=== PATIENT | male | born 1940 | race Caucasian/White ===

== ENCOUNTER → 2018-01-17 08:54 | Outpatient (CLI) | payer MEDICARE, SELFPAY | PROVIDERS: PCP Internal Medicine; Visit Provider Internal Medicine | DX: L89.143 Pressure ulcer of left lower back, stage 3 (principal); E66.01 Morbid (severe) obesity due to excess calories; E11.65 Type 2 diabetes mellitus with hyperglycemia; Z99.3 Dependence on wheelchair | CPT/HCPCS: 99213 ==

== ENCOUNTER → 2018-01-25 08:45 | Outpatient (CLI) | payer MEDICARE, SELFPAY | PROVIDERS: PCP Internal Medicine; Visit Provider Internal Medicine | DX: L89.323 Pressure ulcer of left buttock, stage 3 (principal); E66.01 Morbid (severe) obesity due to excess calories; Z99.3 Dependence on wheelchair; E11.628 Type 2 diabetes mellitus with other skin complications | CPT/HCPCS: 99212 ==

== ENCOUNTER → 2018-01-28 08:18 | Outpatient (REF) | payer MEDICARE, SELFPAY ==
[2018-01-28 08:57] LABS: INR 2.5 (0.9-1.3); Prothrombin Time 27.1 SECONDS (10.1-12.7)
== END ==
LOC: LAB 08:18
PROVIDERS: PCP Internal Medicine; Visit Provider Internal Medicine
DX: Z92.29 Personal history of other drug therapy (principal)
CPT/HCPCS: 36415; 85610

== ENCOUNTER → 2018-01-31 08:30 | Outpatient (CLI) | payer MEDICARE, SELFPAY | PROVIDERS: PCP Internal Medicine; Visit Provider Internal Medicine | DX: L89.313 Pressure ulcer of right buttock, stage 3 (principal); L89.323 Pressure ulcer of left buttock, stage 3; E66.01 Morbid (severe) obesity due to excess calories; Z99.3 Dependence on wheelchair; E11.628 Type 2 diabetes mellitus with other skin complications | CPT/HCPCS: 99213 ==

== ENCOUNTER → 2018-02-07 13:07 | Outpatient (CLI) | payer MEDICARE, SELFPAY ==
--- NOTE | 2018-02-07 | OV.WND_ITS ---
Progress Note Details Patient Name: Yrn Roberts Patient Number: [id number] PatientPatientDate: 02/07/2018 Clinician: Ele Frazier Clinician Cosigner: Olimpia Mckeon Physician / Etcher Hand: mIer Ramos SUBJECTIVE Chief Complaint This information was obtained from the patient Pressure ulcers on buttocks. No fever or chills, did see cartiologist last week. Allergies Dilaudid (Severity: Severe, Reaction: swelling of tongue) HPI This information was obtained from the patient The following HPI elements were documented for the patient's wound: Location: buttocks Quality: wound Severity: moderate Duration: constant Timin months 02/07/18. Seen by Dr. Ramos. The patient and staff report recurrence of bleeding associated with the chronic right gluteal pressure ulcer over the past week and the patient states he's spending extended periods of time in his wheelchair in stead of in bed as recommended. He's wheelchair bound and is morbidly obese which limits his abilit offload adequately. He's also on warfarin and notes his INR was around 2.5 two weeks ago and his diabetes has be poorly controlled with blood sugars frequently over 300 in clinic. 01/31/18. Seen by Dr. Ramos. The nurse reports recurrence of the right gluteal pressure ulcer and the left gluteal pr ulcer persists. She also states there's very little barrier cream over the buttocks which has been useful in managin these very refractory ulcer to help reduce shear noting the patient's essentially wheelchair dependent and morbidl obese. He also has diabetes which has been historically poorly controlled over the past few months with blood sug regularly over 300 although its 160 today. 01/25/18. Seen by Dr. Ramos. The patient does not report significant bleeding associated with chronic left gluteal pressure ulcer since his last visit. He has a right gluteal ulcer as well which has reportedly been covered with gauz secured with tape. 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 01/17/18. Seen by Dr. Ramos. The patient does not report significant bleeding associated with chronic left gluteal pressure ulcer since his last visit as was reported at his last visit. His blood sugars are again over 300 today and h response is simply that 'they're always elevated'. He resides in assisted living due to being wheelchair bound and h morbid obesity complicates the refractory pressure ulcer considerably. 01/10/18. Seen by Dr. Ramos. The patient does not report significant bleeding associated with chronic left gluteal pressure ulcer since his last visit as was reported at his last visit. 01/03/18. Seen by Dr. Ramos. The staff report recurrence of bleeding associated with the chronic left gluteal pressu ulcer upon removal of his dressing while at his [facility]. 12/27/2017. Seen by Dr. Ramos. The staff report recurrence of significant bleeding associated with the chronic le gluteal pressure ulcer upon removal of his dressing in clinic today. Of note, patient has morbid obesity and is wheelchair bound and is also on warfarin which has complicated this ulcer considerably. 12/20/17. see addendum to progress note of this date. 12/13/[address] Ramos. The patient does not report significant bleeding associated with chronic left gluteal pressure ulcer since his last visit as was reported at his last visit. His blood sugars is again near 300 today and has chronically elevated for the past few months. He's also morbidly obese and wheelchair dependent which makes eff offloading very difficulty. 12/06/17. Seen by Dr. Ramos. The patient presents today for review of the chronic left gluteal pressure ulcer howev the staff stated there is significant bleeding upon removal of the dressing. The patient is morbidly obese and wheelchair-bound and is also on warfarin with an INR of 2.0 about 1 week ago. He reports some pain at the site a has had issues he feels with shearing of the ulcer area when moving from his wheelchair. 11/26/17. Seen by Dr. Ramos. The patient does not report bleeding associated with chronic left gluteal pressure ul since his last visit however he does report some significant pruritus in the periulcer area. He states this has cause to scratch the area which in turn leads to bleeding. Of note he is wheelchair- bound and morbidly obese which significant complicates his wound healing. 11/19/17. Seen by Dr. Ramos. The patient does not report pain or significant drainage associated with a chronic le gluteal pressure ulcers since his last visit. He also doesn't report recurrence of heavy bleeding as had occurred previously. His condition is complicated by morbid obesity and is essentially wheelchair bound and finds it very dif to offload as recommended. Also, his blood sugar is 290 today in the clinic and his A1c is 10.7 up from 8.2 in Octo last year. 11/12/17. Seen by Dr. Ramos. The patient returns to clinic reporting persistent bleeding from a recurrence of a left gluteal pressure ulcer that was recently healed. He was seen in the ER last week for this problem and his INR was He states the bleeding continues and his dressings are being changed daily. Of note, he's morbidly obese and wheelchair dependent and on warfarin due to a history of PE's. 09/17/17. Seen by Dr. Ramos. The patient does not report increased pain nor drainage associated with chronic glut pressure ulcer since his last visit. 09/10/17. Seen by Dr. Ramos. The patient does not report increased pain nor drainage associated with chronic glut pressure ulcer since his last visit. 09/02/17. Seen by Dr. Ramos. The patient does not report increased pain nor drainage associated with chronic glute pressure ulcer since his last visit. He now has an offloading pressure relief mattress and has slept on it for one nig 08/24/17. Seen by Dr. Ramos. The patient does not report increased pain nor drainage associated with chronic gl pressure ulcer since his last visit. He states he's been offloading by lying in bed over the past 3-4 days however h been on his back majority of time. 08/16/17. Seen by Dr. Ramos. The patient returns to our clinic after being seen in 2012 for chronic gluteal pressu ulcers. He is paraplegic and wheelchair bound and states that the ulcers have been an ongoing problem for years. uses a pressure relief cushion in his wheelchair but does spend a significant period of time and it throughout the d He states the ulcers are somewhat painful but does not report significant drainage or fevers. Also, the patient has diabetes and his blood sugar is 290 today. Patient is unable to reposition himself in bed and chair so a great deal of pressure in on his buttocks. About three months ago the buttocks got worse. Patient states that pain gets up to a 8-10 when repositioning. THe wound ble Went to see PCP and was referred to clinic. 12/30/12 apply ointment to buttocks and no problems. Patient sta that he is not in as much discomfort 01/20/13 States had been doing better until seeral days ago. Now has sever stage 2 areas of breakdown on inner buttocks bilaterally. Sleeps in reclincer, states has gel cushion and that he o loads but these do look like pressure areas. 01/30 Patient states the wounds are not getting any better. change dressings and says the dressings pull off more skin when she removes them. 02/13/13 Patient doesn't think the lidocaine cream helps much. They ran out and went to get a refill and were told couldn't refill until tomorrow. Patient would like a higher strength numbing cream.02/23/13 Patient states that wou improving. Continues to apply ointment about three times a day. 03/09/13 Pt states he had a CAT scan because he thinks he has a kidney stone. PT has seen Dr. Espinal. 03/30/13 Patient was admitted into the hospital for kidney stones on 03/23-03/25. Meds were all continued as normal patient was discharged. He is complaining of dizziness that just started today. Buttocks wound seems to be deteriorating. Bright red and sheered looking. 04/11/13 wound on buttocks seems to be deteriorating. Very painful for patient. States his PCP referred him to a horse trekking guide. He thinks maybe his skin problem on his arms might be the same as the problem on his buttocks. 07/10/13 Pt still c/o wound on buttocks but states decreased pain and that he has been seeing dermatology for ca states duoderm has been helpful. Past Medical History This information was obtained from the patient Patient has a medical history of: Type 2 Diabetes Mellitus Sleep Apnea Hypertension Atrial fibrillation (Has a pacemaker that was placed 15 months ago) Arthritis Spinal Stenosis, lumbar region Obesity Complaints and Symptoms This information was obtained from the patient Patient complains of: General Notes: I have reviewed and concur with the Review of Systems and Past Family Social History documents completed by the clinician, I have reviewed and concur with the Wound Assessment document completed by the clinician Cardiovascular (Central/Peripheral): Edema, Lower extremity (leg) swelling Genitourinary (): Urinary Incontinence Hematologic/Lymphatic: Bleeding Tendency Integumentary (Hair/Skin/Nails): Open Sore Musculoskeletal: Deformities (kyphosis), Assistive Devices, Backache, Muscle Weakness Prior Wound History: Drainage, Erythema, Pain Patient denies complaints or symptoms related to: Cardiovascular (Central): Chest Pain, Irregular heart beat Constitutional Symptoms (General Health): Chills, Fever Ear/Nose/Mouth/Throat: Hearing Loss / Aid Eyes: Partial/Complete Blindness Gastrointestinal (GI): Nausea / Vomiting, Stomach/abdominal pain Hematologic/Lymphatic: Bleeding / Clotting Disorders Neurological: Loss of Protective Sensation, Tremors Psychiatric: Claustrophobia, Memory Loss Respiratory: Oxygen Use, Shortness of Breath OBJECTIVE Constitutional BP elevated; Afebrile; Alert and in no distress. Frail appearing. Height/Length : 71 in (180.34 cm), Weight: 264.3 l (120.14 kgs), BMI: 36.9, Temperature: 98.7 ?F (37.06 ?C), Pulse: 62 bpm, Respiratory Rate: 18 breaths/min, Blo Pressure: 140/78 mmHg, Capillary Blood Glucose: 300 mg/dl, Pulse Oximetry: 94 %. Vital Signs Notes: Glucose per patient Respiratory: No respiratory distress. Even respirations and without use of accessory muscles.. Gastrointestinal (GI): Obese. Nondistended.. Integumentary (Hair, Skin) Mild periwound erythema without warmth; bleeding noted on the dressings. Refer to appropriate clinician wound documentation for this visit; right gluteal ulcer extend to subcut with base covered with pink granulation; no signs infection. Wound #6 Right Buttock is a chronic Stage 3 Pressure Injury Pressure Ulcer and has received a status of Not Heal Subsequent wound encounter measurements are 0.5cm length x 0.4cm width x 0.1cm depth, with an area of 0.2 s and a volume of 0.02 cubic cm. No tunneling has been noted. No sinus tract has been noted. No undermining has noted. There is a scant amount of sanguineous drainage noted which has no odor. The patient reports a wound pa level 3/10. The wound margin is irregular. Wound bed has Yes epithelialization, No eschar, No slough, Yes bright r firm granulation. The periwound skin texture is normal. The periwound skin moisture is normal. The periwound skin color is normal. temperature of the periwound skin is WNL. Periwound skin does not exhibit signs or symptoms of infection. Local P is N/A. General Notes: Scattered open areas across buttocks. Neurological: Cranial nerves grossly intact with symmetric function normal by informal observation.. ASSESSMENT Active Problems ICD-10 (Encounter Diagnosis) L89.43 - Pressure ulcer of contiguous site of back, buttock and hip, stage 3 (Encounter Diagnosis) E66.01 - Morbid (severe) obesity due to excess calories (Encounter Diagnosis) Z99.3 - Dependence on wheelchair (Encounter Diagnosis) E11.628 - Type 2 diabetes mellitus with other skin complications PLAN Wound Orders: Wound #6 Right Buttock Anesthetic Topical Xylocaine to wound bed. Cleanser Cleanse Wound: - Normal Saline. May Shower. - Please avoid getting tap water in wound Topical Treatments Barrier ointment to protect surround skin. - Barrier cream, Zinc. Butt Paste used in clinic. Please use generous am with every brief change Additional Orders: Off-Loading Wheelchair Cushion. Seat lifts or shift position in chair every 15 minutes. Turn every 2 hours. Avoid position directing pressure to Wound site. Limit side lying to 30 degree tilt. Limit HOB elevation to 30 degrees in bed. Follow-Up Appointments Return Appointment: - - In one week. Other information: If you develop fever, chills, increased pain, drainage, redness or swelling please call our office. after hours, respond to the ER. Should you experience any significant changes in your wound(s) or have any quest regarding your home care instructions please contact the wound center @ . If after hours, contact y primary care physician or go to the hospital emergency room. Scribing Attestation I attest, as the nurse, that I scribed these orders for the physician. General Notes: Please have patient spend more time in bed with every two hour turns. I've reviewed the clinician's documentation and agree with the evaluation and plan as written. Also, I've reinforced need for the patient to spend less time in his wheelchair and considerably more lying on his side in bed over the n week to better facilitate offloading of these very refractory pressure ulcers. Electronic Signature(s) Signed By: Date: Imer Ramos MD 02/08/2018 10:10:58 Imer Ramos MD 02/08/2018 10:10:58 Entered By: Imer Ramos on 02/07/2018 13:31:15
== END ==
PROVIDERS: PCP Internal Medicine; Visit Provider Internal Medicine
DX: L89.43 Pressure ulcer of contiguous site of back, buttock and hip, stage 3 (principal); E66.01 Morbid (severe) obesity due to excess calories; E11.628 Type 2 diabetes mellitus with other skin complications; Z99.3 Dependence on wheelchair
CPT/HCPCS: 99213

== ENCOUNTER → 2018-02-14 13:15 | Outpatient (CLI) | payer MEDICARE, SELFPAY ==
--- NOTE | 2018-02-14 | OV.WND_ITS ---
Progress Note Details Patient Name: Yrn Roberts Patient Number: [id number] PatientPatientDate: 02/14/2018 Clinician: Ele Frazier Physician / Medical Sales Consultant: Imer Ramos SUBJECTIVE Chief Complaint This information was obtained from the patient Pressure ulcers on buttocks. Allergies Dilaudid (Severity: Severe, Reaction: swelling of tongue) HPI This information was obtained from the patient The following HPI elements were documented for the patient's wound: Location: buttocks Quality: wound Severity: moderate Duration: constant Timin months 02/14/18. Seen by Dr. Ramos. The patient does not report significant bleeding associated with chronic left and right gluteal pressure ulcers since his last visit however there appears to be a new satellite ulcer over the right buttock. admits it's difficulty to adequately offload due to being wheelchair bound and with limited assistance at his care fa He's also morbidly obese and quite weak in general which complicates the ulcers considerably. 02/07/18. Seen by Dr. Rmaos. The patient and staff report recurrence of bleeding associated with the chronic right gluteal pressure ulcer over the past week and the patient states he's spending extended periods of time in his wheelchair in stead of in bed as recommended. He's wheelchair bound and is morbidly obese which limits his abilit offload adequately. He's also on warfarin and notes his INR was around 2.5 two weeks ago and his diabetes has be poorly controlled with blood sugars frequently over 300 in clinic. 01/31/18. Seen by Dr. Ramos. The nurse reports recurrence of the right gluteal pressure ulcer and the left gluteal pr ulcer persists. She also states there's very little barrier cream over the buttocks which has been useful in managin these very refractory ulcer to help reduce shear noting the patient's essentially wheelchair dependent and morbidl obese. He also has diabetes which has been historically poorly controlled over the past few months with blood sug regularly over 300 although its 160 today. 01/25/18. Seen by Dr. Ramos. The patient does not report significant bleeding associated with chronic left gluteal pressure ulcer since his last visit. He has a right gluteal ulcer as well which has reportedly been covered with gauz secured with tape. 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 01/17/18. Seen by Dr. Ramos. The patient does not report significant bleeding associated with chronic left gluteal pressure ulcer since his last visit as was reported at his last visit. His blood sugars are again over 300 today and h response is simply that 'they're always elevated'. He resides in assisted living due to being wheelchair bound and h morbid obesity complicates the refractory pressure ulcer considerably. 01/10/18. Seen by Dr. Ramos. The patient does not report significant bleeding associated with chronic left gluteal pressure ulcer since his last visit as was reported at his last visit. 01/03/18. Seen by Dr. Ramos. The staff report recurrence of bleeding associated with the chronic left gluteal pressu ulcer upon removal of his dressing while at his [facility]. 12/27/2017. Seen by Dr. Ramos. The staff report recurrence of significant bleeding associated with the chronic le gluteal pressure ulcer upon removal of his dressing in clinic today. Of note, patient has morbid obesity and is wheelchair bound and is also on warfarin which has complicated this ulcer considerably. 12/20/17. see addendum to progress note of this date. 12/13/[address] Ramos. The patient does not report significant bleeding associated with chronic left gluteal pressure ulcer since his last visit as was reported at his last visit. His blood sugars is again near 300 today and has chronically elevated for the past few months. He's also morbidly obese and wheelchair dependent which makes eff offloading very difficulty. 12/06/17. Seen by Dr. Ramos. The patient presents today for review of the chronic left gluteal pressure ulcer howev the staff stated there is significant bleeding upon removal of the dressing. The patient is morbidly obese and wheelchair-bound and is also on warfarin with an INR of 2.0 about 1 week ago. He reports some pain at the site a has had issues he feels with shearing of the ulcer area when moving from his wheelchair. 11/26/17. Seen by Dr. Ramos. The patient does not report bleeding associated with chronic left gluteal pressure ul since his last visit however he does report some significant pruritus in the periulcer area. He states this has cause to scratch the area which in turn leads to bleeding. Of note he is wheelchair- bound and morbidly obese which significant complicates his wound healing. 11/19/17. Seen by Dr. Ramos. The patient does not report pain or significant drainage associated with a chronic le gluteal pressure ulcers since his last visit. He also doesn't report recurrence of heavy bleeding as had occurred previously. His condition is complicated by morbid obesity and is essentially wheelchair bound and finds it very dif to offload as recommended. Also, his blood sugar is 290 today in the clinic and his A1c is 10.7 up from 8.2 in last year. 11/12/17. Seen by Dr. Ramos. The patient returns to clinic reporting persistent bleeding from a recurrence of a left gluteal pressure ulcer that was recently healed. He was seen in the ER last week for this problem and his INR was He states the bleeding continues and his dressings are being changed daily. Of note, he's morbidly obese and wheelchair dependent and on warfarin due to a history of PE's. 09/17/17. Seen by Dr. Ramos. The patient does not report increased pain nor drainage associated with chronic glut pressure ulcer since his last visit. 09/10/17. Seen by Dr. Ramos. The patient does not report increased pain nor drainage associated with chronic glut pressure ulcer since his last visit. 09/02/17. Seen by Dr. Ramos. The patient does not report increased pain nor drainage associated with chronic glute pressure ulcer since his last visit. He now has an offloading pressure relief mattress and has slept on it for one nig 08/24/17. Seen by Dr. Ramos. The patient does not report increased pain nor drainage associated with chronic gl pressure ulcer since his last visit. He states he's been offloading by lying in bed over the past 3-4 days however h been on his back majority of time. 08/16/17. Seen by Dr. Ramos. The patient returns to our clinic after being seen in 2012 for chronic gluteal pressu ulcers. He is paraplegic and wheelchair bound and states that the ulcers have been an ongoing problem for years. uses a pressure relief cushion in his wheelchair but does spend a significant period of time and it throughout the d He states the ulcers are somewhat painful but does not report significant drainage or fevers. Also, the patient has diabetes and his blood sugar is 290 today. Patient is unable to reposition himself in bed and chair so a great deal of pressure in on his buttocks. About three months ago the buttocks got worse. Patient states that pain gets up to a 8-10 when repositioning. THe wound ble Went to see PCP and was referred to clinic. 12/30/12 apply ointment to buttocks and no problems. Patient sta that he is not in as much discomfort 01/20/13 States had been doing better until seeral days ago. Now has sever stage 2 areas of breakdown on inner buttocks bilaterally. Sleeps in reclincer, states has gel cushion and that he o loads but these do look like pressure areas. 01/30 Patient states the wounds are not getting any better. change dressings and says the dressings pull off more skin when she removes them. 02/13/13 Patient doesn't think the lidocaine cream helps much. They ran out and went to get a refill and were told couldn't refill until tomorrow. Patient would like a higher strength numbing cream.02/23/13 Patient states that wou improving. Continues to apply ointment about three times a day. 03/09/13 Pt states he had a CAT scan because he thinks he has a kidney stone. PT has seen Dr. Espinal. 03/30/13 Patient was admitted into the hospital for kidney stones on 03/23-03/25. Meds were all continued as normal patient was discharged. He is complaining of dizziness that just started today. Buttocks wound seems to be deteriorating. Bright red and sheered looking. 04/11/13 wound on buttocks seems to be deteriorating. Very painful for patient. States his PCP referred him to a terrazzo helper. He thinks maybe his skin problem on his arms might be the same as the problem on his buttocks. 07/10/13 Pt still c/o wound on buttocks but states decreased pain and that he has been seeing dermatology for ca states duoderm has been helpful. Past Medical History This information was obtained from the patient Patient has a medical history of: Type 2 Diabetes Mellitus Sleep Apnea Hypertension Atrial fibrillation (Has a pacemaker that was placed 15 months ago) Arthritis Spinal Stenosis, lumbar region Obesity Complaints and Symptoms This information was obtained from the patient Patient complains of: General Notes: I have reviewed and concur with the Review of Systems and Past Family Social History documents completed by the clinician, I have reviewed and concur with the Wound Assessment document completed by the clinician Cardiovascular (Central/Peripheral): Edema, Lower extremity (leg) swelling Genitourinary (): Urinary Incontinence Hematologic/Lymphatic: Bleeding Tendency Integumentary (Hair/Skin/Nails): Open Sore Musculoskeletal: Deformities (kyphosis), Assistive Devices, Backache, Muscle Weakness Prior Wound History: Drainage, Erythema, Pain Patient denies complaints or symptoms related to: Cardiovascular (Central): Chest Pain, Irregular heart beat Constitutional Symptoms (General Health): Chills, Fever Ear/Nose/Mouth/Throat: Hearing Loss / Aid Eyes: Partial/Complete Blindness Gastrointestinal (GI): Nausea / Vomiting, Stomach/abdominal pain Hematologic/Lymphatic: Bleeding / Clotting Disorders Neurological: Loss of Protective Sensation, Tremors Psychiatric: Claustrophobia, Memory Loss Respiratory: Oxygen Use, Shortness of Breath OBJECTIVE Constitutional BP normal; Low grade fever; Alert and in no distress. Frail appearing. Height/ Length: 71 in (180.34 cm), Weight: lbs (120.14 kgs), BMI: 36.9, Temperature: 99.2 ?F (37.33 ?C), Pulse: 78 bpm, Respiratory Rate: 18 breaths/min, Pressure: 112/71 mmHg, Pulse Oximetry: 92 %. Vital Signs Notes: Patient reports CBG under 150 this am. Ears, Nose, Mouth, and Throat: Mild hearing deficit. Respiratory: No respiratory distress. Even respirations and without use of accessory muscles.. Gastrointestinal (GI): Obese. Nondistended.. Integumentary (Hair, Skin) No periwound erythema, warmth, or significant drainage. No periwound rashes appreciated or noted otherwise.. R appropriate clinician wound documentation for this visit; bilateral gluteal ulcers extend to subcut with bases covere with red friable granulation. Wound #6 Right Buttock is a chronic Stage 3 Pressure Injury Pressure Ulcer and has received a status of Not Heal Subsequent wound encounter measurements are 4cm length x 3cm width x 0.2cm depth , with an area of 12 sq cm a volume of 2.4 cubic cm. No tunneling has been noted. No sinus tract has been noted. No undermining has been There is a scant amount of sanguineous drainage noted which has no odor. The patient reports a wound pain of le 3/10. The wound margin is irregular. Wound bed has Yes epithelialization, No eschar, No slough, Yes bright red, fir granulation. The periwound skin texture is normal. The periwound skin moisture is normal. The periwound skin color is normal. temperature of the periwound skin is WNL. Periwound skin does not exhibit signs or symptoms of infection. Local P is N/A. Wound #7 Left Buttock is a chronic Stage 2 Pressure Injury Pressure Ulcer and has received a status of Not Healed Initial wound encounter measurements are 1.5cm length x 0.3cm width x 0.2cm depth, with an area of 0.45 sq cm a volume of 0.09 cubic cm. No tunneling has been noted. No sinus tract has been noted. No undermining has been noted. There is a moderate amount of sanguineous drainage noted which has no odor. The patient reports a woun of level 3/10. The wound margin is attached. Wound bed has No epithelialization , No eschar, No slough, Yes bright firm granulation. The periwound skin texture is normal. The periwound skin moisture is normal. The periwound skin color is normal. temperature of the periwound skin is WNL. Periwound skin does not exhibit signs or symptoms of infection. Local P is N/A. Neurological: Cranial nerves grossly intact with symmetric function normal by informal observation.. ASSESSMENT Active Problems ICD-10 (Encounter Diagnosis) L89.43 - Pressure ulcer of contiguous site of back, buttock and hip, stage 3 (Encounter Diagnosis) E66.01 - Morbid (severe) obesity due to excess calories (Encounter Diagnosis) Z99.3 - Dependence on wheelchair PLAN Wound Orders: Wound #6 Right Buttock Anesthetic Topical Xylocaine to wound bed. Cleanser Cleanse Wound: - Normal Saline. May Shower. - Please avoid getting tap water in wound Topical Treatments Barrier ointment to protect surround skin. - Barrier cream, Zinc. Butt Paste used in clinic. Please use generous am with every brief change Wound #7 Left Buttock Anesthetic Topical Xylocaine to wound bed. Cleanser Cleanse Wound: - Normal Saline. May Shower. - Please avoid getting tap water in wound Topical Treatments Barrier ointment to protect surround skin. - Barrier cream, Zinc. Butt Paste used in clinic. Please use generous am with every brief change Additional Orders: Off-Loading Wheelchair Cushion. Seat lifts or shift position in chair every 15 minutes. Turn every 2 hours. Avoid position directing pressure to Wound site. Limit side lying to 30 degree tilt. Limit HOB elevation to 30 degrees in bed. Follow-Up Appointments Return Appointment: - - In one week. Other information: If you develop fever, chills, increased pain, drainage, redness or swelling please call our office. after hours, respond to the ER. Should you experience any significant changes in your wound(s) or have any quest regarding your home care instructions please contact the wound center @ . If after hours, contact y primary care physician or go to the hospital emergency room. Scribing Attestation I attest, as the nurse, that I scribed these orders for the physician. General Notes: Please have patient spend more time in bed with every two hour turns No adhesive dressings to buttocks. I've reviewed the clinician's documentation and agree with the evaluation and plan as written. Also, I've advised th patient to use a rolled towel or head pillow under the hips, rotating every hour while in his wheelchair, to help faci optimal offloading of the gluteal pressure ulcers. Electronic Signature(s) Signed By: Date: Imer Ramos MD 02/14/2018 14:41:04 Entered By: Imer Ramos on 02/14/2018 12:01:47
== END ==
PROVIDERS: PCP Internal Medicine; Visit Provider Internal Medicine
DX: E66.01 Morbid (severe) obesity due to excess calories (principal); Z99.3 Dependence on wheelchair; L89.322 Pressure ulcer of left buttock, stage 2; L89.313 Pressure ulcer of right buttock, stage 3
CPT/HCPCS: 99213

== ENCOUNTER → 2018-02-21 09:38 | Outpatient (CLI) | payer MEDICARE, SELFPAY ==
[2018-02-21 15:48] LABS: Prealbumin 15.9 mg/dL (17.6-36.0)
[2018-02-23 12:56] LABS: BUN Creatinine Ratio 18.9 (6-22); Blood Urea Nitrogen 17 mg/dL (9-20); Calcium 9.3 mg/dL (8.4-10.2); Carbon Dioxide 26 mmol/L (22-32); Chloride 101 mmol/L (98-107); Estimated Glomerular Filt Rate > 60.0 mL/min (>60); Glucose 194 mg/dL (80-110); HEMOLYSIS < 15 (0-50); Potassium 4.6 mmol/L (3.4-5.1); Sodium 138 mmol/L (137-145)
== END ==
PROVIDERS: Student in an Organized Health Care Education/Training Program; PCP Internal Medicine; Visit Provider Physician Assistant
DX: R19.7 Diarrhea, unspecified (principal); E63.9 Nutritional deficiency, unspecified
CPT/HCPCS: 36415; 80048; 84134

== ENCOUNTER → 2018-02-21 09:58 | Outpatient (CLI) | payer MEDICARE, SELFPAY ==
--- NOTE | 2018-02-21 | OV.WND_ITS ---
Progress Note Details Patient Name: Yrn Roberts Patient Number: [id number] PatientPatientDate: 02/21/2018 Clinician: Ele Frazier Clinician Cosigner: Giselle Chavez Physician / Belt Loop Maker: Alexander Michel SUBJECTIVE Chief Complaint This information was obtained from the patient Pressure ulcers on buttocks. Allergies Dilaudid (Severity: Severe, Reaction: swelling of tongue) HPI This information was obtained from the patient The following HPI elements were documented for the patient's wound: Location: buttocks Quality: wound Severity: moderate Duration: constant Timin months 02/21/18. Seen by Ruben Michel PA-C. The patient reports that he feels his pressure ulcers are not improving, and he it is largely due to his assisted living facility not complying with our orders. 02/14/18. Seen by Dr. Ramos. The patient does not report significant bleeding associated with chronic left and right gluteal pressure ulcers since his last visit however there appears to be a new satellite ulcer over the right buttock. admits it's difficulty to adequately offload due to being wheelchair bound and with limited assistance at his care fa He's also morbidly obese and quite weak in general which complicates the ulcers considerably. 02/07/18. Seen by Dr. Ramos. The patient and staff report recurrence of bleeding associated with the chronic right gluteal pressure ulcer over the past week and the patient states he's spending extended periods of time in his wheelchair in stead of in bed as recommended. He's wheelchair bound and is morbidly obese which limits his abilit offload adequately. He's also on warfarin and notes his INR was around 2.5 two weeks ago and his diabetes has be poorly controlled with blood sugars frequently over 300 in clinic. 01/31/18. Seen by Dr. Ramos. The nurse reports recurrence of the right gluteal pressure ulcer and the left gluteal pr ulcer persists. She also states there's very little barrier cream over the buttocks which has been useful in managin these very refractory ulcer to help reduce shear noting the patient's essentially wheelchair dependent and morbidl obese. He also has diabetes which has been historically poorly controlled over the past few months with blood sug regularly over 300 although its 160 today. 01/25/18. Seen by Dr. Ramos. The patient does not report significant bleeding associated with chronic left gluteal pressure ulcer since his last visit. He has a right gluteal ulcer as well which has reportedly been covered with gauz secured with tape. 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 01/17/18. Seen by Dr. Raoms. The patient does not report significant bleeding associated with chronic left gluteal pressure ulcer since his last visit as was reported at his last visit. His blood sugars are again over 300 today and h response is simply that 'they're always elevated'. He resides in assisted living due to being wheelchair bound and h morbid obesity complicates the refractory pressure ulcer considerably. 01/10/18. Seen by Dr. Ramos. The patient does not report significant bleeding associated with chronic left gluteal pressure ulcer since his last visit as was reported at his last visit. 01/03/18. Seen by Dr. Ramos. The staff report recurrence of bleeding associated with the chronic left gluteal pressu ulcer upon removal of his dressing while at his [facility]. 12/27/2017. Seen by Dr. Ramos. The staff report recurrence of significant bleeding associated with the chronic le gluteal pressure ulcer upon removal of his dressing in clinic today. Of note, patient has morbid obesity and is wheelchair bound and is also on warfarin which has complicated this ulcer considerably. 12/20/17. see addendum to progress note of this date. 12/13/[address] Ramos. The patient does not report significant bleeding associated with chronic left gluteal pressure ulcer since his last visit as was reported at his last visit. His blood sugars is again near 300 today and has chronically elevated for the past few months. He's also morbidly obese and wheelchair dependent which makes eff offloading very difficulty. 12/06/17. Seen by Dr. Ramos. The patient presents today for review of the chronic left gluteal pressure ulcer howev the staff stated there is significant bleeding upon removal of the dressing. The patient is morbidly obese and wheelchair-bound and is also on warfarin with an INR of 2.0 about 1 week ago. He reports some pain at the site a has had issues he feels with shearing of the ulcer area when moving from his wheelchair. 11/26/17. Seen by Dr. Ramos. The patient does not report bleeding associated with chronic left gluteal pressure ul since his last visit however he does report some significant pruritus in the periulcer area. He states this has cause to scratch the area which in turn leads to bleeding. Of note he is wheelchair- bound and morbidly obese which significant complicates his wound healing. 11/19/17. Seen by Dr. Ramos. The patient does not report pain or significant drainage associated with a chronic le gluteal pressure ulcers since his last visit. He also doesn't report recurrence of heavy bleeding as had occurred previously. His condition is complicated by morbid obesity and is essentially wheelchair bound and finds it very dif to offload as recommended. Also, his blood sugar is 290 today in the clinic and his A1c is 10.7 up from 8.2 in [facility] last year. 11/12/17. Seen by Dr. Ramos. The patient returns to clinic reporting persistent bleeding from a recurrence of a left gluteal pressure ulcer that was recently healed. He was seen in the ER last week for this problem and his INR was He states the bleeding continues and his dressings are being changed daily. Of note, he's morbidly obese and wheelchair dependent and on warfarin due to a history of PE's. 09/17/17. Seen by Dr. Ramos. The patient does not report increased pain nor drainage associated with chronic glut pressure ulcer since his last visit. 09/10/17. Seen by Dr. Ramos. The patient does not report increased pain nor drainage associated with chronic glut pressure ulcer since his last visit. 09/02/17. Seen by Dr. Ramos. The patient does not report increased pain nor drainage associated with chronic glute pressure ulcer since his last visit. He now has an offloading pressure relief mattress and has slept on it for one nig 08/24/17. Seen by Dr. Ramos. The patient does not report increased pain nor drainage associated with chronic gl pressure ulcer since his last visit. He states he's been offloading by lying in bed over the past 3-4 days however h been on his back majority of time. 08/16/17. Seen by Dr. Ramos. The patient returns to our clinic after being seen in 2012 for chronic gluteal pressu ulcers. He is paraplegic and wheelchair bound and states that the ulcers have been an ongoing problem for years. uses a pressure relief cushion in his wheelchair but does spend a significant period of time and it throughout the d He states the ulcers are somewhat painful but does not report significant drainage or fevers. Also, the patient has diabetes and his blood sugar is 290 today. Patient is unable to reposition himself in bed and chair so a great deal of pressure in on his buttocks. About three months ago the buttocks got worse. Patient states that pain gets up to a 8-10 when repositioning. THe wound ble Went to see PCP and was referred to clinic. 12/30/12 apply ointment to buttocks and no problems. Patient sta that he is not in as much discomfort 01/20/13 States had been doing better until seeral days ago. Now has sever stage 2 areas of breakdown on inner buttocks bilaterally. Sleeps in reclincer, states has gel cushion and that he o loads but these do look like pressure areas. 01/30 Patient states the wounds are not getting any better. change dressings and says the dressings pull off more skin when she removes them. 02/13/13 Patient doesn't think the lidocaine cream helps much. They ran out and went to get a refill and were told couldn't refill until tomorrow. Patient would like a higher strength numbing cream.02/23/13 Patient states that wou improving. Continues to apply ointment about three times a day. 03/09/13 Pt states he had a CAT scan because he thinks he has a kidney stone. PT has seen Dr. Espinal. 03/30/13 Patient was admitted into the hospital for kidney stones on 03/23-03/25. Meds were all continued as normal patient was discharged. He is complaining of dizziness that just started today. Buttocks wound seems to be deteriorating. Bright red and sheered looking. 04/11/13 wound on buttocks seems to be deteriorating. Very painful for patient. States his PCP referred him to a optical laboratory manager. He thinks maybe his skin problem on his arms might be the same as the problem on his buttocks. 07/10/13 Pt still c/o wound on buttocks but states decreased pain and that he has been seeing dermatology for ca states duoderm has been helpful. 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 Past Medical History This information was obtained from the patient Patient has a medical history of: Type 2 Diabetes Mellitus Sleep Apnea Hypertension Atrial fibrillation (Has a pacemaker that was placed 15 months ago) Arthritis Spinal Stenosis, lumbar region Obesity Complaints and Symptoms This information was obtained from the patient Patient complains of: General Notes: I have reviewed and concur with the Review of Systems and Past Family Social History documents completed by the clinician, I have reviewed and concur with the Wound Assessment document completed by the clinician Cardiovascular (Central/Peripheral): Edema, Lower extremity (leg) swelling Genitourinary (): Urinary Incontinence Hematologic/Lymphatic: Bleeding Tendency Integumentary (Hair/Skin/Nails): Open Sore Musculoskeletal: Deformities (kyphosis), Assistive Devices, Backache, Muscle Weakness Prior Wound History: Drainage, Erythema, Pain Patient denies complaints or symptoms related to: Cardiovascular (Central): Chest Pain, Irregular heart beat Constitutional Symptoms (General Health): Chills, Fever Ear/Nose/Mouth/Throat: Hearing Loss / Aid Eyes: Partial/Complete Blindness Gastrointestinal (GI): Nausea / Vomiting, Stomach/abdominal pain Hematologic/Lymphatic: Bleeding / Clotting Disorders Neurological: Loss of Protective Sensation, Tremors Psychiatric: Claustrophobia, Memory Loss Respiratory: Oxygen Use, Shortness of Breath OBJECTIVE Constitutional Vital signs reviewed and noted. Well developed, lucid, and in no acute distress. . Height/Length: 71 in (180.34 cm Weight: 264.3 lbs (120.14 kgs), BMI: 36.9, Temperature: 98.9 ?F (37.17 ?C), Pulse: 64 bpm, Respiratory Rate: 1 breaths/min, Blood Pressure: 120/69 mmHg, Pulse Oximetry: 94 %. Ears, Nose, Mouth, and Throat: Grossly intact. Respiratory: No respiratory distress. Even respirations and without use of accessory muscles.. Gastrointestinal (GI): Obese. Nondistended.. Musculoskeletal: Uses wheelchair . Integumentary (Hair, Skin) Refer to appropriate clinician wound documentation for this visit; ulcer extends to subcutaneous fat layer. . Wound #6 Right Buttock is a chronic Stage 3 Pressure Injury Pressure Ulcer and has received a status of Not Heal Subsequent wound encounter measurements are 1cm length x 1.8cm width x 0.2cm depth, with an area of 1.8 sq and a volume of 0.36 cubic cm. No tunneling has been noted. No sinus tract has been noted. No undermining has noted. There is a moderate amount of sanguineous drainage noted which has no odor. The patient reports a woun of level 3/10. The wound margin is irregular. Wound bed has Yes epithelialization, No eschar, No slough, Yes brigh firm granulation. The periwound skin texture is normal. The periwound skin moisture is normal. The periwound skin color is normal. temperature of the periwound skin is WNL. Periwound skin does not exhibit signs or symptoms of infection. Local P is N/A. Wound #7 Left Buttock is a chronic Stage 2 Pressure Injury Pressure Ulcer and has received a status of Not Healed Subsequent wound encounter measurements are 2.5cm length x 1.3cm width x 0.2cm depth, with an area of 3.25 cm and a volume of 0.65 cubic cm. No tunneling has been noted. No sinus tract has been noted. No undermining h been noted. There is a large amount of sanguineous drainage noted which has no odor. The patient reports a woun pain of level 3/10. The wound margin is attached. Wound bed has No epithelialization, No eschar, No slough, Yes b red, firm granulation. The periwound skin texture is normal. The periwound skin moisture is normal. The periwound skin color is normal. temperature of the periwound skin is WNL. Periwound skin does not exhibit signs or symptoms of infection. Local P is N/A. Psychiatric: Judgement and insight: Normal affect with normal thought pattern. Alert and oriented 3/3. Memory grossly intact. Normal affect. Mood appropriate.. ASSESSMENT Active Problems ICD-10 (Encounter Diagnosis) L89.43 - Pressure ulcer of contiguous site of back, buttock and hip, stage 3 (Encounter Diagnosis) E66.01 - Morbid (severe) obesity due to excess calories (Encounter Diagnosis) Z99.3 - Dependence on wheelchair PLAN Wound Orders: Wound #6 Right Buttock Anesthetic Topical Xylocaine to wound bed. Cleanser Cleanse Wound: - Normal Saline. May Shower. - Please avoid getting tap water in wound Topical Treatments Barrier ointment to protect surround skin. - Barrier cream, Zinc. Butt Paste used in clinic. Please use generous am with every brief change Wound #7 Left Buttock Anesthetic Topical Xylocaine to wound bed. Cleanser Cleanse Wound: - Normal Saline. May Shower. - Please avoid getting tap water in wound Topical Treatments Barrier ointment to protect surround skin. - Barrier cream, Zinc. Butt Paste used in clinic. Please use generous am with every brief change Additional Orders: Off-Loading Wheelchair Cushion. Seat lifts or shift position in chair every 15 minutes. Turn every 2 hours. Avoid position directing pressure to Wound site. Limit side lying to 30 degree tilt. Limit HOB elevation to 30 degrees in bed. Follow-Up Appointments Return Appointment: - - In one week. Other information: If you develop fever, chills, increased pain, drainage, redness or swelling please call our office. after hours, respond to the ER. Should you experience any significant changes in your wound(s) or have any quest regarding your home care instructions please contact the wound center @ . If after hours, contact y primary care physician or go to the hospital emergency room. Scribing Attestation I attest, as the nurse, that I scribed these orders for the physician. Laboratory: Prealbumin [Mass/volume] in Serum or Plasma General Notes: Please have pre-albumin drawn I've reviewed the clinician's documentation and agree with the evaluation and plan as written. Greater than 25 minutes were spent [id number] with the patient during this encounter and over 50% of that time spent on education, counseling and coordination of care. We discussed offloading strategies, which he feels will no implemented by his assisted facility. I have ordered a prealbumin level as this may be a correctable deficit that could be contributing to his non-healing status. Electronic Signature(s) Signed By: Date: Ruben Michel 02/21/2018 22:45:03 Entered By: Ruben Michel on 02/21/2018 22:17:22
== END ==
PROVIDERS: PCP Internal Medicine; Visit Provider Physician Assistant
DX: L89.313 Pressure ulcer of right buttock, stage 3 (principal); L89.322 Pressure ulcer of left buttock, stage 2; E66.01 Morbid (severe) obesity due to excess calories; Z99.3 Dependence on wheelchair
CPT/HCPCS: 99213

== ENCOUNTER → 2018-02-25 11:48 | Outpatient (REF) | payer MEDICARE, SELFPAY ==
[2018-02-25 14:18] LABS: Adenovirus F 40/41 Not Detected (Not Detect); Astrovirus Not Detected (Not Detect); Campylobacter Not Detected (Not Detect); Clostridium difficile toxin AB Not Detected (Not Detect); Cryptosporidium Not Detected (Not Detect); Cyclospora cayetanensis Not Detected (Not Detect); Entamoeba histolytica Not Detected (Not Detect); Enteroaggregative E.coli Not Detected (Not Detect); Enteropathogenic E.coli Not Detected (Not Detect); Enterotoxigenic E.coli It/st Not Detected (Not Detect); Giardia lamblia Not Detected (Not Detect); Norovirus GI/GII Not Detected (Not Detect); Plesiomonsa shigelloides Not Detected (Not Detect); Rotavirus A Not Detected (Not Detect); Salmonella Not Detected (Not Detect); Shiga-like toxin-prod E.coli Not Detected (Not Detect); Shigella/Enteroinvasive E.coli Not Detected (Not Detect); Vibrio Not Detected (Not Detect); Vibrio cholerae Not Detected (Not Detect); Yersinia enterocolitica Not Detected (Not Detect)
[2018-02-27 12:30] LABS: Sapovirus Not Detected
== END ==
LOC: LAB 11:48
PROVIDERS: PCP Internal Medicine; Visit Provider Student in an Organized Health Care Education/Training Program
DX: R19.7 Diarrhea, unspecified (principal)
CPT/HCPCS: 87507

== ENCOUNTER 2018-02-26 17:20 | Inpatient (IN) | payer MEDICARE, SELFPAY ==
[2018-02-26] VITALS (28 sets, daily range): BP systolic 90–220; BP diastolic 52–193; PULSE 106–164; RESP 22–32; TEMP 37.7–38.8; O2SAT 89–98; BMI 38.0
--- NOTE | 2018-02-26 17:21 | DI.CT.S_ITS ---
PROCEDURE: CT HEAD/BRAIN WO CON INDICATIONS: DECREASED LOC TECHNIQUE: Noncontrast 4.5 mm thick angled axial sections acquired from the foramen magnum to the vertex, with coronal and sagittal reformats. For radiation dose reduction, the following was used: automated exposure control, adjustment of mA and/or kV according to patient size. COMPARISON: [facility], CT, HEAD WITHOUT CONTRAST, 09/14/2016, 13:50. FINDINGS: Image quality: Excellent. CSF spaces: Basal cisterns are patent. No extra-axial fluid collections. The ventricles are symmetric in size and shape. Brain: No intracranial bleeds or masses. There is moderate cerebral volume loss for age, with resultant ventricular and sulcal prominence. There are moderate periventricular and deep white matter chronic small vessel ischemic changes. There is intracranial internal carotid artery atherosclerosis. Skull and face: Calvarium and visualized facial bones appear intact, without suspicious lesions. Sinuses: Visualized sinuses and mastoids are clear. IMPRESSION: 1. No acute intracranial abnormalities. 2. Cerebral volume loss and chronic microvascular ischemic changes. Dictated by: Yany Juarez M.D. on 02/26/2018 at 18:32 Approved by: Yany Juarez M.D. on 02/26/2018 at 18:34
--- NOTE | 2018-02-26 17:22 | DI.RAD.S_ITS ---
PROCEDURE: XR CHEST 1V INDICATIONS: FEVER CHANGE IN LOC TECHNIQUE: One view of the chest was acquired. COMPARISON: [facility], , ABDOMEN 2 VIEW, 08/13/2017, 12:11. [facility], , CHEST 1 VIEW, 02/19/2017, 19:12. FINDINGS: Surgical changes and devices: None. Lungs and pleura: Lung volumes are small consistent with poor inspiration. There is retrocardiac opacity suspicious for pneumonia. No large pleural effusions or pneumothorax. Mediastinum: Mediastinal contours appear normal. Heart size is normal. Bones and chest wall: No suspicious bony lesions. Overlying soft tissues appear unremarkable. Possible free air under the right hemidiaphragm. IMPRESSION: 1. Suspect retrocardiac pneumonia. 2. ? Free peritoneal air under the right hemidiaphragm. Dictated by: Yany Juarez M.D. on 02/26/2018 at 18:30 Approved by: Yany Juarez M.D. on 02/26/2018 at 18:32
[2018-02-26] MEDS: SODIUM CHLORIDE 0.9% 500 ML 1000 ML IV ×2 (17:38→18:50)
[2018-02-26] MEDS: ACETAMINOPHEN 650 MG SUPP PR (17:38)
--- NOTE | 2018-02-26 17:45 | ED.FEVER ---
HPI - Fever <ALY Tyson - Last Filed: 02/26/18 22:02> General Chief Complaint: Fever Stated Complaint: Fever,Change in loc Time Seen by Provider: 02/26/18 17:30 Source: EMS and old records reviewed Mode of arrival: EMS History of Present Illness HPI Narrative: 77 YEAR old male with history of type 1 diabetes and atrial fibrillation brought in by EMS due to decreased level of consciousness over the past few hours. Patient has also had a fever and has had complaint of not feeling well over the past day or 2. Blood sugar was at 224 EN route by EMS. IV was obtained. Patient is responding to pain not to verbal stimuli. No known falls. No known trauma. Positive p.o. intake as of earlier today. MD complaint: fever Related Data Home Medications Medication Instructions Recorded Confirmed dofetilide [Tikosyn] 0.5 mg PO BID #0 06/17/11 02/26/18 lisinopril [Zestril] 20 mg PO Q DAY #0 06/17/11 02/26/18 polyethylene glycol 3350 [Miralax] 17 gm PO QDAYP PRN #0 09/14/16 02/26/18 acetaminophen 650 mg PO Q6HP PRN #0 02/19/17 02/26/18 warfarin [Coumadin] 1 mg PO SEE INSTRUCTIONS #0 02/19/17 02/26/18 cyclobenzaprine 10 mg PO BIDP PRN #0 11/05/17 02/26/18 insulin lispro [Humalog KwikPen 12 unit SQ AC #0 11/05/17 02/26/18 Insulin] insulin lispro [Humalog KwikPen See Label Instructions .ROUTE 11/05/17 02/26/18 Insulin] .COMPLEX #0 lidocaine-prilocaine 1 tello TOPICAL PRN PRN #0 11/05/17 02/26/18 morphine 15 - 30 mg PO Q6HP PRN #0 11/05/17 02/26/18 morphine 30 mg PO BID #0 11/05/17 02/26/18 sodium phosphates [Fleet Enema] 1 ea MI DAILY PRN #0 11/05/17 02/26/18 clotrimazole-betamethasone 1 applic TOPICAL BID 02/26/18 02/26/18 docusate sodium 250 mg PO DAILY PRN 02/26/18 02/26/18 insulin detemir U-100 [Levemir 45 unit SUB-Q BID 02/26/18 02/26/18 FlexTouch U-100 Insuln] lidocaine HCl 1 applic TOPICAL QD-BID PRN 02/26/18 02/26/18 Allergies Allergy/AdvReac Type Severity Reaction Status Date / Time hydromorphone [HYDROMORPHONE] Allergy Severe TOUNGE Verified 02/26/18 18:24 SWELLING cefotetan [CEFOTETAN] Allergy Unknown Verified 02/26/18 18:24 Review of Systems <ALY Tyson - Last Filed: 02/26/18 22:02> Constitutional Denies fatigue and Reports fever(s) Eyes Denies change in vision, Denies eye discharge and Denies irritation ENT Ears, Nose, Mouth, and Throat: Denies change in voice, Denies neck pain and Denies sore throat Cardiovascular Denies dyspnea and Denies dyspnea on exertion Respiratory Denies cough, Denies dyspnea, Denies dyspnea on exertion and Denies wheezing Gastrointestinal Gastrointestinal: Denies abdominal pain, Denies change in bowel habits, Denies diarrhea, Denies nausea and Denies vomiting Musculoskeletal Denies neck pain Neurologic Reports as per HPI and Denies confusion Comments: change in loc Psychiatric Denies anxiety, Denies confusion, Denies depression, Denies homicidal ideation and Denies suicidal ideation Endocrine Denies fatigue and Denies flushing Allergic/Immunologic Denies wheezing Exam <ALY Tyson - Last Filed: 02/26/18 22:02> Initial Vital Signs Initial Vital Signs: Vital Signs Temperature 101.9 F H 02/26/18 17:30 Pulse Rate 114 H 02/26/18 17:30 Respiratory Rate 29 H 02/26/18 17:30 Blood Pressure 139/82 H 02/26/18 17:30 Pulse Oximetry 89 L 02/26/18 17:30 Const General: frail appearing and ill appearing Nutritional Appearance: obese Orientation: not alert, not awake, not oriented x3 and other (Responds to painful stimulation) Limitations: altered mental status [facility] [place] Head: normal to inspection, normocephalic and atraumatic Nose: external nose normal Mouth: oral mucosae normal and moist mucous membranes Eyes Conjunctivae: conjunctivae normal Sclera: sclerae normal Pupils: pupil size (Constricted 2- 3 mm bilaterally ) bilaterally Resp Effort & Inspection: normal respiratory effort, able to speak in complete sentences, no respiratory distress and no use of accessory muscles Auscultation: clear to auscultation bilaterally, no rales, no rhonchi and no wheezes Cardio Rate: tachycardic Heart Sounds: no click, no gallops, no murmurs and no rubs GI Inspection: non-distended Palpation: soft, no hepatosplenomegaly, No guarding, No pulsatile mass and No tender Auscultation: normal bowel sounds Skin General: no rashes or lesions noted, No jaundice and No petechiae Neuro General: confused and obtunded Cognition: abnormal cognition <Ric Green DO - Last Filed: 02/27/18 00:13> Initial Vital Signs Initial Vital Signs: Vital Signs Temperature 101.9 F H 02/26/18 17:30 Pulse Rate 114 H 02/26/18 17:30 Respiratory Rate 29 H 02/26/18 17:30 Blood Pressure 139/82 H 02/26/18 17:30 Pulse Oximetry 89 L 02/26/18 17:30 Course <ALY Tyson - Last Filed: 02/26/18 22:02> Orders Ordered: ED Orders 02/26/18 17:21 CT head/brain wo con Stat 02/26/18 17:22 XR chest 1V Stat Urinalysis and Microscopic Stat Urine Culture Stat 02/26/18 17:35 Blood Culture Stat Complete Blood Count AUTO DIFF Stat Comprehensive Metabolic Panel Stat Lactate (Lactic Acid) Stat Lipase Stat Magnesium Stat Partial Thromboplastin Time Stat Phosphorous Stat Procalcitonin Stat Prothrombin Time INR Stat Troponin I Stat 02/26/18 18:36 CT abdomen pelvis w con Stat 02/26/18 20:17 Consult to Physician Routine 02/26/18 21:56 EKG-12 Lead Stat 02/26/18 22:30 Lactate (Lactic Acid) Stat Acetaminophen (Tylenol) 650 mg PO Q6HR PRN PRN Reason: As Needed for Fever/Mild Pain Sodium Chloride (Normal Saline 0.9%) 1,000 mls @ 150 mls/hr IV CONT KAMLESH Last Infusion: 02/26/18 21:58 Dose: 0 mls/hr Infusion: 02/26/18 21:10 Dose: 999 mls/hr Infusion: 02/26/18 20:03 Dose: 0 mls/hr Admin: 02/26/18 19:51 Dose: 150 mls/hr Morphine Sulfate (Morphine) 2 mg IV Q4HR PRN PRN Reason: Pain, Moderate (4-6) Discontinued Medications Acetaminophen (Tylenol) 650 mg MI NOW ONE Stop: 02/26/18 17:27 Last Admin: 02/26/18 17:38 Dose: 650 mg Diltiazem HCl (Cardizem) 10 mg IV NOW ONE Stop: 02/26/18 21:33 Last Admin: 02/26/18 21:35 Dose: 10 mg Levofloxacin (Levaquin) 750 mg in 150 mls @ 100 mls/hr IV NOW KAMLESH Stop: 02/26/18 23:00 Last Infusion: 02/26/18 19:51 Dose: 0 mls/hr Admin: 02/26/18 17:55 Dose: 100 mls/hr Sodium Chloride (Normal Saline 0.9%) 500 mls @ 1,000 mls/hr IV BOLUS ONE Stop: 02/26/18 17:50 Last Infusion: 02/26/18 19:00 Dose: 0 mls/hr Admin: 02/26/18 17:38 Dose: 1,000 mls/hr Sodium Chloride (Normal Saline 0.9%) 500 mls @ 1,000 mls/hr IV BOLUS ONE Stop: 02/26/18 19:12 Last Infusion: 02/26/18 19:51 Dose: 0 mls/hr Admin: 02/26/18 18:50 Dose: 1,000 mls/hr Amiodarone HCl/Dextrose (Nexterone) 150 mg in 100 mls @ 600 mls/hr IV NOW ONE; Protocol Stop: 02/26/18 21:46 Last Infusion: 02/26/18 21:39 Dose: 0 mls/hr Admin: 02/26/18 21:10 Dose: 600 mls/hr Ketorolac Tromethamine (Toradol) 15 mg IV NOW ONE Stop: 02/26/18 21:37 Last Admin: 02/26/18 21:05 Dose: 15 mg Morphine Sulfate (Morphine) 4 mg IV NOW ONE Stop: 02/26/18 21:44 Last Admin: 02/26/18 21:44 Dose: 4 mg Vital Signs - 8 hr 02/26/18 17:30 02/26/18 17:38 02/26/18 18:00 Temperature 101.9 F H 101.9 F H Pulse Rate 113 H 113 H Respiratory Rate 29 H 29 H Blood Pressure 150/84 H Blood Pressure [Left Arm] Blood Pressure [Right Arm] 139/82 H Pulse Oximetry 93 94 02/26/18 18:30 02/26/18 18:45 02/26/18 18:47 Temperature 100 F H Pulse Rate 114 H 113 H 121 H Respiratory Rate 26 H 27 H 27 H Blood Pressure Blood Pressure [Left Arm] Blood Pressure [Right Arm] 95/57 L 115/55 L 115/55 L Pulse Oximetry 94 93 94 02/26/18 19:00 02/26/18 19:15 02/26/18 19:30 Temperature Pulse Rate 120 H 113 H 113 H Respiratory Rate 26 H 27 H 25 H Blood Pressure Blood Pressure [Left Arm] Blood Pressure [Right Arm] 104/63 101/57 L 90/52 L Pulse Oximetry 94 94 96 02/26/18 19:43 02/26/18 19:45 02/26/18 20:15 Temperature 100.0 F H Pulse Rate 113 H 115 H Respiratory Rate 26 H 26 H Blood Pressure Blood Pressure [Left Arm] Blood Pressure [Right Arm] 100/61 95/52 L Pulse Oximetry 96 96 02/26/18 21:00 02/26/18 21:05 02/26/18 21:10 Temperature 101.5 F H Pulse Rate 138 H 164 H 158 H Respiratory Rate 27 H 32 H 30 H Blood Pressure Blood Pressure [Left Arm] Blood Pressure [Right Arm] 116/92 H 125/68 H Pulse Oximetry 98 92 96 02/26/18 21:15 02/26/18 21:20 02/26/18 21:25 Temperature Pulse Rate 148 H 131 H 129 H Respiratory Rate 32 H 31 H 31 H Blood Pressure Blood Pressure [Left Arm] Blood Pressure [Right Arm] 129/68 H 192/160 H 201/160 H Pulse Oximetry 96 95 95 02/26/18 21:30 02/26/18 21:35 02/26/18 21:40 Temperature Pulse Rate 114 H 108 H 107 H Respiratory Rate 29 H 28 H 27 H Blood Pressure 189/112 H Blood Pressure [Left Arm] Blood Pressure [Right Arm] 212/176 H 206/191 H 200/184 H Pulse Oximetry 95 97 97 02/26/18 21:45 02/26/18 21:50 02/26/18 21:55 Temperature 100.0 F H Pulse Rate 108 H 112 H 106 H Respiratory Rate 26 H 27 H 27 H Blood Pressure Blood Pressure [Left Arm] 122/65 H 105/63 Blood Pressure [Right Arm] 220/193 H Pulse Oximetry 97 97 96 02/26/18 22:00 02/26/18 22:10 02/26/18 22:19 Temperature Pulse Rate 112 H 118 H 120 H Respiratory Rate 25 H 24 26 H Blood Pressure Blood Pressure [Left Arm] 101/70 123/85 H 114/68 Blood Pressure [Right Arm] 105/72 Pulse Oximetry 96 95 95 <Ric Green, - Last Filed: 02/27/18 00:13> Orders Ordered: ED Orders 02/26/18 17:21 CT head/brain wo con Stat 02/26/18 17:22 XR chest 1V Stat Urinalysis and Microscopic Stat Urine Culture Stat 02/26/18 17:35 Blood Culture Stat Complete Blood Count AUTO DIFF Stat Comprehensive Metabolic Panel Stat Lactate (Lactic Acid) Stat Lipase Stat Magnesium Stat Partial Thromboplastin Time Stat Phosphorous Stat Procalcitonin Stat Prothrombin Time INR Stat Troponin I Stat 02/26/18 18:36 CT abdomen pelvis w con Stat 02/26/18 20:17 Consult to Physician Routine 02/26/18 21:56 EKG-12 Lead Stat 02/26/18 22:30 Lactate (Lactic Acid) Stat Acetaminophen (Tylenol) 650 mg PO Q6HR PRN PRN Reason: As Needed for Fever/Mild Pain Sodium Chloride (Normal Saline 0.9%) 1,000 mls @ 150 mls/hr IV CONT KAMLESH Last Infusion: 02/26/18 21:58 Dose: 0 mls/hr Infusion: 02/26/18 21:10 Dose: 999 mls/hr Infusion: 02/26/18 20:03 Dose: 0 mls/hr Admin: 02/26/18 19:51 Dose: 150 mls/hr Morphine Sulfate (Morphine) 2 mg IV Q4HR PRN PRN Reason: Pain, Moderate (4-6) Discontinued Medications Acetaminophen (Tylenol) 650 mg MI NOW ONE Stop: 02/26/18 17:27 Last Admin: 02/26/18 17:38 Dose: 650 mg Diltiazem HCl (Cardizem) 10 mg IV NOW ONE Stop: 02/26/18 21:33 Last Admin: 02/26/18 21:35 Dose: 10 mg Levofloxacin (Levaquin) 750 mg in 150 mls @ 100 mls/hr IV NOW KAMLESH Stop: 02/26/18 23:00 Last Infusion: 02/26/18 19:51 Dose: 0 mls/hr Admin: 02/26/18 17:55 Dose: 100 mls/hr Sodium Chloride (Normal Saline 0.9%) 500 mls @ 1,000 mls/hr IV BOLUS ONE Stop: 02/26/18 17:50 Last Infusion: 02/26/18 19:00 Dose: 0 mls/hr Admin: 02/26/18 17:38 Dose: 1,000 mls/hr Sodium Chloride (Normal Saline 0.9%) 500 mls @ 1,000 mls/hr IV BOLUS ONE Stop: 02/26/18 19:12 Last Infusion: 02/26/18 19:51 Dose: 0 mls/hr Admin: 02/26/18 18:50 Dose: 1,000 mls/hr Amiodarone HCl/Dextrose (Nexterone) 150 mg in 100 mls @ 600 mls/hr IV NOW ONE; Protocol Stop: 02/26/18 21:46 Last Infusion: 02/26/18 21:39 Dose: 0 mls/hr Admin: 02/26/18 21:10 Dose: 600 mls/hr Ketorolac Tromethamine (Toradol) 15 mg IV NOW ONE Stop: 02/26/18 21:37 Last Admin: 02/26/18 21:05 Dose: 15 mg Morphine Sulfate (Morphine) 4 mg IV NOW ONE Stop: 02/26/18 21:44 Last Admin: 02/26/18 21:44 Dose: 4 mg Vital Signs - 8 hr 02/26/18 17:30 02/26/18 17:38 02/26/18 18:00 Temperature 101.9 F H 101.9 F H Pulse Rate 113 H 113 H Respiratory Rate 29 H 29 H Blood Pressure 150/84 H Blood Pressure [Left Arm] Blood Pressure [Right Arm] 139/82 H Pulse Oximetry 93 94 02/26/18 18:30 02/26/18 18:45 02/26/18 18:47 Temperature 100 F H Pulse Rate 114 H 113 H 121 H Respiratory Rate 26 H 27 H 27 H Blood Pressure Blood Pressure [Left Arm] Blood Pressure [Right Arm] 95/57 L 115/55 L 115/55 L Pulse Oximetry 94 93 94 02/26/18 19:00 02/26/18 19:15 02/26/18 19:30 Temperature Pulse Rate 120 H 113 H 113 H Respiratory Rate 26 H 27 H 25 H Blood Pressure Blood Pressure [Left Arm] Blood Pressure [Right Arm] 104/63 101/57 L 90/52 L Pulse Oximetry 94 94 96 02/26/18 19:43 02/26/18 19:45 02/26/18 20:15 Temperature 100.0 F H Pulse Rate 113 H 115 H Respiratory Rate 26 H 26 H Blood Pressure Blood Pressure [Left Arm] Blood Pressure [Right Arm] 100/61 95/52 L Pulse Oximetry 96 96 02/26/18 21:00 02/26/18 21:05 02/26/18 21:10 Temperature 101.5 F H Pulse Rate 138 H 164 H 158 H Respiratory Rate 27 H 32 H 30 H Blood Pressure Blood Pressure [Left Arm] Blood Pressure [Right Arm] 116/92 H 125/68 H Pulse Oximetry 98 92 96 02/26/18 21:15 02/26/18 21:20 02/26/18 21:25 Temperature Pulse Rate 148 H 131 H 129 H Respiratory Rate 32 H 31 H 31 H Blood Pressure Blood Pressure [Left Arm] Blood Pressure [Right Arm] 129/68 H 192/160 H 201/160 H Pulse Oximetry 96 95 95 02/26/18 21:30 02/26/18 21:35 02/26/18 21:40 Temperature Pulse Rate 114 H 108 H 107 H Respiratory Rate 29 H 28 H 27 H Blood Pressure 189/112 H Blood Pressure [Left Arm] Blood Pressure [Right Arm] 212/176 H 206/191 H 200/184 H Pulse Oximetry 95 97 97 02/26/18 21:45 02/26/18 21:50 02/26/18 21:55 Temperature 100.0 F H Pulse Rate 108 H 112 H 106 H Respiratory Rate 26 H 27 H 27 H Blood Pressure Blood Pressure [Left Arm] 122/65 H 105/63 Blood Pressure [Right Arm] 220/193 H Pulse Oximetry 97 97 96 02/26/18 22:00 02/26/18 22:10 02/26/18 22:19 Temperature Pulse Rate 112 H 118 H 120 H Respiratory Rate 25 H 24 26 H Blood Pressure Blood Pressure [Left Arm] 101/70 123/85 H 114/68 Blood Pressure [Right Arm] 105/72 Pulse Oximetry 96 95 95 MDM - Fever <ALY Tyson - Last Filed: 02/26/18 22:02> Lab Data Result diagrams: 02/26/18 17:35 02/26/18 17:35 Lab Results 02/26/18 02/26/18 02/26/18 Range/Units 17:22 17:35 17:35 WBC 14.9 H (4.5-11.0) X10^3/uL RBC 4.65 (4.5-5.9) X10^6/uL Hgb 13.0 L (13.5-17.5) g/dL Hct 39.8 L (41-53) % MCV 85.6 (80-100) fL MCH 28.0 (26-34) PG MCHC 32.7 (30-36) % RDW 14.4 (11.6-14.8) % Plt Count 178 (150-400) X10^3/uL Neut % (Auto) 90.6 H (50-75) % Lymph % (Auto) 4.7 L (25-40) % [place] % (Auto) 4.2 (3-14) % Eos % (Auto) 0.0 L (2-4) % Baso % (Auto) 0.5 (0-2) % Neut # (Auto) 68078 H (4812-8285) /uL PT (10.1-12.7) SECONDS INR (0.9-1.3) APTT (26.4-36.2) SECONDS Sodium Potassium Chloride Carbon Dioxide BUN Creatinine Estimated GFR BUN/Creatinine Ratio Glucose Lactate (0.7-2.1) mmol/L Calcium Phosphorus (2.3-3.7) mg/dL Magnesium (1.6-2.3) mg/dL Total Bilirubin (0.2-1.3) mg/dL AST (17-59) IU/L ALT (21-72) IU/L Alkaline Phosphatase (38-126) U/L Troponin I (0.01-0.034) ng/mL Total Protein (6.3-8.2) g/dL Albumin (3.5-5.0) g/dL Globulin (1.7-4.1) g/dL Albumin/Globulin Ratio (1.0-2.8) Lipase (23-300) U/L Procalcitonin 6.03 H (<0.5) ng/mL Specimen Hemolysis Urine Color Yellow Urine Appearance Cloudy Urine pH 5.0 (4.5-8.0) Ur Specific [place] 1.020 (1.000-1.035) Urine Protein 2+ H (Negative) Urine Glucose (UA) Negative (Normal) g/dL Urine Ketones Negative (NEGATIVE) Urine Occult Blood 3+ H (Negative) Urine Nitrate Positive (Negative) Urine Bilirubin Negative (NEGATIVE) Urine Urobilinogen 0.2 (0.2) E.U./dL Ur Leukocyte Esterase Trace H (NEGATIVE) Urine RBC 5-10/hpf H (0-5/HPF) Urine WBC 1-5/hpf (0-5/HPF) Amorphous Sediment 3+ Urine Bacteria None seen (None) Ur Culture Indicated? Micro UA Comment Not Reportable 02/26/18 02/26/18 02/26/18 Range/Units 17:35 17:35 17:35 WBC (4.5-11.0) X10^3/uL RBC (4.5-5.9) X10^6/uL Hgb (13.5-17.5) g/dL Hct (41-53) % MCV (80-100) fL MCH (26-34) PG MCHC (30-36) % RDW (11.6-14.8) % Plt Count (150-400) X10^3/uL Neut % (Auto) (50-75) % Lymph % (Auto) (25-40) % [place] % (Auto) (3-14) % Eos % (Auto) (2-4) % Baso % (Auto) (0-2) % Neut # (Auto) (9525-0936) /uL PT (10.1-12.7) SECONDS INR (0.9-1.3) APTT (26.4-36.2) SECONDS Sodium Cancelled Potassium Cancelled Chloride Cancelled Carbon Dioxide Cancelled BUN Cancelled Creatinine Cancelled Estimated GFR Cancelled BUN/Creatinine Ratio Cancelled Glucose Cancelled Lactate 1.6 (0.7-2.1) mmol/L Calcium Cancelled Phosphorus (2.3-3.7) mg/dL Magnesium (1.6-2.3) mg/dL Total Bilirubin (0.2-1.3) mg/dL AST (17-59) IU/L ALT (21-72) IU/L Alkaline Phosphatase (38-126) U/L Troponin I 0.443 H* (0.01-0.034) ng/mL Total Protein (6.3-8.2) g/dL Albumin (3.5-5.0) g/dL Globulin (1.7-4.1) g/dL Albumin/Globulin Ratio (1.0-2.8) Lipase (23-300) U/L Procalcitonin (<0.5) ng/mL Specimen Hemolysis Cancelled Urine Color Urine Appearance Urine pH (4.5-8.0) Ur Specific [place] (1.000-1.035) Urine Protein (Negative) Urine Glucose (UA) (Normal) g/dL Urine Ketones (NEGATIVE) Urine Occult Blood (Negative) Urine Nitrate (Negative) Urine Bilirubin (NEGATIVE) Urine Urobilinogen (0.2) E.U./dL Ur Leukocyte Esterase (NEGATIVE) Urine RBC (0-5/HPF) Urine WBC (0-5/HPF) Amorphous Sediment Urine Bacteria (None) Ur Culture Indicated? Micro UA Comment 02/26/18 02/26/18 02/26/18 Range/Units 17:35 17:35 17:35 WBC (4.5-11.0) X10^3/uL RBC (4.5-5.9) X10^6/uL Hgb (13.5-17.5) g/dL Hct (41-53) % MCV (80-100) fL MCH (26-34) PG MCHC (30-36) % RDW (11.6-14.8) % Plt Count (150-400) X10^3/uL Neut % (Auto) (50-75) % Lymph % (Auto) (25-40) % [place] % (Auto) (3-14) % Eos % (Auto) (2-4) % Baso % (Auto) (0-2) % Neut # (Auto) (2890-7828) /uL PT 26.6 H (10.1-12.7) SECONDS INR 2.5 H (0.9-1.3) APTT 35 (26.4-36.2) SECONDS Sodium 136 L Potassium 4.0 Chloride 97 L Carbon Dioxide 24 BUN 45 H Creatinine 1.50 H Estimated GFR 45.4 L BUN/Creatinine Ratio 30.0 H Glucose 256 H Lactate (0.7-2.1) mmol/L Calcium 8.5 Phosphorus 3.6 (2.3-3.7) mg/dL Magnesium 2.2 (1.6-2.3) mg/dL Total Bilirubin 0.7 (0.2-1.3) mg/dL AST 50 (17-59) IU/L ALT 31 (21-72) IU/L Alkaline Phosphatase 104 (38-126) U/L Troponin I (0.01-0.034) ng/mL Total Protein 6.8 (6.3-8.2) g/dL Albumin 3.2 L (3.5-5.0) g/dL Globulin 3.6 (1.7-4.1) g/dL Albumin/Globulin Ratio 0.9 L (1.0-2.8) Lipase 11 L (23-300) U/L Procalcitonin (<0.5) ng/mL Specimen Hemolysis Urine Color Urine Appearance Urine pH (4.5-8.0) Ur Specific [place] (1.000-1.035) Urine Protein (Negative) Urine Glucose (UA) (Normal) g/dL Urine Ketones (NEGATIVE) Urine Occult Blood (Negative) Urine Nitrate (Negative) Urine Bilirubin (NEGATIVE) Urine Urobilinogen (0.2) E.U./dL Ur Leukocyte Esterase (NEGATIVE) Urine RBC (0-5/HPF) Urine WBC (0-5/HPF) Amorphous Sediment Urine Bacteria (None) Ur Culture Indicated? Micro UA Comment 02/26/18 Range/Units 22:30 WBC (4.5-11.0) X10^3/uL RBC (4.5-5.9) X10^6/uL Hgb (13.5-17.5) g/dL Hct (41-53) % MCV (80-100) fL MCH (26-34) PG MCHC (30-36) % RDW (11.6-14.8) % Plt Count (150-400) X10^3/uL Neut % (Auto) (50-75) % Lymph % (Auto) (25-40) % [place] % (Auto) (3-14) % Eos % (Auto) (2-4) % Baso % (Auto) (0-2) % Neut # (Auto) (9712-1813) /uL PT (10.1-12.7) SECONDS INR (0.9-1.3) APTT (26.4-36.2) SECONDS Sodium Potassium Chloride Carbon Dioxide BUN Creatinine Estimated GFR BUN/Creatinine Ratio Glucose Lactate 2.7 H (0.7-2.1) mmol/L Calcium Phosphorus (2.3-3.7) mg/dL Magnesium (1.6-2.3) mg/dL Total Bilirubin (0.2-1.3) mg/dL AST (17-59) IU/L ALT (21-72) IU/L Alkaline Phosphatase (38-126) U/L Troponin I (0.01-0.034) ng/mL Total Protein (6.3-8.2) g/dL Albumin (3.5-5.0) g/dL Globulin (1.7-4.1) g/dL Albumin/Globulin Ratio (1.0-2.8) Lipase (23-300) U/L Procalcitonin (<0.5) ng/mL Specimen Hemolysis Urine Color Urine Appearance Urine pH (4.5-8.0) Ur Specific [place] (1.000-1.035) Urine Protein (Negative) Urine Glucose (UA) (Normal) g/dL Urine Ketones (NEGATIVE) Urine Occult Blood (Negative) Urine Nitrate (Negative) Urine Bilirubin (NEGATIVE) Urine Urobilinogen (0.2) E.U./dL Ur Leukocyte Esterase (NEGATIVE) Urine RBC (0-5/HPF) Urine WBC (0-5/HPF) Amorphous Sediment Urine Bacteria (None) Ur Culture Indicated? Micro UA Comment Imaging Data CT scan - head: Radiologist's impression: PROCEDURE: CT HEAD/BRAIN WO CON INDICATIONS: DECREASED LOC TECHNIQUE: Noncontrast 4.5 mm thick angled axial sections acquired from the foramen magnum to the vertex, with coronal and sagittal reformats. For radiation dose reduction, the following was used: automated exposure control, adjustment of mA and/or kV according to patient size. COMPARISON: [facility], CT, HEAD WITHOUT CONTRAST, 09/14/2016, 13:50. FINDINGS: Image quality: Excellent. CSF spaces: Basal cisterns are patent. No extra-axial fluid collections. The ventricles are symmetric in size and shape. Brain: No intracranial bleeds or masses. There is moderate cerebral volume loss for age, with resultant ventricular and sulcal prominence. There are moderate periventricular and deep white matter chronic small vessel ischemic changes. There is intracranial internal carotid artery atherosclerosis. Skull and face: Calvarium and visualized facial bones appear intact, without suspicious lesions. Sinuses: Visualized sinuses and mastoids are clear. IMPRESSION: 1. No acute intracranial abnormalities. 2. Cerebral volume loss and chronic microvascular ischemic changes. Dictated by: Yany Juarez M.D. on 02/26/2018 at 18:32 Approved by: Yany Juarez M.D. on 02/26/2018 at 18:34 Chest x-ray: Radiologist's impression: ADDENDUM This report includes an Addendum and supersedes previous reports for this exam. PROCEDURE: XR CHEST 1V INDICATIONS: FEVER CHANGE IN LOC TECHNIQUE: One view of the chest was acquired. COMPARISON: [facility], , ABDOMEN 2 VIEW, 08/13/2017, 12:11. [facility], , CHEST 1 VIEW, 02/19/2017, 19:12. FINDINGS: Surgical changes and devices: None. Lungs and pleura: Lung volumes are small consistent with poor inspiration. There is retrocardiac opacity suspicious for pneumonia. No large pleural effusions or pneumothorax. Mediastinum: Mediastinal contours appear normal. Heart size is normal. Bones and chest wall: No suspicious bony lesions. Overlying soft tissues appear unremarkable. Possible free air under the right hemidiaphragm. IMPRESSION: 1. Suspect retrocardiac pneumonia. 2. ? Free peritoneal air under the right hemidiaphragm. Dictated by: Yany Juarez M.D. on 02/26/2018 at 18:30 Approved by: Yany Juarez M.D. on 02/26/2018 at 18:32 ADDENDUM: The result was discussed with Leno Dietz in ER prior for the addendum. Dictated by: Yany Juarez M.D. on 02/26/2018 at 18:35 Approved by: Yany Juarez M.D. on 02/26/2018 at 18:35 Addendum Dictated By: Sharan Juarez M.D. Addendum Signed By: Addendum Cosigned By: DD/ TD/TT: 02/26/18 PROCEDURE: XR CHEST 1V INDICATIONS: FEVER CHANGE IN LOC TECHNIQUE: One view of the chest was acquired. COMPARISON: [facility], , ABDOMEN 2 VIEW, 08/13/2017, 12:11. [facility], , CHEST 1 VIEW, 02/19/2017, 19:12. FINDINGS: Surgical changes and devices: None. Lungs and pleura: Lung volumes are small consistent with poor inspiration. There is retrocardiac opacity suspicious for pneumonia. No large pleural effusions or pneumothorax. Mediastinum: Mediastinal contours appear normal. Heart size is normal. Bones and chest wall: No suspicious bony lesions. Overlying soft tissues appear unremarkable. Possible free air under the right hemidiaphragm. IMPRESSION: 1. Suspect retrocardiac pneumonia. 2. ? Free peritoneal air under the right hemidiaphragm. Dictated by: Yany Juarez M.D. on 02/26/2018 at 18:30 Approved by: Yany Juarez M.D. on 02/26/2018 at 18:32 CT scan - abdomen: Radiologist's impression: PROCEDURE: CT ABDOMEN PELVIS W CON INDICATIONS: ? Free air seen on chest x-ray TECHNIQUE: After the administration of intravenous contrast, 5 mm thick sections acquired from the diaphragm to the symphysis. 5 mm coronal and sagittal reformats were acquired. For radiation dose reduction, the following was used: automated exposure control, adjustment of mA and/or kV according to patient size. COMPARISON: [facility], , L-SPINE 2-3 VIEWS, 04/08/2016, 19:41. [facility], CT, ABDOMEN/PELVIS WITH CONTRAST, 03/03/2016, 5:32. [facility], CT, THORAX WITHOUT CONTRAST, 09/16/2016, 8:49. [facility], , XR CHEST 1V, 02/26/2018, 17:07. FINDINGS: Image quality: Excellent. ABDOMEN: Lung bases: Left basilar infiltrate suspicious for pneumonia. Heart size is normal. Cardiac pacemaker leads are noted. Solid organs: Liver is normal in size and enhancement. A small indeterminate hepatic hypodensity in the anterior right hepatic lobe adjacent to the gallbladder fossa is probably a cyst. Gallbladder is normal. Biliary system is non dilated. Pancreas enhances normally. Spleen is normal in size and enhancement. No adrenal nodules. Right kidney is surgically absent. Left kidney is normal size and enhancement, without hydronephrosis. Peritoneum and bowel: There is no free peritoneal air. Lucency in the right upper abdomens caused by colonic interposition. There is gaseous distention of colon and moderate stool in rectum. Bowel loops demonstrate normal wall thickness and caliber. No free fluid. Nodes and vessels: No retroperitoneal or mesenteric adenopathy by size criteria. Aorta and inferior vena cava are normal in size. Miscellaneous: No ventral hernias. PELVIS: Genitourinary: There is a Reyna catheter within the bladder. Bladder wall is thickened. Miscellaneous: No inguinal hernias or adenopathy. Bones: No suspicious bony lesions. [id number] L4 vertebral body compression fracture with 30% loss of vertebral body height. Degenerative changes are present in lumbar spine. 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 A small sclerotic focus in the right acetabulum is likely a bone island. IMPRESSION: 1. No free air. 2. Left basilar pneumonia. 3. Bladder wall thickening suspicious for cystitis. 4. Right nephrectomy. 5. [id number] L4 compression fracture of indeterminate chronicity. Dictated by: Yany Juarez M.D. on 02/26/2018 at 19:22 Approved by: Yany Juarez M.D. on 02/26/2018 at 19:37 ECG Data Interpretation: EKG shows sinus tachycardia with 1st degree AV block no ST elevation or depression. Ventricular rate of 112. Pr interval of 212. QRS duration 156. QT of 341 with the exception of sinus tachycardia is consistent with prior EKG MDM Narrative Medical decision making narrative: CBC shows elevated white count. Chem panel shows decreased GFR and elevated troponin of 0.4. Patient is DNR with limited intervention. Chest x-ray shows left basilar pneumonia and urinalysis was positive for urinary tract infection. Blood cultures were obtained and are pending. Lactate and was negative. Procalcitonin is elevated at 6. Signs and symptoms presents as urosepsis and pneumonia. He was given Levaquin IV in the emergency room. After he was given fluids in the emergency room he became more alert and was responding verbally. On chest x-ray radiologist was concerned there might be some free air below the diaphragm and requested a CT of the abdomen. CT of the abdomen was obtained and was negative for any free air. CT did not show any acute findings with the exception of some moderate stool to the lower colon and rectal area and thickened bladder wall. EKG shows sinus tachycardia no ST elevation or depression. Discussed case with Dr. Medina hospitalist who accepted patient patient is admitted for inpatient services and IV antibiotics. While awaiting for patient to be admitted due to the inpatient services patient developed chills and rigors. He was given small amount of Toradol to help with fever. During this timeframe patient developed AFib with RVR. Patient was given amiodarone at 1st as rhythm looked like V-tach after further evaluation was determined that he was in AFib with RVR so diltiazem was given push shortly after the diltiazem was given patient converted back to sinus rhythm. Dr. Medina was informed of this and decided to admit patient to the unit <Ric Green DO - Last Filed: 02/27/18 00:13> Lab Data Lab Results 02/26/18 02/26/18 02/26/18 Range/Units 17:22 17:35 17:35 WBC 14.9 H (4.5-11.0) X10^3/uL RBC 4.65 (4.5-5.9) X10^6/uL Hgb 13.0 L (13.5-17.5) g/dL Hct 39.8 L (41-53) % MCV 85.6 (80-100) fL MCH 28.0 (26-34) PG MCHC 32.7 (30-36) % RDW 14.4 (11.6-14.8) % Plt Count 178 (150-400) X10^3/uL Neut % (Auto) 90.6 H (50-75) % Lymph % (Auto) 4.7 L (25-40) % [place] % (Auto) 4.2 (3-14) % Eos % (Auto) 0.0 L (2-4) % Baso % (Auto) 0.5 (0-2) % Neut # (Auto) 91229 H (7802-7182) /uL PT (10.1-12.7) SECONDS INR (0.9-1.3) APTT (26.4-36.2) SECONDS Sodium Potassium Chloride Carbon Dioxide BUN Creatinine Estimated GFR BUN/Creatinine Ratio Glucose Lactate (0.7-2.1) mmol/L Calcium Phosphorus (2.3-3.7) mg/dL Magnesium (1.6-2.3) mg/dL Total Bilirubin (0.2-1.3) mg/dL AST (17-59) IU/L ALT (21-72) IU/L Alkaline Phosphatase (38-126) U/L Troponin I (0.01-0.034) ng/mL Total Protein (6.3-8.2) g/dL Albumin (3.5-5.0) g/dL Globulin (1.7-4.1) g/dL Albumin/Globulin Ratio (1.0-2.8) Lipase (23-300) U/L Procalcitonin 6.03 H (<0.5) ng/mL Specimen Hemolysis Urine Color Yellow Urine Appearance Cloudy Urine pH 5.0 (4.5-8.0) Ur Specific [place] 1.020 (1.000-1.035) Urine Protein 2+ H (Negative) Urine Glucose (UA) Negative (Normal) g/dL Urine Ketones Negative (NEGATIVE) Urine Occult Blood 3+ H (Negative) Urine Nitrate Positive (Negative) Urine Bilirubin Negative (NEGATIVE) Urine Urobilinogen 0.2 (0.2) E.U./dL Ur Leukocyte Esterase Trace H (NEGATIVE) Urine RBC 5-10/hpf H (0-5/HPF) Urine WBC 1-5/hpf (0-5/HPF) Amorphous Sediment 3+ Urine Bacteria None seen (None) Ur Culture Indicated? Micro UA Comment Not Reportable 02/26/18 02/26/18 02/26/18 Range/Units 17:35 17:35 17:35 WBC (4.5-11.0) X10^3/uL RBC (4.5-5.9) X10^6/uL Hgb (13.5-17.5) g/dL Hct (41-53) % MCV (80-100) fL MCH (26-34) PG MCHC (30-36) % RDW (11.6-14.8) % Plt Count (150-400) X10^3/uL Neut % (Auto) (50-75) % Lymph % (Auto) (25-40) % [place] % (Auto) (3-14) % Eos % (Auto) (2-4) % Baso % (Auto) (0-2) % Neut # (Auto) (7346-5548) /uL PT (10.1-12.7) SECONDS INR (0.9-1.3) APTT (26.4-36.2) SECONDS Sodium Cancelled Potassium Cancelled Chloride Cancelled Carbon Dioxide Cancelled BUN Cancelled Creatinine Cancelled Estimated GFR Cancelled BUN/Creatinine Ratio Cancelled Glucose Cancelled Lactate 1.6 (0.7-2.1) mmol/L Calcium Cancelled Phosphorus (2.3-3.7) mg/dL Magnesium (1.6-2.3) mg/dL Total Bilirubin (0.2-1.3) mg/dL AST (17-59) IU/L ALT (21-72) IU/L Alkaline Phosphatase (38-126) U/L Troponin I 0.443 H* (0.01-0.034) ng/mL Total Protein (6.3-8.2) g/dL Albumin (3.5-5.0) g/dL Globulin (1.7-4.1) g/dL Albumin/Globulin Ratio (1.0-2.8) Lipase (23-300) U/L Procalcitonin (<0.5) ng/mL Specimen Hemolysis Cancelled Urine Color Urine Appearance Urine pH (4.5-8.0) Ur Specific [place] (1.000-1.035) Urine Protein (Negative) Urine Glucose (UA) (Normal) g/dL Urine Ketones (NEGATIVE) Urine Occult Blood (Negative) Urine Nitrate (Negative) Urine Bilirubin (NEGATIVE) Urine Urobilinogen (0.2) E.U./dL Ur Leukocyte Esterase (NEGATIVE) Urine RBC (0-5/HPF) Urine WBC (0-5/HPF) Amorphous Sediment Urine Bacteria (None) Ur Culture Indicated? Micro UA Comment 02/26/18 02/26/18 02/26/18 Range/Units 17:35 17:35 17:35 WBC (4.5-11.0) X10^3/uL RBC (4.5-5.9) X10^6/uL Hgb (13.5-17.5) g/dL Hct (41-53) % MCV (80-100) fL MCH (26-34) PG MCHC (30-36) % RDW (11.6-14.8) % Plt Count (150-400) X10^3/uL Neut % (Auto) (50-75) % Lymph % (Auto) (25-40) % [place] % (Auto) (3-14) % Eos % (Auto) (2-4) % Baso % (Auto) (0-2) % Neut # (Auto) (4965-9678) /uL PT 26.6 H (10.1-12.7) SECONDS INR 2.5 H (0.9-1.3) APTT 35 (26.4-36.2) SECONDS Sodium 136 L Potassium 4.0 Chloride 97 L Carbon Dioxide 24 BUN 45 H Creatinine 1.50 H Estimated GFR 45.4 L BUN/Creatinine Ratio 30.0 H Glucose 256 H Lactate (0.7-2.1) mmol/L Calcium 8.5 Phosphorus 3.6 (2.3-3.7) mg/dL Magnesium 2.2 (1.6-2.3) mg/dL Total Bilirubin 0.7 (0.2-1.3) mg/dL AST 50 (17-59) IU/L ALT 31 (21-72) IU/L Alkaline Phosphatase 104 (38-126) U/L Troponin I (0.01-0.034) ng/mL Total Protein 6.8 (6.3-8.2) g/dL Albumin 3.2 L (3.5-5.0) g/dL Globulin 3.6 (1.7-4.1) g/dL Albumin/Globulin Ratio 0.9 L (1.0-2.8) Lipase 11 L (23-300) U/L Procalcitonin (<0.5) ng/mL Specimen Hemolysis Urine Color Urine Appearance Urine pH (4.5-8.0) Ur Specific [place] (1.000-1.035) Urine Protein (Negative) Urine Glucose (UA) (Normal) g/dL Urine Ketones (NEGATIVE) Urine Occult Blood (Negative) Urine Nitrate (Negative) Urine Bilirubin (NEGATIVE) Urine Urobilinogen (0.2) E.U./dL Ur Leukocyte Esterase (NEGATIVE) Urine RBC (0-5/HPF) Urine WBC (0-5/HPF) Amorphous Sediment Urine Bacteria (None) Ur Culture Indicated? Micro UA Comment 02/26/18 Range/Units 22:30 WBC (4.5-11.0) X10^3/uL RBC (4.5-5.9) X10^6/uL Hgb (13.5-17.5) g/dL Hct (41-53) % MCV (80-100) fL MCH (26-34) PG MCHC (30-36) % RDW (11.6-14.8) % Plt Count (150-400) X10^3/uL Neut % (Auto) (50-75) % Lymph % (Auto) (25-40) % [place] % (Auto) (3-14) % Eos % (Auto) (2-4) % Baso % (Auto) (0-2) % Neut # (Auto) (2526-2597) /uL PT (10.1-12.7) SECONDS INR (0.9-1.3) APTT (26.4-36.2) SECONDS Sodium Potassium Chloride Carbon Dioxide BUN Creatinine Estimated GFR BUN/Creatinine Ratio Glucose Lactate 2.7 H (0.7-2.1) mmol/L Calcium Phosphorus (2.3-3.7) mg/dL Magnesium (1.6-2.3) mg/dL Total Bilirubin (0.2-1.3) mg/dL AST (17-59) IU/L ALT (21-72) IU/L Alkaline Phosphatase (38-126) U/L Troponin I (0.01-0.034) ng/mL Total Protein (6.3-8.2) g/dL Albumin (3.5-5.0) g/dL Globulin (1.7-4.1) g/dL Albumin/Globulin Ratio (1.0-2.8) Lipase (23-300) U/L Procalcitonin (<0.5) ng/mL Specimen Hemolysis Urine Color Urine Appearance Urine pH (4.5-8.0) Ur Specific [place] (1.000-1.035) Urine Protein (Negative) Urine Glucose (UA) (Normal) g/dL Urine Ketones (NEGATIVE) Urine Occult Blood (Negative) Urine Nitrate (Negative) Urine Bilirubin (NEGATIVE) Urine Urobilinogen (0.2) E.U./dL Ur Leukocyte Esterase (NEGATIVE) Urine RBC (0-5/HPF) Urine WBC (0-5/HPF) Amorphous Sediment Urine Bacteria (None) Ur Culture Indicated? Micro UA Comment Discharge Plan Departure Patient Disposition: Admitted As Inpatient Clinical Impression: Pneumonia, Decreased level of consciousness, Acute UTI, Atrial fibrillation with RVR Interventions: ED Discharge Assessment Last Done: 02/26/18 20:34 Admit Date/Time: 02/26/18 20:22 Admit Provider: Alfredo Medina V
--- NOTE | 2018-02-26 17:50 | ED_ITS ---
HPI - Fever <ALY Tyson - Last Filed: 02/26/18 22:02> General Chief Complaint: Fever Stated Complaint: Fever,Change in loc Time Seen by Provider: 02/26/18 17:30 Source: EMS and old records reviewed Mode of arrival: EMS History of Present Illness HPI Narrative: 77 YEAR old male with history of type 1 diabetes and atrial fibrillation brought in by EMS due to decreased level of consciousness over the past few hours. Patient has also had a fever and has had complaint of not feeling well over the past day or 2. Blood sugar was at 224 EN route by EMS. IV was obtained. Patient is responding to pain not to verbal stimuli. No known falls. No known trauma. Positive p.o. intake as of earlier today. MD complaint: fever Related Data Home Medications Medication Instructions Recorded Confirmed dofetilide [Tikosyn] 0.5 mg PO BID #0 06/17/11 02/26/18 lisinopril [Zestril] 20 mg PO Q DAY #0 06/17/11 02/26/18 polyethylene glycol 3350 [Miralax] 17 gm PO QDAYP PRN #0 09/14/16 02/26/18 acetaminophen 650 mg PO Q6HP PRN #0 02/19/17 02/26/18 warfarin [Coumadin] 1 mg PO SEE INSTRUCTIONS #0 02/19/17 02/26/18 cyclobenzaprine 10 mg PO BIDP PRN #0 11/05/17 02/26/18 insulin lispro [Humalog KwikPen 12 unit SQ AC #0 11/05/17 02/26/18 Insulin] insulin lispro [Humalog KwikPen See Label Instructions .ROUTE 11/05/17 02/26/18 Insulin] .COMPLEX #0 lidocaine-prilocaine 1 tello TOPICAL PRN PRN #0 11/05/17 02/26/18 morphine 15 - 30 mg PO Q6HP PRN #0 11/05/17 02/26/18 morphine 30 mg PO BID #0 11/05/17 02/26/18 sodium phosphates [Fleet Enema] 1 ea NV DAILY PRN #0 11/05/17 02/26/18 clotrimazole-betamethasone 1 applic TOPICAL BID 02/26/18 02/26/18 docusate sodium 250 mg PO DAILY PRN 02/26/18 02/26/18 insulin detemir U-100 [Levemir 45 unit SUB-Q BID 02/26/18 02/26/18 FlexTouch U-100 Insuln] lidocaine HCl 1 applic TOPICAL QD-BID PRN 02/26/18 02/26/18 Allergies Allergy/AdvReac Type Severity Reaction Status Date / Time hydromorphone [HYDROMORPHONE] Allergy Severe TOUNGE Verified 02/26/18 18:24 SWELLING cefotetan [CEFOTETAN] Allergy Unknown Verified 02/26/18 18:24 Review of Systems <ALY Tyson - Last Filed: 02/26/18 22:02> Constitutional Denies fatigue and Reports fever(s) Eyes Denies change in vision, Denies eye discharge and Denies irritation ENT Ears, Nose, Mouth, and Throat: Denies change in voice, Denies neck pain and Denies sore throat Cardiovascular Denies dyspnea and Denies dyspnea on exertion Respiratory Denies cough, Denies dyspnea, Denies dyspnea on exertion and Denies wheezing Gastrointestinal Gastrointestinal: Denies abdominal pain, Denies change in bowel habits, Denies diarrhea, Denies nausea and Denies vomiting Musculoskeletal Denies neck pain Neurologic Reports as per HPI and Denies confusion Comments: change in loc Psychiatric Denies anxiety, Denies confusion, Denies depression, Denies homicidal ideation and Denies suicidal ideation Endocrine Denies fatigue and Denies flushing Allergic/Immunologic Denies wheezing Exam <ALY Tyson - Last Filed: 02/26/18 22:02> Initial Vital Signs Initial Vital Signs: Vital Signs Temperature 101.9 F H 02/26/18 17:30 Pulse Rate 114 H 02/26/18 17:30 Respiratory Rate 29 H 02/26/18 17:30 Blood Pressure 139/82 H 02/26/18 17:30 Pulse Oximetry 89 L 02/26/18 17:30 Const General: frail appearing and ill appearing Nutritional Appearance: obese Orientation: not alert, not awake, not oriented x3 and other (Responds to painful stimulation) Limitations: altered mental status [facility] Head: normal to inspection, normocephalic and atraumatic Nose: external nose normal Mouth: oral mucosae normal and moist mucous membranes Eyes Conjunctivae: conjunctivae normal Sclera: sclerae normal Pupils: pupil size (Constricted 2- 3 mm bilaterally ) bilaterally Resp Effort & Inspection: normal respiratory effort, able to speak in complete sentences, no respiratory distress and no use of accessory muscles Auscultation: clear to auscultation bilaterally, no rales, no rhonchi and no wheezes Cardio Rate: tachycardic Heart Sounds: no click, no gallops, no murmurs and no rubs GI Inspection: non-distended Palpation: soft, no hepatosplenomegaly, No guarding, No pulsatile mass and No tender Auscultation: normal bowel sounds Skin General: no rashes or lesions noted, No jaundice and No petechiae Neuro General: confused and obtunded Cognition: abnormal cognition <Ric Green DO - Last Filed: 02/27/18 00:13> Initial Vital Signs Initial Vital Signs: Vital Signs Temperature 101.9 F H 02/26/18 17:30 Pulse Rate 114 H 02/26/18 17:30 Respiratory Rate 29 H 02/26/18 17:30 Blood Pressure 139/82 H 02/26/18 17:30 Pulse Oximetry 89 L 02/26/18 17:30 Course <ALY Tyson - Last Filed: 02/26/18 22:02> Orders Ordered: ED Orders 02/26/18 17:21 CT head/brain wo con Stat 02/26/18 17:22 XR chest 1V Stat Urinalysis and Microscopic Stat Urine Culture Stat 02/26/18 17:35 Blood Culture Stat Complete Blood Count AUTO DIFF Stat Comprehensive Metabolic Panel Stat Lactate (Lactic Acid) Stat Lipase Stat Magnesium Stat Partial Thromboplastin Time Stat Phosphorous Stat Procalcitonin Stat Prothrombin Time INR Stat Troponin I Stat 02/26/18 18:36 CT abdomen pelvis w con Stat 02/26/18 20:17 Consult to Physician Routine 02/26/18 21:56 EKG-12 Lead Stat 02/26/18 22:30 Lactate (Lactic Acid) Stat Acetaminophen (Tylenol) 650 mg PO Q6HR PRN PRN Reason: As Needed for Fever/Mild Pain Sodium Chloride (Normal Saline 0.9%) 1,000 mls @ 150 mls/hr IV CONT KAMLESH Last Infusion: 02/26/18 21:58 Dose: 0 mls/hr Infusion: 02/26/18 21:10 Dose: 999 mls/hr Infusion: 02/26/18 20:03 Dose: 0 mls/hr Admin: 02/26/18 19:51 Dose: 150 mls/hr Morphine Sulfate (Morphine) 2 mg IV Q4HR PRN PRN Reason: Pain, Moderate (4-6) Discontinued Medications Acetaminophen (Tylenol) 650 mg NV NOW ONE Stop: 02/26/18 17:27 Last Admin: 02/26/18 17:38 Dose: 650 mg Diltiazem HCl (Cardizem) 10 mg IV NOW ONE Stop: 02/26/18 21:33 Last Admin: 02/26/18 21:35 Dose: 10 mg Levofloxacin (Levaquin) 750 mg in 150 mls @ 100 mls/hr IV NOW KAMLESH Stop: 02/26/18 23:00 Last Infusion: 02/26/18 19:51 Dose: 0 mls/hr Admin: 02/26/18 17:55 Dose: 100 mls/hr Sodium Chloride (Normal Saline 0.9%) 500 mls @ 1,000 mls/hr IV BOLUS ONE Stop: 02/26/18 17:50 Last Infusion: 02/26/18 19:00 Dose: 0 mls/hr Admin: 02/26/18 17:38 Dose: 1,000 mls/hr Sodium Chloride (Normal Saline 0.9%) 500 mls @ 1,000 mls/hr IV BOLUS ONE Stop: 02/26/18 19:12 Last Infusion: 02/26/18 19:51 Dose: 0 mls/hr Admin: 02/26/18 18:50 Dose: 1,000 mls/hr Amiodarone HCl/Dextrose (Nexterone) 150 mg in 100 mls @ 600 mls/hr IV NOW ONE; Protocol Stop: 02/26/18 21:46 Last Infusion: 02/26/18 21:39 Dose: 0 mls/hr Admin: 02/26/18 21:10 Dose: 600 mls/hr Ketorolac Tromethamine (Toradol) 15 mg IV NOW ONE Stop: 02/26/18 21:37 Last Admin: 02/26/18 21:05 Dose: 15 mg Morphine Sulfate (Morphine) 4 mg IV NOW ONE Stop: 02/26/18 21:44 Last Admin: 02/26/18 21:44 Dose: 4 mg Vital Signs - 8 hr 02/26/18 17:30 02/26/18 17:38 02/26/18 18:00 Temperature 101.9 F H 101.9 F H Pulse Rate 113 H 113 H Respiratory Rate 29 H 29 H Blood Pressure 150/84 H Blood Pressure [Left Arm] Blood Pressure [Right Arm] 139/82 H Pulse Oximetry 93 94 02/26/18 18:30 02/26/18 18:45 02/26/18 18:47 Temperature 100 F H Pulse Rate 114 H 113 H 121 H Respiratory Rate 26 H 27 H 27 H Blood Pressure Blood Pressure [Left Arm] Blood Pressure [Right Arm] 95/57 L 115/55 L 115/55 L Pulse Oximetry 94 93 94 02/26/18 19:00 02/26/18 19:15 02/26/18 19:30 Temperature Pulse Rate 120 H 113 H 113 H Respiratory Rate 26 H 27 H 25 H Blood Pressure Blood Pressure [Left Arm] Blood Pressure [Right Arm] 104/63 101/57 L 90/52 L Pulse Oximetry 94 94 96 02/26/18 19:43 02/26/18 19:45 02/26/18 20:15 Temperature 100.0 F H Pulse Rate 113 H 115 H Respiratory Rate 26 H 26 H Blood Pressure Blood Pressure [Left Arm] Blood Pressure [Right Arm] 100/61 95/52 L Pulse Oximetry 96 96 02/26/18 21:00 02/26/18 21:05 02/26/18 21:10 Temperature 101.5 F H Pulse Rate 138 H 164 H 158 H Respiratory Rate 27 H 32 H 30 H Blood Pressure Blood Pressure [Left Arm] Blood Pressure [Right Arm] 116/92 H 125/68 H Pulse Oximetry 98 92 96 02/26/18 21:15 02/26/18 21:20 02/26/18 21:25 Temperature Pulse Rate 148 H 131 H 129 H Respiratory Rate 32 H 31 H 31 H Blood Pressure Blood Pressure [Left Arm] Blood Pressure [Right Arm] 129/68 H 192/160 H 201/160 H Pulse Oximetry 96 95 95 02/26/18 21:30 02/26/18 21:35 02/26/18 21:40 Temperature Pulse Rate 114 H 108 H 107 H Respiratory Rate 29 H 28 H 27 H Blood Pressure 189/112 H Blood Pressure [Left Arm] Blood Pressure [Right Arm] 212/176 H 206/191 H 200/184 H Pulse Oximetry 95 97 97 02/26/18 21:45 02/26/18 21:50 02/26/18 21:55 Temperature 100.0 F H Pulse Rate 108 H 112 H 106 H Respiratory Rate 26 H 27 H 27 H Blood Pressure Blood Pressure [Left Arm] 122/65 H 105/63 Blood Pressure [Right Arm] 220/193 H Pulse Oximetry 97 97 96 02/26/18 22:00 02/26/18 22:10 02/26/18 22:19 Temperature Pulse Rate 112 H 118 H 120 H Respiratory Rate 25 H 24 26 H Blood Pressure Blood Pressure [Left Arm] 101/70 123/85 H 114/68 Blood Pressure [Right Arm] 105/72 Pulse Oximetry 96 95 95 <Ric Green, - Last Filed: 02/27/18 00:13> Orders Ordered: ED Orders 02/26/18 17:21 CT head/brain wo con Stat 02/26/18 17:22 XR chest 1V Stat Urinalysis and Microscopic Stat Urine Culture Stat 02/26/18 17:35 Blood Culture Stat Complete Blood Count AUTO DIFF Stat Comprehensive Metabolic Panel Stat Lactate (Lactic Acid) Stat Lipase Stat Magnesium Stat Partial Thromboplastin Time Stat Phosphorous Stat Procalcitonin Stat Prothrombin Time INR Stat Troponin I Stat 02/26/18 18:36 CT abdomen pelvis w con Stat 02/26/18 20:17 Consult to Physician Routine 02/26/18 21:56 EKG-12 Lead Stat 02/26/18 22:30 Lactate (Lactic Acid) Stat Acetaminophen (Tylenol) 650 mg PO Q6HR PRN PRN Reason: As Needed for Fever/Mild Pain Sodium Chloride (Normal Saline 0.9%) 1,000 mls @ 150 mls/hr IV CONT KAMLESH Last Infusion: 02/26/18 21:58 Dose: 0 mls/hr Infusion: 02/26/18 21:10 Dose: 999 mls/hr Infusion: 02/26/18 20:03 Dose: 0 mls/hr Admin: 02/26/18 19:51 Dose: 150 mls/hr Morphine Sulfate (Morphine) 2 mg IV Q4HR PRN PRN Reason: Pain, Moderate (4-6) Discontinued Medications Acetaminophen (Tylenol) 650 mg NV NOW ONE Stop: 02/26/18 17:27 Last Admin: 02/26/18 17:38 Dose: 650 mg Diltiazem HCl (Cardizem) 10 mg IV NOW ONE Stop: 02/26/18 21:33 Last Admin: 02/26/18 21:35 Dose: 10 mg Levofloxacin (Levaquin) 750 mg in 150 mls @ 100 mls/hr IV NOW KAMLESH Stop: 02/26/18 23:00 Last Infusion: 02/26/18 19:51 Dose: 0 mls/hr Admin: 02/26/18 17:55 Dose: 100 mls/hr Sodium Chloride (Normal Saline 0.9%) 500 mls @ 1,000 mls/hr IV BOLUS ONE Stop: 02/26/18 17:50 Last Infusion: 02/26/18 19:00 Dose: 0 mls/hr Admin: 02/26/18 17:38 Dose: 1,000 mls/hr Sodium Chloride (Normal Saline 0.9%) 500 mls @ 1,000 mls/hr IV BOLUS ONE Stop: 02/26/18 19:12 Last Infusion: 02/26/18 19:51 Dose: 0 mls/hr Admin: 02/26/18 18:50 Dose: 1,000 mls/hr Amiodarone HCl/Dextrose (Nexterone) 150 mg in 100 mls @ 600 mls/hr IV NOW ONE; Protocol Stop: 02/26/18 21:46 Last Infusion: 02/26/18 21:39 Dose: 0 mls/hr Admin: 02/26/18 21:10 Dose: 600 mls/hr Ketorolac Tromethamine (Toradol) 15 mg IV NOW ONE Stop: 02/26/18 21:37 Last Admin: 02/26/18 21:05 Dose: 15 mg Morphine Sulfate (Morphine) 4 mg IV NOW ONE Stop: 02/26/18 21:44 Last Admin: 02/26/18 21:44 Dose: 4 mg Vital Signs - 8 hr 02/26/18 17:30 02/26/18 17:38 02/26/18 18:00 Temperature 101.9 F H 101.9 F H Pulse Rate 113 H 113 H Respiratory Rate 29 H 29 H Blood Pressure 150/84 H Blood Pressure [Left Arm] Blood Pressure [Right Arm] 139/82 H Pulse Oximetry 93 94 02/26/18 18:30 02/26/18 18:45 02/26/18 18:47 Temperature 100 F H Pulse Rate 114 H 113 H 121 H Respiratory Rate 26 H 27 H 27 H Blood Pressure Blood Pressure [Left Arm] Blood Pressure [Right Arm] 95/57 L 115/55 L 115/55 L Pulse Oximetry 94 93 94 02/26/18 19:00 02/26/18 19:15 02/26/18 19:30 Temperature Pulse Rate 120 H 113 H 113 H Respiratory Rate 26 H 27 H 25 H Blood Pressure Blood Pressure [Left Arm] Blood Pressure [Right Arm] 104/63 101/57 L 90/52 L Pulse Oximetry 94 94 96 02/26/18 19:43 02/26/18 19:45 02/26/18 20:15 Temperature 100.0 F H Pulse Rate 113 H 115 H Respiratory Rate 26 H 26 H Blood Pressure Blood Pressure [Left Arm] Blood Pressure [Right Arm] 100/61 95/52 L Pulse Oximetry 96 96 02/26/18 21:00 02/26/18 21:05 02/26/18 21:10 Temperature 101.5 F H Pulse Rate 138 H 164 H 158 H Respiratory Rate 27 H 32 H 30 H Blood Pressure Blood Pressure [Left Arm] Blood Pressure [Right Arm] 116/92 H 125/68 H Pulse Oximetry 98 92 96 02/26/18 21:15 02/26/18 21:20 02/26/18 21:25 Temperature Pulse Rate 148 H 131 H 129 H Respiratory Rate 32 H 31 H 31 H Blood Pressure Blood Pressure [Left Arm] Blood Pressure [Right Arm] 129/68 H 192/160 H 201/160 H Pulse Oximetry 96 95 95 02/26/18 21:30 02/26/18 21:35 02/26/18 21:40 Temperature Pulse Rate 114 H 108 H 107 H Respiratory Rate 29 H 28 H 27 H Blood Pressure 189/112 H Blood Pressure [Left Arm] Blood Pressure [Right Arm] 212/176 H 206/191 H 200/184 H Pulse Oximetry 95 97 97 02/26/18 21:45 02/26/18 21:50 02/26/18 21:55 Temperature 100.0 F H Pulse Rate 108 H 112 H 106 H Respiratory Rate 26 H 27 H 27 H Blood Pressure Blood Pressure [Left Arm] 122/65 H 105/63 Blood Pressure [Right Arm] 220/193 H Pulse Oximetry 97 97 96 02/26/18 22:00 02/26/18 22:10 02/26/18 22:19 Temperature Pulse Rate 112 H 118 H 120 H Respiratory Rate 25 H 24 26 H Blood Pressure Blood Pressure [Left Arm] 101/70 123/85 H 114/68 Blood Pressure [Right Arm] 105/72 Pulse Oximetry 96 95 95 MDM - Fever <ALY Tyson - Last Filed: 02/26/18 22:02> Lab Data Result diagrams: 02/26/18 17:35 02/26/18 17:35 Lab Results 02/26/18 02/26/18 02/26/18 Range/Units 17:22 17:35 17:35 WBC 14.9 H (4.5-11.0) X10^3/uL RBC 4.65 (4.5-5.9) X10^6/uL Hgb 13.0 L (13.5-17.5) g/dL Hct 39.8 L (41-53) % MCV 85.6 (80-100) fL MCH 28.0 (26-34) PG MCHC 32.7 (30-36) % RDW 14.4 (11.6-14.8) % Plt Count 178 (150-400) X10^3/uL Neut % (Auto) 90.6 H (50-75) % Lymph % (Auto) 4.7 L (25-40) % Mckenzie % (Auto) 4.2 (3-14) % Eos % (Auto) 0.0 L (2-4) % Baso % (Auto) 0.5 (0-2) % Neut # (Auto) 52883 H (4337-6308) /uL PT (10.1-12.7) SECONDS INR (0.9-1.3) APTT (26.4-36.2) SECONDS Sodium Potassium Chloride Carbon Dioxide BUN Creatinine Estimated GFR BUN/Creatinine Ratio Glucose Lactate (0.7-2.1) mmol/L Calcium Phosphorus (2.3-3.7) mg/dL Magnesium (1.6-2.3) mg/dL Total Bilirubin (0.2-1.3) mg/dL AST (17-59) IU/L ALT (21-72) IU/L Alkaline Phosphatase (38-126) U/L Troponin I (0.01-0.034) ng/mL Total Protein (6.3-8.2) g/dL Albumin (3.5-5.0) g/dL Globulin (1.7-4.1) g/dL Albumin/Globulin Ratio (1.0-2.8) Lipase (23-300) U/L Procalcitonin 6.03 H (<0.5) ng/mL Specimen Hemolysis Urine Color Yellow Urine Appearance Cloudy Urine pH 5.0 (4.5-8.0) Ur Specific [place] 1.020 (1.000-1.035) Urine Protein 2+ H (Negative) Urine Glucose (UA) Negative (Normal) g/dL Urine Ketones Negative (NEGATIVE) Urine Occult Blood 3+ H (Negative) Urine Nitrate Positive (Negative) Urine Bilirubin Negative (NEGATIVE) Urine Urobilinogen 0.2 (0.2) E.U./dL Ur Leukocyte Esterase Trace H (NEGATIVE) Urine RBC 5-10/hpf H (0-5/HPF) Urine WBC 1-5/hpf (0-5/HPF) Amorphous Sediment 3+ Urine Bacteria None seen (None) Ur Culture Indicated? Micro UA Comment Not Reportable 02/26/18 02/26/18 02/26/18 Range/Units 17:35 17:35 17:35 WBC (4.5-11.0) X10^3/uL RBC (4.5-5.9) X10^6/uL Hgb (13.5-17.5) g/dL Hct (41-53) % MCV (80-100) fL MCH (26-34) PG MCHC (30-36) % RDW (11.6-14.8) % Plt Count (150-400) X10^3/uL Neut % (Auto) (50-75) % Lymph % (Auto) (25-40) % Mckenzie % (Auto) (3-14) % Eos % (Auto) (2-4) % Baso % (Auto) (0-2) % Neut # (Auto) (6691-5091) /uL PT (10.1-12.7) SECONDS INR (0.9-1.3) APTT (26.4-36.2) SECONDS Sodium Cancelled Potassium Cancelled Chloride Cancelled Carbon Dioxide Cancelled BUN Cancelled Creatinine Cancelled Estimated GFR Cancelled BUN/Creatinine Ratio Cancelled Glucose Cancelled Lactate 1.6 (0.7-2.1) mmol/L Calcium Cancelled Phosphorus (2.3-3.7) mg/dL Magnesium (1.6-2.3) mg/dL Total Bilirubin (0.2-1.3) mg/dL AST (17-59) IU/L ALT (21-72) IU/L Alkaline Phosphatase (38-126) U/L Troponin I 0.443 H* (0.01-0.034) ng/mL Total Protein (6.3-8.2) g/dL Albumin (3.5-5.0) g/dL Globulin (1.7-4.1) g/dL Albumin/Globulin Ratio (1.0-2.8) Lipase (23-300) U/L Procalcitonin (<0.5) ng/mL Specimen Hemolysis Cancelled Urine Color Urine Appearance Urine pH (4.5-8.0) Ur Specific [place] (1.000-1.035) Urine Protein (Negative) Urine Glucose (UA) (Normal) g/dL Urine Ketones (NEGATIVE) Urine Occult Blood (Negative) Urine Nitrate (Negative) Urine Bilirubin (NEGATIVE) Urine Urobilinogen (0.2) E.U./dL Ur Leukocyte Esterase (NEGATIVE) Urine RBC (0-5/HPF) Urine WBC (0-5/HPF) Amorphous Sediment Urine Bacteria (None) Ur Culture Indicated? Micro UA Comment 02/26/18 02/26/18 02/26/18 Range/Units 17:35 17:35 17:35 WBC (4.5-11.0) X10^3/uL RBC (4.5-5.9) X10^6/uL Hgb (13.5-17.5) g/dL Hct (41-53) % MCV (80-100) fL MCH (26-34) PG MCHC (30-36) % RDW (11.6-14.8) % Plt Count (150-400) X10^3/uL Neut % (Auto) (50-75) % Lymph % (Auto) (25-40) % Mckenzie % (Auto) (3-14) % Eos % (Auto) (2-4) % Baso % (Auto) (0-2) % Neut # (Auto) (6023-6807) /uL PT 26.6 H (10.1-12.7) SECONDS INR 2.5 H (0.9-1.3) APTT 35 (26.4-36.2) SECONDS Sodium 136 L Potassium 4.0 Chloride 97 L Carbon Dioxide 24 BUN 45 H Creatinine 1.50 H Estimated GFR 45.4 L BUN/Creatinine Ratio 30.0 H Glucose 256 H Lactate (0.7-2.1) mmol/L Calcium 8.5 Phosphorus 3.6 (2.3-3.7) mg/dL Magnesium 2.2 (1.6-2.3) mg/dL Total Bilirubin 0.7 (0.2-1.3) mg/dL AST 50 (17-59) IU/L ALT 31 (21-72) IU/L Alkaline Phosphatase 104 (38-126) U/L Troponin I (0.01-0.034) ng/mL Total Protein 6.8 (6.3-8.2) g/dL Albumin 3.2 L (3.5-5.0) g/dL Globulin 3.6 (1.7-4.1) g/dL Albumin/Globulin Ratio 0.9 L (1.0-2.8) Lipase 11 L (23-300) U/L Procalcitonin (<0.5) ng/mL Specimen Hemolysis Urine Color Urine Appearance Urine pH (4.5-8.0) Ur Specific [place] (1.000-1.035) Urine Protein (Negative) Urine Glucose (UA) (Normal) g/dL Urine Ketones (NEGATIVE) Urine Occult Blood (Negative) Urine Nitrate (Negative) Urine Bilirubin (NEGATIVE) Urine Urobilinogen (0.2) E.U./dL Ur Leukocyte Esterase (NEGATIVE) Urine RBC (0-5/HPF) Urine WBC (0-5/HPF) Amorphous Sediment Urine Bacteria (None) Ur Culture Indicated? Micro UA Comment 02/26/18 Range/Units 22:30 WBC (4.5-11.0) X10^3/uL RBC (4.5-5.9) X10^6/uL Hgb (13.5-17.5) g/dL Hct (41-53) % MCV (80-100) fL MCH (26-34) PG MCHC (30-36) % RDW (11.6-14.8) % Plt Count (150-400) X10^3/uL Neut % (Auto) (50-75) % Lymph % (Auto) (25-40) % Mckenzie % (Auto) (3-14) % Eos % (Auto) (2-4) % Baso % (Auto) (0-2) % Neut # (Auto) (6740-3725) /uL PT (10.1-12.7) SECONDS INR (0.9-1.3) APTT (26.4-36.2) SECONDS Sodium Potassium Chloride Carbon Dioxide BUN Creatinine Estimated GFR BUN/Creatinine Ratio Glucose Lactate 2.7 H (0.7-2.1) mmol/L Calcium Phosphorus (2.3-3.7) mg/dL Magnesium (1.6-2.3) mg/dL Total Bilirubin (0.2-1.3) mg/dL AST (17-59) IU/L ALT (21-72) IU/L Alkaline Phosphatase (38-126) U/L Troponin I (0.01-0.034) ng/mL Total Protein (6.3-8.2) g/dL Albumin (3.5-5.0) g/dL Globulin (1.7-4.1) g/dL Albumin/Globulin Ratio (1.0-2.8) Lipase (23-300) U/L Procalcitonin (<0.5) ng/mL Specimen Hemolysis Urine Color Urine Appearance Urine pH (4.5-8.0) Ur Specific [place] (1.000-1.035) Urine Protein (Negative) Urine Glucose (UA) (Normal) g/dL Urine Ketones (NEGATIVE) Urine Occult Blood (Negative) Urine Nitrate (Negative) Urine Bilirubin (NEGATIVE) Urine Urobilinogen (0.2) E.U./dL Ur Leukocyte Esterase (NEGATIVE) Urine RBC (0-5/HPF) Urine WBC (0-5/HPF) Amorphous Sediment Urine Bacteria (None) Ur Culture Indicated? Micro UA Comment Imaging Data CT scan - head: Radiologist's impression: PROCEDURE: CT HEAD/BRAIN WO CON INDICATIONS: DECREASED LOC TECHNIQUE: Noncontrast 4.5 mm thick angled axial sections acquired from the foramen magnum to the vertex, with coronal and sagittal reformats. For radiation dose reduction, the following was used: automated exposure control, adjustment of mA and/or kV according to patient size. COMPARISON: [facility], CT, HEAD WITHOUT CONTRAST, 09/14/2016, 13:50. FINDINGS: Image quality: Excellent. CSF spaces: Basal cisterns are patent. No extra-axial fluid collections. The ventricles are symmetric in size and shape. Brain: No intracranial bleeds or masses. There is moderate cerebral volume loss for age, with resultant ventricular and sulcal prominence. There are moderate periventricular and deep white matter chronic small vessel ischemic changes. There is intracranial internal carotid artery atherosclerosis. Skull and face: Calvarium and visualized facial bones appear intact, without suspicious lesions. Sinuses: Visualized sinuses and mastoids are clear. IMPRESSION: 1. No acute intracranial abnormalities. 2. Cerebral volume loss and chronic microvascular ischemic changes. Dictated by: Yany Juarez M.D. on 02/26/2018 at 18:32 Approved by: Yany Juarez M.D. on 02/26/2018 at 18:34 Chest x-ray: Radiologist's impression: ADDENDUM This report includes an Addendum and supersedes previous reports for this exam. PROCEDURE: XR CHEST 1V INDICATIONS: FEVER CHANGE IN LOC TECHNIQUE: One view of the chest was acquired. COMPARISON: [facility], , ABDOMEN 2 VIEW, 08/13/2017, 12:11. [facility], , CHEST 1 VIEW, 02/19/2017, 19:12. FINDINGS: Surgical changes and devices: None. Lungs and pleura: Lung volumes are small consistent with poor inspiration. There is retrocardiac opacity suspicious for pneumonia. No large pleural effusions or pneumothorax. Mediastinum: Mediastinal contours appear normal. Heart size is normal. Bones and chest wall: No suspicious bony lesions. Overlying soft tissues appear unremarkable. Possible free air under the right hemidiaphragm. IMPRESSION: 1. Suspect retrocardiac pneumonia. 2. ? Free peritoneal air under the right hemidiaphragm. Dictated by: Yany Juarez M.D. on 02/26/2018 at 18:30 Approved by: Yany Juarez M.D. on 02/26/2018 at 18:32 ADDENDUM: The result was discussed with Leno Dietz in ER prior for the addendum. Dictated by: Yany Juarez M.D. on 02/26/2018 at 18:35 Approved by: Yany Juarez M.D. on 02/26/2018 at 18:35 Addendum Dictated By: Sharan Juarez M.D. Addendum Signed By: Addendum Cosigned By: DD/ TD/TT: 02/26/18 PROCEDURE: XR CHEST 1V INDICATIONS: FEVER CHANGE IN LOC TECHNIQUE: One view of the chest was acquired. COMPARISON: [facility], , ABDOMEN 2 VIEW, 08/13/2017, 12:11. [facility], , CHEST 1 VIEW, 02/19/2017, 19:12. FINDINGS: Surgical changes and devices: None. Lungs and pleura: Lung volumes are small consistent with poor inspiration. There is retrocardiac opacity suspicious for pneumonia. No large pleural effusions or pneumothorax. Mediastinum: Mediastinal contours appear normal. Heart size is normal. Bones and chest wall: No suspicious bony lesions. Overlying soft tissues appear unremarkable. Possible free air under the right hemidiaphragm. IMPRESSION: 1. Suspect retrocardiac pneumonia. 2. ? Free peritoneal air under the right hemidiaphragm. Dictated by: Yany Juarez M.D. on 02/26/2018 at 18:30 Approved by: Yany Juarez M.D. on 02/26/2018 at 18:32 CT scan - abdomen: Radiologist's impression: PROCEDURE: CT ABDOMEN PELVIS W CON INDICATIONS: ? Free air seen on chest x-ray TECHNIQUE: After the administration of intravenous contrast, 5 mm thick sections acquired from the diaphragm to the symphysis. 5 mm coronal and sagittal reformats were acquired. For radiation dose reduction, the following was used: automated exposure control, adjustment of mA and/or kV according to patient size. COMPARISON: [facility], , L-SPINE 2-3 VIEWS, 04/08/2016, 19:41. [facility], CT, ABDOMEN/PELVIS WITH CONTRAST, 03/03/2016, 5:32. [facility], CT, THORAX WITHOUT CONTRAST, 09/16/2016, 8:49. [facility], , XR CHEST 1V, 02/26/2018, 17:07. FINDINGS: Image quality: Excellent. ABDOMEN: Lung bases: Left basilar infiltrate suspicious for pneumonia. Heart size is normal. Cardiac pacemaker leads are noted. Solid organs: Liver is normal in size and enhancement. A small indeterminate hepatic hypodensity in the anterior right hepatic lobe adjacent to the gallbladder fossa is probably a cyst. Gallbladder is normal. Biliary system is non dilated. Pancreas enhances normally. Spleen is normal in size and enhancement. No adrenal nodules. Right kidney is surgically absent. Left kidney is normal size and enhancement, without hydronephrosis. Peritoneum and bowel: There is no free peritoneal air. Lucency in the right upper abdomens caused by colonic interposition. There is gaseous distention of colon and moderate stool in rectum. Bowel loops demonstrate normal wall thickness and caliber. No free fluid. Nodes and vessels: No retroperitoneal or mesenteric adenopathy by size criteria. Aorta and inferior vena cava are normal in size. Miscellaneous: No ventral hernias. PELVIS: Genitourinary: There is a Reyna catheter within the bladder. Bladder wall is thickened. Miscellaneous: No inguinal hernias or adenopathy. Bones: No suspicious bony lesions. Tzxc-ca-fyadopna L4 vertebral body compression fracture with 30% loss of vertebral body height. Degenerative changes are present in lumbar spine. 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 A small sclerotic focus in the right acetabulum is likely a bone island. IMPRESSION: 1. No free air. 2. Left basilar pneumonia. 3. Bladder wall thickening suspicious for cystitis. 4. Right nephrectomy. 5. Ynpo-iu-rbzsegxe L4 compression fracture of indeterminate chronicity. Dictated by: Yany Juarez M.D. on 02/26/2018 at 19:22 Approved by: Yany Juarez M.D. on 02/26/2018 at 19:37 ECG Data Interpretation: EKG shows sinus tachycardia with 1st degree AV block no ST elevation or depression. Ventricular rate of 112. Pr interval of 212. QRS duration 156. QT of 341 with the exception of sinus tachycardia is consistent with prior EKG MDM Narrative Medical decision making narrative: CBC shows elevated white count. Chem panel shows decreased GFR and elevated troponin of 0.4. Patient is DNR with limited intervention. Chest x-ray shows left basilar pneumonia and urinalysis was positive for urinary tract infection. Blood cultures were obtained and are pending. Lactate and was negative. Procalcitonin is elevated at 6. Signs and symptoms presents as urosepsis and pneumonia. He was given Levaquin IV in the emergency room. After he was given fluids in the emergency room he became more alert and was responding verbally. On chest x-ray radiologist was concerned there might be some free air below the diaphragm and requested a CT of the abdomen. CT of the abdomen was obtained and was negative for any free air. CT did not show any acute findings with the exception of some moderate stool to the lower colon and rectal area and thickened bladder wall. EKG shows sinus tachycardia no ST elevation or depression. Discussed case with Dr. Medina hospitalist who accepted patient patient is admitted for inpatient services and IV antibiotics. While awaiting for patient to be admitted due to the inpatient services patient developed chills and rigors. He was given small amount of Toradol to help with fever. During this timeframe patient developed AFib with RVR. Patient was given amiodarone at 1st as rhythm looked like V-tach after further evaluation was determined that he was in AFib with RVR so diltiazem was given push shortly after the diltiazem was given patient converted back to sinus rhythm. Dr. Medina was informed of this and decided to admit patient to the unit <Ric Green DO - Last Filed: 02/27/18 00:13> Lab Data Lab Results 02/26/18 02/26/18 02/26/18 Range/Units 17:22 17:35 17:35 WBC 14.9 H (4.5-11.0) X10^3/uL RBC 4.65 (4.5-5.9) X10^6/uL Hgb 13.0 L (13.5-17.5) g/dL Hct 39.8 L (41-53) % MCV 85.6 (80-100) fL MCH 28.0 (26-34) PG MCHC 32.7 (30-36) % RDW 14.4 (11.6-14.8) % Plt Count 178 (150-400) X10^3/uL Neut % (Auto) 90.6 H (50-75) % Lymph % (Auto) 4.7 L (25-40) % Mckenzie % (Auto) 4.2 (3-14) % Eos % (Auto) 0.0 L (2-4) % Baso % (Auto) 0.5 (0-2) % Neut # (Auto) 75561 H (2418-5138) /uL PT (10.1-12.7) SECONDS INR (0.9-1.3) APTT (26.4-36.2) SECONDS Sodium Potassium Chloride Carbon Dioxide BUN Creatinine Estimated GFR BUN/Creatinine Ratio Glucose Lactate (0.7-2.1) mmol/L Calcium Phosphorus (2.3-3.7) mg/dL Magnesium (1.6-2.3) mg/dL Total Bilirubin (0.2-1.3) mg/dL AST (17-59) IU/L ALT (21-72) IU/L Alkaline Phosphatase (38-126) U/L Troponin I (0.01-0.034) ng/mL Total Protein (6.3-8.2) g/dL Albumin (3.5-5.0) g/dL Globulin (1.7-4.1) g/dL Albumin/Globulin Ratio (1.0-2.8) Lipase (23-300) U/L Procalcitonin 6.03 H (<0.5) ng/mL Specimen Hemolysis Urine Color Yellow Urine Appearance Cloudy Urine pH 5.0 (4.5-8.0) Ur Specific [place] 1.020 (1.000-1.035) Urine Protein 2+ H (Negative) Urine Glucose (UA) Negative (Normal) g/dL Urine Ketones Negative (NEGATIVE) Urine Occult Blood 3+ H (Negative) Urine Nitrate Positive (Negative) Urine Bilirubin Negative (NEGATIVE) Urine Urobilinogen 0.2 (0.2) E.U./dL Ur Leukocyte Esterase Trace H (NEGATIVE) Urine RBC 5-10/hpf H (0-5/HPF) Urine WBC 1-5/hpf (0-5/HPF) Amorphous Sediment 3+ Urine Bacteria None seen (None) Ur Culture Indicated? Micro UA Comment Not Reportable 02/26/18 02/26/18 02/26/18 Range/Units 17:35 17:35 17:35 WBC (4.5-11.0) X10^3/uL RBC (4.5-5.9) X10^6/uL Hgb (13.5-17.5) g/dL Hct (41-53) % MCV (80-100) fL MCH (26-34) PG MCHC (30-36) % RDW (11.6-14.8) % Plt Count (150-400) X10^3/uL Neut % (Auto) (50-75) % Lymph % (Auto) (25-40) % Mckenzie % (Auto) (3-14) % Eos % (Auto) (2-4) % Baso % (Auto) (0-2) % Neut # (Auto) (2281-0007) /uL PT (10.1-12.7) SECONDS INR (0.9-1.3) APTT (26.4-36.2) SECONDS Sodium Cancelled Potassium Cancelled Chloride Cancelled Carbon Dioxide Cancelled BUN Cancelled Creatinine Cancelled Estimated GFR Cancelled BUN/Creatinine Ratio Cancelled Glucose Cancelled Lactate 1.6 (0.7-2.1) mmol/L Calcium Cancelled Phosphorus (2.3-3.7) mg/dL Magnesium (1.6-2.3) mg/dL Total Bilirubin (0.2-1.3) mg/dL AST (17-59) IU/L ALT (21-72) IU/L Alkaline Phosphatase (38-126) U/L Troponin I 0.443 H* (0.01-0.034) ng/mL Total Protein (6.3-8.2) g/dL Albumin (3.5-5.0) g/dL Globulin (1.7-4.1) g/dL Albumin/Globulin Ratio (1.0-2.8) Lipase (23-300) U/L Procalcitonin (<0.5) ng/mL Specimen Hemolysis Cancelled Urine Color Urine Appearance Urine pH (4.5-8.0) Ur Specific [place] (1.000-1.035) Urine Protein (Negative) Urine Glucose (UA) (Normal) g/dL Urine Ketones (NEGATIVE) Urine Occult Blood (Negative) Urine Nitrate (Negative) Urine Bilirubin (NEGATIVE) Urine Urobilinogen (0.2) E.U./dL Ur Leukocyte Esterase (NEGATIVE) Urine RBC (0-5/HPF) Urine WBC (0-5/HPF) Amorphous Sediment Urine Bacteria (None) Ur Culture Indicated? Micro UA Comment 02/26/18 02/26/18 02/26/18 Range/Units 17:35 17:35 17:35 WBC (4.5-11.0) X10^3/uL RBC (4.5-5.9) X10^6/uL Hgb (13.5-17.5) g/dL Hct (41-53) % MCV (80-100) fL MCH (26-34) PG MCHC (30-36) % RDW (11.6-14.8) % Plt Count (150-400) X10^3/uL Neut % (Auto) (50-75) % Lymph % (Auto) (25-40) % Mckenzie % (Auto) (3-14) % Eos % (Auto) (2-4) % Baso % (Auto) (0-2) % Neut # (Auto) (7453-2735) /uL PT 26.6 H (10.1-12.7) SECONDS INR 2.5 H (0.9-1.3) APTT 35 (26.4-36.2) SECONDS Sodium 136 L Potassium 4.0 Chloride 97 L Carbon Dioxide 24 BUN 45 H Creatinine 1.50 H Estimated GFR 45.4 L BUN/Creatinine Ratio 30.0 H Glucose 256 H Lactate (0.7-2.1) mmol/L Calcium 8.5 Phosphorus 3.6 (2.3-3.7) mg/dL Magnesium 2.2 (1.6-2.3) mg/dL Total Bilirubin 0.7 (0.2-1.3) mg/dL AST 50 (17-59) IU/L ALT 31 (21-72) IU/L Alkaline Phosphatase 104 (38-126) U/L Troponin I (0.01-0.034) ng/mL Total Protein 6.8 (6.3-8.2) g/dL Albumin 3.2 L (3.5-5.0) g/dL Globulin 3.6 (1.7-4.1) g/dL Albumin/Globulin Ratio 0.9 L (1.0-2.8) Lipase 11 L (23-300) U/L Procalcitonin (<0.5) ng/mL Specimen Hemolysis Urine Color Urine Appearance Urine pH (4.5-8.0) Ur Specific [place] (1.000-1.035) Urine Protein (Negative) Urine Glucose (UA) (Normal) g/dL Urine Ketones (NEGATIVE) Urine Occult Blood (Negative) Urine Nitrate (Negative) Urine Bilirubin (NEGATIVE) Urine Urobilinogen (0.2) E.U./dL Ur Leukocyte Esterase (NEGATIVE) Urine RBC (0-5/HPF) Urine WBC (0-5/HPF) Amorphous Sediment Urine Bacteria (None) Ur Culture Indicated? Micro UA Comment 02/26/18 Range/Units 22:30 WBC (4.5-11.0) X10^3/uL RBC (4.5-5.9) X10^6/uL Hgb (13.5-17.5) g/dL Hct (41-53) % MCV (80-100) fL MCH (26-34) PG MCHC (30-36) % RDW (11.6-14.8) % Plt Count (150-400) X10^3/uL Neut % (Auto) (50-75) % Lymph % (Auto) (25-40) % Mckenzie % (Auto) (3-14) % Eos % (Auto) (2-4) % Baso % (Auto) (0-2) % Neut # (Auto) (3806-3099) /uL PT (10.1-12.7) SECONDS INR (0.9-1.3) APTT (26.4-36.2) SECONDS Sodium Potassium Chloride Carbon Dioxide BUN Creatinine Estimated GFR BUN/Creatinine Ratio Glucose Lactate 2.7 H (0.7-2.1) mmol/L Calcium Phosphorus (2.3-3.7) mg/dL Magnesium (1.6-2.3) mg/dL Total Bilirubin (0.2-1.3) mg/dL AST (17-59) IU/L ALT (21-72) IU/L Alkaline Phosphatase (38-126) U/L Troponin I (0.01-0.034) ng/mL Total Protein (6.3-8.2) g/dL Albumin (3.5-5.0) g/dL Globulin (1.7-4.1) g/dL Albumin/Globulin Ratio (1.0-2.8) Lipase (23-300) U/L Procalcitonin (<0.5) ng/mL Specimen Hemolysis Urine Color Urine Appearance Urine pH (4.5-8.0) Ur Specific [place] (1.000-1.035) Urine Protein (Negative) Urine Glucose (UA) (Normal) g/dL Urine Ketones (NEGATIVE) Urine Occult Blood (Negative) Urine Nitrate (Negative) Urine Bilirubin (NEGATIVE) Urine Urobilinogen (0.2) E.U./dL Ur Leukocyte Esterase (NEGATIVE) Urine RBC (0-5/HPF) Urine WBC (0-5/HPF) Amorphous Sediment Urine Bacteria (None) Ur Culture Indicated? Micro UA Comment Discharge Plan Departure Patient Disposition: Admitted As Inpatient Clinical Impression: Pneumonia, Decreased level of consciousness, Acute UTI, Atrial fibrillation with RVR Interventions: ED Discharge Assessment Last Done: 02/26/18 20:34 Admit Date/Time: 02/26/18 20:22 Admit Provider: Alfredo Medina V
[2018-02-26] MEDS: levoFLOXacin 750 MG/150 ML PIGGYBACK 100 MG IV (17:55)
[2018-02-26 17:59] LABS: Add Manual Diff / Slide Review NO; Basophils Percent Auto 0.5 % (0-2); Hematocrit 39.8 % (41-53); Lymphocytes Percent Auto 4.7 % (25-40); Mean Corpuscular HGB Conc 32.7 % (30-36); Mean Corpuscular Volume 85.6 fL (80-100); Monocytes Percent Auto 4.2 % (3-14); Neutrophils Absolute Auto 13500 /uL (3000-5900); Neutrophils Percent Auto 90.6 % (50-75); Platelet Count 178 X10^3/uL (150-400); Red Blood Cell Count 4.65 X10^6/uL (4.5-5.9); Red Cell Distribution Width 14.4 % (11.6-14.8); White Blood Cell Count 14.9 X10^3/uL (4.5-11.0)
[2018-02-26 18:06] LABS: INR 2.5 (0.9-1.3); Prothrombin Time 26.6 SECONDS (10.1-12.7)
[2018-02-26 18:08] LABS: PTT Partial Thromboplastin Tim 35 SECONDS (26.4-36.2)
[2018-02-26 18:16] LABS: Magnesium 2.2 mg/dL (1.6-2.3); Phosphorous 3.6 mg/dL (2.3-3.7)
[2018-02-26 18:17] LABS: Lactate (Lactic Acid) 1.6 mmol/L (0.7-2.1)
[2018-02-26 18:18] LABS: Alanine Aminotransferase 31 IU/L (21-72); Albumin 3.2 g/dL (3.5-5.0); Albumin Globulin Ratio 0.9 (1.0-2.8); Alkaline Phosphatase 104 U/L (38-126); Aspartate Aminotransferase 50 IU/L (17-59); Bilirubin Total 0.7 mg/dL (0.2-1.3); Blood Urea Nitrogen 45 mg/dL (9-20); Calcium 8.5 mg/dL (8.4-10.2); Carbon Dioxide 24 mmol/L (22-32); Chloride 97 mmol/L (98-107); Estimated Glomerular Filt Rate 45.4 mL/min (>60); Globulin 3.6 g/dL (1.7-4.1); Glucose 256 mg/dL (80-110); HEMOLYSIS < 15 (0-50); Lipase 11 U/L (23-300); Sodium 136 mmol/L (137-145); Total Protein 6.8 g/dL (6.3-8.2)
--- NOTE | 2018-02-26 18:19 | PC.NURSE ---
pt brought in by ambulance due to decreased loc for past 2 hours, at [facility] in assist living. pt responds to name, but lethargic. iv r hand by medics but not able to draw blood. lab here to draw. has adult diaper on that seems to have been on for a length of time, very full of urine and foul smelling. has looks like decube healed/ purple in color on r buttocks.
[2018-02-26 18:21] LABS: Bacteria Urine None Seen
--- NOTE | 2018-02-26 18:36 | DI.CT.S_ITS ---
PROCEDURE: CT ABDOMEN PELVIS W CON INDICATIONS: ? Free air seen on chest x-ray TECHNIQUE: After the administration of intravenous contrast, 5 mm thick sections acquired from the diaphragm to the symphysis. 5 mm coronal and sagittal reformats were acquired. For radiation dose reduction, the following was used: automated exposure control, adjustment of mA and/or kV according to patient size. COMPARISON: [facility], CR, L-SPINE 2-3 VIEWS, 04/08/2016, 19:41. [facility], CT, ABDOMEN/PELVIS WITH CONTRAST, 03/03/2016, 5:32. [facility], CT, THORAX WITHOUT CONTRAST, 09/16/2016, 8:49. [facility], CR, XR CHEST 1V, 02/26/2018, 17:07. FINDINGS: Image quality: Excellent. ABDOMEN: Lung bases: Left basilar infiltrate suspicious for pneumonia. Heart size is normal. Cardiac pacemaker leads are noted. Solid organs: Liver is normal in size and enhancement. A small indeterminate hepatic hypodensity in the anterior right hepatic lobe adjacent to the gallbladder fossa is probably a cyst. Gallbladder is normal. Biliary system is non dilated. Pancreas enhances normally. Spleen is normal in size and enhancement. No adrenal nodules. Right kidney is surgically absent. Left kidney is normal size and enhancement, without hydronephrosis. Peritoneum and bowel: There is no free peritoneal air. Lucency in the right upper abdomens caused by colonic interposition. There is gaseous distention of colon and moderate stool in rectum. Bowel loops demonstrate normal wall thickness and caliber. No free fluid. Nodes and vessels: No retroperitoneal or mesenteric adenopathy by size criteria. Aorta and inferior vena cava are normal in size. Miscellaneous: No ventral hernias. PELVIS: Genitourinary: There is a Reyna catheter within the bladder. Bladder wall is thickened. Miscellaneous: No inguinal hernias or adenopathy. Bones: No suspicious bony lesions. Plus-oj-cuwhmkdt L4 vertebral body compression fracture with 30% loss of vertebral body height. Degenerative changes are present in lumbar spine. 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 A small sclerotic focus in the right acetabulum is likely a bone island. IMPRESSION: 1. No free air. 2. Left basilar pneumonia. 3. Bladder wall thickening suspicious for cystitis. 4. Right nephrectomy. 5. Ghis-fh-vwnknjho L4 compression fracture of indeterminate chronicity. Dictated by: Yany Juarez M.D. on 02/26/2018 at 19:22 Approved by: Yany Juarez M.D. on 02/26/2018 at 19:37
[2018-02-26 18:39] LABS: Appearance Urine UA CLOUDY; Bilirubin Urine UA NEGATIVE (NEGATIVE); Color Urine UA YELLOW; Glucose Urine UA NEGATIVE (Normal); Ketones Urine UA NEGATIVE (NEGATIVE); Leukocyte Esterase Urine UA TRACE (NEGATIVE); Nitrite Urine UA POSITIVE (Negative); Occult Blood Urine UA 3+ (Negative); Protein Urine UA 2+ (Negative); Urobilinogen Urine UA 0.2 E.U./dL (0.2)
[2018-02-26 18:46] LABS: RBC Urine 5-10/HPF (0-5/HPF); WBC Urine 1-5/HPF (0-5/HPF)
[2018-02-26 18:47] LABS: Amorphous Sediment Urine 3+
[2018-02-26 18:53] LABS: Troponin I 0.443 ng/mL (0.01-0.034)
[2018-02-26 18:56] LABS: Procalcitonin 6.03 ng/mL (<0.5)
[2018-02-26] MEDS: SODIUM CHLORIDE 0.9% 1,000 ML 150 ML IV (19:51)
[2018-02-26] MEDS: KETOROLAC 15 MG/ML VIAL IV (21:05)
[2018-02-26] MEDS: AMIODARONE 150 MG/100 ML PIGGYBACK 600 MG IV (21:10)
[2018-02-26] MEDS: dilTIAZem 25 MG/5 ML SDV 10 MG IV (21:35)
[2018-02-26] MEDS: MORPHINE 4 MG/ML INJ IV (21:44)
--- NOTE | 2018-02-26 21:51 | PC.NURSE ---
Running note: @ 2105 pt hr noted to increase w/ ventricular beats ? vtac vs afib w/ abb. PT became hypertensive w/ increased work of breathing and rr increased to 39. Temp noted to be 101.5 ax. Provider in to re-evaluate. IVFluids, 500 cc bolus started, repeat ekg, amiodorone 150mg loading dose over 10 min and toradol 15 mg ivp for fever and pain reported 03/08 abd. HR remained > 150 w/ ekg showing afib w/ abberency. Diltiazem 10 mg ivp slowed HR to 103 w/ pt stating he felt much improved. Admitting MD notified. Pt will not go to ICU.
[2018-02-26 23:12] LABS: Lactate (Lactic Acid) 2.7 mmol/L (0.7-2.1)
[2018-02-27] VITALS (18 sets, daily range): BP systolic 84–100; BP diastolic 43–58; PULSE 73–108; RESP 16–26; TEMP 36.8–38.1; O2SAT 92–944
[2018-02-27] MEDS: ACETAMINOPHEN 325 MG TABLET 650 MG PO (00:15)
[2018-02-27 02:37] LABS: Reflexed Lactate in 2 Hours Y
--- NOTE | 2018-02-27 05:12 | PC.ADMIT ---
Addendum entered by Sherrie Bob R.N. 02/27/18 05:48: Pt c/o aching feet related to his diabetes. States he has a special creme. Lotion applied, pt reports no relief. Talked to Wilmer at [facility] and someone will bring multiple cremes to the patient. Daughter Stephanie's contact information also obtained. IVF bolus complete, last BP 90/53 MAP 65. Original Note: [email or web address] Admission Note: Arrived at 0010 via stretcher. 4 person assist using slider board from stretcher to bed. Obtunded, able to answer minimal simple questions but quickly falls asleep. Febrile - Tylenol administered per orders. Placed on HHFNC 45% Fi02 with RT at bedside, Sp02 97-100%. Tele Afib RVR 110-115 BBB. 0515 Pt mentation improved. Awake to voice, appropriate speech, A/O X 3. Tele SR BBB, no longer tachypneic. However, BP trending down. Last 84/[address] Medina notified of patient status and hypotension. Order for 500 mL bolus initiated. The patient,Yrn Roberts,77 y/o, was given written information regarding hospital policies, unit procedures and contact persons. Patient's smoking status: Never smoker. Vital Signs - 8 hr 02/26/18 21:15 02/26/18 21:20 02/26/18 21:25 Temperature Pulse Rate 148 H 131 H 129 H Respiratory Rate 32 H 31 H 31 H Blood Pressure Blood Pressure [Left Arm] Blood Pressure [Right Arm] 129/68 H 192/160 H 201/160 H Pulse Oximetry 96 95 95 02/26/18 21:30 02/26/18 21:35 02/26/18 21:40 Temperature Pulse Rate 114 H 108 H 107 H Respiratory Rate 29 H 28 H 27 H Blood Pressure 189/112 H Blood Pressure [Left Arm] Blood Pressure [Right Arm] 212/176 H 206/191 H 200/184 H Pulse Oximetry 95 97 97 02/26/18 21:45 02/26/18 21:50 02/26/18 21:55 Temperature 100.0 F H Pulse Rate 108 H 112 H 106 H Respiratory Rate 26 H 27 H 27 H Blood Pressure Blood Pressure [Left Arm] 122/65 H 105/63 Blood Pressure [Right Arm] 220/193 H Pulse Oximetry 97 97 96 02/26/18 22:00 02/26/18 22:10 02/26/18 22:19 Temperature Pulse Rate 112 H 118 H 120 H Respiratory Rate 25 H 24 26 H Blood Pressure Blood Pressure [Left Arm] 101/70 123/85 H 114/68 Blood Pressure [Right Arm] 105/72 Pulse Oximetry 96 95 95 02/26/18 23:54 02/27/18 00:15 02/27/18 00:42 Temperature 100.6 F H 100.6 F H Pulse Rate 120 H 108 H Respiratory Rate 22 24 Blood Pressure 97/55 L 85/55 L Blood Pressure [Left Arm] Blood Pressure [Right Arm] Pulse Oximetry 95 944 H 02/27/18 00:53 02/27/18 01:08 02/27/18 01:13 Temperature 99.0 F 99.0 F Pulse Rate 103 H Respiratory Rate 26 H Blood Pressure 89/48 L Blood Pressure [Left Arm] Blood Pressure [Right Arm] Pulse Oximetry 100 100 02/27/18 01:48 02/27/18 03:42 02/27/18 04:30 Temperature Pulse Rate 97 H 83 84 Respiratory Rate 25 H 25 H 22 Blood Pressure 84/58 L 89/48 L 88/54 L Blood Pressure [Left Arm] Blood Pressure [Right Arm] Pulse Oximetry 100 97 98 02/27/18 05:08 Temperature Pulse Rate 89 Respiratory Rate 21 Blood Pressure 84/43 L Blood Pressure [Left Arm] Blood Pressure [Right Arm] Pulse Oximetry 99
[2018-02-27] MEDS: SODIUM CHLORIDE 0.9% 500 ML 1000 ML IV (05:15)
--- NOTE | 2018-02-27 07:38 | PM.HP.1 ---
History of Present Illness Date Patient Seen: 02/27/18 Chief complaint: Fever,Change in loc Narrative: Medical History Obesity Sleep apnea Pulmonary embolism September 2007 after a surgery he was on Coumadin for over a year and then went off. Repeat pulmonary embolism diagnosed August 2009 currently on Coumadin Diabetes type II intolerant of metformin. Atrial fibrillation with cardioversion attempted unsuccessfully and normal echo. Into NSR with Tykosin. a pacemaker placed in 2010 Hypertension History of kidney stone with impacted right ureteral stone status post multiple surgeries for that problem now with a nonfunctioning right kidney and with renal insufficiency creatinine around 1.3 he has persistent right flank pain since the urologic surgery and workup has showed a relative thinning of the muscle along the right lateral body wall which is allowing relative shift of the viscera and mesenteric and retro-peritoneal fat to the right. This appears to be the cause of his pain he has been on Percocet for this pain Psoriasis Hyperlipidemia Spinal Stenosis TOM X 4 no help clostridia dificile 2012 Surgical History Multiple stent procedures for the impacted stone back in 2006 and 2007. He did have a infection and had to undergo restenting Hernia repair Pacemaker 2010 cystoscopy with stone removal and stent placement. 2013 Family History Father: Mother: Social History Tobacco Use/Smoking Are you a: nonsmoker Patient History Medical History Afib (Acute) Family & Social History Family History: Reviewed 02/27/18 by Alfredo Medina MD Social History: household members none Prior Living Arrangements Assisted Living Safety & Behavioral: Feels Safe in Current Yes Environment Been Physically Hurt or No Threatened By a Person Suicidal Ideation Description None Suicide Plan Description No Plan Tobacco & Substance use: Smoking Status Never smoker alcohol intake never alcohol intake frequency holiday/special occasion Substance Use Type does not use Meds Home Medications Medication Instructions Recorded Confirmed Type dofetilide [Tikosyn] 0.5 mg PO BID #0 06/17/11 02/26/18 History lisinopril [Zestril] 20 mg PO Q DAY #0 06/17/11 02/26/18 History polyethylene glycol 3350 [Miralax] 17 gm PO QDAYP PRN #0 09/14/16 02/26/18 History acetaminophen 650 mg PO Q6HP PRN #0 02/19/17 02/26/18 History warfarin [Coumadin] 1 mg PO SEE INSTRUCTIONS #0 02/19/17 02/26/18 History cyclobenzaprine 10 mg PO BIDP PRN #0 11/05/17 02/26/18 History insulin lispro [Humalog KwikPen 12 unit SQ AC #0 11/05/17 02/26/18 History Insulin] insulin lispro [Humalog KwikPen AC #0 11/05/17 History Insulin] lidocaine-prilocaine 1 tello TOPICAL PRN PRN #0 11/05/17 02/26/18 History morphine 15 - 30 mg PO Q6HP PRN #0 11/05/17 02/26/18 History morphine 30 mg PO BID #0 11/05/17 02/26/18 History sodium phosphates [Fleet Enema] 1 ea [place] DAILY PRN #0 11/05/17 02/26/18 History clotrimazole-betamethasone 1 applic TOPICAL BID 02/26/18 02/26/18 History docusate sodium 250 mg PO DAILY PRN 02/26/18 02/26/18 History insulin detemir U-100 [Levemir 45 unit SUB-Q BID 02/26/18 02/26/18 History FlexTouch U-100 Insuln] lidocaine HCl 1 applic TOPICAL QD-BID PRN 02/26/18 02/26/18 History Allergies Allergy/AdvReac Type Severity Reaction Status Date / Time hydromorphone [HYDROMORPHONE] Allergy Severe TOUNGE Verified 02/26/18 18:24 SWELLING cefotetan [CEFOTETAN] Allergy Unknown Verified 02/26/18 18:24 Exam Vital Signs (past 8 hours): - 02/26/18 23:54 02/27/18 00:15 02/27/18 00:42 Temperature 100.6 F H 100.6 F H Pulse Rate 120 H 108 H Respiratory Rate 22 24 Blood Pressure 97/55 L 85/55 L Pulse Oximetry 95 944 H 02/27/18 00:53 02/27/18 01:08 02/27/18 01:13 Temperature 99.0 F 99.0 F Pulse Rate 103 H Respiratory Rate 26 H Blood Pressure 89/48 L Pulse Oximetry 100 100 02/27/18 01:48 02/27/18 03:42 02/27/18 04:30 Temperature Pulse Rate 97 H 83 84 Respiratory Rate 25 H 25 H 22 Blood Pressure 84/58 L 89/48 L 88/54 L Pulse Oximetry 100 97 98 02/27/18 05:08 02/27/18 05:26 02/27/18 06:21 Temperature 98.4 F Pulse Rate 89 78 78 Respiratory Rate 21 18 20 Blood Pressure 84/43 L 90/52 L 87/44 L Pulse Oximetry 99 98 97 Fraction of Inspired Oxygen 45 SaO2/FiO2 Ratio 250 Oxygen Delivery Method Heated High Flow Oxygen Flow Rate [address] scan - head: Radiologist's impression: 1. No acute intracranial abnormalities. 2. Cerebral volume loss and chronic microvascular ischemic changes. Chest x-ray: Radiologist's impression: 1. Suspect retrocardiac pneumonia. 2. ? Free peritoneal air under the right hemidiaphragm. CT scan - abdomen: Radiologist's impression: 1. No free air. 2. Left basilar pneumonia. 3. Bladder wall thickening suspicious for cystitis. 4. Right nephrectomy. 5. [id number] L4 compression fracture of indeterminate chronicity. Labs Result Diagrams: 02/28/18 04:51 02/28/18 04:51 Labs: Laboratory Results - last 24 hr 02/26/18 02/26/18 02/26/18 17:22 17:35 17:35 WBC 14.9 H RBC 4.65 Hgb 13.0 L Hct 39.8 L MCV 85.6 MCH 28.0 MCHC 32.7 RDW 14.4 Plt Count 178 Neut % (Auto) 90.6 H Lymph % (Auto) 4.7 L [place] % (Auto) 4.2 Eos % (Auto) 0.0 L Baso % (Auto) 0.5 Neut # (Auto) 83566 H PT INR APTT Sodium Potassium Chloride Carbon Dioxide BUN Creatinine Estimated GFR BUN/Creatinine Ratio Glucose Lactate Calcium Phosphorus Magnesium Total Bilirubin AST ALT Alkaline Phosphatase Troponin I Total Protein Albumin Globulin Albumin/Globulin Ratio Lipase Procalcitonin 6.03 H Specimen Hemolysis Urine Color Yellow Urine Appearance Cloudy Urine pH 5.0 Ur Specific [place] 1.020 Urine Protein 2+ H Urine Glucose (UA) Negative Urine Ketones Negative Urine Occult Blood 3+ H Urine Nitrate Positive Urine Bilirubin Negative Urine Urobilinogen 0.2 Ur Leukocyte Esterase Trace H Urine RBC 5-10/hpf H Urine WBC 1-5/hpf Amorphous Sediment 3+ Urine Bacteria None seen Ur Culture Indicated? Micro UA Comment Not Reportable Nasal Screen MRSA (PCR) 02/26/18 02/26/18 02/26/18 17:35 17:35 17:35 WBC RBC Hgb Hct MCV MCH MCHC RDW Plt Count Neut % (Auto) Lymph % (Auto) [place] % (Auto) Eos % (Auto) Baso % (Auto) Neut # (Auto) PT INR APTT Sodium Cancelled Potassium Cancelled Chloride Cancelled Carbon Dioxide Cancelled BUN Cancelled Creatinine Cancelled Estimated GFR Cancelled BUN/Creatinine Ratio Cancelled Glucose Cancelled Lactate 1.6 Calcium Cancelled Phosphorus Magnesium Total Bilirubin AST ALT Alkaline Phosphatase Troponin I 0.443 H* Total Protein Albumin Globulin Albumin/Globulin Ratio Lipase Procalcitonin Specimen Hemolysis Cancelled Urine Color Urine Appearance Urine pH Ur Specific [place] Urine Protein Urine Glucose (UA) Urine Ketones Urine Occult Blood Urine Nitrate Urine Bilirubin Urine Urobilinogen Ur Leukocyte Esterase Urine RBC Urine WBC Amorphous Sediment Urine Bacteria Ur Culture Indicated? Micro UA Comment Nasal Screen MRSA (PCR) 02/26/18 02/26/18 02/26/18 17:35 17:35 17:35 WBC RBC Hgb Hct MCV MCH MCHC RDW Plt Count Neut % (Auto) Lymph % (Auto) [place] % (Auto) Eos % (Auto) Baso % (Auto) Neut # (Auto) PT 26.6 H INR 2.5 H APTT 35 Sodium 136 L Potassium 4.0 Chloride 97 L Carbon Dioxide 24 BUN 45 H Creatinine 1.50 H Estimated GFR 45.4 L BUN/Creatinine Ratio 30.0 H Glucose 256 H Lactate Calcium 8.5 Phosphorus 3.6 Magnesium 2.2 Total Bilirubin 0.7 AST 50 ALT 31 Alkaline Phosphatase 104 Troponin I Total Protein 6.8 Albumin 3.2 L Globulin 3.6 Albumin/Globulin Ratio 0.9 L Lipase 11 L Procalcitonin Specimen Hemolysis Urine Color Urine Appearance Urine pH Ur Specific [place] Urine Protein Urine Glucose (UA) Urine Ketones Urine Occult Blood Urine Nitrate Urine Bilirubin Urine Urobilinogen Ur Leukocyte Esterase Urine RBC Urine WBC Amorphous Sediment Urine Bacteria Ur Culture Indicated? Micro UA Comment Nasal Screen MRSA (PCR) 02/26/18 02/27/18 02/27/18 22:30 00:00 02:50 WBC RBC Hgb Hct MCV MCH MCHC RDW Plt Count Neut % (Auto) Lymph % (Auto) Cross % (Auto) Eos % (Auto) Baso % (Auto) Neut # (Auto) PT INR APTT Sodium Potassium Chloride Carbon Dioxide BUN Creatinine Estimated GFR BUN/Creatinine Ratio Glucose Lactate 2.7 H 2.0 Calcium Phosphorus Magnesium Total Bilirubin AST ALT Alkaline Phosphatase Troponin I Total Protein Albumin Globulin Albumin/Globulin Ratio Lipase Procalcitonin Specimen Hemolysis Urine Color Urine Appearance Urine pH Ur Specific [place] Urine Protein Urine Glucose (UA) Urine Ketones Urine Occult Blood Urine Nitrate Urine Bilirubin Urine Urobilinogen Ur Leukocyte Esterase Urine RBC Urine WBC Amorphous Sediment Urine Bacteria Ur Culture Indicated? Micro UA Comment Nasal Screen MRSA (PCR) Negative for mrsa Quality VTE Deep Vein Thrombosis/Pulmonary Embolism Present on Admission: No
[2018-02-27] MEDS: INSULIN ASPART 100 UNIT/ML INSULN PEN SUBCUT ×3 (09:53→17:27)
--- NOTE | 2018-02-27 10:40 | CM.DANOTE ---
Discharge Planning/Care Management CM Discharge Assessment Start: 02/27/18 10:39 Freq: Status: Active Protocol: Document 02/27/18 10:39 (Rec: 02/27/18 10:40 [id number]) Discharge Planning Assessment History Provided By Patient Medical Record Has Patient been admitted in last 30 No days? Is this patient on Medicare? Yes Prior Living Arrangements Assisted Living Household Members none Type of transporation used prior to Relies on Others admit Facility Name [facility] Willing to Return to Facility? Yes Independent with ADL's No Is patient alert and oriented? 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 Review Status In Process Next Review Type Continued Stay Review Per MD: Patient to possibly discharge Wednesday. Patient agreeable to returning to [facility]. No discharge needs or concerns at this time.
--- NOTE | 2018-02-27 10:46 | P.HP_ITS ---
History of Present Illness Date Patient Seen: 02/27/18 Time Patient Seen: 09:45 Chief complaint: Fever,Change in loc Narrative: 77-year-old man residing at [facility] under the primary care of Dr. Lorenzo Mcleod, is a poor historian and is not aware of why he was brought to the hospital yesterday evening. Reportedly he had decreased level of consciousness and was brought by EMS to the ED where he was found to have a fever of 102? and blood sugar of 224. He was minimally responsive. He was found to have findings consistent with a urinary infection and pneumonia, administered IV antibiotics and fluids and arrangements were made for admission to the medical floor. However, he then developed atrial fibrillation with rapid ventricular response was transferred to the ICU. He converted to sinus rhythm after IV diltiazem was administered. He reports feeling much better and back to baseline this morning. Medical History Obesity Sleep apnea Pulmonary embolism September 2007 after a surgery he was on Coumadin for over a year and then went off. Repeat pulmonary embolism diagnosed August 2009 currently on Coumadin Diabetes type II intolerant of metformin. Atrial fibrillation with cardioversion attempted unsuccessfully and normal echo. Into NSR with Tykosin. a pacemaker placed in 2010 Hypertension History of kidney stone with impacted right ureteral stone status post multiple surgeries for that problem now with a nonfunctioning right kidney and with renal insufficiency creatinine around 1.3 he has persistent right flank pain since the urologic surgery and workup has showed a relative thinning of the muscle along the right lateral body wall which is allowing relative shift of the viscera and mesenteric and retro-peritoneal fat to the right. This appears to be the cause of his pain he has been on Percocet for this pain Psoriasis Hyperlipidemia Spinal Stenosis TOM X 4 no help clostridia dificile 2013 Surgical History Multiple stent procedures for the impacted stone back in 2006 and 2007. He did have a infection and had to undergo restenting Hernia repair Pacemaker 2010 cystoscopy with stone removal and stent placement. 2013 Family History Father: Mother: Social History Tobacco Use/Smoking Are you a: nonsmoker Patient History Medical History Afib (Acute) Family & Social History Family History: Reviewed 02/27/18 by Alfredo Medina MD Social History: household members none Prior Living Arrangements Assisted Living Safety & Behavioral: Feels Safe in Current Yes Environment Been Physically Hurt or No Threatened By a Person Suicidal Ideation Description None Suicide Plan Description No Plan Tobacco & Substance use: Smoking Status Never smoker alcohol intake never alcohol intake frequency holiday/special occasion Substance Use Type does not use Meds Home Medications Medication Instructions Recorded Confirmed Type dofetilide [Tikosyn] 0.5 mg PO BID #0 06/17/11 02/26/18 History lisinopril [Zestril] 20 mg PO Q DAY #0 06/17/11 02/26/18 History polyethylene glycol 3350 [Miralax] 17 gm PO QDAYP PRN #0 09/14/16 02/26/18 History acetaminophen 650 mg PO Q6HP PRN #0 02/19/17 02/26/18 History warfarin [Coumadin] 1 mg PO SEE INSTRUCTIONS #0 02/19/17 02/26/18 History cyclobenzaprine 10 mg PO BIDP PRN #0 11/05/17 02/26/18 History insulin lispro [Humalog KwikPen 12 unit SQ AC #0 11/05/17 02/26/18 History Insulin] insulin lispro [Humalog KwikPen AC #0 11/05/17 History Insulin] lidocaine-prilocaine 1 tello TOPICAL PRN PRN #0 11/05/17 02/26/18 History morphine 15 - 30 mg PO Q6HP PRN #0 11/05/17 02/26/18 History morphine 30 mg PO BID #0 11/05/17 02/26/18 History sodium phosphates [Fleet Enema] 1 ea [place] DAILY PRN #0 11/05/17 02/26/18 History clotrimazole-betamethasone 1 applic TOPICAL BID 02/26/18 02/26/18 History docusate sodium 250 mg PO DAILY PRN 02/26/18 02/26/18 History insulin detemir U-100 [Levemir 45 unit SUB-Q BID 02/26/18 02/26/18 History FlexTouch U-100 Insuln] lidocaine HCl 1 applic TOPICAL QD-BID PRN 02/26/18 02/26/18 History Allergies Allergy/AdvReac Type Severity Reaction Status Date / Time hydromorphone [HYDROMORPHONE] Allergy Severe TOUNGE Verified 02/26/18 18:24 SWELLING cefotetan [CEFOTETAN] Allergy Unknown Verified 02/26/18 18:24 Review of Systems Review of Systems All systems reviewed & are unremarkable except as noted in HPI and below Exam Vital Signs (past 8 hours): - 02/27/18 03:42 02/27/18 04:30 02/27/18 05:08 Temperature Pulse Rate 83 84 89 Respiratory Rate 25 H 22 21 Blood Pressure 89/48 L 88/54 L 84/43 L Pulse Oximetry 97 98 99 02/27/18 05:26 02/27/18 06:21 02/27/18 07:46 Temperature 98.4 F 98.2 F Pulse Rate 78 78 73 Respiratory Rate 18 20 18 Blood Pressure 90/52 L 87/44 L 92/53 L Pulse Oximetry 98 97 97 02/27/18 08:00 Temperature Pulse Rate Respiratory Rate Blood Pressure Pulse Oximetry 99 Fraction of Inspired Oxygen 40 SaO2/FiO2 Ratio 250 Oxygen Delivery Method High Flow Nasal Cannula Oxygen Flow Rate 10 Narrative Exam Narrative: General: Obese male, appears comfortable, in no apparent distress HEENT: Pupils equal round reactive, extraocular moves intact, mucous membranes pink and moist Neck: Supple Lungs: Decreased breath sounds bilateral bases with crackles Cardiac: Regular rate and rhythm without appreciable murmur Abdomen: Soft, obese, nontender Extremities: Trace pedal edema Neurologic: Alert, oriented, globally weak, no focal deficits evident Dermatologic: Stage II sacral decubitus ulcers on bilateral buttocks, see nursing notes, followed by wound care clinic Objective Labs Result Diagrams: 02/26/18 17:35 02/26/18 17:35 Labs: Laboratory Results - last 24 hr 02/26/18 02/26/18 02/26/18 17:22 17:35 17:35 WBC 14.9 H RBC 4.65 Hgb 13.0 L Hct 39.8 L MCV 85.6 MCH 28.0 MCHC 32.7 RDW 14.4 Plt Count 178 Neut % (Auto) 90.6 H Lymph % (Auto) 4.7 L [place] % (Auto) 4.2 Eos % (Auto) 0.0 L Baso % (Auto) 0.5 Neut # (Auto) 59431 H PT INR APTT Sodium Potassium Chloride Carbon Dioxide BUN Creatinine Estimated GFR BUN/Creatinine Ratio Glucose Lactate Calcium Phosphorus Magnesium Total Bilirubin AST ALT Alkaline Phosphatase Troponin I Total Protein Albumin Globulin Albumin/Globulin Ratio Lipase Procalcitonin 6.03 H Specimen Hemolysis Urine Color Yellow Urine Appearance Cloudy Urine pH 5.0 Ur Specific [place] 1.020 Urine Protein 2+ H Urine Glucose (UA) Negative Urine Ketones Negative Urine Occult Blood 3+ H Urine Nitrate Positive Urine Bilirubin Negative Urine Urobilinogen 0.2 Ur Leukocyte Esterase Trace H Urine RBC 5-10/hpf H Urine WBC 1-5/hpf Amorphous Sediment 3+ Urine Bacteria None seen Ur Culture Indicated? Micro UA Comment Not Reportable Nasal Screen MRSA (PCR) 02/26/18 02/26/18 02/26/18 17:35 17:35 17:35 WBC RBC Hgb Hct MCV MCH MCHC RDW Plt Count Neut % (Auto) Lymph % (Auto) [place] % (Auto) Eos % (Auto) Baso % (Auto) Neut # (Auto) PT INR APTT Sodium Cancelled Potassium Cancelled Chloride Cancelled Carbon Dioxide Cancelled BUN Cancelled Creatinine Cancelled Estimated GFR Cancelled BUN/Creatinine Ratio Cancelled Glucose Cancelled Lactate 1.6 Calcium Cancelled Phosphorus Magnesium Total Bilirubin AST ALT Alkaline Phosphatase Troponin I 0.443 H* Total Protein Albumin Globulin Albumin/Globulin Ratio Lipase Procalcitonin Specimen Hemolysis Cancelled Urine Color Urine Appearance Urine pH Ur Specific [place] Urine Protein Urine Glucose (UA) Urine Ketones Urine Occult Blood Urine Nitrate Urine Bilirubin Urine Urobilinogen Ur Leukocyte Esterase Urine RBC Urine WBC Amorphous Sediment Urine Bacteria Ur Culture Indicated? Micro UA Comment Nasal Screen MRSA (PCR) 02/26/18 02/26/18 02/26/18 17:35 17:35 17:35 WBC RBC Hgb Hct MCV MCH MCHC RDW Plt Count Neut % (Auto) Lymph % (Auto) [place] % (Auto) Eos % (Auto) Baso % (Auto) Neut # (Auto) PT 26.6 H INR 2.5 H APTT 35 Sodium 136 L Potassium 4.0 Chloride 97 L Carbon Dioxide 24 BUN 45 H Creatinine 1.50 H Estimated GFR 45.4 L BUN/Creatinine Ratio 30.0 H Glucose 256 H Lactate Calcium 8.5 Phosphorus 3.6 Magnesium 2.2 Total Bilirubin 0.7 AST 50 ALT 31 Alkaline Phosphatase 104 Troponin I Total Protein 6.8 Albumin 3.2 L Globulin 3.6 Albumin/Globulin Ratio 0.9 L Lipase 11 L Procalcitonin Specimen Hemolysis Urine Color Urine Appearance Urine pH Ur Specific [place] Urine Protein Urine Glucose (UA) Urine Ketones Urine Occult Blood Urine Nitrate Urine Bilirubin Urine Urobilinogen Ur Leukocyte Esterase Urine RBC Urine WBC Amorphous Sediment Urine Bacteria Ur Culture Indicated? Micro UA Comment Nasal Screen MRSA (PCR) 02/26/18 02/27/18 02/27/18 22:30 00:00 02:50 WBC RBC Hgb Hct MCV MCH MCHC RDW Plt Count Neut % (Auto) Lymph % (Auto) [place] % (Auto) Eos % (Auto) Baso % (Auto) Neut # (Auto) PT INR APTT Sodium Potassium Chloride Carbon Dioxide BUN Creatinine Estimated GFR BUN/Creatinine Ratio Glucose Lactate 2.7 H 2.0 Calcium Phosphorus Magnesium Total Bilirubin AST ALT Alkaline Phosphatase Troponin I Total Protein Albumin Globulin Albumin/Globulin Ratio Lipase Procalcitonin Specimen Hemolysis Urine Color Urine Appearance Urine pH Ur Specific [place] Urine Protein Urine Glucose (UA) Urine Ketones Urine Occult Blood Urine Nitrate Urine Bilirubin Urine Urobilinogen Ur Leukocyte Esterase Urine RBC Urine WBC Amorphous Sediment Urine Bacteria Ur Culture Indicated? Micro UA Comment Nasal Screen MRSA (PCR) Negative for mrsa Assessment & Plan Plan: Assessment/Plan Narrative: 1. Left lower lobe community-acquired versus healthcare associated bacterial pneumonia. Continue IV Levaquin and add vancomycin pending cultures. Consider transitioning to oral therapy tomorrow if cultures negative. 2. Atrial fibrillation with rapid ventricular response due to 1., converted to sinus rhythm. Monitor on telemetry. 3. Metabolic encephalopathy due to 1. Markedly improved. Continue to monitor. 4. Acute hypoxic respiratory failure due to 1. Oxygen saturation fell to 89% in the emergency department. Continue supplemental oxygen. 5. Acute type 2 myocardial infarction due to demand ischemia. Monitor serial troponins. Clinically asymptomatic. Continue routine medication. 6. Diabetes mellitus. Elevated due to acute stress of illness. Continue insulin and monitor. 7. Hypertension. Continue routine medication. 8. History of pulmonary embolism. Currently therapeutic. Continue warfarin and monitor. 9. Chronic pain syndrome with chronic opioid habituation. Continue routine medication. 10. Sacral decubitus ulcers, stage II. Management per nursing and wound care. 11. DVT prophylaxis: Addressed on warfarin. 12. Code status: Do not resuscitate. POLST is enclosed in chart. 13. Disposition: Patient is admitted inpatient status as he will likely require at least 2 midnights of inpatient level care. Quality VTE Deep Vein Thrombosis/Pulmonary Embolism Present on Admission: No
[2018-02-27 11:12] LABS: Acinetobacter baumannii Not Detected (Not Detect); Candida albicans Not Detected (Not Detect); Candida glabrata Not Detected (Not Detect); Candida krusei Not Detected (Not Detect); Candida parapsilosis Not Detected (Not Detect); Candida tropicalis Not Detected (Not Detect); Enterobacter cloacae complex Not Detected (Not Detect); Enterococcus species Not Detected (Not Detect); Haemophilus influenzae Not Detected (Not Detect); KPC (carbapenem-resist gene) Not Detected (Not Detect); Listeria monocytogenes Not Detected (Not Detect); Methicillin-resistant gene Not Detected (Not Detect); Neisseria meningitidis Not Detected (Not Detect); Proteus species Not Detected (Not Detect); Pseudomonas aeruginosa Not Detected (Not Detect); Serratia marcescens Not Detected (Not Detect); Staphylococcus species Not Detected (Not Detect); Streptococcus agalactiae (Gr B Not Detected (Not Detect); Streptococcus pneumonia Not Detected (Not Detect); Streptococcus pyogenes (Gr A) Not Detected (Not Detect); Streptococcus species Not Detected (Not Detect); Vancomycin-rest genes A/B Not Detected (Not Detect)
[2018-02-27 11:14] LABS: Enterobacteriaceae species Detected (Not Detect)
[2018-02-27 11:15] LABS: E. coli Detected (Not Detect)
[2018-02-27] MEDS: VANCOMYCIN 750 MG/150 ML FROZ.PIGGY 150 MG IV (12:14)
[2018-02-27] MEDS: INSULIN DETEMIR 100 UNIT/ML INSULN.PEN 45 UNIT SUBCUT ×2 (12:15→21:07)
[2018-02-27] MEDS: INSULIN ASPART 100 UNIT/ML INSULN PEN 12 UNIT SUBCUT ×2 (12:18→17:28)
[2018-02-27] MEDS: MORPHINE ER 30 MG TABLET PO ×2 (12:56→21:03)
--- NOTE | 2018-02-27 14:00 | PT.IPTN ---
Current Diagnoses Unspecified bacterial pneumonia (02/26/18) Physical Therapy Treatment Note M3 PT-IP Subjective Start: 02/27/18 17:38 Freq: Status: Active Protocol: Document 02/27/18 14:00 RCC (Rec: 02/27/18 17:46 RCC [id number]) Subjective Physical Therapy Visit Type Type Cancellation Notes PT evaluation not performed, as pt has elevated and increasing troponin on this date. We will hold PT until troponin levels plateau and decrease before initiating PT.
[2018-02-27] MEDS: LIDOCAINE JELLY 2% 5 ML 1 APPLIC TOP (14:58)
[2018-02-27] MEDS: WARFARIN 2 MG TABLET PO (17:26)
[2018-02-27] MEDS: levoFLOXacin 750 MG/150 ML PIGGYBACK 100 MG IV (18:58)
[2018-02-27] MEDS: MORPHINE 2 MG/ML INJ IV (19:10)
[2018-02-27] MEDS: CLOTRIMAZOLE/BETAMETHASONE CRM 15 GM 1 APPLIC TOP (21:05)
--- NOTE | 2018-02-27 21:38 | PC.NURSE ---
213-Notified provider of unavailable medication ordered for patient. Medication is Tikosyn. Medication was not sent with patient our pharmacy does not carry the medication and no substitute was ordered. No order rec. from provider. Provider also informed of blood sugar of 143 and scheduled dose of long acting insulin of 45units. Provider gave the ok to give the medication as ordered.
[2018-02-28] VITALS (7 sets, daily range): BP systolic 108–153; BP diastolic 39–100; PULSE 58–108; RESP 16–24; TEMP 36.8–37.9; O2SAT 90–97; BMI 38.2
[2018-02-28] MEDS: VANCOMYCIN 750 MG/150 ML FROZ.PIGGY 150 MG IV ×3 (00:41→22:06)
[2018-02-28] MEDS: MORPHINE 2 MG/ML INJ IV ×2 (01:07→04:12)
[2018-02-28] MEDS: SODIUM CHLORIDE 0.9% FLUSH 10 ML IV ×3 (04:12→21:41)
[2018-02-28 05:15] LABS: INR 2.2 (0.9-1.3); Prothrombin Time 23.3 SECONDS (10.1-12.7)
[2018-02-28 05:20] LABS: Add Manual Diff / Slide Review NO; BUN Creatinine Ratio 35.3 (6-22); Basophils Percent Auto 0.2 % (0-2); Blood Urea Nitrogen 60 mg/dL (9-20); Calcium 8.6 mg/dL (8.4-10.2); Carbon Dioxide 26 mmol/L (22-32); Chloride 100 mmol/L (98-107); Eosinophils Percent Auto 0.6 % (2-4); Estimated Glomerular Filt Rate 39.3 mL/min (>60); Glucose 121 mg/dL (80-110); HEMOLYSIS < 15 (0-50); Hematocrit 36.8 % (41-53); Hemoglobin 12.3 g/dL (13.5-17.5); Lymphocytes Percent Auto 16.4 % (25-40); Mean Corpuscular HGB Conc 33.3 % (30-36); Mean Corpuscular Hemoglobin 28.3 PG (26-34); Mean Corpuscular Volume 84.8 fL (80-100); Monocytes Percent Auto 10.7 % (3-14); Neutrophils Absolute Auto 7600 /uL (3000-5900); Neutrophils Percent Auto 72.1 % (50-75); Platelet Count 164 X10^3/uL (150-400); Potassium 3.8 mmol/L (3.4-5.1); Red Blood Cell Count 4.34 X10^6/uL (4.5-5.9); Red Cell Distribution Width 14.5 % (11.6-14.8); Sodium 135 mmol/L (137-145); White Blood Cell Count 10.6 X10^3/uL (4.5-11.0)
[2018-02-28] MEDS: MORPHINE 15 MG IR TABLET PO (07:00)
[2018-02-28] MEDS: CLOTRIMAZOLE/BETAMETHASONE CRM 15 GM 1 APPLIC TOP ×2 (08:36→21:40)
[2018-02-28] MEDS: INSULIN DETEMIR 100 UNIT/ML INSULN.PEN 45 UNIT SUBCUT ×2 (08:37→21:00)
[2018-02-28] MEDS: LISINOPRIL 20 MG TABLET PO (08:38)
[2018-02-28] MEDS: INSULIN ASPART 100 UNIT/ML INSULN PEN 12 UNIT SUBCUT (08:40)
[2018-02-28] MEDS: MORPHINE ER 30 MG TABLET PO (08:43)
[2018-02-28] MEDS: TIKOSYN 0.5 EACH PO ×2 (09:02→21:40)
[2018-02-28] MEDS: ERTAPENEM 1 GM in SODIUM CHLORIDE 0.9% 100 ML 200 ML IV (09:02)
--- NOTE | 2018-02-28 10:11 | PT.IPTN ---
Current Diagnoses Unspecified bacterial pneumonia (02/26/18) Physical Therapy Treatment Note M3 PT-IP Subjective Start: 02/27/18 17:38 Freq: Status: Active Protocol: Document 02/28/18 10:11 RS (Rec: 02/28/18 10:11 RS [id number]) Subjective Physical Therapy Visit Type Type Administrative Note Notes Troponin still uptrending. Will hold PT eval until it peaks.
--- NOTE | 2018-02-28 11:07 | P.PN_ITS ---
Subjective Date Patient Seen: 02/28/18 Time Patient Seen: 09:20 Interval history: The patient denies chest pain, breathing problems or other specific complaints. He would like his toenails clipped. He has no other specific complaints or requests. Exam Vital Signs (past 8 hours): - 02/28/18 05:00 02/28/18 07:53 Temperature 100.2 F H 99.1 F Pulse Rate 108 H 100 H Respiratory Rate 21 24 Blood Pressure 108/39 L 120/51 L Pulse Oximetry 97 91 Fraction of Inspired Oxygen 40 SaO2/FiO2 Ratio 250 Oxygen Delivery Method Room Air Oxygen Flow Rate 0 Narrative Exam Narrative: General: Obese male, appears comfortable, in no apparent distress HEENT: Pupils equal round reactive, extraocular moves intact, mucous membranes pink and moist Neck: Supple Lungs: Decreased breath sounds bilateral bases with crackles Cardiac: Regular rate and rhythm without appreciable murmur Abdomen: Soft, obese, nontender Extremities: Trace pedal edema Neurologic: Alert, oriented, globally weak, no focal deficits evident Dermatologic: Stage II sacral decubitus ulcers on bilateral buttocks, see nursing notes, followed by wound care clinic Objective Labs Result Diagrams: 02/28/18 04:51 02/28/18 04:51 Labs: Laboratory Results - last 24 hr 02/27/18 02/27/18 02/28/18 09:38 11:30 04:51 WBC 10.6 RBC 4.34 L Hgb 12.3 L Hct 36.8 L MCV 84.8 MCH 28.3 MCHC 33.3 RDW 14.5 Plt Count 164 Neut % (Auto) 72.1 Lymph % (Auto) 16.4 L [place] % (Auto) 10.7 Eos % (Auto) 0.6 L Baso % (Auto) 0.2 Neut # (Auto) 7600 H PT INR Sodium Potassium Chloride Carbon Dioxide BUN Creatinine Estimated GFR BUN/Creatinine Ratio Glucose Calcium Troponin I 5.670 H* A. baumannii (PCR) Not detected Merly albicans (PCR) Not detected C. glabrata (PCR) Not detected C. krusei (PCR) Not detected C. parapsilosis (PCR) Not detected C. tropicalis (PCR) Not detected Enterobacteriac sp PCR Detected H E. cloacae complex PCR Not detected Enterococcus sp PCR Not detected E. coli (PCR) Detected H H. influenzae (PCR) Not detected Klebsiella oxytoca PCR Not detected Klebsiella pneumoniae Not detected List. monocytogenes PCR Not detected N. meningitidis (PCR) Not detected Proteus species (PCR) Not detected Serratia marcescens PCR Not detected Staphylococcus sp PCR Not detected Staph aureus (PCR) Not detected mecA-Methicil Res Gene Not detected Streptococcus sp PCR Not detected Group A Strep (PCR) Not detected Strep agalactiae (PCR) Not detected Strep pneumoniae (PCR) Not detected P. aeruginosa (PCR) Not detected Pastor/B-Vanco Res Genes Not detected KPC-Carbap Res Gene PCR Not detected 02/28/18 02/28/18 04:51 04:51 WBC RBC Hgb Hct MCV MCH MCHC RDW Plt Count Neut % (Auto) Lymph % (Auto) [place] % (Auto) Eos % (Auto) Baso % (Auto) Neut # (Auto) PT 23.3 H INR 2.2 H Sodium 135 L Potassium 3.8 Chloride 100 Carbon Dioxide 26 BUN 60 H Creatinine 1.70 H Estimated GFR 39.3 L BUN/Creatinine Ratio 35.3 H Glucose 121 H D Calcium 8.6 Troponin I 5.860 H* A. baumannii (PCR) Merly albicans (PCR) C. glabrata (PCR) C. krusei (PCR) C. parapsilosis (PCR) C. tropicalis (PCR) Enterobacteriac sp PCR E. cloacae complex PCR Enterococcus sp PCR E. coli (PCR) H. influenzae (PCR) Klebsiella oxytoca PCR Klebsiella pneumoniae List. monocytogenes PCR N. meningitidis (PCR) Proteus species (PCR) Serratia marcescens PCR Staphylococcus sp PCR Staph aureus (PCR) mecA-Methicil Res Gene Streptococcus sp PCR Group A Strep (PCR) Strep agalactiae (PCR) Strep pneumoniae (PCR) P. aeruginosa (PCR) Pastor/B-Vanco Res Genes KPC-Carbap Res Gene PCR Assessment & Plan Plan: Assessment/Plan Narrative: 1. Multi-drug resistant E coli septicemia and sepsis due to urinary tract infection. Switch IV Levaquin to ertapenem and follow clinically. 2. Left lower lobe community-acquired versus healthcare associated bacterial pneumonia. Continue IV ertapenem and vancomycin pending cultures. Consider transitioning to oral therapy tomorrow if cultures negative. 3. Atrial fibrillation with rapid ventricular response due to 1., converted to sinus rhythm but intermittent. Monitor on telemetry. 4. Metabolic encephalopathy due to 1. Markedly improved and back to baseline. Continue to monitor. 5. Acute hypoxic respiratory failure due to 1. Oxygen saturation fell to 89% in the emergency department. Continue supplemental oxygen. 6. Acute type 2 myocardial infarction due to demand ischemia. Monitor serial troponins, likely peaking today. Clinically asymptomatic. Treat with aspirin, beta-paulina and statin therapy and monitor clinically with serial troponins. 6. Diabetes mellitus. Elevated due to acute stress of illness. Continue insulin and monitor. 7. Hypertension. Continue routine medication. 8. History of pulmonary embolism. Currently therapeutic. Continue warfarin and monitor. 9. Chronic pain syndrome with chronic opioid habituation. Continue routine medication. 10. Sacral decubitus ulcers, stage II. Management per nursing and wound care. 11. DVT prophylaxis: Addressed on warfarin. 12. Code status: Do not resuscitate. POLST is enclosed in chart. 13. Disposition: Patient is admitted inpatient status as he will likely require at least 2 midnights of inpatient level care. Consult physical therapy tomorrow if medically stable. Quality VTE Deep Vein Thrombosis/Pulmonary Embolism Present on Admission: No
[2018-02-28] MEDS: ASPIRIN EC 81 MG TABLET 162 MG PO (12:10)
[2018-02-28] MEDS: METOPROLOL 25 MG TABLET PO ×2 (12:11→21:41)
--- NOTE | 2018-02-28 12:27 | CM.DANOTE ---
DCP/Assessment continued: Reviewed [employer] assessment. Per note patient returning to [facility] when medically stable. [employer] reviewed MD progress note from today. Patient continues on IV abx for sepsis and expected to have therapy evaluations when medically appropriate to do so. Placed call to Jovana at [facility] re: above. She will discuss with Shirin at [facility] ph# [phone]. No indication from [employer] assessment on whether or not [facility] has assessed for patient to return or even if they have been contacted? Per Jovana, patient w/c bound at baseline. Spoke with RN/Magui and she reports patient currently not getting out of bed at all. It is anticipated that patient will need to be assessed for what level of care needed when patient is medically stable. Unclear at this time if patient will need long-term IV abx and or therapy at SNF prior to returning to [facility]. P: Pending. PING Jarvis
--- NOTE | 2018-02-28 14:25 | PC.NURSE ---
pt transferrd to room 205- called report to Louise Amaral- pt continues to refuse most food and or mobility assist- continued incontinence
--- NOTE | 2018-02-28 14:31 | PC.NURSE ---
Transfer from ICU: Received report from CHAPARRITA Kilgore. Patient arrived to room 205 at 1430 via his bed. Resting quietly, awakens to voice/touch. Appears comfortable and states no needs. Oriented to room and call light, encouaraged to make needs known. Call light in reach, bed alarm on. Isolation precautions in place for ESBL in blood and urine.
[2018-02-28] MEDS: WARFARIN 1 MG TABLET PO (18:15)
[2018-02-28] MEDS: ATORVASTATIN 20 MG TABLET 40 MG PO (21:40)
--- NOTE | 2018-02-28 22:35 | PC.NURSE ---
Enriqueta shift- Contact isolation for ESBL in blood and urine. Pt has been obtunded and sleeping all shift. Pt able to take coumadin with pudding as well as 2100 meds with pudding. Unable to keep eyes open for longer than a few seconds or answer questions with more than a yes/no. 2 assist to change brief in bed and use tilt feature of bed to assist in changing. 92% RA, LS dim with crackles in LLL. R hand SL. CBG- 68 @ 1600, gave sugar packet under tongue, apple juice, pudding. 1700 CBG-105, and 1999-130. Held 12 units scheduled insulin @ 1630. Telemetry in place with A-fib BBB and 1 deg AVB BBB pac's. Hx of sacral decub stage II, purple buttock area that is blanchable, and one alevyn drsg to right buttock ulcer. Pt is lying on waffle cusion with Q-2hr turns. Call light in reach and bed alarm on.
--- NOTE | 2018-03-01 00:17 | PC.NURSE ---
Addendum entered by Daphne Pollock R.N. 03/01/18 03:34: Incontinent of large amount of soft unformed brown stool. Skin cleansed and new Allevyn dressing applied to both open areas on inner crease of buttocks. Original Note: Patient opens eyes when spoken to and is oriented. Breath sounds with inspiratory crackles in LLL; RA sat 92% but does desat with activity. HR irregular; is on telemetry monitoring and at 0030 reported to have cardiac ectopy with PAC's. Denies nausea. BT hypoactive. Incontinent of urine. Is unable to assist with movement and seems very weak (wheelchair bound prior to hospitalization) so is being repositioned q2h. 2+ bilateral LE edema noted. On isolation for ESBL. FLACC score is 0; does state he is having stomach pain but would not provide response to severity numbering system. Fall risk score is high and bed alarm is activated.
[2018-03-01 03:00] VITALS: BP 132/73; PULSE 94; RESP 16; TEMP 37; O2SAT 92
[2018-03-01 06:51] LABS: Add Manual Diff / Slide Review NO; Basophils Percent Auto 0.3 % (0-2); Eosinophils Percent Auto 0.1 % (2-4); Hematocrit 38.4 % (41-53); Hemoglobin 12.6 g/dL (13.5-17.5); Lymphocytes Percent Auto 15.7 % (25-40); Mean Corpuscular HGB Conc 32.9 % (30-36); Mean Corpuscular Hemoglobin 27.9 PG (26-34); Mean Corpuscular Volume 84.9 fL (80-100); Monocytes Percent Auto 12.7 % (3-14); Neutrophils Absolute Auto 8400 /uL (3000-5900); Neutrophils Percent Auto 71.2 % (50-75); Platelet Count 195 X10^3/uL (150-400); Red Blood Cell Count 4.52 X10^6/uL (4.5-5.9); Red Cell Distribution Width 14.7 % (11.6-14.8); White Blood Cell Count 11.8 X10^3/uL (4.5-11.0)
[2018-03-01 06:56] LABS: INR 2.7 (0.9-1.3); Prothrombin Time 28.7 SECONDS (10.1-12.7)
[2018-03-01 07:00] LABS: BUN Creatinine Ratio 33.8 (6-22); Blood Urea Nitrogen 54 mg/dL (9-20); Calcium 8.4 mg/dL (8.4-10.2); Carbon Dioxide 26 mmol/L (22-32); Chloride 102 mmol/L (98-107); Estimated Glomerular Filt Rate 42.1 mL/min (>60); Glucose 134 mg/dL (80-110); HEMOLYSIS < 15 (0-50); Potassium 3.8 mmol/L (3.4-5.1); Sodium 138 mmol/L (137-145)
[2018-03-01 08:00] VITALS: BP 121/83; PULSE 89; RESP 24; TEMP 36.7; O2SAT 94
--- NOTE | 2018-03-01 08:25 | PC.NURSE ---
Addendum entered by Cristin Lyons R.N. 03/01/18 13:08: Refused lunch. CBG before lunch was 116. All prandial insulin was held. I did let Dr Medina know this morning that patient has not been eating much. PICC line was ordered this morning for ongoing IV Abx- DI RN in room placing now. Bed alarm on. Original Note: Addendum entered by Cristin Lyons R.N. 03/01/18 09:37: Medicated with schedule MS Contin for C/O abd discomfort. Was able to take pills whole with water, no swallowing issues noted. IV Ertapenem started, site in R wrist WNL. Denies needs at this time. Light in reach, bed alarm on. Original Note: Shift summary: Resting quietly in bed, awakens to voice/touch. Oriented X3. Repositioned onto L side. Brief checked and was dry, allevyn dressings to buttocks C/D/I. Lungs CTA, dim throughout. SpO2 92% on RA asleep, cont pulse ox in place. HR irregular to auscultation w/murmur, tele monitoring ongoing. Denies chest pain/palpitations or SOB. Denies fever/chills. Reports abd pain only when I move, discussed pain med options. Refused breakfast, so holding all a.m. insulin dosing. Able to make needs known, denied at this time. Wheelchair-bound at baseline per report. Fall precautions in place. Bed alarm on, light in reach. door open.
[2018-03-01] MEDS: MORPHINE ER 30 MG TABLET PO (09:01)
[2018-03-01] MEDS: LISINOPRIL 20 MG TABLET PO (09:02)
[2018-03-01] MEDS: ASPIRIN EC 81 MG TABLET 162 MG PO (09:02)
[2018-03-01] MEDS: METOPROLOL 25 MG TABLET PO ×2 (09:02→22:27)
[2018-03-01] MEDS: TIKOSYN 0.5 EACH PO ×2 (09:03→22:26)
[2018-03-01] MEDS: ERTAPENEM 1 GM in SODIUM CHLORIDE 0.9% 100 ML 200 ML IV (09:03)
[2018-03-01] MEDS: SODIUM CHLORIDE 0.9% FLUSH 10 ML IV ×2 (09:04→22:26)
--- NOTE | 2018-03-01 11:22 | P.PN_ITS ---
Subjective Date Patient Seen: 03/01/18 Time Patient Seen: 11:00 Interval history: The patient reports feeling better, though has poor appetite. No chest pain or breathing problems. Exam Vital Signs (past 8 hours): - 03/01/18 08:00 Temperature 98.1 F Pulse Rate 89 Respiratory Rate 24 Blood Pressure 121/83 H Pulse Oximetry 94 Fraction of Inspired Oxygen 40 SaO2/FiO2 Ratio 250 Oxygen Delivery Method Room Air Oxygen Flow Rate 0 Narrative Exam Narrative: General: Obese male, appears comfortable, in no apparent distress HEENT: Pupils equal round reactive, extraocular moves intact, mucous membranes pink and moist Neck: Supple Lungs: Decreased breath sounds bilateral bases with crackles Cardiac: Regular rate and rhythm without appreciable murmur Abdomen: Soft, obese, nontender Extremities: Trace pedal edema Neurologic: Alert, oriented, globally weak, no focal deficits evident Dermatologic: Stage II sacral decubitus ulcers on bilateral buttocks, see nursing notes, followed by wound care clinic Objective Labs Result Diagrams: 03/01/18 06:14 03/01/18 06:14 Labs: Laboratory Results - last 24 hr 03/01/18 03/01/18 03/01/18 06:14 06:14 06:14 WBC 11.8 H RBC 4.52 Hgb 12.6 L Hct 38.4 L MCV 84.9 MCH 27.9 MCHC 32.9 RDW 14.7 Plt Count 195 Neut % (Auto) 71.2 Lymph % (Auto) 15.7 L [place] % (Auto) 12.7 Eos % (Auto) 0.1 L Baso % (Auto) 0.3 Neut # (Auto) 8400 H PT 28.7 H D INR 2.7 H Sodium 138 Potassium 3.8 Chloride 102 Carbon Dioxide 26 BUN 54 H Creatinine 1.60 H Estimated GFR 42.1 L BUN/Creatinine Ratio 33.8 H Glucose 134 H Calcium 8.4 Troponin I 4.110 H* Assessment & Plan Plan: Assessment/Plan Narrative: 1. Multi-drug resistant E coli septicemia and sepsis due to urinary tract infection. Continue IV ertapenem for planned [address] PICC line 03/01/2028. 2. Left lower lobe community-acquired versus healthcare associated bacterial pneumonia. Continue IV ertapenem, stopping IV vancomycin 03/01/2018 given negative cultures otherwise. 3. Atrial fibrillation with rapid ventricular response due to 1., converted to sinus rhythm but intermittent. Monitor on telemetry. 4. Metabolic encephalopathy due to 1. Markedly improved and back to baseline. Continue to monitor. 5. Acute hypoxic respiratory failure due to 1. Oxygen saturation fell to 89% in the emergency department. Continue supplemental oxygen. 6. Acute type 2 myocardial infarction due to demand ischemia. Monitor serial troponins, peaking 02/28/2018. Clinically asymptomatic. Treat with aspirin, beta-paulina and statin therapy and monitor clinically with serial troponins, currently trending downward. 6. Diabetes mellitus. Improved with mild hypoglycemia due to decreased oral intake. Reduce insulin or hold until eating more normally. 7. Hypertension. Continue routine medication. 8. History of pulmonary embolism. Currently therapeutic. Continue warfarin and monitor. 9. Chronic pain syndrome with chronic opioid habituation. Continue routine medication. 10. Sacral decubitus ulcers, stage II. Management per nursing and wound care. 11. DVT prophylaxis: Addressed on warfarin. 12. Code status: Do not resuscitate. POLST is enclosed in chart. 13. Disposition: Place PICC line. Possible discharge back to long term facility in 1-2 days if medically stable. Quality VTE Deep Vein Thrombosis/Pulmonary Embolism Present on Admission: No
[2018-03-01 12:00] VITALS: BP 122/66; PULSE 86; RESP 24; TEMP 36.9; O2SAT 91
--- NOTE | 2018-03-01 12:58 | DI.RAD.S_ITS ---
PROCEDURE: XR CHEST FOR PICC 1V INDICATIONS: Eval placement of PICC line COMPARISON: [facility], CT, CT ABDOMEN PELVIS W CON, 02/26/2018, 18:41. [facility], CR, XR CHEST 1V, 02/26/2018, 17:07. [facility], CR, CHEST FOR PICC PLACEMENT, 09/18/2016, 7:57. FINDINGS: PICC was placed by the intravenous therapy team from the right side. The tip of the catheter is in the area of T2 caval junction. There are bilateral interstitial infiltrates , suggesting, edema or bilateral pneumonia. Colonic interposition under the right hemidiaphragm IMPRESSION: Tip of PICC lies within the atriocaval junction. Dictated by: Yany Juarez M.D. on 03/01/2018 at 14:13 Approved by: Yany Juarez M.D. on 03/01/2018 at 14:16
--- NOTE | 2018-03-01 13:04 | PT.IPTN ---
Current Diagnoses Unspecified bacterial pneumonia (02/26/18) Physical Therapy Treatment Note M3 PT-IP Subjective Start: 02/27/18 17:38 Freq: Status: Active Protocol: Document 03/01/18 13:00 AB (Rec: 03/01/18 13:04 AB [id number]) Subjective Physical Therapy Visit Type Notes pt continues to have increase troponin level of 4.110 from yesterday's 5.86. pt with diagnosis of SD. For PT eval/ tx protocol: must wait for 2 consecture downtrending values before intitiating physical therapy. pt on hold at this time. will initiate PT if next troponin level is less than today's.
--- NOTE | 2018-03-01 15:26 | CM.DPC ---
DCP/continued: Reviewed chart. Spoke with Jovana at [facility] she reports that she has spoken with Shirin at [facility]. They can accept patient back if he does not need IV abx. If IV abx need to be continued patient can go to [facility] but they cannot accept him on ertapenem because of cost. Unsure if other SNF's will accept. Per Jovana, that abx is expensive. P: Pending. If patient does not need IV abx can return to [facility]. If IV abx needed can go to [facility] if not on ertapenem. team to follow closely. PING Jarvis
[2018-03-01 15:28] VITALS: BP 123/71; PULSE 89; RESP 20; TEMP 36.4; O2SAT 93
[2018-03-01] MEDS: WARFARIN 2 MG TABLET PO (16:28)
[2018-03-01] MEDS: INSULIN ASPART 100 UNIT/ML INSULN PEN 12 UNIT SUBCUT (16:28)
[2018-03-01] MEDS: INSULIN ASPART 100 UNIT/ML INSULN PEN SUBCUT (16:29)
[2018-03-01 19:26] VITALS: BP 114/62; PULSE 90; RESP 20; TEMP 37.3; O2SAT 93
[2018-03-01] MEDS: ATORVASTATIN 20 MG TABLET 40 MG PO (22:25)
[2018-03-01] MEDS: CLOTRIMAZOLE/BETAMETHASONE CRM 15 GM 1 APPLIC TOP (22:26)
[2018-03-01] MEDS: INSULIN DETEMIR 100 UNIT/ML INSULN.PEN 45 UNIT SUBCUT (22:27)
[2018-03-02 01:00] VITALS: BP 119/71; PULSE 67; RESP 16; TEMP 36.8; O2SAT 93
--- NOTE | 2018-03-02 01:41 | PC.NURSE ---
Patient is alert and oriented except did not know day. Breath sounds diminished but CTA with RA sat of 93%. HRR. Is on telemetry and 0000 reading reported as SA with 1st degree AVB & BBB. Denies nausea. BT hypoactive. Is incontinent of both B&B. Buttocks purple discoloration now extending under scrotum and into groins/upper thighs. Allevyn dressings to bilateral inner buttocks are CDI. Unable to turn himself or assist so staff is repositioning q2h. 2+ bilateral LE edema. States he has abdominal pain and rates 1-2/10 at rest and 5-6/10 when being moved. States pain is sharp and constant. Remains on contact isolation as has ESBL in urine; plan is for several weeks of IV antibiotics so had PICC placed yesterday. Fall risk remains high and bed alarm is activated.
[2018-03-02 03:46] VITALS: BP 128/73; PULSE 68; RESP 16; TEMP 36.6; O2SAT 93
[2018-03-02 06:18] LABS: Prothrombin Time 32.4 SECONDS (10.1-12.7)
[2018-03-02 06:24] LABS: Alanine Aminotransferase 39 IU/L (21-72); Albumin 2.9 g/dL (3.5-5.0); Albumin Globulin Ratio 0.8 (1.0-2.8); Alkaline Phosphatase 95 U/L (38-126); Aspartate Aminotransferase 52 IU/L (17-59); BUN Creatinine Ratio 36.4 (6-22); Bilirubin Total 0.6 mg/dL (0.2-1.3); Blood Urea Nitrogen 51 mg/dL (9-20); Calcium 8.2 mg/dL (8.4-10.2); Carbon Dioxide 25 mmol/L (22-32); Chloride 104 mmol/L (98-107); Estimated Glomerular Filt Rate 49.1 mL/min (>60); Globulin 3.7 g/dL (1.7-4.1); Glucose 180 mg/dL (80-110); HEMOLYSIS < 15 (0-50); Potassium 4.1 mmol/L (3.4-5.1); Sodium 138 mmol/L (137-145); Total Protein 6.6 g/dL (6.3-8.2)
[2018-03-02 08:00] VITALS: BP 123/66; PULSE 56; RESP 22; TEMP 36.2; O2SAT 94
[2018-03-02] MEDS: TIKOSYN 0.5 EACH PO (08:25)
[2018-03-02] MEDS: METOPROLOL 25 MG TABLET PO (08:25)
[2018-03-02] MEDS: ASPIRIN EC 81 MG TABLET 162 MG PO (08:26)
[2018-03-02] MEDS: MORPHINE ER 30 MG TABLET PO (08:28)
[2018-03-02] MEDS: INSULIN ASPART 100 UNIT/ML INSULN PEN SUBCUT ×2 (08:41→13:13)
[2018-03-02] MEDS: INSULIN ASPART 100 UNIT/ML INSULN PEN 12 UNIT SUBCUT ×2 (08:41→13:13)
[2018-03-02] MEDS: INSULIN DETEMIR 100 UNIT/ML INSULN.PEN 45 UNIT SUBCUT (08:42)
[2018-03-02] MEDS: CLOTRIMAZOLE/BETAMETHASONE CRM 15 GM 1 APPLIC TOP (08:44)
[2018-03-02] MEDS: SODIUM CHLORIDE 0.9% FLUSH 10 ML IV (08:47)
[2018-03-02] MEDS: LISINOPRIL 20 MG TABLET PO (08:47)
[2018-03-02] MEDS: ERTAPENEM 1 GM in SODIUM CHLORIDE 0.9% 100 ML 200 ML IV (08:47)
--- NOTE | 2018-03-02 09:46 | PM.DS.1 ---
History of Present Illness Date Patient Seen: 03/02/18 Time Patient Seen: 09:30 Chief complaint: Fever,Change in loc Narrative: 77-year-old man residing at [facility] under the primary care of Dr. Lorenzo Mcleod, is a poor historian and is not aware of why he was brought to the hospital yesterday evening. Reportedly he had decreased level of consciousness and was brought by EMS to the ED where he was found to have a fever of 102? and blood sugar of 224. He was minimally responsive. He was found to have findings consistent with a urinary infection and pneumonia, administered IV antibiotics and fluids and arrangements were made for admission to the medical floor. However, he then developed atrial fibrillation with rapid ventricular response was transferred to the ICU. He converted to sinus rhythm after IV diltiazem was administered. He reports feeling much better and back to baseline this morning. Discharge Providers Date of admission: 02/26/18 20:22 Primary care physician: Lorenzo Mcleod MD Consults: 02/26/18 20:17 Consult to Physician Routine Comment: Consulting Provider: Alfredo Medina V Reason for consultation: Admission Has provider been notified: Yes 02/27/18 00:39 Consult to Dietitian, Adult Routine Comment: Reason For Exam: weight loss and decrease in PO intake 02/27/18 09:06 Consult to Dietitian, Adult Routine Comment: Reason For Exam: dietary needs, pressure ulcers, diabetes 02/27/18 10:45 Consult to Physical Therapy Evaluate & Treat Comment: transfers, typically bedbound Physician Instructions: Evaluate and Treat 03/01/18 12:29 Consult to PICC Line RN Routine Comment: Discharge provider: Alfredo Medina MD Summary Discharge Diagnosis: 1. Multi-drug resistant E coli septicemia and sepsis due to urinary tract infection. 2. Left lower lobe community-acquired versus healthcare associated bacterial pneumonia. 3. Atrial fibrillation with rapid ventricular response due to 1., converted to sinus rhythm but intermittent. Monitor on telemetry. 4. Metabolic encephalopathy due to 1. 5. Acute hypoxic respiratory failure due to 1. 6. Acute type 2 myocardial infarction due to demand ischemia. 6. Diabetes mellitus. 7. Hypertension. 8. History of pulmonary embolism. 9. Chronic pain syndrome with chronic opioid habituation. 10. Sacral decubitus ulcers, stage II. Hospital Course: 1. Multi-drug resistant E coli septicemia and sepsis due to urinary tract infection. Treated with IV ertapenem for planned 2 week IV course, switched to IV Zosyn at discharge for halfway administration. Place PICC line 03/01/2028. 2. Left lower lobe community-acquired versus healthcare associated bacterial pneumonia. Adequately treated with IV antibiotics, noted radiographically and fairly minimal clinically and asymptomatic. 3. Atrial fibrillation with rapid ventricular response due to 1., converted to sinus rhythm but intermittent. Stable on chronic anticoagulation. 4. Metabolic encephalopathy due to 1. Markedly improved and back to baseline. Continue to monitor. 5. Acute hypoxic respiratory failure due to 1. Oxygen saturation fell to 89% in the emergency department, resolved prior to discharge off oxygen. 6. Acute type 2 myocardial infarction due to demand ischemia. Monitored with serial troponins, peaking 02/28/2018. Clinically asymptomatic. Treated with aspirin, beta-paulina and statin therapy and stable clinically. 6. Diabetes mellitus. Improved with mild hypoglycemia due to decreased oral intake. 7. Hypertension. Continue routine medication. 8. History of pulmonary embolism. Currently therapeutic. Continue warfarin and monitor. 9. Chronic pain syndrome with chronic opioid habituation. Continue routine medication. 10. Sacral decubitus ulcers, stage II. Management per Wound Care. Status at Discharge Functional status at discharge: bed bound Overall status at discharge: patient is back to baseline Time Spent with Patient Greater than 30 minutes Exam Vital Signs (past 8 hours): - 03/02/18 03:46 03/02/18 08:00 Temperature 97.9 F 97.2 F L Pulse Rate 68 56 L Respiratory Rate 16 22 Blood Pressure 128/73 H 123/66 H Pulse Oximetry 93 94 Fraction of Inspired Oxygen 40 SaO2/FiO2 Ratio 250 Oxygen Delivery Method Room Air Oxygen Flow Rate 0 Narrative Exam Narrative: General: Obese male, appears comfortable, in no apparent distress HEENT: Pupils equal round reactive, extraocular moves intact, mucous membranes pink and moist Neck: Supple Lungs: Decreased breath sounds bilateral bases with crackles Cardiac: Regular rate and rhythm without appreciable murmur Abdomen: Soft, obese, nontender Extremities: Trace pedal edema Neurologic: Alert, oriented, globally weak, no focal deficits evident Dermatologic: Stage II sacral decubitus ulcers on bilateral buttocks, see nursing notes, followed by wound care clinic Objective Labs Result Diagrams: 03/01/18 06:14 03/02/18 06:05 Labs: Laboratory Results - last 24 hr 03/02/18 03/02/18 06:05 06:05 PT 32.4 H INR 3.0 H Sodium 138 Potassium 4.1 Chloride 104 Carbon Dioxide 25 BUN 51 H Creatinine 1.40 H Estimated GFR 49.1 L BUN/Creatinine Ratio 36.4 H Glucose 180 H Calcium 8.2 L Total Bilirubin 0.6 AST 52 ALT 39 Alkaline Phosphatase 95 Troponin I 2.180 H* Total Protein 6.6 Albumin 2.9 L Globulin 3.7 Albumin/Globulin Ratio 0.8 L Discharge Plan Discharge Plan Patient Disposition: SNF Transfer to: [facility] Under care of provider: Jhony Transportation: [place] Labs: BMP, CBC 1 week; protime 03/04/2018 Consult as needed: Dental, Hearing, Mental health, Podiatry and Vision I certify the [facility] care is medically necessary on a continuing basis for any conditions for which he/ she received care during this hospitalization.: Yes The receiving facility has agreed to accept transfer and provide medical treatment.: Yes Discharge Health Status Multidrug resistant organism: Other MDRO Verified by culture: Yes Date verified: 02/26/18 Precautions: Contact Provider Discharge Instructions Diet: Carb-consistent/Diabetic Liquid consistency: Normal/Thin Food texture: Regular Wound Care Report to your healthcare provider any signs of infection, such as:: chills, fever, night sweats, increased pain and unusual drainage Special Rehabilitation Services Reason for rehabilitation: Recovery r/t decondition Rehab type: Physical therapy and Occupational therapy Discharge Data Primary Care Provider: Lorenzo Mcleod Attending Provider: Alfredo Medina V Admit Date/Time: 02/26/18 20:22 Quality VTE Deep Vein Thrombosis/Pulmonary Embolism Present on Admission: No
--- NOTE | 2018-03-02 10:17 | PT.IIE ---
Current Diagnoses Unspecified bacterial pneumonia (02/26/18) Medical History (Last Updated 02/26/18 @ 20:16 by Candelaria Wilkinson RN) Afib (Acute) Physical Therapy Inpatient Evaluation/Re-Eval M1 PT/OT-IP Prior Functional Status Start: 02/28/18 08:33 Freq: NEEDED Status: Active Protocol: Document 03/02/18 10:17 [facility] (Rec: 03/02/18 10:57 [facility] [id number]) Medical Review Prior Functional Status Medical History Reviewed Yes Mobility and Gait Transfers only to w/c with assistance (1-2 persons). Social History Household Members none Living Arrangements Assisted Living M2 PT-IP Current Condition Start: 02/28/18 08:33 Freq: NEEDED Status: Active Protocol: Document 03/02/18 10:17 [facility] (Rec: 03/02/18 10:57 [facility] [id number]) Physical Therapy Current Condition Current Condition Evaluation Date 03/02/18 Treatment Diagnosis AMS, UTI, PNA, acute type 2 [place] , impaired activity tolerance & mobility M3 PT-IP Subjective Start: 02/27/18 17:38 Freq: Status: Active Protocol: Document 03/02/18 10:17 [facility] (Rec: 03/02/18 10:57 [facility] [id number]) Subjective Physical Therapy Visit Type Type Initial Evaluation Visit Start Time 09:30 Visit Stop Time 10:17 Total Visit Minutes 47 Notes Troponin now @ 2.18, yesterday @ 4.11, and Titus @ 5.68 ( peak). Number of [employer] LINE Visits 0 Physical Therapy Visit Comments Patient Comments Pt thinks he cannot stand, he is too weak. Therapy Pain Assessment Location Abdomen Scale Used cannot rate Pain Management Techniques Modification of Treatment Re-positioning M3 PT-IP Subjective Start: 02/28/18 08:33 Freq: NEEDED Status: Active Protocol: Document 03/02/18 10:17 [facility] (Rec: 03/02/18 10:57 [facility] [id number]) M4 PT-IP Mobility and Gait Start: 02/28/18 08:33 Freq: NEEDED Status: Active Protocol: Document 03/02/18 10:17 [facility] (Rec: 03/02/18 10:57 [facility] [id number]) PT-Bed Mobility Assessment Rolling Type of Rolling Bilateral Level of Assist Maximal Assistance 1 Person Assistance Supine to Sit Supine to Sit Maximum Assistance 1 Person Assistance Sit to Supine Sit to Supine Maximum Assistance 2 Person Assistance Scooting Scooting to Edge of Bed Maximum Assistance Scooting Up and Down in Bed Dependent PT-Transfer Assessment Comments Mobility Comments unable to to sit indep., not able to stand this session. PT-Balance Assessment Sitting Balance and Reactions Static Sitting Balance Ability Poor Dynamic Sitting Balance Ability Poor Comments Other Balance Tests/Deviations/Treatment Min to Max A sitting balance : on EOB. Posterior lean, no listing. M5 PT-IP Objective Assessments Start: 02/28/18 08:33 Freq: NEEDED Status: Active Protocol: Document 03/02/18 10:17 [facility] (Rec: 03/02/18 10:57 [facility] [id number]) Orientation Orientation/Cognition Orientation Name Birthday Place Situation Strength Comments Strength Comments Unable to perform standardized MMT due to pt compliance- unable to perform indep. SLR with either LE M7 PT-IP Assessment and Plan Start: 02/28/18 08:33 Freq: NEEDED Status: Active Protocol: Document 03/02/18 10:17 [facility] (Rec: 03/02/18 10:[id number] PT Summary Assessment and Plan Potential Rehabilitation Potential Fair Status of Condition at Evaluation Evolving Summary Impairments Pain Strength Balance Bed Mobility Transfers Gait Activity Tolerance Assessment Summary Pt's troponin levels peaked on Wednesday, and have had 2 readings of downward trending values. Pt requires Max assist with bed mobility and supine to sit, where he continued to require manual assistance for sitting on EOB with use of bilateral UEs. Pt is not safe to stand manually at this time , and likely with require overhead and/or sit<->stand power stander when ready initially to transfer. Pt will require assistance with all daily activities and will need to be able to be assisted with mechanical transfers until he can improve his overall tolerance with functional activities, if this can be provided at prior living arrangement, then pt can return. Goals Bed Mobility Goal Moderate Assistance Transfer Goal Moderate Assistance Front Wheeled Walker Days to Meet Goals 3 Frequency of Treatment Frequency Of Treatment Once a Day Treatment Plan Physical Therapy Treatment Plan Bed Mobility Training Transfer Training Therapeutic Exercise Balance Retraining Discharge Planning Neuromuscular Re-ed Recommendations To Nursing Amount of Assist Needed 2 Person Assist Mechanical Lift Discharge Recommendations PT Discharge Recommendations SNF Rehab
--- NOTE | 2018-03-02 10:47 | CM.DPC ---
Addendum entered by PING Mathias 03/02/18 13:03: ADD: Per PT, pt still unable to safely sit upright and has been in bed requiring 2 person max assist and recommending BLS for safe transport. JOSETTE called [facility] and scheduled BLS transport at 1415 to [facility]. JOSETTE completed the non emergent BLS form and attached facesheet and supporting documentation. JOSETTE updated RN, [employer], and NTL and left a message for Jovana at [facility]. Plan: Patient to d/c to [facility] today via BLS stretcher transport by [facility] at 1415. PING Mathias Original Note: DCP Discharge [facility] Per MD, he spoke with Dr. Booker at [facility] in regards to pt's IV-Abx and MD will change pt's med to Zosyn Q8 and [facility] can accept the pt on that medication. Per RN, pt received his once daily dose of erdapenum this morning and not due to IV-Abx until tomorrow morning. JOSETTE called Jovana at [facility] and updated on pt d/c orders and she confirmed that they can accept the pt on Zosyn and will figure out a time to accept pt today. Per PT, pt was not able to sit in a chair safely this morning due to drowsiness and will recheck the pt closer to discharge to determine if w/c vs stretcher needed for transport. JOSETTE updated RN and EMILY and faxed signed med rec, scripts, and PASRR to [facility] for review. Plan: JOSETTE to follow for return call from [facility] towards determining time they can admit and for PT to make final determination of w/c vs stretcher. PING Mathias
[2018-03-02 12:00] VITALS: BP 123/70; PULSE 62; RESP 22; TEMP 36.4; O2SAT 96
--- NOTE | 2018-03-02 12:22 | PC.NURSE ---
Addendum entered by Catalina Ledesma R.N. 03/02/18 14:14: r.arm iv taken out and cannula bent but intact. [facility] Original Note: Pt is A&Ox3, he has 3+edema to lower extremities that are pitting, ppx2. Pt does not get out of bed, pt into see him and he was unable to stand at the beside. He has had a large bm and changed. Repositioning pt every 2-3 hours. He has some purpliss/red discoloration to groin area and 3 small pressure ulcers to coccyx and buttocks. Two of them are covered with allevyn dressings. Pt is groggy but easily awakens. Please see skin assessment under physical assessment for more details. Pt eating at meals. BS this am 174 and all insulins given. He is now eating lunch and bs is 190. Will give pt his lunch time insulin. Pt is also having another incontinent stool at this time. He has a good appetite this morning and denies pain. States that his abdomen pain is a 1/10 at rest. Pt being changed now as he will be discharging to [facility] later today.
== END 2018-03-02 14:13 | DRG 871 ==
LOC: ED 17:51 → AC 20:32 → ICU 02-27 11:36 → AC 02-28 14:31
PROVIDERS: Emergency Medicine; Admitting Provider Internal Medicine; Emergency Provider Nurse Practitioner Family; PCP Internal Medicine; Visit Provider Internal Medicine
DX: A41.51 Sepsis due to Escherichia coli [E. coli] (principal); J15.9 Unspecified bacterial pneumonia; J96.01 Acute respiratory failure with hypoxia; G93.41 Metabolic encephalopathy; I21.A1 Myocardial infarction type 2; R40.2112 Coma scale, eyes open, never, at arrival to emergency department; R40.2212 Coma scale, best verbal response, none, at arrival to emergency department; F11.20 Opioid dependence, uncomplicated; N39.0 Urinary tract infection, site not specified; R65.20 Severe sepsis without septic shock; I48.91 Unspecified atrial fibrillation; E66.9 Obesity, unspecified; Z68.38 Body mass index [BMI] 38.0-38.9, adult; G47.30 Sleep apnea, unspecified; Z66 Do not resuscitate; E11.9 Type 2 diabetes mellitus without complications; I10 Essential (primary) hypertension; E78.5 Hyperlipidemia, unspecified; G89.4 Chronic pain syndrome; Z95.0 Presence of cardiac pacemaker; L89.322 Pressure ulcer of left buttock, stage 2; L89.312 Pressure ulcer of right buttock, stage 2; Z86.711 Personal history of pulmonary embolism; Z79.01 Long term (current) use of anticoagulants; R40.2352 Coma scale, best motor response, localizes pain, at arrival to emergency department; Z79.4 Long term (current) use of insulin
CPT/HCPCS: 36415; 36569; 51705; 70450; 71045; 74177; 80048; 80053; 81001; 82962; 83605; 83690; 83735; 84100; 84145; 84484; 85025; 85610; 85730; 87040; 87077; 87086; 87150; 87186; 87205; 87507; 87797; 93005; 96365; 96366; 96374; 96375; 96376; 97162; 97530; 99285; 99291; J0282; J1335; J1885; J1956; J2270; J3370; Q9967

== ENCOUNTER 2018-04-04 11:10 | Inpatient (IN) | payer MEDICARE, SELFPAY ==
[2018-02-26 20:52] VITALS: BMI 38.0
[2018-04-04] VITALS (11 sets, daily range): BP systolic 114–161; BP diastolic 64–81; PULSE 55–75; RESP 12–22; TEMP 36.1–36.7; O2SAT 94–98; BMI 38.1
--- NOTE | 2018-04-04 11:47 | DI.RAD.S_ITS ---
PROCEDURE: XR CHEST 2V INDICATIONS: shortness of breath TECHNIQUE: 2 views of the chest were acquired. COMPARISON: [facility], , XR CHEST FOR PICC 1V, 03/01/2018, 13:18. FINDINGS: Surgical changes and devices: Left chest wall cardiac device position is unchanged. Lungs and pleura: No pleural effusions or pneumothorax. There is elevation of left hemidiaphragm, unchanged from prior study. Left basilar atelectasis is seen. No definite focal infiltrate. Mediastinum: Mediastinal contours are normal. Heart size is enlarged. Bones and chest wall: No suspicious bony abnormalities. Soft tissues appear unremarkable. IMPRESSION: Elevation of left hemidiaphragm and left basilar atelectasis. No definite focal infiltrate. No gross pneumothorax. Dictated by: Amol Sanchez M.D. on 04/04/2018 at 12:05 Approved by: Amol Sanchez M.D. on 04/04/2018 at 12:06
[2018-04-04 13:13] LABS: Add Manual Diff / Slide Review NO; Basophils Percent Auto 0.7 % (0-2); Eosinophils Percent Auto 2.4 % (2-4); Hematocrit 39.6 % (41-53); Hemoglobin 12.8 g/dL (13.5-17.5); Lymphocytes Percent Auto 20.8 % (25-40); Mean Corpuscular HGB Conc 32.4 % (30-36); Mean Corpuscular Hemoglobin 27.7 PG (26-34); Mean Corpuscular Volume 85.5 fL (80-100); Monocytes Percent Auto 5.2 % (3-14); Neutrophils Absolute Auto 8400 /uL (3000-5900); Neutrophils Percent Auto 70.9 % (50-75); Platelet Count 202 X10^3/uL (150-400); Red Blood Cell Count 4.63 X10^6/uL (4.5-5.9); Red Cell Distribution Width 15.7 % (11.6-14.8); White Blood Cell Count 11.9 X10^3/uL (4.5-11.0)
[2018-04-04 13:27] LABS: Alanine Aminotransferase 20 IU/L (21-72); Albumin 3.6 g/dL (3.5-5.0); Alkaline Phosphatase 90 U/L (38-126); Aspartate Aminotransferase 15 IU/L (17-59); BUN Creatinine Ratio 13.3 (6-22); Bilirubin Total 0.5 mg/dL (0.2-1.3); Blood Urea Nitrogen 12 mg/dL (9-20); Calcium 9.2 mg/dL (8.4-10.2); Carbon Dioxide 30 mmol/L (22-32); Chloride 102 mmol/L (98-107); Estimated Glomerular Filt Rate > 60.0 mL/min (>60); Globulin 3.6 g/dL (1.7-4.1); Glucose 219 mg/dL (80-110); HEMOLYSIS < 15 (0-50); Potassium 4.6 mmol/L (3.4-5.1); Sodium 140 mmol/L (137-145); Total Protein 7.2 g/dL (6.3-8.2)
[2018-04-04 13:47] LABS: Lactate (Lactic Acid) 1.3 mmol/L (0.7-2.1)
[2018-04-04 14:13] LABS: Troponin I 0.073 ng/mL (0.01-0.034)
--- NOTE | 2018-04-04 14:53 | PC.NURSE ---
Patient c/o shortness of breath with no c/o chest pain;
[2018-04-04 15:55] LABS: Troponin I 0.104 ng/mL (0.01-0.034)
--- NOTE | 2018-04-04 16:17 | ED.SOB ---
HPI - SOB/Dyspnea General Chief Complaint: Shortness of Breath/Dyspnea Stated Complaint: Shortness of breath History of Present Illness HPI 77-year-old morbidly obese male with multiple medical comorbidities presents for evaluation of shortness of breath that occurred when he was laying prone for application ointment to chronic decubitus wounds. Patient reports that whenever he lay supine or prone to become short of breath. When laying earlier today at a SNF the patient experienced his typical shortness of breath. After being sent back upright in his wheelchair had continued to experience the very mild and improving shortness of breath. Patient without cough, fevers, chills, chest pain. M/S/F/SocHx notable for: please see HPI; remainder reviewed with patient and in chart. ROS: Negative constitutional, eye, cardiovascular, pulmonary, GI, , MSK, skin, neurologic, psychiatric, endocrine unless noted in the HPI. Exam Gen: Pleasant, non-toxic appearing, resting comfortably. HEENT: NC, AT, PEERL, EOMI, trachea midline. Resp: Clear to auscultation bilaterally, normal work of breathing. Breath sounds distant secondary to her habitus. Card: RRR with no M/R/G, no crackles in lung bases, no pedal edema, no JVD appreciated. GI: NT/ND Vascular: Both ankles, calves, and thighs of equal size, no calf tenderness to palpation bilaterally. MSK: No chest wall TTP. No visible deformities, strength and tone WNL. Skin: Normal color with no visible lesions. Neuro: AO x 3, no facial asymmetry, vision and hearing WNL. Psych: Mood and affect appropriate. Labs / Imaging (pertinent): WBC 11.9, Hb 12.8, Na 140, K 4.6, BNP 1150, troponin (1:03 PM) 0.073, troponin (3:15 PM) 0.104. EKG: SR 70 bpm, LA 279 ms, RBBB, nonspecific ST segment changes. CXR: elevation the left hemidiaphragm and left basilar atelectasis. No definite focal infiltrate. No gross pneumothorax. MDM Previous chart, nursing note, and vitals reviewed. A: 77-year-old morbidly obese male with multiple medical comorbidities presents for evaluation of shortness of breath that occurred when he was laying prone for application ointment to chronic decubitus wounds. DDx: pneumonia, reactive airway disease / COPD / Asthma, bronchitis, pneumothorax, anxiety, PE, CHF, pleural effusion, pericardial effusion, ACS. Evaluation: * Pneumonia - as the CXR is without focal infiltrate and the patient is afebrile and without significant sputum production, doubt pneumonia. * Reactive airway disease / COPD / Asthma - patient with good air movement and an absence of wheezing. * Bronchitis - doubt given the lack of productive cough or systemic symptoms. * Pneumothorax - no evidence by CXR. * Anxiety - patient clinically without evidence of appreciable anxiety on exam. * PE - low clinical suspicion given history and alternate diagnosis, further risk stratification (e.g.) Well's not indicated. * CHF - patient with worsening pedal edema, elevated BNP, recent SC, suspect new onset CHF. * Pleural effusion - CXR without evidence of effusions. * Pericardial effusion - doubt pericardial effusion given an alternate diagnosis, the lack of cardiomegaly on CXR and normal heart sounds. * ACS - patient with nonspecific ST segment changes, uptrending troponin, NSTEMI ED Course: 40 mg IV Lasix given, 324 mg aspirin for NSTEMI management. Further intervention is deferred to the hospitalist. Impression: CHF, NSTEMI (please reference below for remainder of encounter information) Critical Care Time Organ system(s): Cardiopulmonary Intervention: Assessment of the patient, interpretation of studies, communication related to patient care. Time: 30 minutes were spent directly related to patient care exclusive of separately billed procedures. Related Data Home Medications Medication Instructions Recorded Confirmed dofetilide [Tikosyn] 1 cap PO BID #0 06/17/11 04/04/18 polyethylene glycol 3350 [Miralax] 17 gm PO DAILY #0 09/14/16 04/04/18 acetaminophen 650 mg PO Q6HP PRN #0 02/19/17 04/04/18 warfarin [Coumadin] 1 mg PO SEE INSTRUCTIONS #0 02/19/17 04/04/18 cyclobenzaprine 10 mg PO BIDP PRN #0 11/05/17 04/04/18 insulin lispro [Humalog KwikPen 12 units SQ AC #0 11/05/17 04/04/18 Insulin] clotrimazole-betamethasone 1 applic TOPICAL BID PRN 02/26/18 04/04/18 insulin detemir U-100 [Levemir 45 unit SUB-Q BID 02/26/18 04/04/18 FlexTouch U-100 Insuln] atorvastatin 40 mg PO DAILY 04/04/18 04/04/18 docusate sodium 250 mg PO DAILY PRN 04/04/18 04/04/18 lisinopril 5 mg PO DAILY 04/04/18 04/04/18 miconazole nitrate 1 applic TOPICAL QSHIFT 04/04/18 04/04/18 morphine 30 mg PO BEDTIME 04/04/18 04/04/18 phenyleph-min oil-petrolatum 1 applic TOPICAL BID 04/04/18 04/04/18 [Preparation H] sennosides [senna] 2 tab PO DAILY PRN 04/04/18 04/04/18 trazodone 50 mg PO BEDTIME PRN 04/04/18 04/04/18 Previous Rx's Medication Instructions Recorded metoprolol tartrate 25 mg PO BID #60 tab 03/02/18 Allergies Allergy/AdvReac Type Severity Reaction Status Date / Time hydromorphone [HYDROMORPHONE] Allergy Severe TOUNGE Verified 04/04/18 11:23 SWELLING cefotetan [CEFOTETAN] Allergy Unknown Verified 04/04/18 11:23 COUNT INCLUDES THE [facility] Medical History Afib (Acute) Social History household members: none Smoking Status: Never smoker alcohol intake: never Exam Initial Vital Signs Initial Vital Signs: Vital Signs Temperature 97.0 F L 04/04/18 11:18 Pulse Rate 67 04/04/18 11:18 Respiratory Rate 18 04/04/18 11:18 Blood Pressure 157/72 H 04/04/18 11:18 Pulse Oximetry 97 04/04/18 11:18 Course Orders Ordered: ED Orders 04/04/18 11:47 Chest [XR chest 2V] Stat 04/04/18 13:03 B Type Natriuretic Peptide Stat Complete Blood Count AUTO DIFF Stat Comprehensive Metabolic Panel Stat Troponin I Stat 04/04/18 13:18 Lactate (Lactic Acid) Stat 04/04/18 15:15 Troponin I Stat Discontinued Medications Aspirin (Aspirin Chew) 324 mg PO NOW ONE Stop: 04/04/18 16:15 Furosemide (Lasix) 40 mg IV NOW ONE Stop: 04/04/18 16:15 Vital Signs - 8 hr 04/04/18 11:18 04/04/18 13:00 04/04/18 14:00 Temperature 97.0 F L 97.7 F 97.4 F L Pulse Rate 67 55 L 55 L Respiratory Rate 18 16 22 Blood Pressure 157/72 H Blood Pressure [Right Arm] 127/64 H 121/64 H Pulse Oximetry 97 97 97 04/04/18 15:00 Temperature 97.5 F L Pulse Rate 56 L Respiratory Rate 18 Blood Pressure Blood Pressure [Right Arm] 122/64 H Pulse Oximetry 97 MDM - SOB/Dyspnea Lab Data Result diagrams: 04/04/18 13:03 04/04/18 13:03 Lab Results 04/04/18 04/04/18 04/04/18 Range/Units 13:03 13:03 13:03 WBC 11.9 H (4.5-11.0) X10^3/uL RBC 4.63 (4.5-5.9) X10^6/uL Hgb 12.8 L (13.5-17.5) g/dL Hct 39.6 L (41-53) % MCV 85.5 (80-100) fL MCH 27.7 (26-34) PG MCHC 32.4 (30-36) % RDW 15.7 H (11.6-14.8) % Plt Count 202 (150-400) X10^3/uL Neut % (Auto) 70.9 (50-75) % Lymph % (Auto) 20.8 L (25-40) % Davie % (Auto) 5.2 (3-14) % Eos % (Auto) 2.4 (2-4) % Baso % (Auto) 0.7 (0-2) % Neut # (Auto) 8400 H (6338-6738) /uL Sodium 140 (137-145) mmol/L Potassium 4.6 (3.4-5.1) mmol/L Chloride 102 (98-107) mmol/L Carbon Dioxide 30 (22-32) mmol/L BUN 12 (9-20) mg/dL Creatinine 0.90 (0.66-1.25) mg/dL Estimated GFR > 60.0 (>60) mL/min BUN/Creatinine Ratio 13.3 (6-22) Glucose 219 H (80-110) mg/dL Lactate (0.7-2.1) mmol/L Calcium 9.2 (8.4-10.2) mg/dL Total Bilirubin 0.5 (0.2-1.3) mg/dL AST 15 L (17-59) IU/L ALT 20 L (21-72) IU/L Alkaline Phosphatase 90 (38-126) U/L Troponin I 0.073 H (0.01-0.034) ng/mL B-Natriuretic Peptide 1150.0 H (<100) Total Protein 7.2 (6.3-8.2) g/dL Albumin 3.6 (3.5-5.0) g/dL Globulin 3.6 (1.7-4.1) g/dL Albumin/Globulin Ratio 1.0 (1.0-2.8) 04/04/18 04/04/18 Range/Units 13:18 15:15 WBC (4.5-11.0) X10^3/uL RBC (4.5-5.9) X10^6/uL Hgb (13.5-17.5) g/dL Hct (41-53) % MCV (80-100) fL MCH (26-34) PG MCHC (30-36) % RDW (11.6-14.8) % Plt Count (150-400) X10^3/uL Neut % (Auto) (50-75) % Lymph % (Auto) (25-40) % Davie % (Auto) (3-14) % Eos % (Auto) (2-4) % Baso % (Auto) (0-2) % Neut # (Auto) (9836-5469) /uL Sodium (137-145) mmol/L Potassium (3.4-5.1) mmol/L Chloride (98-107) mmol/L Carbon Dioxide (22-32) mmol/L BUN (9-20) mg/dL Creatinine (0.66-1.25) mg/dL Estimated GFR (>60) mL/min BUN/Creatinine Ratio (6-22) Glucose (80-110) mg/dL Lactate 1.3 (0.7-2.1) mmol/L Calcium (8.4-10.2) mg/dL Total Bilirubin (0.2-1.3) mg/dL AST (17-59) IU/L ALT (21-72) IU/L Alkaline Phosphatase (38-126) U/L Troponin I 0.104 H (0.01-0.034) ng/mL B-Natriuretic Peptide (<100) Total Protein (6.3-8.2) g/dL Albumin (3.5-5.0) g/dL Globulin (1.7-4.1) g/dL Albumin/Globulin Ratio (1.0-2.8) Discharge Plan Departure Prescriptions: No Action dofetilide [Tikosyn] 500 MCG capsule 1 cap PO BID Qty: 0 RF: 0 polyethylene glycol 3350 [Miralax] 119 GM powder 17 gm PO DAILY Qty: 0 RF: 0 acetaminophen 325 MG tablet 650 mg PO Q6HP PRN (Reason: fever / pain) Qty: 0 RF: 0 warfarin [Coumadin] 1 MG tablet 1 mg PO SEE INSTRUCTIONS Qty: 0 RF: 0 insulin lispro [Humalog KwikPen Insulin] 100 UNIT/1 ML insulin pen 12 units SQ AC Qty: 0 RF: 0 cyclobenzaprine 10 MG tablet 10 mg PO BIDP PRN (Reason: Spasms) Qty: 0 RF: 0 clotrimazole-betamethasone 1-0.05 % cream 1 applic Topical BID PRN (Reason: unknown) RF: 0 insulin detemir U-100 [Levemir FlexTouch U-100 Insuln] 100 unit/mL (3 mL) Insulin Pen 45 unit SUB-Q BID RF: 0 metoprolol tartrate 25 mg Tablet 25 mg PO BID Qty: 60 RF: 0 atorvastatin 40 mg tablet 40 mg PO DAILY RF: 0 trazodone 50 mg Tablet 50 mg PO BEDTIME PRN (Reason: Sleep) RF: 0 phenyleph-min oil-petrolatum [Preparation H] 0.25-14-74.9 % Ointment 1 applic Topical BID RF: 0 morphine 30 MG tablet extended release 30 mg PO BEDTIME RF: 0 lisinopril 5 mg tablet 5 mg PO DAILY RF: 0 miconazole nitrate 2 % Cream 1 applic TOPICAL QSHIFT RF: 0 sennosides [senna] 8.6 mg Tablet 2 tab PO DAILY PRN (Reason: Constipation) RF: 0 docusate sodium 250 mg Capsule 250 mg PO DAILY PRN (Reason: Constipation) RF: 0
--- NOTE | 2018-04-04 16:59 | PC.NURSE ---
Assist patient into bed with walker and 3 person assist;
[2018-04-04] MEDS: FUROSEMIDE 40 MG/4 ML VIAL IV ×2 (17:00→23:45)
[2018-04-04] MEDS: ASPIRIN 81 MG TAB 324 MG PO (17:00)
--- NOTE | 2018-04-04 18:26 | PM.HP.1 ---
History of Present Illness Date Patient Seen: 04/04/18 Chief complaint: Shortness of breath Narrative: Patient is a 77-year-old male who resides at a half-way. This evening when the patient was lying flat he noted shortness of breath. He describes orthopnea. He had no PND. He has had no fever or chills. He has had bilateral lower extremity edema. He has no fever or chills. Patient denies any chest pain or palpitations. He presented to the emergency room for evaluation of his shortness of breath. In the emergency room he was found to have a markedly elevated BP and P. 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 He was given IV Lasix. Patient is admitted to the hospital for further evaluation. Patient History Medical History Afib (Acute) Family & Social History Family History: Reviewed 04/04/18 by Yina Rodriguez MD Social History: household members none Safety & Behavioral: Feels Safe in Current Yes Environment Been Physically Hurt or No Threatened By a Person Tobacco & Substance use: Smoking Status Never smoker alcohol intake never alcohol intake frequency holiday/special occasion Substance Use Type does not use Meds Home Medications Medication Instructions Recorded Confirmed Type dofetilide [Tikosyn] 1 cap PO BID #0 06/17/11 04/04/18 History polyethylene glycol 3350 [Miralax] 17 gm PO DAILY #0 09/14/16 04/04/18 History acetaminophen 650 mg PO Q6HP PRN #0 02/19/17 04/04/18 History warfarin [Coumadin] 1 mg PO SEE INSTRUCTIONS #0 02/19/17 04/04/18 History cyclobenzaprine 10 mg PO BIDP PRN #0 11/05/17 04/04/18 History insulin lispro [Humalog KwikPen 12 units SQ AC #0 11/05/17 04/04/18 History Insulin] clotrimazole-betamethasone 1 applic TOPICAL BID PRN 02/26/18 04/04/18 History insulin detemir U-100 [Levemir 45 unit SUB-Q BID 02/26/18 04/04/18 History FlexTouch U-100 Insuln] metoprolol tartrate 25 mg PO BID #60 tab 03/02/18 04/04/18 Rx atorvastatin 40 mg PO DAILY 04/04/18 04/04/18 History docusate sodium 250 mg PO DAILY PRN 04/04/18 04/04/18 History lisinopril 5 mg PO DAILY 04/04/18 04/04/18 History miconazole nitrate 1 applic TOPICAL QSHIFT 04/04/18 04/04/18 History morphine 30 mg PO BEDTIME 04/04/18 04/04/18 History phenyleph-min oil-petrolatum 1 applic TOPICAL BID 04/04/18 04/04/18 History [Preparation H] sennosides [senna] 2 tab PO DAILY PRN 04/04/18 04/04/18 History trazodone 50 mg PO BEDTIME PRN 04/04/18 04/04/18 History Allergies Allergy/AdvReac Type Severity Reaction Status Date / Time hydromorphone [HYDROMORPHONE] Allergy Severe TOUNGE Verified 04/04/18 11:23 SWELLING cefotetan [CEFOTETAN] Allergy Unknown Verified 04/04/18 11:23 Review of Systems Review of Systems All systems reviewed & are unremarkable except as noted in HPI and below Exam Vital Signs (past 8 hours): - 04/04/18 11:18 04/04/18 13:00 04/04/18 14:00 Temperature 97.0 F L 97.7 F 97.4 F L Pulse Rate 67 55 L 55 L Respiratory Rate 18 16 22 Blood Pressure 157/72 H Blood Pressure [Right Arm] 127/64 H 121/64 H Pulse Oximetry 97 97 97 04/04/18 15:00 04/04/18 16:58 04/04/18 17:00 Temperature 97.5 F L 97.4 F L Pulse Rate 56 L 74 72 Respiratory Rate 18 22 18 Blood Pressure 114/81 H Blood Pressure [Right Arm] 122/64 H 161/81 H Pulse Oximetry 97 97 98 04/04/18 17:35 Temperature Pulse Rate 75 Respiratory Rate 12 Blood Pressure Blood Pressure [Right Arm] 114/81 H Pulse Oximetry Oxygen Delivery Method Room Air Narrative Exam Narrative: HEENT: Normocephalic atraumatic, extraocular muscles are intact, oropharynx is clear, neck is supple Lungs: Decreased breath sounds with basilar crackles bilaterally Cardiac exam: Regular rate and rhythm normal S1 and S2 with a 3/6 systolic ejection murmur Abdomen: Soft nontender nondistended without hepatosplenomegaly Extremities: Bilateral 2+ pitting edema Neuro exam: Nonfocal Sacral area: Unable to evaluate for the patient's decubitus ulcer is noted Psychiatric exam: No acute issues. Objective Labs Result Diagrams: 04/04/18 13:03 04/04/18 13:03 Labs: Laboratory Results - last 24 hr 04/04/18 04/04/18 04/04/18 13:03 13:03 13:03 WBC 11.9 H RBC 4.63 Hgb 12.8 L Hct 39.6 L MCV 85.5 MCH 27.7 MCHC 32.4 RDW 15.7 H Plt Count 202 Neut % (Auto) 70.9 Lymph % (Auto) 20.8 L Twiggs % (Auto) 5.2 Eos % (Auto) 2.4 Baso % (Auto) 0.7 Neut # (Auto) 8400 H Sodium 140 Potassium 4.6 Chloride 102 Carbon Dioxide 30 BUN 12 Creatinine 0.90 Estimated GFR > 60.0 BUN/Creatinine Ratio 13.3 Glucose 219 H Lactate Calcium 9.2 Total Bilirubin 0.5 AST 15 L ALT 20 L Alkaline Phosphatase 90 Troponin I 0.073 H B-Natriuretic Peptide 1150.0 H Total Protein 7.2 Albumin 3.6 Globulin 3.6 Albumin/Globulin Ratio 1.0 04/04/18 04/04/18 13:18 15:15 WBC RBC Hgb Hct MCV MCH MCHC RDW Plt Count Neut % (Auto) Lymph % (Auto) Twiggs % (Auto) Eos % (Auto) Baso % (Auto) Neut # (Auto) Sodium Potassium Chloride Carbon Dioxide BUN Creatinine Estimated GFR BUN/Creatinine Ratio Glucose Lactate 1.3 Calcium Total Bilirubin AST ALT Alkaline Phosphatase Troponin I 0.104 H B-Natriuretic Peptide Total Protein Albumin Globulin Albumin/Globulin Ratio Assessment & Plan (1) Non-ST elevation [place] (NSTEMI): Problem details: Will obtain serial cardiac enzymes. Patient will be placed on aspirin. Will review prior echo. Patient will continue on his SHANANN inhibitor. Current visit: Yes Status: Acute (2) CHF (congestive heart failure): Problem details: Will continue IV Lasix. Await echo results Qualifiers: Heart failure chronicity: Heart failure type: Current visit: Yes Status: Acute (3) Sacral wound: Problem details: Wound care consult Current visit: No Status: Acute Plan: Assessment/Plan Narrative: Continue usual home medications
--- NOTE | 2018-04-04 19:09 | P.HP_ITS ---
History of Present Illness Date Patient Seen: 04/04/18 Chief complaint: Shortness of breath Narrative: Patient is a 77-year-old male who resides at a skilled nursing. This evening when the patient was lying flat he noted shortness of breath. He describes orthopnea. He had no PND. He has had no fever or chills. He has had bilateral lower extremity edema. He has no fever or chills. Patient denies any chest pain or palpitations. He presented to the emergency room for evaluation of his shortness of breath. In the emergency room he was found to have a markedly elevated BP and P. 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 He was given IV Lasix. Patient is admitted to the hospital for further evaluation. Patient History Medical History Afib (Acute) Family & Social History Family History: Reviewed 04/04/18 by Yina Rodriguez MD Social History: household members none Safety & Behavioral: Feels Safe in Current Yes Environment Been Physically Hurt or No Threatened By a Person Tobacco & Substance use: Smoking Status Never smoker alcohol intake never alcohol intake frequency holiday/special occasion Substance Use Type does not use Meds Home Medications Medication Instructions Recorded Confirmed Type dofetilide [Tikosyn] 1 cap PO BID #0 06/17/11 04/04/18 History polyethylene glycol 3350 [Miralax] 17 gm PO DAILY #0 09/14/16 04/04/18 History acetaminophen 650 mg PO Q6HP PRN #0 02/19/17 04/04/18 History warfarin [Coumadin] 1 mg PO SEE INSTRUCTIONS #0 02/19/17 04/04/18 History cyclobenzaprine 10 mg PO BIDP PRN #0 11/05/17 04/04/18 History insulin lispro [Humalog KwikPen 12 units SQ AC #0 11/05/17 04/04/18 History Insulin] clotrimazole-betamethasone 1 applic TOPICAL BID PRN 02/26/18 04/04/18 History insulin detemir U-100 [Levemir 45 unit SUB-Q BID 02/26/18 04/04/18 History FlexTouch U-100 Insuln] metoprolol tartrate 25 mg PO BID #60 tab 03/02/18 04/04/18 Rx atorvastatin 40 mg PO DAILY 04/04/18 04/04/18 History docusate sodium 250 mg PO DAILY PRN 04/04/18 04/04/18 History lisinopril 5 mg PO DAILY 04/04/18 04/04/18 History miconazole nitrate 1 applic TOPICAL QSHIFT 04/04/18 04/04/18 History morphine 30 mg PO BEDTIME 04/04/18 04/04/18 History phenyleph-min oil-petrolatum 1 applic TOPICAL BID 04/04/18 04/04/18 History [Preparation H] sennosides [senna] 2 tab PO DAILY PRN 04/04/18 04/04/18 History trazodone 50 mg PO BEDTIME PRN 04/04/18 04/04/18 History Allergies Allergy/AdvReac Type Severity Reaction Status Date / Time hydromorphone [HYDROMORPHONE] Allergy Severe TOUNGE Verified 04/04/18 11:23 SWELLING cefotetan [CEFOTETAN] Allergy Unknown Verified 04/04/18 11:23 Review of Systems Review of Systems All systems reviewed & are unremarkable except as noted in HPI and below Exam Vital Signs (past 8 hours): - 04/04/18 11:18 04/04/18 13:00 04/04/18 14:00 Temperature 97.0 F L 97.7 F 97.4 F L Pulse Rate 67 55 L 55 L Respiratory Rate 18 16 22 Blood Pressure 157/72 H Blood Pressure [Right Arm] 127/64 H 121/64 H Pulse Oximetry 97 97 97 04/04/18 15:00 04/04/18 16:58 04/04/18 17:00 Temperature 97.5 F L 97.4 F L Pulse Rate 56 L 74 72 Respiratory Rate 18 22 18 Blood Pressure 114/81 H Blood Pressure [Right Arm] 122/64 H 161/81 H Pulse Oximetry 97 97 98 04/04/18 17:35 Temperature Pulse Rate 75 Respiratory Rate 12 Blood Pressure Blood Pressure [Right Arm] 114/81 H Pulse Oximetry Oxygen Delivery Method Room Air Narrative Exam Narrative: HEENT: Normocephalic atraumatic, extraocular muscles are intact , oropharynx is clear, neck is supple Lungs: Decreased breath sounds with basilar crackles bilaterally Cardiac exam: Regular rate and rhythm normal S1 and S2 with a 3/6 systolic ejection murmur Abdomen: Soft nontender nondistended without hepatosplenomegaly Extremities: Bilateral 2+ pitting edema Neuro exam: Nonfocal Sacral area: Unable to evaluate for the patient's decubitus ulcer is noted Psychiatric exam: No acute issues. Objective Labs Result Diagrams: 04/04/18 13:03 04/04/18 13:03 Labs: Laboratory Results - last 24 hr 04/04/18 04/04/18 04/04/18 13:03 13:03 13:03 WBC 11.9 H RBC 4.63 Hgb 12.8 L Hct 39.6 L MCV 85.5 MCH 27.7 MCHC 32.4 RDW 15.7 H Plt Count 202 Neut % (Auto) 70.9 Lymph % (Auto) 20.8 L Morris % (Auto) 5.2 Eos % (Auto) 2.4 Baso % (Auto) 0.7 Neut # (Auto) 8400 H Sodium 140 Potassium 4.6 Chloride 102 Carbon Dioxide 30 BUN 12 Creatinine 0.90 Estimated GFR > 60.0 BUN/Creatinine Ratio 13.3 Glucose 219 H Lactate Calcium 9.2 Total Bilirubin 0.5 AST 15 L ALT 20 L Alkaline Phosphatase 90 Troponin I 0.073 H B-Natriuretic Peptide 1150.0 H Total Protein 7.2 Albumin 3.6 Globulin 3.6 Albumin/Globulin Ratio 1.0 04/04/18 04/04/18 13:18 15:15 WBC RBC Hgb Hct MCV MCH MCHC RDW Plt Count Neut % (Auto) Lymph % (Auto) Morris % (Auto) Eos % (Auto) Baso % (Auto) Neut # (Auto) Sodium Potassium Chloride Carbon Dioxide BUN Creatinine Estimated GFR BUN/Creatinine Ratio Glucose Lactate 1.3 Calcium Total Bilirubin AST ALT Alkaline Phosphatase Troponin I 0.104 H B-Natriuretic Peptide Total Protein Albumin Globulin Albumin/Globulin Ratio Assessment & Plan (1) Non-ST elevation [place] (NSTEMI): Problem details: Will obtain serial cardiac enzymes. Patient will be placed on aspirin. Will review prior echo. Patient will continue on his SHANNAN inhibitor. Current visit: Yes Status: Acute (2) CHF (congestive heart failure): Problem details: Will continue IV Lasix. Await echo results Qualifiers: Heart failure chronicity: Heart failure type: Current visit: Yes Status: Acute (3) Sacral wound: Problem details: Wound care consult Current visit: No Status: Acute Plan: Assessment/Plan Narrative: Continue usual home medications
[2018-04-04] MEDS: DOCUSATE 250 MG CAPSULE PO (20:47)
[2018-04-04] MEDS: ATORVASTATIN 20 MG TABLET 40 MG PO (20:47)
[2018-04-04] MEDS: DOCUSATE 100 MG CAPSULE PO (20:48)
[2018-04-04] MEDS: METOPROLOL 25 MG TABLET PO (20:49)
[2018-04-04] MEDS: INSULIN DETEMIR 100 UNIT/ML INSULN.PEN 45 UNIT SUBCUT (20:52)
[2018-04-04] MEDS: KETOROLAC 30 MG/ML VIAL IV (23:40)
[2018-04-04] MEDS: SODIUM CHLORIDE 0.9% FLUSH 10 ML IV (23:40)
[2018-04-05] VITALS (8 sets, daily range): BP systolic 118–154; BP diastolic 55–96; PULSE 61–67; RESP 15–21; TEMP 36.4–36.8; O2SAT 93–96; BMI 37.8
--- NOTE | 2018-04-05 | DI.ECHO.S_ITS ---
[facility] +---------+ : : [address] : : : : [id number] : : : : Phone: [phone]+ Echocardiogram Report + + :Name: LIANNA WATERMAN Study Date: 04/05/2018 Height: 72 in : :[facility] Exam Location: [facility] Weight: 278 lb : : Gender: Male BSA: 2.5 m2 : :: 1940 Age: 77 yrs BP: 125/73 mmHg: :Reason For Study: Congestive Heart Failure : : Performed By: Susie Page : :Referring: [email or web address] : + + Interpretation Summary NSR with frequent PAC's. Normal LV size; borderline concentric LVH. There is distal septal hypokinesis, which could be due to ischemia, prior infarct or RV pacing. EF is estimated at 50-55%. Stage I diastolic dysfunction. Severe LA enlargement; Otherwise normal chamber sizes. Aortic valve is moderately thickened and calcified There is severely reduced leaflet excursion. Peak velocity and mean gradient are most consistent with moderate aortic stenosis. Calculated valve area is though most consistent with severe . Clinical correlation is advised. Otherwise no significant valvular abnormalities. There is a pacing lead traversing the tricuspid valve. Mild-moderately enlarged ascending aorta, measuring 4 cm diameter. Compared to prior study 09/19/2009, pacing lead is new; aortic stenosis is worse. Distal septal hypokinesis is new. Procedure: A two-dimensional transthoracic echocardiogram with color flow and Doppler was performed. The study quality was technically difficult. Prior with images only on 09/19/2009. A contrast injection of Definity was performed to improve assessment of LV function. The heart rate ranged between 62-69 bpm during the study. Left Ventricle: There is borderline concentric left ventricular hypertrophy. The left ventricle is normal in size. The ejection fraction is estimated to be 50-55%. Right Ventricle: The right ventricle is not well visualized. The right ventricle grossly appears normal in size with probable normal systolic function. Atria: The left atrium is severely dilated. Right atrium not well visualized. Right atrium is small. There is no Doppler evidence for an interatrial shunt. Mitral Valve: The mitral valve is grossly normal. There is trace mitral regurgitation. Aortic Valve: The aortic valve is not well visualized. The aortic valve is moderately calcified. The peak aortic velocity is 3.7 m/sec. The aortic valve mean gradient is 35.3 mmHg. The calculated aortic valve area is 0.76 cm2. There is no aortic regurgitation. Tricuspid Valve: The tricuspid valve is not well visualized, but is grossly normal. There is trace tricuspid regurgitation. Right ventricular systolic pressure is estimated to be 33 mmHg plus the clinically estimated CVP which cannot be estimated on this exam. Pulmonic Valve: The pulmonic valve is not well visualized. There is trace pulmonic regurgitation. Great Vessels: The aortic root is normal size. The ascending aorta is mild- moderately enlarged. The aortic arch could not be visualized. The pulmonary is not well visualized. The inferior vena cava was not visualized. Pericardium/ Pleura There is no pericardial effusion. There is no pleural effusion. MMode/2D Measurements & Calculations LVIDd: 5.4 cm LVOT diam: 2.4 cm LVIDs: 3.3 cm Ao root diam: 3.7 cm FS: 39.3 % asc Aorta Diam: 4.0 cm EPSS: 0.78 cm IVSd: 1.0 cm LVPWd: 0.89 cm LV yates. diameter/BSA (cm/m^2): 2.2 LV sys. diameter/BSA (cm/m^2): 1.3 LA A2 area: 32.8 cm2 RA long axis: 16.4 cm LA A4 area: 33.6 cm2 RA area: 16.4 cm2 LA length (vol): 7.0 cm RA vol: 13.9 ml LA vol: 133.5 ml RA : 5.7 ml/m2 LA vol index: 54.5 ml/m2 Doppler Measurements & Calculations Ao V2 max: 368.1 cm/sec LVOT Max Isael: 68.4 cm/sec Ao V2 mean: 284.1 cm/sec LV V1 max P.9 mmHg Ao max P.7 mmHg LV V1 VTI: 14.5 cm Ao mean P.3 mmHg KIKO(I,D): 0.76 cm2 Ao V2 VTI: 87.8 cm KIKO(V,D): 0.85 cm2 sev ratio: 0.17 KIKO indexed to BSA (cm^2/m^2): 0.31 MV E max isael: 87.5 cm/sec TR max isael: 287.0 cm/sec MV A max isael: 91.8 cm/sec TR max P.0 mmHg MV E/A: 0.95 PA V2 max: 96.2 cm/sec Med Peak E' Isael: 5.7 cm/sec PA V2 mean: 64.8 cm/sec E/E' med: 15.4 PA mean P.9 mmHg MV dec time: 0.25 sec PA Accel Time: 0.09 sec MV P1/2t: 68.9 msec MV P1/2t max isael: 88.2 cm/sec TANYA(P1/2t): 3.2 cm2 Reading Physician:06:52 PM
[2018-04-05] MEDS: SODIUM CHLORIDE 0.9% FLUSH 10 ML IV ×3 (05:53→20:59)
[2018-04-05] MEDS: KETOROLAC 30 MG/ML VIAL IV ×2 (05:53→14:23)
--- NOTE | 2018-04-05 06:06 | PC.NURSE ---
Auto Travel Counselor-Pt arouses slowly with loud voice and touch. Once awake at 2340, pt able to have valued conversation and good historian. On continuous O2 monitoring overnight, O2 sat 93-96% on RA. AE clear and diminished to bilateral upper bases and diminished with fine crackles to lower bases. BLE edema 2+ pitting. HR slightly irregular upon auscultation,on telemetry monitoring. Denies chest pain. Reyna insitu draining yellow urine, approx 1200mls emptied. Trapeze bar added to bed frame per pt request as he uses this at his living facility-[facility].
[2018-04-05 07:15] LABS: Add Manual Diff / Slide Review NO; Basophils Percent Auto 0.6 % (0-2); Eosinophils Percent Auto 3.6 % (2-4); Hematocrit 39.5 % (41-53); Hemoglobin 12.8 g/dL (13.5-17.5); Lymphocytes Percent Auto 35.7 % (25-40); Mean Corpuscular HGB Conc 32.3 % (30-36); Mean Corpuscular Hemoglobin 27.5 PG (26-34); Mean Corpuscular Volume 85.3 fL (80-100); Monocytes Percent Auto 5.5 % (3-14); Neutrophils Absolute Auto 6100 /uL (3000-5900); Neutrophils Percent Auto 54.6 % (50-75); Platelet Count 189 X10^3/uL (150-400); Red Blood Cell Count 4.63 X10^6/uL (4.5-5.9); Red Cell Distribution Width 15.8 % (11.6-14.8); White Blood Cell Count 11.1 X10^3/uL (4.5-11.0)
[2018-04-05 07:20] LABS: BUN Creatinine Ratio 14.5 (6-22); Blood Urea Nitrogen 16 mg/dL (9-20); Calcium 9.2 mg/dL (8.4-10.2); Carbon Dioxide 32 mmol/L (22-32); Chloride 102 mmol/L (98-107); Estimated Glomerular Filt Rate > 60.0 mL/min (>60); Glucose 123 mg/dL (80-110); HEMOLYSIS < 15 (0-50); Potassium 4.3 mmol/L (3.4-5.1); Sodium 141 mmol/L (137-145)
[2018-04-05] MEDS: ACETAMINOPHEN 325 MG TABLET 650 MG PO (10:08)
[2018-04-05] MEDS: DOCUSATE 100 MG CAPSULE PO (10:09)
[2018-04-05] MEDS: LISINOPRIL 5 MG TABLET PO (10:09)
[2018-04-05] MEDS: METOPROLOL 25 MG TABLET PO ×2 (10:10→20:58)
[2018-04-05] MEDS: INSULIN DETEMIR 100 UNIT/ML INSULN.PEN 45 UNIT SUBCUT ×2 (10:37→21:04)
[2018-04-05] MEDS: INSULIN ASPART 100 UNIT/ML INSULN PEN 12 UNIT SUBCUT ×2 (10:37→17:38)
[2018-04-05] MEDS: ENOXAPARIN 40 MG/0.4 ML SYRINGE SUBCUT (10:42)
[2018-04-05] MEDS: POLYETHYLENE GLYCOL 3350 17 GM POWD.PACK PO (10:42)
--- NOTE | 2018-04-05 11:35 | PC.NURSE ---
Am shift Pt has been a/o x3, conversing with staff. 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 After substantial education provided from this RN, Pt agrees to trial offloading and assessment of OA. L buttock 2cm slit OA, cleansed, applied allyvn and topical ABX ointment. As soon as care completed, Dr Ramos arrived for wound care consult. This Pt is seen frequently in wound center, and Dr Ramos reviewed imaging of breakdown, it is consistant with pattern of break down with Pt when non compliant with off loading. Order's received. Pt immediately requesting to be turned back onto back. More education provided. Frustrating Pt, Just let me lay here Call light in reach. Frequent checks on Pt. And continued encouragement to off load. Waffle cushion placed.
[2018-04-05] MEDS: DOFETILIDE PO ×2 (11:51→20:57)
--- NOTE | 2018-04-05 13:34 | OT.IP.TRT ---
Current Diagnoses Non-ST elevation (NSTEMI) myocardial infarction (04/04/18) Heart failure, unspecified (04/04/18) Unspecified open wound of lower back and pelvis without penetration into retroperitoneum, initial encounter (04/04/18) Occupational Therapy Treatment Note M3 OT- IP Subjective and Pain Start: 04/05/18 13:32 Freq: Status: Active Protocol: Document 04/05/18 13:32 [facility] (Rec: 04/05/18 13:34 [facility] [id number]) OT- Subjective Occupational Therapy Visit Type Type Patient Refusal Notes Attempted OT eval for pt , pt refusing at this time and to attempt OT eval tomorrow.
--- NOTE | 2018-04-05 14:03 | CM.DANOTE ---
Discharge Planning/Care Management DCP: assessment: case received, EMR reviewed and met with pt. Introduced self and role. Pt is a 77 year old male who lives at [facility]. He was last here 02/26/18 with a d/c to [facility] for IV antibiotics and then a return to [facility] 03/15 with [facility] OT/PT. Admitted last night to care of hospitalist team. Payer: AARP and Medicare are listed. Will confirm which is prime/ UR RN Razia has not at this time confirmed the admission status order. Pt's contact is listed as daughter Stephanie Sales/[place] [phone]. Pt does rouse to acknowledge that he lives at [facility] and his intention is to return there after the hospital. He quickly goes back to sleep after this brief interaction. P: [facility] VS [facility] then [facility]. All to be coordinated with Jovana as noted in DCP template info. Follow. [facility] will need resume orders at d/c if goes to [facility] SAUD is dianna [facility] clinical info CM Discharge Assessment Start: 04/05/18 13:48 Freq: Status: Active Protocol: Document 04/05/18 13:48 ITV (Rec: 04/05/18 14:03 ITV [id number]) Discharge Planning Assessment History Provided By Patient Medical Record Prior Living Arrangements Assisted Living Household Members none Type of transporation used prior to Relies on Others admit Facility Name [facility] Willing to Return to Facility? Yes Independent with ADL's No Is patient alert and oriented? tends to nod off during conversation Community Services used prior to Home Health Nurse admission: DME Already Rented / Owned Other Comment uses tu lift at baseline for transfers at [facility]. [facility] Roxanne confirms they are currently seeing pt at [facility] for PT and OT and that he has been participating well with them. Will need resume HH orders at id if pt returns directly to [facility] Referrals Initiated Mcfp Comment Have given referral to [place]/ [facility] in case of snf need before return to [facility] (all part of same campus). Jovana will coordinate the d/c dispo process/confirmed with [facility] DNNacho [place] who is going on vacation. Transportation Arrangement unknown at this time Review Status In Process Next Review Type Continued Stay Review
[2018-04-05] MEDS: FUROSEMIDE 40 MG/4 ML VIAL IV (14:23)
[2018-04-05] MEDS: MICONAZOLE NITRATE 1 EACH TOP (14:39)
--- NOTE | 2018-04-05 15:31 | PM.PN.1 ---
Subjective Date Patient Seen: 04/05/18 Interval history: Patient reports he continues to have shortness of breath. He does note some improvement. He has had significant urine output with Lasix. Exam Vital Signs (past 8 hours): - 04/05/18 08:00 04/05/18 08:48 04/05/18 11:35 Temperature 97.8 F 98.1 F Pulse Rate 61 62 Respiratory Rate 17 18 Blood Pressure 130/70 H 144/96 H Pulse Oximetry 95 96 96 Oxygen Delivery Method Room Air Oxygen Flow Rate 0 Narrative Exam Narrative: HEENT: Normocephalic atraumatic, oropharynx is clear, neck is supple Lungs: Decreased breath sounds bilaterally Cardiac exam: Regular rate and rhythm normal S1 and S2 with a 2/6 systolic ejection murmur Abdomen: Obese soft nontender Extremities: Bilateral 3+ pitting edema. Chronic venous stasis changes noted. Objective Labs Result Diagrams: 04/05/18 06:35 04/05/18 06:35 Labs: Laboratory Results - last 24 hr 04/04/18 04/05/18 04/05/18 15:15 06:35 06:35 WBC 11.1 H RBC 4.63 Hgb 12.8 L Hct 39.5 L MCV 85.3 MCH 27.5 MCHC 32.3 RDW 15.8 H Plt Count 189 Neut % (Auto) 54.6 Lymph % (Auto) 35.7 Wilson % (Auto) 5.5 Eos % (Auto) 3.6 Baso % (Auto) 0.6 Neut # (Auto) 6100 H Sodium 141 Potassium 4.3 Chloride 102 Carbon Dioxide 32 BUN 16 Creatinine 1.10 Estimated GFR > 60.0 BUN/Creatinine Ratio 14.5 Glucose 123 H Calcium 9.2 Troponin I 0.104 H Assessment & Plan (1) CHF (congestive heart failure): Problem details: Will continue IV Lasix. Await echo results Qualifiers: Heart failure chronicity: Heart failure type: Current visit: Yes Status: Acute (2) Non-ST elevation [place] (NSTEMI): Problem details: Will obtain serial cardiac enzymes. Patient will be placed on aspirin. Will review prior echo. Patient will continue on his SHANNAN inhibitor. Current visit: Yes Status: Acute Quality VTE Deep Vein Thrombosis/Pulmonary Embolism Present on Admission: No
--- NOTE | 2018-04-05 16:11 | PT.IIE ---
Current Diagnoses Non-ST elevation (NSTEMI) myocardial infarction (04/04/18) Heart failure, unspecified (04/04/18) Unspecified open wound of lower back and pelvis without penetration into retroperitoneum, initial encounter (04/04/18) Medical History (Last Reviewed 04/05/18 @ 16:47 by Carlos Schmitt, PT, DC) Afib (Acute) Physical Therapy Inpatient Evaluation/Re-Eval M1 PT/OT-IP Prior Functional Status Start: 04/05/18 16:32 Freq: NEEDED Status: Active Protocol: Document 04/05/18 16:11 MDD (Rec: 04/05/18 16:46 MDD [id number]) Medical Review Prior Functional Status Medical History Reviewed Yes Communication normal Mobility and Gait 2 person assist with trapeze for supine to sit. 1 person assist for stand pivot transfer with walker to power chair. Occasionally requires sit to stand lift. Uses power chair mostly for mobility. Activities of Daily Living and IADL's Requires assist for showering, dressing and toileting. Reports he has not had an actual shower for a few months due to difficulty fitting into the shower chair. Social History Household Members none Living Arrangements Assisted Living Home Equipment Front Wheel Walker Four Wheel Walker Power Wheelchair/[facility] Bed Bed Rails M2 PT-IP Current Condition Start: 04/05/18 16:32 Freq: NEEDED Status: Active Protocol: Document 04/05/18 16:11 MDD (Rec: 04/05/18 16:46 MDD [id number]) Physical Therapy Current Condition Current Condition Evaluation Date 04/05/18 Treatment Diagnosis shortness of breath, impaired mobility Onset Date 04/04/18 Precautions Other Precautions yoon catheter Weight Bearing Status Weight Bearing Status Weight Bear as Tolerated M3 PT-IP Subjective Start: 04/05/18 16:32 Freq: NEEDED Status: Active Protocol: Document 04/05/18 16:11 MDD (Rec: 04/05/18 16:46 MDD [id number]) Subjective Physical Therapy Visit Type Type Initial Evaluation Visit Start Time 15:45 Visit Stop Time 16:11 Total Visit Minutes 26 Number of CNC GRINDER Visits 0 Therapy Pain Assessment Pain When Pain Assessed During Mobility Pain Present Pain Present Pain Reported Location Abdomen Intensity 6 Scale Used Numeric (1 - 10) Description Aching M4 PT-IP Mobility and Gait Start: 04/05/18 16:32 Freq: NEEDED Status: Active Protocol: Document 04/05/18 16:11 MDD (Rec: 04/05/18 16:46 MDD [id number]) PT-Bed Mobility Assessment Supine to Sit Supine to Sit 2 Person Assistance Head of Bed Elevated Bedrails Sit to Supine Sit to Supine 1 Person Assistance Head of Bed Elevated Bedrails Scooting Scooting to Edge of Bed Dependent Scooting Up and Down in Bed Dependent PT-Transfer Assessment Comments Mobility Comments Pt unable to scoot forward in bed to attempt sit to stand. ECG testing arrived, so PT visit was cut short. PT-Balance Assessment Sitting Balance and Reactions Static Sitting Balance Ability Good Dynamic Sitting Balance Ability Fair M5 PT-IP Objective Assessments Start: 04/05/18 16:32 Freq: NEEDED Status: Active Protocol: Document 04/05/18 16:11 MDD (Rec: 04/05/18 16:46 [facility] [id number]) Orientation Orientation/Cognition Level of Alertness Alert Orientation Name Age Birthday Month Date Year Day of Week Place Situation Language Function Ability No Deficits Noted Safety Awareness Understands Safety Issues Memory Description No Deficits Noted Gross Range of Motion Lower Extremity ROM Assessment Right Impaired Impairments mild limitation in R ankle df motion Strength Lower Extremity Strength Assessment Within Functional Limits Comments Strength Comments Grossly 4/5 in major muscle groups Sensation Assessment Sensation Gross Sensation WNL Other Assessments Other Other Assessments mild pitting edema in B feet ( 1+), pitting does not extend into calves M6 PT-IP Treatment Start: 04/05/18 16:32 Freq: NEEDED Status: Active Protocol: Document 04/05/18 16:11 MDD (Rec: 04/05/18 16:46 [facility] [id number]) Physical Therapy Treatment Education Education Provided Safety M7 PT-IP Assessment and Plan Start: 04/05/18 16:32 Freq: NEEDED Status: Active Protocol: Document 04/05/18 16:11 MDD (Rec: 04/05/18 16:46 [facility] [id number]) PT Summary Assessment and Plan Potential Rehabilitation Potential Fair Status of Condition at Evaluation Evolving Summary Impairments Pain Strength Bed Mobility Transfers Gait Activity Tolerance Progress Towards Goals Progressing Toward Goals Assessment Summary Pt requires 2 person assist for bed mobility using his trapeze today. He did appear slightly short of breath but O2 sats were normal (95%). Unable to attempt to scoot to EOB. Evaluation limited due to need for additional testing for patient. Pt should demonstrate ability to safely transfer with one person assist to be considered at his previous functional baseline. Should benefit from continued inpatient PT to maximize function. Goals Bed Mobility Goal Moderate Assistance Transfer Goal Minimal Assistance Gait Goal Minimal Assistance Gait Distance 5 with FWW Days to Meet Goals 3 Frequency of Treatment Frequency Of Treatment Once a Day Treatment Plan Physical Therapy Treatment Plan Bed Mobility Training Transfer Training Gait Training Therapeutic Exercise Other Recommendations and Next Treatment Continue bed mobility and Focus transfer training. Trial sit to stand or transfer to power chair or recliner. Recommendations To Nursing Amount of Assist Needed PT/OT Assist Only Power Sit-Stand Discharge Recommendations PT Discharge Recommendations Home with 24/ Assist
[2018-04-05 18:09] LABS: Creatine Kinase 45 U/L (55-170)
[2018-04-05 18:21] LABS: Troponin I 0.077 ng/mL (0.01-0.034)
[2018-04-05] MEDS: ATORVASTATIN 20 MG TABLET 40 MG PO (20:57)
--- NOTE | 2018-04-05 21:14 | PC.NURSE ---
Addendum entered by Olga Jha R.N. 04/05/18 21:51: Ketorolac DC'd, pt with one kidney. Original Note: Enriqueta shift-Pt A/O x3 this shift. Ordering own meals, speaking on phone, making needs known, behavior appropriate and pleasant. requested morphine 30mg ER, given @ 2130. New IVP to RFA, flushing well. bottom with alevyn to open area, CDI. Q-2 turn to off load pressure. CBG 157 and 143, Telemetry; NSR 1*AVB BBB @ 1600, 1*AVB BBB PVC @ 2000. Lasix scheduled for 0000, and pt requested yoon catheter be removed in the AM. Call light in reach and bed alarm on.
[2018-04-05] MEDS: MORPHINE ER 30 MG TABLET PO (21:35)
[2018-04-06] VITALS (7 sets, daily range): BP systolic 123–134; BP diastolic 67–79; PULSE 58–63; RESP 16–17; TEMP 35.7–36.6; O2SAT 93–99
[2018-04-06] MEDS: FUROSEMIDE 40 MG/4 ML VIAL IV ×2 (00:08→12:50)
[2018-04-06] MEDS: SODIUM CHLORIDE 0.9% FLUSH 10 ML IV ×2 (00:10→09:41)
[2018-04-06] MEDS: DOFETILIDE PO ×2 (00:19→09:43)
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
[2018-04-06] MEDS: ENOXAPARIN 40 MG/0.4 ML SYRINGE SUBCUT (09:41)
[2018-04-06] MEDS: INSULIN ASPART 100 UNIT/ML INSULN PEN 12 UNIT SUBCUT ×2 (09:41→12:50)
[2018-04-06] MEDS: LISINOPRIL 5 MG TABLET PO (09:41)
[2018-04-06] MEDS: INSULIN DETEMIR 100 UNIT/ML INSULN.PEN 45 UNIT SUBCUT (09:42)
[2018-04-06] MEDS: METOPROLOL 25 MG TABLET PO (09:43)
--- NOTE | 2018-04-06 10:52 | PM.DS.1 ---
History of Present Illness Chief complaint: Shortness of breath Narrative: Patient is a 77-year-old male who resides at a senior living. This evening when the patient was lying flat he noted shortness of breath. He describes orthopnea. He had no PND. He has had no fever or chills. He has had bilateral lower extremity edema. He has no fever or chills. Patient denies any chest pain or palpitations. He presented to the emergency room for evaluation of his shortness of breath. In the emergency room he was found to have a markedly elevated BP and P. 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 He was given IV Lasix. Patient is admitted to the hospital for further evaluation. Discharge Providers Date of admission: 04/04/18 17:48 Primary care physician: Lorenzo Mcleod MD Consults: 04/04/18 18:47 Consult to Dietitian, Adult Routine Comment: Reason For Exam: assessed at high risk, skin integrity 04/05/18 10:45 Consult to Physical Therapy Evaluate & Treat Comment: Physician Instructions: Evaluate and Treat 04/05/18 10:46 Consult to Occupational Therapy Evaluate & Treat Comment: Physician Instructions: Evaluate and treat 04/05/18 15:42 Consult to Wound Care Routine Comment: Consulting Provider: Restorsmita- Wound Care Discharge provider: Yina Rodriguez MD Summary Discharge Diagnosis: Congestive Heart Failure-Acute Diastolic Dysfunction Severe Aortic Stenosis Hyperlipidemia Morbid Obesity Type 2 Diabetes Hospital Course: Patient admitted with shortness of breath. After 48 hours of diuresis with excellent urine output his breathing improved. Patient was deemed appropriate for discharge home. Status at Discharge Functional status at discharge: wheelchair bound Overall status at discharge: patient is back to baseline Time Spent with Patient Less than 30 minutes Exam Vital Signs (past 8 hours): - 04/06/18 03:11 04/06/18 08:15 04/06/18 09:41 Temperature 97.7 F 96.2 F L Pulse Rate 61 58 L Respiratory Rate 16 16 Blood Pressure 128/73 H 130/72 H 130/72 H Pulse Oximetry 94 93 Oxygen Delivery Method Room Air Oxygen Flow Rate 0 Objective Labs Result Diagrams: 04/05/18 06:35 04/06/18 11:10 Labs: Laboratory Results - last 24 hr 04/05/18 17:30 Total Creatine Kinase 45 L Troponin I 0.077 H Discharge Plan Discharge Plan Patient Disposition: SNF Transportation: Cab[facility] I certify the postop hospital care home care is medically necessary on a continuing basis for any conditions for which he/ she received care during this hospitalization.: Yes The receiving facility has agreed to accept transfer and provide medical treatment.: Yes Provider Discharge Instructions Diet: Low-sodium Food texture: Regular Activity: as tolerated Special Rehabilitation Services Reason for rehabilitation: Recovery r/t decondition Discharge Data Primary Care Provider: Lorenzo Mcleod Attending Provider: Yina Rodriguez Admit Date/Time: 04/04/18 17:48 Discharges patient from system. Discharge Date/Time: 04/06/18 14:53 Quality VTE Deep Vein Thrombosis/Pulmonary Embolism Present on Admission: No
--- NOTE | 2018-04-06 11:30 | PT.IPTN ---
Current Diagnoses Non-ST elevation (NSTEMI) myocardial infarction (04/04/18) Heart failure, unspecified (04/04/18) Unspecified open wound of lower back and pelvis without penetration into retroperitoneum, initial encounter (04/04/18) Physical Therapy Treatment Note M2 PT-IP Current Condition Start: 04/05/18 16:32 Freq: NEEDED Status: Active Protocol: Document 04/05/18 16:11 MDD (Rec: 04/05/18 16:46 MDD [id number]) Physical Therapy Current Condition Current Condition Evaluation Date 04/05/18 Treatment Diagnosis shortness of breath, impaired mobility Onset Date 04/04/18 Precautions Other Precautions yoon catheter Weight Bearing Status Weight Bearing Status Weight Bear as Tolerated M3 PT-IP Subjective Start: 04/05/18 16:32 Freq: NEEDED Status: Active Protocol: Document 04/06/18 11:30 MDD (Rec: 04/06/18 11:46 MDD [id number]) Subjective Physical Therapy Visit Type Type Patient Refusal Notes Pt reports that he is going home today and does not want to get out of bed yet. States he would be willing to participate with transfer to power chair when ready to d/c. PT will attempt if appropriate. If PT unavailable, pt will likely require sit to stand lift (he uses one occasionally at the [facility]). Goals Bed Mobility Goal Moderate Assistance Transfer Goal Minimal Assistance Gait Goal Minimal Assistance Gait Distance 5 with FWW Days to Meet Goals 3 Frequency of Treatment Frequency Of Treatment Once a Day Treatment Plan Physical Therapy Treatment Plan Bed Mobility Training Transfer Training Gait Training Therapeutic Exercise Other Recommendations and Next Treatment Continue bed mobility and Focus transfer training. Trial sit to stand or transfer to power chair or recliner. Recommendations To Nursing Amount of Assist Needed PT/OT Assist Only Power Sit-Stand Discharge Recommendations PT Discharge Recommendations Home with 22/03 Assist
--- NOTE | 2018-04-06 11:41 | OT.IP.TRT ---
Current Diagnoses Non-ST elevation (NSTEMI) myocardial infarction (04/04/18) Heart failure, unspecified (04/04/18) Unspecified open wound of lower back and pelvis without penetration into retroperitoneum, initial encounter (04/04/18) Occupational Therapy Treatment Note M3 OT- IP Subjective and Pain Start: 04/05/18 13:32 Freq: Status: Active Protocol: Document 04/06/18 11:39 [facility] (Rec: 04/06/18 11:41 [facility] [id number]) OT- Subjective Occupational Therapy Visit Type Type Administrative Note Notes Pt being [facility] today , therefore discharge OT eval order.
[2018-04-06 12:03] LABS: BUN Creatinine Ratio 22.5 (6-22); Blood Urea Nitrogen 27 mg/dL (9-20); Calcium 9.4 mg/dL (8.4-10.2); Carbon Dioxide 33 mmol/L (22-32); Chloride 98 mmol/L (98-107); Estimated Glomerular Filt Rate 58.7 mL/min (>60); Glucose 152 mg/dL (80-110); HEMOLYSIS < 15 (0-50); Potassium 4.1 mmol/L (3.4-5.1); Sodium 141 mmol/L (137-145)
--- NOTE | 2018-04-06 12:40 | P.CONS_ITS ---
History of Present Illness Date Patient Seen: 04/05/18 Time Patient Seen: 08:00 Chief complaint: Shortness of breath Reason for consult: gluteal pressure ulcer Requesting provider: Yina Rodriguez Narrative: The patient's well known to the wound care clinic where we've been managing his recurrent gluteal pressure ulcers over the past few months. These ulcers have been relativel hard to heal due to his morbid obesity and dependence upon as wheelchair plus diabetes which has been poorly controlled over the past few months. He's also had heavy bleeding from the ulcers at times due to shearing of the skin and the fact he's on warfarin. He does not report significant pain nor recent bleeding from the left gluteal pressure ulcer today however. [facility] Medical History Afib (Acute) Family History: Reviewed 04/04/18 by Yina Rodriguez MD Social History household members: none Smoking Status: Never smoker alcohol intake: never Meds Home Medications Medication Instructions Recorded Confirmed Type dofetilide [Tikosyn] 1 cap PO BID #0 06/17/11 04/04/18 History polyethylene glycol 3350 [Miralax] 17 gm PO DAILY #0 09/14/16 04/04/18 History acetaminophen 650 mg PO Q6HP PRN #0 02/19/17 04/04/18 History warfarin [Coumadin] 1 mg PO SEE INSTRUCTIONS #0 02/19/17 04/04/18 History cyclobenzaprine 10 mg PO BIDP PRN #0 11/05/17 04/04/18 History insulin lispro [Humalog KwikPen 12 units SQ AC #0 11/05/17 04/04/18 History Insulin] clotrimazole-betamethasone 1 applic TOPICAL BID PRN 02/26/18 04/04/18 History insulin detemir U-100 [Levemir 45 unit SUB-Q BID 02/26/18 04/04/18 History FlexTouch U-100 Insuln] metoprolol tartrate 25 mg PO BID #60 tab 03/02/18 04/04/18 Rx atorvastatin 40 mg PO DAILY 04/04/18 04/04/18 History docusate sodium 250 mg PO DAILY PRN 04/04/18 04/04/18 History lisinopril 5 mg PO DAILY 04/04/18 04/04/18 History miconazole nitrate 1 applic TOPICAL QSHIFT 04/04/18 04/04/18 History morphine 30 mg PO BEDTIME 04/04/18 04/04/18 History phenyleph-min oil-petrolatum 1 applic TOPICAL BID 04/04/18 04/04/18 History [Preparation H] sennosides [senna] 2 tab PO DAILY PRN 04/04/18 04/04/18 History trazodone 50 mg PO BEDTIME PRN 04/04/18 04/04/18 History furosemide [Lasix] 40 mg PO DAILY #30 tab 04/06/18 Rx Allergies Allergy/AdvReac Type Severity Reaction Status Date / Time hydromorphone [HYDROMORPHONE] Allergy Severe TOUNGE Verified 04/04/18 11:23 SWELLING cefotetan [CEFOTETAN] Allergy Unknown Verified 04/04/18 11:23 Review of Systems Review of Systems All systems reviewed & are unremarkable except as noted in HPI and below Exam Vital Signs (past 8 hours): - 04/06/18 08:15 04/06/18 09:00 04/06/18 09:41 Temperature 96.2 F L Pulse Rate 58 L Respiratory Rate 16 Blood Pressure 130/72 H 130/72 H Pulse Oximetry 93 93 Oxygen Delivery Method Room Air Oxygen Flow Rate 0 Skin Other: approx 2cm linear left gluteal pressure ulcer extending to subcut with based covered with pink granulation; no signs of infection or deep tissue injury Objective Labs Result Diagrams: 04/05/18 06:35 04/06/18 11:10 Labs: Laboratory Results - last 24 hr 04/05/18 04/06/18 17:30 11:10 Sodium 141 Potassium 4.1 Chloride 98 Carbon Dioxide 33 H BUN 27 H Creatinine 1.20 Estimated GFR 58.7 L BUN/Creatinine Ratio 22.5 H Glucose 152 H Calcium 9.4 Total Creatine Kinase 45 L Troponin I 0.077 H Assessment & Plan Plan: Assessment/Plan Narrative: The gluteal pressure ulcer appears quite stable today compared to recent reviews in the wound care clinic. Dressing and offloading orders have been written and the nurse has been advised regarding the need to reduce shear over the gluteal when mobilizing the patient. We'll be happy to see him back in the wound care clinic within 2-3 days of discharge.
--- NOTE | 2018-04-06 13:30 | CM.DPC ---
DCP: continued: Dr. Rodriguez saw pt today and confirms he is ok for return to his [facility] setting. Coordinated the d/c with Darcy and following today for [facility]. She confirms that pt does see Dr. Ramos at the [facility] wound care center and he continues with [facility]. Clinical and resume orders are sent to [facility] Spoke with CHAPARRITA bowie time of transport with d/c ideally before next shift. Darcy readily agrees to have [facility] pick pt up at hospital at 1430. Pt has his w/c in the room and confirms I use the walker and can stand and pivot into it with assistance.. Pt notes he has been promised a bed bath today and his yoon catheter is still in place. CHAPARRITA Holland is aware and confirms she will be able to have pt ready by 1430. Will follow prn until pt leaves
[2018-04-06] MEDS: GENTAMICIN 0.1% OINT 30 GM 1 APPLIC TOP (13:38)
--- NOTE | 2018-04-06 14:19 | PC.NURSE ---
Pt wound dsg changed, Pt dressed, belongings packed up and Pt transferred to his w/c. Reviewed d/c instructions with Pt -discussed d/c meds, time of last dose, and follow up instructions. Pt denies further questions and has paperwork in hand for d/c. Pt is awaiting transfer personnel to escort him back to [facility]
== END 2018-04-06 14:53 | disposition home health service (06) | DRG 282 ==
LOC: ED 16:18 → AC 17:48
PROVIDERS: Admitting Provider Internal Medicine; Emergency Provider Emergency Medicine; PCP Internal Medicine; Visit Provider Internal Medicine
DX: I50.31 Acute diastolic (congestive) heart failure (principal); I21.4 Non-ST elevation (NSTEMI) myocardial infarction; I48.91 Unspecified atrial fibrillation; Z79.01 Long term (current) use of anticoagulants; Z68.37 Body mass index [BMI] 37.0-37.9, adult; E66.01 Morbid (severe) obesity due to excess calories; E11.9 Type 2 diabetes mellitus without complications; E78.5 Hyperlipidemia, unspecified; I35.0 Nonrheumatic aortic (valve) stenosis; Z79.4 Long term (current) use of insulin; L89.302 Pressure ulcer of unspecified buttock, stage 2
CPT/HCPCS: 36415; 71046; 80048; 80053; 82550; 82553; 82962; 83605; 83880; 84484; 85025; 93005; 93010; 93041; 93306; 96374; 97161; 99285; J1650; J1885; J1940; Q9957

== ENCOUNTER → 2018-05-18 13:38 | Outpatient (REF) | payer MEDICARE, SELFPAY ==
[2018-04-04 18:32] VITALS: BMI 38.1
[2018-05-18 13:45] LABS: Appearance Urine UA CLOUDY; Bilirubin Urine UA NEGATIVE (NEGATIVE); Color Urine UA YELLOW; Glucose Urine UA NEGATIVE (Normal); Ketones Urine UA NEGATIVE (NEGATIVE); Leukocyte Esterase Urine UA 2+ (NEGATIVE); Nitrite Urine UA POSITIVE (Negative); Occult Blood Urine UA 2+ (Negative); Protein Urine UA TRACE (Negative); Specific Gravity Urine UA 1.015 (1.000-1.035); Urobilinogen Urine UA 0.2 E.U./dL (0.2)
[2018-05-18 13:55] LABS: RBC Urine 5-10/HPF (0-5/HPF); Squamous Epithelial Cell Urine 0-1 /HPF; WBC Urine >100/HPF (0-5/HPF)
[2018-05-18 13:56] LABS: Bacteria Urine Many (>30); Culture Indicated Urine Specimen Cultured
== END ==
LOC: LAB 13:38
PROVIDERS: PCP Internal Medicine; Visit Provider Internal Medicine
DX: A49.8 Other bacterial infections of unspecified site (principal)
CPT/HCPCS: 81001; 87077; 87086; 87186

== ENCOUNTER 2018-05-24 14:21 | Emergency (ER) | payer MEDICARE, SELFPAY ==
[2018-04-04 18:32] VITALS: BMI 38.1
[2018-05-24 14:28] VITALS: BP 138/72; PULSE 72; RESP 16; TEMP 37; O2SAT 94
--- NOTE | 2018-05-24 15:39 | ED_ITS ---
HPI - Wound/Laceration <Gretchen Davis PA-C - Last Filed: 05/24/18 22:15> General Chief Complaint: Wound/Laceration Stated Complaint: Wound Time Seen by Provider: 05/24/18 15:08 Source: patient Mode of arrival: EMS Limitations: no limitations History of Present Illness HPI narrative: Patient was apparently sent over by his assisted living facility due to worsening wounds on the gluteal area. He states that he has not noticed any increased pain (though the area is painful), fever, or other new symptoms associated with this, but states that they thought it was worse and should be checked before his wound care appointment tomorrow. He states that he has had ? nasty stuff? in his urine for about a month, no acute changes with this or anything else today. No new fever or any other complaints. I did speak with the nurse at his facility who advised that the only concern was the wound irritation and bleeding. He does have an appointment at wound care clinic tomorrow. Related Data Home Medications Medication Instructions Recorded Confirmed dofetilide [Tikosyn] 1 cap PO BID #0 06/17/11 05/24/18 polyethylene glycol 3350 [Miralax] 17 gm PO DAILY #0 09/14/16 05/24/18 acetaminophen 650 mg PO Q6HP PRN #0 02/19/17 05/24/18 warfarin [Coumadin] 1 mg PO MOWEFR #0 02/19/17 05/24/18 cyclobenzaprine 10 mg PO BIDP PRN #0 11/05/17 05/24/18 insulin lispro [Humalog KwikPen 12 units SQ AC #0 11/05/17 05/24/18 Insulin] clotrimazole-betamethasone 1 applic TOPICAL BID PRN 02/26/18 05/24/18 insulin detemir U-100 [Levemir 45 unit SUB-Q BID 02/26/18 05/24/18 FlexTouch U-100 Insuln] atorvastatin 40 mg PO DAILY 04/04/18 05/24/18 docusate sodium 250 mg PO DAILY PRN 04/04/18 05/24/18 lisinopril 5 mg PO DAILY 04/04/18 05/24/18 morphine 30 mg PO BEDTIME 04/04/18 05/24/18 sennosides [senna] 2 tab PO BID 04/04/18 05/24/18 trazodone 50 mg PO BEDTIME PRN 04/04/18 05/24/18 fluoxetine 10 mg PO DAILY 05/24/18 05/24/18 hydrocortisone [Preparation H 1 applic DE PRN PRN MDD 4 x 05/24/18 05/24/18 Hydrocortisone] insulin lispro [Humalog KwikPen 1 dose SUBCUT DIRECTED 05/24/18 05/24/18 Insulin] lidocaine HCl 1 applic TOPICAL PRN PRN 05/24/18 05/24/18 loratadine 10 mg PO DAILY 05/24/18 05/24/18 morphine 15 - 30 mg PO Q6H PRN 05/24/18 05/24/18 warfarin 2 mg PO SUTUTHSA 05/24/18 05/24/18 zinc oxide [Boudreauxs Butt Paste] 1 applic TOPICAL PRN PRN 05/24/18 05/24/18 zinc oxide [Boudreauxs Butt Paste] 1 applic TOPICAL TID 05/24/18 05/24/18 Previous Rx's Medication Instructions Recorded metoprolol tartrate 25 mg PO BID #60 tab 03/02/18 furosemide [Lasix] 40 mg PO DAILY #30 tab 04/06/18 Allergies Allergy/AdvReac Type Severity Reaction Status Date / Time hydromorphone [HYDROMORPHONE] Allergy Severe TOUNGE Verified 05/24/18 14:28 SWELLING cefotetan [CEFOTETAN] Allergy Unknown Verified 05/24/18 14:28 Review of Systems <Gretchen Davis PA-C - Last Filed: 05/24/18 22:15> Review of Systems All systems reviewed & are unremarkable except as noted in HPI and below Exam <Gretchen Davis PA-C - Last Filed: 05/24/18 22:15> Initial Vital Signs Initial Vital Signs: Vital Signs Temperature 98.6 F 05/24/18 14:28 Pulse Rate 72 05/24/18 14:28 Respiratory Rate 16 05/24/18 14:28 Blood Pressure 138/72 05/24/18 14:28 Pulse Oximetry 94 05/24/18 14:28 GENERAL APPEARANCE: Patient sitting comfortably, in no distress. LUNGS: Clear to auscultation bilaterally with decreased breath sounds. HEART: Rate and rhythm regular without murmur, normal S1 and S2, no S3 or S4. DERMATOLOGIC: Both medial gluteal areas are denuded, cracked, dry. On the left side there is a nummular area of sheared skin and partial ulceration 3 cm in diameter that is bleeding when manipulated. There is no erythema, drainage or fluctuance. <Miguel Ángel Gaspar DO - Last Filed: 05/25/18 07:03> Initial Vital Signs Initial Vital Signs: Vital Signs Temperature 98.6 F 05/24/18 14:28 Pulse Rate 72 05/24/18 14:28 Respiratory Rate 16 05/24/18 14:28 Blood Pressure 138/72 05/24/18 14:28 Pulse Oximetry 94 05/24/18 14:28 Course <Gretchen Davis PA-C - Last Filed: 05/24/18 22:15> Additional Information: Dressing and barrier cream placed. No evidence of infection on exam today. Reviewed with nurse at his assisted living and can follow up with wound care tomorrow Vital Signs - 8 hr 05/24/18 14:28 Temperature 98.6 F Pulse Rate 72 Respiratory Rate 16 Blood Pressure 138/72 Pulse Oximetry 94 <Miguel Ángel Gaspar DO - Last Filed: 05/25/18 07:03> Vital Signs - 8 hr 05/24/18 14:28 Temperature 98.6 F Pulse Rate 72 Respiratory Rate 16 Blood Pressure 138/72 Pulse Oximetry 94 Discharge Plan Departure Patient Disposition: Assisted Living Clinical Impression: Chronic skin ulcer of sacrum Discharge Date/Time: 05/24/18 16:19 Interventions: ED Discharge Assessment Last Done: 05/24/18 16:20 Instructions: DI for Pressure Sores Activity Restrictions/Additional Instructions: Please keep patient on his side to keep pressure off of the gluteal areas. For today please use a thick foam dressing with the center cut out to keep pressure off of the bleeding area on the left. Use skin barrier cream (we have sent some home with [facility]). See wound care tomorrow as planned. Prescriptions: No Action dofetilide [Tikosyn] 500 MCG capsule 1 cap PO BID Qty: 0 RF: 0 polyethylene glycol 3350 [Miralax] 119 GM powder 17 gm PO DAILY Qty: 0 RF: 0 acetaminophen 325 MG tablet 650 mg PO Q6HP PRN (Reason: fever / pain) Qty: 0 RF: 0 warfarin [Coumadin] 1 MG tablet 1 mg PO MOWEFR Qty: 0 RF: 0 insulin lispro [Humalog KwikPen Insulin] 100 UNIT/1 ML insulin pen 12 units SQ AC Qty: 0 RF: 0 cyclobenzaprine 10 MG tablet 10 mg PO BIDP PRN (Reason: Spasms) Qty: 0 RF: 0 clotrimazole-betamethasone 1-0.05 % cream 1 applic Topical BID PRN (Reason: unknown) RF: 0 insulin detemir U-100 [Levemir FlexTouch U-100 Insuln] 100 unit/mL (3 mL) Insulin Pen 45 unit SUB-Q BID RF: 0 metoprolol tartrate 25 mg Tablet 25 mg PO BID Qty: 60 RF: 0 lidocaine HCl 2 % jelly 1 applic Topical PRN PRN (Reason: request) RF: 0 hydrocortisone [Preparation H Hydrocortisone] 1 % Cream 1 applic DE PRN MDD 4 x PRN (Reason: discomfort) RF: 0 fluoxetine 10 mg capsule 10 mg PO DAILY RF: 0 warfarin 1 mg tablet 2 mg PO SUTUTHSA RF: 0 morphine 15 mg tablet 15 - 30 mg PO Q6H PRN (Reason: Pain, Severe) RF: 0 loratadine 10 mg Tablet 10 mg PO DAILY RF: 0 insulin lispro [Humalog KwikPen Insulin] 100 unit/mL insulin pen 1 dose subcut DIRECTED RF: 0 zinc oxide [Boudreauxs Butt Paste] 16 % Ointment 1 applic TOPICAL TID RF: 0 zinc oxide [Boudreauxs Butt Paste] 16 % Ointment 1 applic Topical PRN PRN (Reason: unknown) RF: 0 atorvastatin 40 mg tablet 40 mg PO DAILY RF: 0 trazodone 50 mg Tablet 50 mg PO BEDTIME PRN (Reason: Sleep) RF: 0 morphine 30 MG tablet extended release 30 mg PO BEDTIME RF: 0 lisinopril 5 mg tablet 5 mg PO DAILY RF: 0 sennosides [senna] 8.6 mg Tablet 2 tab PO BID RF: 0 docusate sodium 250 mg Capsule 250 mg PO DAILY PRN (Reason: Constipation) RF: 0 furosemide [Lasix] 40 mg tablet 40 mg PO DAILY Qty: 30 RF: 0 Referrals: Imer Ramos MD [Physician] - Lorenzo Mcleod MD [Primary Care Provider] - <Miguel Ángel Gaspar DO - Last Filed: 05/25/18 07:03> Cosign ED Attending Cosmaryamature Attestation: I was available for consultation during this patient's emergency department encounter
== END 2018-05-24 16:19 ==
PROVIDERS: Emergency Provider Internal Medicine; PCP Internal Medicine
DX: L98.491 Non-pressure chronic ulcer of skin of other sites limited to breakdown of skin (principal)
CPT/HCPCS: 99282; 99283

== ENCOUNTER → 2018-05-25 13:47 | Outpatient (CLI) | payer MEDICARE, SELFPAY ==
[2018-04-04 18:32] VITALS: BMI 38.1
== END ==
PROVIDERS: PCP Internal Medicine; Visit Provider Internal Medicine
DX: R40.0 Somnolence (principal); R50.9 Fever, unspecified
CPT/HCPCS: 99213

== ENCOUNTER 2018-05-25 15:01 | Inpatient (IN) | payer MEDICARE, SELFPAY ==
[2018-04-04 18:32] VITALS: BMI 38.1
[2018-05-25] VITALS (14 sets, daily range): BP systolic 88–134; BP diastolic 49–80; PULSE 60–170; RESP 17–28; TEMP 36.8–37.2; O2SAT 93–97; BMI 37.0
--- NOTE | 2018-05-25 15:33 | ED.WEAKNESS ---
HPI - Weakness <ALY Tyosn - Last Filed: 05/25/18 21:48> General Chief complaint: Weakness Stated complaint: BROUGHT FROM WOUND CARE Time Seen by Provider: 05/25/18 15:33 Source: other Mode of arrival: other Limitations: other History of Present Illness HPI Narrative: 77-year-old male with history of AFib and is a nonsmoker sent down from wound clinic for further evaluation. He was seen here in the emergency room yesterday due to a decubitus ulcer to his sacral area. He was seen in the Wound Clinic today for same symptoms. However they state that he had a fever and seemed to be confused of there was some weakness is here for further evaluation. He denies any other symptoms or complaints this time. He does stay at a assisted care living facility. He denies any chest pain. Denies any abdominal pain denies any fever. He does report having pain to his buttocks area. He denies any other concerns or complaints at this time Related Data Home Medications Medication Instructions Recorded Confirmed dofetilide [Tikosyn] 1 cap PO BID #0 06/17/11 05/25/18 polyethylene glycol 3350 [Miralax] 17 gm PO DAILY #0 09/14/16 05/25/18 acetaminophen 650 mg PO Q6HP PRN #0 02/19/17 05/25/18 warfarin [Coumadin] 1 mg PO MOWEFR #0 02/19/17 05/25/18 cyclobenzaprine 10 mg PO BIDP PRN #0 11/05/17 05/25/18 insulin lispro [Humalog KwikPen 12 units SQ AC #0 11/05/17 05/25/18 Insulin] clotrimazole-betamethasone 1 applic TOPICAL BID PRN 02/26/18 05/25/18 insulin detemir U-100 [Levemir 45 unit SUB-Q BID 02/26/18 05/25/18 FlexTouch U-100 Insuln] atorvastatin 40 mg PO QPM 04/04/18 05/25/18 docusate sodium 250 mg PO DAILY PRN 04/04/18 05/25/18 lisinopril 5 mg PO DAILY 04/04/18 05/25/18 morphine 30 mg PO BEDTIME 04/04/18 05/25/18 sennosides [senna] 2 tab PO BID 04/04/18 05/25/18 trazodone 50 mg PO BEDTIME PRN 04/04/18 05/25/18 fluoxetine 10 mg PO DAILY 05/24/18 05/25/18 hydrocortisone [Preparation H 1 applic [place] PRN PRN MDD 4 x 05/24/18 05/25/18 Hydrocortisone] insulin lispro 1 dose SUBCUT DIRECTED 05/24/18 05/25/18 lidocaine HCl 1 applic TOPICAL PRN PRN 05/24/18 05/25/18 loratadine 10 mg PO DAILY 05/24/18 05/25/18 morphine 15 - 30 mg PO Q6H PRN 05/24/18 05/25/18 warfarin 2 mg PO SUTUTHSA 05/24/18 05/25/18 zinc oxide [Boudreauxs Butt Paste] 1 applic TOPICAL PRN PRN 05/24/18 05/25/18 zinc oxide [Boudreauxs Butt Paste] 1 applic TOPICAL TID 05/24/18 05/25/18 Previous Rx's Medication Instructions Recorded metoprolol tartrate 25 mg PO BID #60 tab 03/02/18 furosemide [Lasix] 40 mg PO DAILY #30 tab 04/06/18 ertapenem [Invanz] 1 gm IV Q24H #5 ea 05/31/18 morphine 15 mg PO Q6HR PRN #60 tab 06/01/18 morphine 30 mg PO Q6HR PRN #60 tab 06/01/18 morphine 30 mg PO QPM #30 tab 06/01/18 Allergies Allergy/AdvReac Type Severity Reaction Status Date / Time hydromorphone [HYDROMORPHONE] Allergy Severe TOUNGE Verified 05/25/18 15:22 SWELLING cefotetan [CEFOTETAN] AdvReac Mild Verified 05/27/18 08:13 Review of Systems <ALY Tyson - Last Filed: 05/25/18 21:48> Constitutional Denies fatigue, Reports fever(s) and Reports weakness Eyes Denies change in vision, Denies eye discharge, Denies irritation and Denies loss of vision ENT Ears, Nose, Mouth, and Throat: Denies change in voice, Denies neck pain and Denies sore throat Cardiovascular Denies dyspnea and Denies dyspnea on exertion Respiratory Denies cough, Denies dyspnea, Denies dyspnea on exertion and Denies wheezing Gastrointestinal Gastrointestinal: Denies abdominal pain, Denies change in bowel habits, Denies diarrhea, Denies nausea and Denies vomiting Genitourinary Denies hematuria, Denies flank pain, Denies urinary incontinence and Denies urinary urgency Musculoskeletal Denies neck pain Integumentary/Breasts Denies pruritus, Denies erythema, Denies rash and Denies wounds Neurologic Reports confusion, Denies loss of vision and Reports weakness Psychiatric Denies anxiety, Reports confusion, Denies depression, Denies homicidal ideation and Denies suicidal ideation Endocrine Denies fatigue and Denies flushing Hematologic/Lymphatic Denies easy bruising Allergic/Immunologic Denies wheezing Exam <ALY Tyson - Last Filed: 05/25/18 21:48> Initial Vital Signs Initial Vital Signs: Vital Signs Temperature 98.9 F 05/25/18 15:22 Pulse Rate 60 05/25/18 15:22 Respiratory Rate 20 05/25/18 15:22 Blood Pressure 122/69 05/25/18 15:22 Pulse Oximetry 93 05/25/18 15:22 Const General: cooperative and well developed Nutritional Appearance: well nourished Orientation: alert, awake, oriented x3 and not confused HENIL Mouth: oral mucosae normal and moist mucous membranes Eyes Conjunctivae: conjunctivae normal Sclera: sclerae normal Pupils: PERRL EOM: EOM intact bilaterally Chest Chest: normal inspection of the chest Resp Effort & Inspection: normal respiratory effort, able to speak in complete sentences, no respiratory distress and no use of accessory muscles Auscultation: clear to auscultation bilaterally, no rales, no rhonchi and no wheezes Cardio Rate: regular rate Rhythm: regular rhythm Heart Sounds: no click, no gallops, no murmurs and no rubs Pulses: normal peripheral pulses GI Inspection: non-distended Palpation: soft, no hepatosplenomegaly, No guarding, No pulsatile mass and No tender Auscultation: normal bowel sounds Neuro General: alert, oriented x3, gait normal and no focal motor deficits Speech: speech normal Extrem General: full ROM, no clubbing, cyanosis or edema, no pedal edema and no calf tenderness <Miguel Ángel Gaspar DO - Last Filed: 06/01/18 20:07> Initial Vital Signs Initial Vital Signs: Vital Signs Temperature 98.9 F 05/25/18 15:22 Pulse Rate 60 05/25/18 15:22 Respiratory Rate 20 05/25/18 15:22 Blood Pressure 122/69 05/25/18 15:22 Pulse Oximetry 93 05/25/18 15:22 Course <ALY Tyson - Last Filed: 05/25/18 21:48> Orders Ordered: Discontinued Medications Acetaminophen (Tylenol) 650 mg PO Q6H PRN PRN Reason: fever / pain Atorvastatin Calcium (Lipitor) 40 mg PO QPM [facility] Last Admin: 05/31/18 17:24 Dose: 40 mg Admin: 05/30/18 17:51 Dose: 40 mg Admin: 05/29/18 17:12 Dose: 40 mg Admin: 05/28/18 16:54 Dose: 40 mg Admin: 05/27/18 16:49 Dose: 40 mg Admin: 05/26/18 17:24 Dose: 40 mg Dextrose (D50w) 25 gm IV PRN PRN PRN Reason: Hypoglycemia Diltiazem HCl (Cardizem) 20 mg IV NOW ONE Stop: 05/25/18 18:52 Last Admin: 05/25/18 19:21 Dose: 10 mg Diltiazem HCl (Cardizem) 10 mg IV NOW ONE Stop: 05/25/18 19:34 Last Admin: 05/25/18 20:04 Dose: Not Given Docusate Sodium (Colace) 250 mg PO DAILY PRN PRN Reason: Constipation Fluoxetine HCl (Prozac) 10 mg PO DAILY [facility] Last Admin: 06/01/18 09:06 Dose: 10 mg Admin: 05/31/18 09:50 Dose: 10 mg Admin: 05/30/18 09:30 Dose: 10 mg Admin: 05/29/18 08:23 Dose: 10 mg Admin: 05/28/18 08:27 Dose: 10 mg Admin: 05/27/18 08:48 Dose: 10 mg Admin: 05/26/18 08:48 Dose: 10 mg Furosemide (Lasix) 40 mg PO DAILY [facility] Last Admin: 06/01/18 09:07 Dose: 40 mg Admin: 05/31/18 09:50 Dose: 40 mg Admin: 05/30/18 09:30 Dose: 40 mg Admin: 05/29/18 08:23 Dose: 40 mg Sodium Chloride (Normal Saline 0.9%) 1,000 mls @ 150 mls/hr IV CONT [facility] Last Infusion: 05/25/18 20:53 Dose: 150 mls/hr Admin: 05/25/18 16:09 Dose: 150 mls/hr Piperacillin/Tazobactam/Dextrose (Zosyn) 3.375 gm in 50 mls @ 100 mls/hr IV NOW ONE Stop: 05/25/18 17:27 Last Infusion: 05/25/18 17:52 Dose: 0 mls/hr Admin: 05/25/18 17:21 Dose: 100 mls/hr Vancomycin HCl 1,500 mg/ (Sodium Chloride) 500 mls @ 333.333 mls/hr IV NOW ONE Stop: 05/25/18 16:59 Last Infusion: 05/25/18 20:04 Dose: 0 mls/hr Admin: 05/25/18 17:52 Dose: 333.333 mls/hr Diltiazem HCl 125 mg/ Dextrose 125 mls @ 5 mls/hr IV TITRATE [facility]; Protocol Last Titration: 05/25/18 20:52 Dose: 5 mg/hr, 5 mls/hr Admin: 05/25/18 20:24 Dose: 5 mg/hr, 5 mls/hr Vancomycin HCl 1,500 mg/ (Sodium Chloride) 500 mls @ 333.333 mls/hr IV Q12H [facility] Last Admin: 05/26/18 10:04 Dose: Not Given Piperacillin/Tazobactam/Dextrose (Zosyn) 3.375 gm in 50 mls @ 100 mls/hr IV Q6H [facility] Last Admin: 05/27/18 08:56 Dose: Not Given Infusion: 05/27/18 08:55 Dose: 0 mls/hr Admin: 05/27/18 01:59 Dose: 100 mls/hr Infusion: 05/26/18 20:45 Dose: 100 mls/hr Admin: 05/26/18 20:15 Dose: 100 mls/hr Infusion: 05/26/18 15:49 Dose: 0 mls/hr Admin: 05/26/18 15:03 Dose: 100 mls/hr Infusion: 05/26/18 10:05 Dose: 0 mls/hr Admin: 05/26/18 09:19 Dose: 100 mls/hr Infusion: 05/26/18 04:33 Dose: 100 mls/hr Admin: 05/26/18 04:03 Dose: 100 mls/hr Vancomycin HCl 1,500 mg/ (Sodium Chloride) 500 mls @ 333.333 mls/hr IV Q24H [facility] Last Admin: 05/27/18 03:08 Dose: 333.333 mls/hr Ertapenem 1 gm/ Sodium (Chloride) 100 mls @ 200 mls/hr IV Q24H [facility] Last Infusion: 06/01/18 11:08 Dose: 0 mls/hr Admin: 06/01/18 09:05 Dose: 200 mls/hr Infusion: 05/31/18 13:55 Dose: 0 mls/hr Admin: 05/31/18 09:50 Dose: 200 mls/hr Infusion: 05/30/18 10:30 Dose: 200 mls/hr Admin: 05/30/18 09:27 Dose: 200 mls/hr Infusion: 05/29/18 09:49 Dose: 200 mls/hr Admin: 05/29/18 08:24 Dose: 200 mls/hr Infusion: 05/28/18 09:43 Dose: 0 mls/hr Admin: 05/28/18 08:29 Dose: 200 mls/hr Infusion: 05/27/18 09:20 Dose: 0 mls/hr Admin: 05/27/18 08:48 Dose: 200 mls/hr Sodium Chloride (Normal Saline 0.9%) 250 mls @ 21 mls/hr IV Q24H PRN PRN Reason: Flush Insulin Aspart (Novolog Flexpen) 0 unit SUBCUT ACHS [facility]; Protocol Last Admin: 05/31/18 12:59 Dose: Admin: 05/31/18 09:53 Dose: Not Given Admin: 05/30/18 20:30 Dose: 2 unit Admin: 05/30/18 17:20 Dose: 5 unit Admin: 05/30/18 14:49 Dose: 1 unit Admin: 05/30/18 09:06 Dose: Admin: 05/29/18 20:25 Dose: 3 unit Admin: 05/29/18 17:30 Dose: 3 unit Admin: 05/29/18 12:12 Dose: 3 unit Admin: 05/29/18 08:27 Dose: 1 unit Admin: 05/28/18 21:05 Dose: Not Given Admin: 05/28/18 16:54 Dose: 1 unit Admin: 05/28/18 12:06 Dose: 3 unit Admin: 05/28/18 08:27 Dose: 3 unit Admin: 05/27/18 21:06 Dose: Not Given Admin: 05/27/18 16:50 Dose: 1 unit Admin: 05/27/18 12:47 Dose: 3 unit Admin: 05/27/18 08:48 Dose: 1 unit Admin: 05/26/18 21:32 Dose: 3 unit Admin: 05/26/18 17:27 Dose: 7 unit Admin: 05/26/18 13:21 Dose: 5 unit Admin: 05/26/18 09:19 Dose: 3 unit Insulin Aspart (Novolog Flexpen) 0 unit SUBCUT ACHS [facility]; Protocol Last Admin: 06/01/18 12:21 Dose: 1 unit Admin: 06/01/18 08:48 Dose: Not Given Admin: 05/31/18 20:44 Dose: 2 unit Admin: 05/31/18 17:25 Dose: Admin: 05/31/18 12:35 Dose: 1 unit Insulin Detemir (Levemir Flextouch) 45 unit SUBCUT BID [facility] Last Admin: 06/01/18 09:07 Dose: 45 unit Admin: 05/31/18 20:43 Dose: 45 unit Admin: 05/31/18 09:50 Dose: 45 unit Admin: 05/30/18 20:30 Dose: 45 unit Admin: 05/30/18 09:54 Dose: 45 unit Admin: 05/29/18 20:24 Dose: 45 unit Admin: 05/29/18 08:28 Dose: 45 unit Admin: 05/28/18 21:09 Dose: 45 unit Admin: 05/28/18 08:28 Dose: 45 unit Admin: 05/27/18 21:03 Dose: 45 unit Admin: 05/27/18 08:48 Dose: 45 unit Admin: 05/26/18 21:33 Dose: 45 unit Admin: 05/26/18 09:20 Dose: Admin: 05/25/18 22:32 Dose: Lisinopril (Zestril) 5 mg PO DAILY [facility] Lisinopril (Zestril) 5 mg PO DAILY [facility] Last Admin: 06/01/18 09:07 Dose: 5 mg Admin: 05/31/18 09:51 Dose: 5 mg Admin: 05/30/18 09:30 Dose: 5 mg Admin: 05/29/18 08:24 Dose: 5 mg Metoprolol Tartrate (Lopressor) 25 mg PO BID [facility] Last Admin: 06/01/18 09:07 Dose: 25 mg Admin: 05/31/18 20:26 Dose: 25 mg Admin: 05/31/18 09:52 Dose: 25 mg Admin: 05/30/18 20:26 Dose: 25 mg Admin: 05/30/18 09:30 Dose: 25 mg Admin: 05/29/18 20:34 Dose: Not Given Admin: 05/29/18 08:24 Dose: 25 mg Admin: 05/28/18 21:06 Dose: 25 mg Admin: 05/28/18 08:27 Dose: 25 mg Admin: 05/27/18 21:02 Dose: 25 mg Admin: 05/27/18 08:48 Dose: 25 mg Admin: 05/26/18 21:31 Dose: 25 mg Admin: 05/26/18 08:49 Dose: 25 mg Admin: 05/25/18 22:41 Dose: Morphine Sulfate (Morphine) 2 mg IV NOW ONE Stop: 05/25/18 16:58 Last Admin: 05/25/18 16:58 Dose: 2 mg Morphine Sulfate (Morphine Ir) 15 mg PO Q6HR PRN PRN Reason: Pain, Severe (7-10) Last Admin: 05/27/18 08:52 Dose: 15 mg Morphine Sulfate (Morphine Ir) 30 mg PO Q6HR PRN PRN Reason: Pain, Severe (7-10) Morphine Sulfate (Ms Contin) 30 mg PO BEDTIME [facility] Last Admin: 05/31/18 20:40 Dose: Not Given Admin: 05/30/18 21:00 Dose: Not Given Admin: 05/29/18 20:34 Dose: Not Given Admin: 05/28/18 21:11 Dose: 30 mg Admin: 05/27/18 21:02 Dose: 30 mg Admin: 05/26/18 21:31 Dose: 30 mg Neomycin/Polymyxin/Bacitracin (Neosporin) 1 each TOP PRN PRN PRN Reason: Wound Healing Last Admin: 05/29/18 08:23 Dose: 1 each Dofetilide (Tikosyn (500mcg)) 1 each PO BID [facility] Last Admin: 06/01/18 10:05 Dose: 1 each Admin: 05/31/18 20:26 Dose: 1 each Admin: 05/31/18 09:52 Dose: 1 each Admin: 05/30/18 20:26 Dose: 1 each Admin: 05/30/18 09:29 Dose: 1 each Admin: 05/29/18 20:34 Dose: Not Given Admin: 05/29/18 08:25 Dose: 1 each Admin: 05/28/18 21:06 Dose: 1 each Admin: 05/28/18 08:27 Dose: 1 each Admin: 05/27/18 21:02 Dose: 1 each Admin: 05/27/18 08:47 Dose: 1 each Admin: 05/26/18 21:31 Dose: 1 each Pantoprazole Sodium (Protonix) 40 mg IV DAILY [facility] Last Admin: 06/01/18 09:11 Dose: 40 mg Admin: 05/31/18 09:53 Dose: 40 mg Admin: 05/30/18 09:32 Dose: 40 mg Admin: 05/29/18 08:25 Dose: 40 mg Admin: 05/28/18 08:28 Dose: 40 mg Admin: 05/27/18 08:49 Dose: 40 mg Admin: 05/26/18 08:49 Dose: 40 mg Phytonadione (Mephyton) 5 mg PO NOW ONE Stop: 05/25/18 23:23 Last Admin: 05/26/18 00:25 Dose: 5 mg Phytonadione (Mephyton) 5 mg PO NOW ONE Stop: 05/26/18 08:20 Last Admin: 05/26/18 08:50 Dose: 5 mg Polyethylene Glycol (Miralax) 17 gm PO DAILY [facility] Last Admin: 06/01/18 08:51 Dose: Admin: 05/31/18 09:53 Dose: Admin: 05/30/18 09:31 Dose: Admin: 05/29/18 08:25 Dose: Admin: 05/28/18 08:28 Dose: Admin: 05/27/18 08:49 Dose: Admin: 05/26/18 08:49 Dose: Sennosides (Senna) 17.2 mg PO BID [facility] Last Admin: 06/01/18 08:51 Dose: Admin: 05/31/18 20:27 Dose: Not Given Admin: 05/31/18 09:53 Dose: Admin: 05/30/18 20:26 Dose: 17.2 mg Admin: 05/30/18 10:26 Dose: Not Given Admin: 05/29/18 20:34 Dose: Not Given Admin: 05/29/18 08:25 Dose: Admin: 05/28/18 21:06 Dose: Admin: 05/28/18 08:29 Dose: Admin: 05/27/18 21:36 Dose: Admin: 05/27/18 08:49 Dose: Admin: 05/26/18 23:37 Dose: Not Given Admin: 05/26/18 08:48 Dose: 17.2 mg Admin: 05/25/18 22:33 Dose: Sodium Biphosphate/Sodium Phosphate (Fleet Enema) 1 each [place] NOW ONE Stop: 05/30/18 11:01 Last Admin: 05/30/18 12:04 Dose: 1 each Sodium Chloride (Normal Saline 0.9% Flush) 10 ml IV BID [facility] Last Admin: 06/01/18 09:12 Dose: 10 ml Admin: 05/31/18 20:28 Dose: 10 ml Admin: 05/31/18 09:54 Dose: 10 ml Admin: 05/30/18 20:27 Dose: 10 ml Admin: 05/30/18 09:29 Dose: 10 ml Admin: 05/29/18 20:13 Dose: 10 ml Admin: 05/29/18 08:23 Dose: 10 ml Sodium Chloride (Normal Saline 0.9% Flush) 10 ml IV PRN PRN PRN Reason: Flush Last Admin: 05/29/18 08:23 Dose: 10 ml Vancomycin HCl (Vancomycin Trough) 1 request [facility] [place] [address] [facility] Stop: 05/29/18 02:31 Warfarin Sodium (Coumadin) 1 mg PO MOWEFR [facility] Last Admin: 05/30/18 17:51 Dose: 1 mg Warfarin Sodium (Coumadin) 2 mg PO SUTUTHSA [facility] Last Admin: 05/31/18 17:24 Dose: 2 mg Admin: 05/29/18 17:13 Dose: 2 mg Admin: 05/28/18 17:16 Dose: 2 mg Vital Signs - 8 hr 05/25/18 15:22 05/25/18 16:10 05/25/18 17:05 Temperature 98.9 F Pulse Rate 60 69 103 H Respiratory Rate 20 17 18 Blood Pressure 122/69 Blood Pressure [Left Arm] 134/80 115/72 Pulse Oximetry 93 94 95 05/25/18 18:01 05/25/18 18:43 05/25/18 18:53 Temperature Pulse Rate 108 H 170 H 119 H Respiratory Rate 20 28 H Blood Pressure Blood Pressure [Left Arm] 115/77 88/69 L 105/69 Pulse Oximetry 94 97 05/25/18 19:21 05/25/18 20:01 05/25/18 20:24 Temperature Pulse Rate 112 H 126 H 108 H Respiratory Rate 28 H Blood Pressure 130/69 122/67 Blood Pressure [Left Arm] 111/57 L Pulse Oximetry 96 05/25/18 20:35 Temperature Pulse Rate 113 H Respiratory Rate 24 Blood Pressure Blood Pressure [Left Arm] 113/69 Pulse Oximetry 97 <Miguel Ángel Gaspar, - Last Filed: 06/01/18 20:07> Orders Ordered: Discontinued Medications Acetaminophen (Tylenol) 650 mg PO Q6H PRN PRN Reason: fever / pain Atorvastatin Calcium (Lipitor) 40 mg PO QPM [facility] Last Admin: 05/31/18 17:24 Dose: 40 mg Admin: 05/30/18 17:51 Dose: 40 mg Admin: 05/29/18 17:12 Dose: 40 mg Admin: 05/28/18 16:54 Dose: 40 mg Admin: 05/27/18 16:49 Dose: 40 mg Admin: 05/26/18 17:24 Dose: 40 mg Dextrose (D50w) 25 gm IV PRN PRN PRN Reason: Hypoglycemia Diltiazem HCl (Cardizem) 20 mg IV NOW ONE Stop: 05/25/18 18:52 Last Admin: 05/25/18 19:21 Dose: 10 mg Diltiazem HCl (Cardizem) 10 mg IV NOW ONE Stop: 05/25/18 19:34 Last Admin: 05/25/18 20:04 Dose: Not Given Docusate Sodium (Colace) 250 mg PO DAILY PRN PRN Reason: Constipation Fluoxetine HCl (Prozac) 10 mg PO DAILY [facility] Last Admin: 06/01/18 09:06 Dose: 10 mg Admin: 05/31/18 09:50 Dose: 10 mg Admin: 05/30/18 09:30 Dose: 10 mg Admin: 05/29/18 08:23 Dose: 10 mg Admin: 05/28/18 08:27 Dose: 10 mg Admin: 05/27/18 08:48 Dose: 10 mg Admin: 05/26/18 08:48 Dose: 10 mg Furosemide (Lasix) 40 mg PO DAILY [facility] Last Admin: 06/01/18 09:07 Dose: 40 mg Admin: 05/31/18 09:50 Dose: 40 mg Admin: 05/30/18 09:30 Dose: 40 mg Admin: 05/29/18 08:23 Dose: 40 mg Sodium Chloride (Normal Saline 0.9%) 1,000 mls @ 150 mls/hr IV CONT [facility] Last Infusion: 05/25/18 20:53 Dose: 150 mls/hr Admin: 05/25/18 16:09 Dose: 150 mls/hr Piperacillin/Tazobactam/Dextrose (Zosyn) 3.375 gm in 50 mls @ 100 mls/hr IV NOW ONE Stop: 05/25/18 17:27 Last Infusion: 05/25/18 17:52 Dose: 0 mls/hr Admin: 05/25/18 17:21 Dose: 100 mls/hr Vancomycin HCl 1,500 mg/ (Sodium Chloride) 500 mls @ 333.333 mls/hr IV NOW ONE Stop: 05/25/18 16:59 Last Infusion: 05/25/18 20:04 Dose: 0 mls/hr Admin: 05/25/18 17:52 Dose: 333.333 mls/hr Diltiazem HCl 125 mg/ Dextrose 125 mls @ 5 mls/hr IV TITRATE [facility]; Protocol Last Titration: 05/25/18 20:52 Dose: 5 mg/hr, 5 mls/hr Admin: 05/25/18 20:24 Dose: 5 mg/hr, 5 mls/hr Vancomycin HCl 1,500 mg/ (Sodium Chloride) 500 mls @ 333.333 mls/hr IV Q12H [facility] Last Admin: 05/26/18 10:04 Dose: Not Given Piperacillin/Tazobactam/Dextrose (Zosyn) 3.375 gm in 50 mls @ 100 mls/hr IV Q6H [facility] Last Admin: 05/27/18 08:56 Dose: Not Given Infusion: 05/27/18 08:55 Dose: 0 mls/hr Admin: 05/27/18 01:59 Dose: 100 mls/hr Infusion: 05/26/18 20:45 Dose: 100 mls/hr Admin: 05/26/18 20:15 Dose: 100 mls/hr Infusion: 05/26/18 15:49 Dose: 0 mls/hr Admin: 05/26/18 15:03 Dose: 100 mls/hr Infusion: 05/26/18 10:05 Dose: 0 mls/hr Admin: 05/26/18 09:19 Dose: 100 mls/hr Infusion: 05/26/18 04:33 Dose: 100 mls/hr Admin: 05/26/18 04:03 Dose: 100 mls/hr Vancomycin HCl 1,500 mg/ (Sodium Chloride) 500 mls @ 333.333 mls/hr IV Q24H [facility] Last Admin: 05/27/18 03:08 Dose: 333.333 mls/hr Ertapenem 1 gm/ Sodium (Chloride) 100 mls @ 200 mls/hr IV Q24H [facility] Last Infusion: 06/01/18 11:08 Dose: 0 mls/hr Admin: 06/01/18 09:05 Dose: 200 mls/hr Infusion: 05/31/18 13:55 Dose: 0 mls/hr Admin: 05/31/18 09:50 Dose: 200 mls/hr Infusion: 05/30/18 10:30 Dose: 200 mls/hr Admin: 05/30/18 09:27 Dose: 200 mls/hr Infusion: 05/29/18 09:49 Dose: 200 mls/hr Admin: 05/29/18 08:24 Dose: 200 mls/hr Infusion: 05/28/18 09:43 Dose: 0 mls/hr Admin: 05/28/18 08:29 Dose: 200 mls/hr Infusion: 05/27/18 09:20 Dose: 0 mls/hr Admin: 05/27/18 08:48 Dose: 200 mls/hr Sodium Chloride (Normal Saline 0.9%) 250 mls @ 21 mls/hr IV Q24H PRN PRN Reason: Flush Insulin Aspart (Novolog Flexpen) 0 unit SUBCUT ACHS [facility]; Protocol Last Admin: 05/31/18 12:59 Dose: Admin: 05/31/18 09:53 Dose: Not Given Admin: 05/30/18 20:30 Dose: 2 unit Admin: 05/30/18 17:20 Dose: 5 unit Admin: 05/30/18 14:49 Dose: 1 unit Admin: 05/30/18 09:06 Dose: Admin: 05/29/18 20:25 Dose: 3 unit Admin: 05/29/18 17:30 Dose: 3 unit Admin: 05/29/18 12:12 Dose: 3 unit Admin: 05/29/18 08:27 Dose: 1 unit Admin: 05/28/18 21:05 Dose: Not Given Admin: 05/28/18 16:54 Dose: 1 unit Admin: 05/28/18 12:06 Dose: 3 unit Admin: 05/28/18 08:27 Dose: 3 unit Admin: 05/27/18 21:06 Dose: Not Given Admin: 05/27/18 16:50 Dose: 1 unit Admin: 05/27/18 12:47 Dose: 3 unit Admin: 05/27/18 08:48 Dose: 1 unit Admin: 05/26/18 21:32 Dose: 3 unit Admin: 05/26/18 17:27 Dose: 7 unit Admin: 05/26/18 13:21 Dose: 5 unit Admin: 05/26/18 09:19 Dose: 3 unit Insulin Aspart (Novolog Flexpen) 0 unit SUBCUT ACHS [facility]; Protocol Last Admin: 06/01/18 12:21 Dose: 1 unit Admin: 06/01/18 08:48 Dose: Not Given Admin: 05/31/18 20:44 Dose: 2 unit Admin: 05/31/18 17:25 Dose: Admin: 05/31/18 12:35 Dose: 1 unit Insulin Detemir (Levemir Flextouch) 45 unit SUBCUT BID [facility] Last Admin: 06/01/18 09:07 Dose: 45 unit Admin: 05/31/18 20:43 Dose: 45 unit Admin: 05/31/18 09:50 Dose: 45 unit Admin: 05/30/18 20:30 Dose: 45 unit Admin: 05/30/18 09:54 Dose: 45 unit Admin: 05/29/18 20:24 Dose: 45 unit Admin: 05/29/18 08:28 Dose: 45 unit Admin: 05/28/18 21:09 Dose: 45 unit Admin: 05/28/18 08:28 Dose: 45 unit Admin: 05/27/18 21:03 Dose: 45 unit Admin: 05/27/18 08:48 Dose: 45 unit Admin: 05/26/18 21:33 Dose: 45 unit Admin: 05/26/18 09:20 Dose: Admin: 05/25/18 22:32 Dose: Lisinopril (Zestril) 5 mg PO DAILY [facility] Lisinopril (Zestril) 5 mg PO DAILY [facility] Last Admin: 06/01/18 09:07 Dose: 5 mg Admin: 05/31/18 09:51 Dose: 5 mg Admin: 05/30/18 09:30 Dose: 5 mg Admin: 05/29/18 08:24 Dose: 5 mg Metoprolol Tartrate (Lopressor) 25 mg PO BID [facility] Last Admin: 06/01/18 09:07 Dose: 25 mg Admin: 05/31/18 20:26 Dose: 25 mg Admin: 05/31/18 09:52 Dose: 25 mg Admin: 05/30/18 20:26 Dose: 25 mg Admin: 05/30/18 09:30 Dose: 25 mg Admin: 05/29/18 20:34 Dose: Not Given Admin: 05/29/18 08:24 Dose: 25 mg Admin: 05/28/18 21:06 Dose: 25 mg Admin: 05/28/18 08:27 Dose: 25 mg Admin: 05/27/18 21:02 Dose: 25 mg Admin: 05/27/18 08:48 Dose: 25 mg Admin: 05/26/18 21:31 Dose: 25 mg Admin: 05/26/18 08:49 Dose: 25 mg Admin: 05/25/18 22:41 Dose: Morphine Sulfate (Morphine) 2 mg IV NOW ONE Stop: 05/25/18 16:58 Last Admin: 05/25/18 16:58 Dose: 2 mg Morphine Sulfate (Morphine Ir) 15 mg PO Q6HR PRN PRN Reason: Pain, Severe (7-10) Last Admin: 05/27/18 08:52 Dose: 15 mg Morphine Sulfate (Morphine Ir) 30 mg PO Q6HR PRN PRN Reason: Pain, Severe (7-10) Morphine Sulfate (Ms Contin) 30 mg PO BEDTIME [facility] Last Admin: 05/31/18 20:40 Dose: Not Given Admin: 05/30/18 21:00 Dose: Not Given Admin: 05/29/18 20:34 Dose: Not Given Admin: 05/28/18 21:11 Dose: 30 mg Admin: 05/27/18 21:02 Dose: 30 mg Admin: 05/26/18 21:31 Dose: 30 mg Neomycin/Polymyxin/Bacitracin (Neosporin) 1 each TOP PRN PRN PRN Reason: Wound Healing Last Admin: 05/29/18 08:23 Dose: 1 each Dofetilide (Tikosyn (500mcg)) 1 each PO BID [facility] Last Admin: 06/01/18 10:05 Dose: 1 each Admin: 05/31/18 20:26 Dose: 1 each Admin: 05/31/18 09:52 Dose: 1 each Admin: 05/30/18 20:26 Dose: 1 each Admin: 05/30/18 09:29 Dose: 1 each Admin: 05/29/18 20:34 Dose: Not Given Admin: 05/29/18 08:25 Dose: 1 each Admin: 05/28/18 21:06 Dose: 1 each Admin: 05/28/18 08:27 Dose: 1 each Admin: 05/27/18 21:02 Dose: 1 each Admin: 05/27/18 08:47 Dose: 1 each Admin: 05/26/18 21:31 Dose: 1 each Pantoprazole Sodium (Protonix) 40 mg IV DAILY [facility] Last Admin: 06/01/18 09:11 Dose: 40 mg Admin: 05/31/18 09:53 Dose: 40 mg Admin: 05/30/18 09:32 Dose: 40 mg Admin: 05/29/18 08:25 Dose: 40 mg Admin: 05/28/18 08:28 Dose: 40 mg Admin: 05/27/18 08:49 Dose: 40 mg Admin: 05/26/18 08:49 Dose: 40 mg Phytonadione (Mephyton) 5 mg PO NOW ONE Stop: 05/25/18 23:23 Last Admin: 05/26/18 00:25 Dose: 5 mg Phytonadione (Mephyton) 5 mg PO NOW ONE Stop: 05/26/18 08:20 Last Admin: 05/26/18 08:50 Dose: 5 mg Polyethylene Glycol (Miralax) 17 gm PO DAILY [facility] Last Admin: 06/01/18 08:51 Dose: Admin: 05/31/18 09:53 Dose: Admin: 05/30/18 09:31 Dose: Admin: 05/29/18 08:25 Dose: Admin: 05/28/18 08:28 Dose: Admin: 05/27/18 08:49 Dose: Admin: 05/26/18 08:49 Dose: Sennosides (Senna) 17.2 mg PO BID [facility] Last Admin: 06/01/18 08:51 Dose: Admin: 05/31/18 20:27 Dose: Not Given Admin: 05/31/18 09:53 Dose: Admin: 05/30/18 20:26 Dose: 17.2 mg Admin: 05/30/18 10:26 Dose: Not Given Admin: 05/29/18 20:34 Dose: Not Given Admin: 05/29/18 08:25 Dose: Admin: 05/28/18 21:06 Dose: Admin: 05/28/18 08:29 Dose: Admin: 05/27/18 21:36 Dose: Admin: 05/27/18 08:49 Dose: Admin: 05/26/18 23:37 Dose: Not Given Admin: 05/26/18 08:48 Dose: 17.2 mg Admin: 05/25/18 22:33 Dose: Sodium Biphosphate/Sodium Phosphate (Fleet Enema) 1 each [place] NOW ONE Stop: 05/30/18 11:01 Last Admin: 05/30/18 12:04 Dose: 1 each Sodium Chloride (Normal Saline 0.9% Flush) 10 ml IV BID [facility] Last Admin: 06/01/18 09:12 Dose: 10 ml Admin: 05/31/18 20:28 Dose: 10 ml Admin: 05/31/18 09:54 Dose: 10 ml Admin: 05/30/18 20:27 Dose: 10 ml Admin: 05/30/18 09:29 Dose: 10 ml Admin: 05/29/18 20:13 Dose: 10 ml Admin: 05/29/18 08:23 Dose: 10 ml Sodium Chloride (Normal Saline 0.9% Flush) 10 ml IV PRN PRN PRN Reason: Flush Last Admin: 05/29/18 08:23 Dose: 10 ml Vancomycin HCl (Vancomycin Trough) 1 request [facility] [place] [address] [facility] Stop: 05/29/18 02:31 Warfarin Sodium (Coumadin) 1 mg PO MOWEFR [facility] Last Admin: 05/30/18 17:51 Dose: 1 mg Warfarin Sodium (Coumadin) 2 mg PO SUTUTHSA [facility] Last Admin: 05/31/18 17:24 Dose: 2 mg Admin: 05/29/18 17:13 Dose: 2 mg Admin: 05/28/18 17:16 Dose: 2 mg Vital Signs - 8 hr 05/25/18 15:22 05/25/18 16:10 05/25/18 17:05 Temperature 98.9 F Pulse Rate 60 69 103 H Respiratory Rate 20 17 18 Blood Pressure 122/69 Blood Pressure [Left Arm] 134/80 115/72 Pulse Oximetry 93 94 95 05/25/18 18:01 05/25/18 18:43 05/25/18 18:53 Temperature Pulse Rate 108 H 170 H 119 H Respiratory Rate 20 28 H Blood Pressure Blood Pressure [Left Arm] 115/77 88/69 L 105/69 Pulse Oximetry 94 97 05/25/18 19:21 05/25/18 20:01 05/25/18 20:24 Temperature Pulse Rate 112 H 126 H 108 H Respiratory Rate 28 H Blood Pressure 130/69 122/67 Blood Pressure [Left Arm] 111/57 L Pulse Oximetry 96 05/25/18 20:35 Temperature Pulse Rate 113 H Respiratory Rate 24 Blood Pressure Blood Pressure [Left Arm] 113/69 Pulse Oximetry 97 MDM - Weakness <ALY Tyson - Last Filed: 05/25/18 21:48> Lab Data Result diagrams: 05/29/18 05:22 05/29/18 05:22 Lab Results 05/25/18 05/25/18 05/25/18 Range/Units 15:30 15:30 15:30 WBC 24.0 H (4.5-11.0) X10^3/uL RBC 4.70 (4.5-5.9) X10^6/uL Hgb 12.6 L (13.5-17.5) g/dL Hct 38.3 L (41-53) % MCV 81.4 (80-100) fL MCH 26.8 (26-34) PG MCHC 33.0 (30-36) % RDW 16.4 H (11.6-14.8) % Plt Count 282 (150-400) X10^3/uL Neut % (Auto) 84.2 H (50-75) % Lymph % (Auto) 8.0 L (25-40) % [facility] % (Auto) 7.0 (3-14) % Eos % (Auto) 0.1 L (2-4) % Baso % (Auto) 0.7 (0-2) % Neut # (Auto) 76168 H (4666-9525) /uL PT 60.2 H (10.1-12.7) SECONDS INR 5.3 H* (0.9-1.3) APTT 47 H D (26.4-36.2) SECONDS Sodium 138 (137-145) mmol/L Potassium 4.4 (3.4-5.1) mmol/L Chloride 99 (98-107) mmol/L Carbon Dioxide 29 (22-32) mmol/L BUN 35 H (9-20) mg/dL Creatinine 1.40 H (0.66-1.25) mg/dL Estimated GFR 49.1 L (>60) mL/min BUN/Creatinine Ratio 25.0 H (6-22) Glucose 128 H (80-110) mg/dL Lactate (0.7-2.1) mmol/L Calcium 9.1 (8.4-10.2) mg/dL Magnesium (1.6-2.3) mg/dL Total Bilirubin 1.0 (0.2-1.3) mg/dL AST 46 (17-59) IU/L ALT 41 (21-72) IU/L Alkaline Phosphatase 152 H (38-126) U/L Total Creatine Kinase 71 (55-170) U/L CK-MB (CK-2) TNP CK-MB (CK-2) Rel Index TNP Troponin I 0.139 H* (0.01-0.034) ng/mL B-Natriuretic Peptide (<100) Total Protein 7.9 (6.3-8.2) g/dL Albumin 3.6 (3.5-5.0) g/dL Globulin 4.3 H (1.7-4.1) g/dL Albumin/Globulin Ratio 0.8 L (1.0-2.8) Lipase 29 (23-300) U/L Procalcitonin (<0.5) ng/mL Urine Color Urine Appearance Urine pH (4.5-8.0) Ur Specific [place] (1.000-1.035) Urine Protein (Negative) Urine Glucose (UA) (Normal) g/dL Urine Ketones (NEGATIVE) Urine Occult Blood (Negative) Urine Nitrate (Negative) Urine Bilirubin (NEGATIVE) Urine Urobilinogen (0.2) E.U./dL Ur Leukocyte Esterase (NEGATIVE) Urine RBC (0-5/HPF) Urine WBC (0-5/HPF) Ur Squamous Epith Cells Amorphous Sediment Urine Bacteria (None) Ur Culture Indicated? Micro UA Comment Nasal Screen MRSA (PCR) (Negative) A. baumannii (PCR) (Not Detect) Merly albicans (PCR) (Not Detect) C. glabrata (PCR) (Not Detect) C. krusei (PCR) (Not Detect) C. parapsilosis (PCR) (Not Detect) C. tropicalis (PCR) (Not Detect) Enterobacteriac sp PCR (Not Detect) E. cloacae complex PCR (Not Detect) Enterococcus sp PCR (Not Detect) E. coli (PCR) (Not Detect) H. influenzae (PCR) (Not Detect) Klebsiella oxytoca PCR (Not Detect) Klebsiella pneumoniae (Not Detect) List. monocytogenes PCR (Not Detect) N. meningitidis (PCR) (Not Detect) Proteus species (PCR) (Not Detect) Serratia marcescens PCR (Not Detect) Staphylococcus sp PCR (Not Detect) Staph aureus (PCR) (Not Detect) mecA-Methicil Res Gene Streptococcus sp PCR (Not Detect) Group A Strep (PCR) (Not Detect) Strep agalactiae (PCR) (Not Detect) Strep pneumoniae (PCR) (Not Detect) P. aeruginosa (PCR) (Not Detect) Pastor/B-Vanco Res Genes KPC-Carbap Res Gene PCR (Not Detect) 05/25/18 05/25/18 05/25/18 Range/Units 15:30 16:30 16:44 WBC (4.5-11.0) X10^3/uL RBC (4.5-5.9) X10^6/uL Hgb (13.5-17.5) g/dL Hct (41-53) % MCV (80-100) fL MCH (26-34) PG MCHC (30-36) % RDW (11.6-14.8) % Plt Count (150-400) X10^3/uL Neut % (Auto) (50-75) % Lymph % (Auto) (25-40) % [facility] % (Auto) (3-14) % Eos % (Auto) (2-4) % Baso % (Auto) (0-2) % Neut # (Auto) (8139-3965) /uL PT (10.1-12.7) SECONDS INR (0.9-1.3) APTT (26.4-36.2) SECONDS Sodium (137-145) mmol/L Potassium (3.4-5.1) mmol/L Chloride (98-107) mmol/L Carbon Dioxide (22-32) mmol/L BUN (9-20) mg/dL Creatinine (0.66-1.25) mg/dL Estimated GFR (>60) mL/min BUN/Creatinine Ratio (6-22) Glucose (80-110) mg/dL Lactate 1.4 (0.7-2.1) mmol/L Calcium (8.4-10.2) mg/dL Magnesium (1.6-2.3) mg/dL Total Bilirubin (0.2-1.3) mg/dL AST (17-59) IU/L ALT (21-72) IU/L Alkaline Phosphatase (38-126) U/L Total Creatine Kinase (55-170) U/L CK-MB (CK-2) CK-MB (CK-2) Rel Index Troponin I (0.01-0.034) ng/mL B-Natriuretic Peptide (<100) Total Protein (6.3-8.2) g/dL Albumin (3.5-5.0) g/dL Globulin (1.7-4.1) g/dL Albumin/Globulin Ratio (1.0-2.8) Lipase (23-300) U/L Procalcitonin 0.40 (<0.5) ng/mL Urine Color Yellow Urine Appearance Cloudy Urine pH 5.5 (4.5-8.0) Ur Specific [place] 1.010 (1.000-1.035) Urine Protein 1+ H (Negative) Urine Glucose (UA) Negative (Normal) g/dL Urine Ketones Negative (NEGATIVE) Urine Occult Blood 3+ H (Negative) Urine Nitrate Positive (Negative) Urine Bilirubin Negative (NEGATIVE) Urine Urobilinogen 0.2 (0.2) E.U./dL Ur Leukocyte Esterase 3+ H (NEGATIVE) Urine RBC 5-10/hpf H (0-5/HPF) Urine WBC >100/hpf H (0-5/HPF) Ur Squamous Epith Cells 0-1 /hpf Amorphous Sediment 1+ Urine Bacteria Many (>30) H (None) Ur Culture Indicated? Specimen cultured Micro UA Comment Not Reportable Nasal Screen MRSA (PCR) (Negative) A. baumannii (PCR) (Not Detect) Merly albicans (PCR) (Not Detect) C. glabrata (PCR) (Not Detect) C. krusei (PCR) (Not Detect) C. parapsilosis (PCR) (Not Detect) C. tropicalis (PCR) (Not Detect) Enterobacteriac sp PCR (Not Detect) E. cloacae complex PCR (Not Detect) Enterococcus sp PCR (Not Detect) E. coli (PCR) (Not Detect) H. influenzae (PCR) (Not Detect) Klebsiella oxytoca PCR (Not Detect) Klebsiella pneumoniae (Not Detect) List. monocytogenes PCR (Not Detect) N. meningitidis (PCR) (Not Detect) Proteus species (PCR) (Not Detect) Serratia marcescens PCR (Not Detect) Staphylococcus sp PCR (Not Detect) Staph aureus (PCR) (Not Detect) mecA-Methicil Res Gene Streptococcus sp PCR (Not Detect) Group A Strep (PCR) (Not Detect) Strep agalactiae (PCR) (Not Detect) Strep pneumoniae (PCR) (Not Detect) P. aeruginosa (PCR) (Not Detect) Pastor/B-Vanco Res Genes KPC-Carbap Res Gene PCR (Not Detect) 05/25/18 05/25/18 05/25/18 Range/Units 16:44 21:00 21:16 WBC (4.5-11.0) X10^3/uL RBC (4.5-5.9) X10^6/uL Hgb (13.5-17.5) g/dL Hct (41-53) % MCV (80-100) fL MCH (26-34) PG MCHC (30-36) % RDW (11.6-14.8) % Plt Count (150-400) X10^3/uL Neut % (Auto) (50-75) % Lymph % (Auto) (25-40) % [facility] % (Auto) (3-14) % Eos % (Auto) (2-4) % Baso % (Auto) (0-2) % Neut # (Auto) (7860-6204) /uL PT (10.1-12.7) SECONDS INR (0.9-1.3) APTT (26.4-36.2) SECONDS Sodium 136 L (137-145) mmol/L Potassium 4.1 (3.4-5.1) mmol/L Chloride 99 (98-107) mmol/L Carbon Dioxide 28 (22-32) mmol/L BUN 36 H (9-20) mg/dL Creatinine 1.50 H (0.66-1.25) mg/dL Estimated GFR 45.4 L (>60) mL/min BUN/Creatinine Ratio 24.0 H (6-22) Glucose 194 H (80-110) mg/dL Lactate (0.7-2.1) mmol/L Calcium 8.6 (8.4-10.2) mg/dL Magnesium (1.6-2.3) mg/dL Total Bilirubin (0.2-1.3) mg/dL AST (17-59) IU/L ALT (21-72) IU/L Alkaline Phosphatase (38-126) U/L Total Creatine Kinase (55-170) U/L CK-MB (CK-2) CK-MB (CK-2) Rel Index Troponin I 0.602 H* (0.01-0.034) ng/mL B-Natriuretic Peptide (<100) Total Protein (6.3-8.2) g/dL Albumin (3.5-5.0) g/dL Globulin (1.7-4.1) g/dL Albumin/Globulin Ratio (1.0-2.8) Lipase (23-300) U/L Procalcitonin (<0.5) ng/mL Urine Color Urine Appearance Urine pH (4.5-8.0) Ur Specific [place] (1.000-1.035) Urine Protein (Negative) Urine Glucose (UA) (Normal) g/dL Urine Ketones (NEGATIVE) Urine Occult Blood (Negative) Urine Nitrate (Negative) Urine Bilirubin (NEGATIVE) Urine Urobilinogen (0.2) E.U./dL Ur Leukocyte Esterase (NEGATIVE) Urine RBC (0-5/HPF) Urine WBC (0-5/HPF) Ur Squamous Epith Cells Amorphous Sediment Urine Bacteria (None) Ur Culture Indicated? Micro UA Comment Nasal Screen MRSA (PCR) Negative for mrsa (Negative) A. baumannii (PCR) Not detected (Not Detect) Merly albicans (PCR) Not detected (Not Detect) C. glabrata (PCR) Not detected (Not Detect) C. krusei (PCR) Not detected (Not Detect) C. parapsilosis (PCR) Not detected (Not Detect) C. tropicalis (PCR) Not detected (Not Detect) Enterobacteriac sp PCR Detected H (Not Detect) E. cloacae complex PCR Not detected (Not Detect) Enterococcus sp PCR Not detected (Not Detect) E. coli (PCR) Detected H (Not Detect) H. influenzae (PCR) Not detected (Not Detect) Klebsiella oxytoca PCR Not detected (Not Detect) Klebsiella pneumoniae Not detected (Not Detect) List. monocytogenes PCR Not detected (Not Detect) N. meningitidis (PCR) Not detected (Not Detect) Proteus species (PCR) Not detected (Not Detect) Serratia marcescens PCR Not detected (Not Detect) Staphylococcus sp PCR Not detected (Not Detect) Staph aureus (PCR) Not detected (Not Detect) mecA-Methicil Res Gene Not Reportable Streptococcus sp PCR Not detected (Not Detect) Group A Strep (PCR) Not detected (Not Detect) Strep agalactiae (PCR) Not detected (Not Detect) Strep pneumoniae (PCR) Not detected (Not Detect) P. aeruginosa (PCR) Not detected (Not Detect) Pastor/B-Vanco Res Genes Not Reportable KPC-Carbap Res Gene PCR Not detected (Not Detect) 05/25/18 05/25/18 05/26/18 Range/Units 21:16 21:16 04:47 WBC 21.4 H (4.5-11.0) X10^3/uL RBC 4.38 L (4.5-5.9) X10^6/uL Hgb 11.7 L (13.5-17.5) g/dL Hct 35.6 L (41-53) % MCV 81.4 (80-100) fL MCH 26.7 (26-34) PG MCHC 32.8 (30-36) % RDW 16.5 H (11.6-14.8) % Plt Count 251 (150-400) X10^3/uL Neut % (Auto) 83.1 H (50-75) % Lymph % (Auto) 11.8 L (25-40) % [facility] % (Auto) 4.8 (3-14) % Eos % (Auto) 0.1 L (2-4) % Baso % (Auto) 0.2 (0-2) % Neut # (Auto) 13604 H (0555-3052) /uL PT 76.8 H D (10.1-12.7) SECONDS INR 6.8 H* (0.9-1.3) APTT (26.4-36.2) SECONDS Sodium (137-145) mmol/L Potassium (3.4-5.1) mmol/L Chloride (98-107) mmol/L Carbon Dioxide (22-32) mmol/L BUN (9-20) mg/dL Creatinine (0.66-1.25) mg/dL Estimated GFR (>60) mL/min BUN/Creatinine Ratio (6-22) Glucose (80-110) mg/dL Lactate (0.7-2.1) mmol/L Calcium (8.4-10.2) mg/dL Magnesium (1.6-2.3) mg/dL Total Bilirubin (0.2-1.3) mg/dL AST (17-59) IU/L ALT (21-72) IU/L Alkaline Phosphatase (38-126) U/L Total Creatine Kinase (55-170) U/L CK-MB (CK-2) CK-MB (CK-2) Rel Index Troponin I (0.01-0.034) ng/mL B-Natriuretic Peptide 2080.0 H (<100) Total Protein (6.3-8.2) g/dL Albumin (3.5-5.0) g/dL Globulin (1.7-4.1) g/dL Albumin/Globulin Ratio (1.0-2.8) Lipase (23-300) U/L Procalcitonin (<0.5) ng/mL Urine Color Urine Appearance Urine pH (4.5-8.0) Ur Specific [place] (1.000-1.035) Urine Protein (Negative) Urine Glucose (UA) (Normal) g/dL Urine Ketones (NEGATIVE) Urine Occult Blood (Negative) Urine Nitrate (Negative) Urine Bilirubin (NEGATIVE) Urine Urobilinogen (0.2) E.U./dL Ur Leukocyte Esterase (NEGATIVE) Urine RBC (0-5/HPF) Urine WBC (0-5/HPF) Ur Squamous Epith Cells Amorphous Sediment Urine Bacteria (None) Ur Culture Indicated? Micro UA Comment Nasal Screen MRSA (PCR) (Negative) A. baumannii (PCR) (Not Detect) Merly albicans (PCR) (Not Detect) C. glabrata (PCR) (Not Detect) C. krusei (PCR) (Not Detect) C. parapsilosis (PCR) (Not Detect) C. tropicalis (PCR) (Not Detect) Enterobacteriac sp PCR (Not Detect) E. cloacae complex PCR (Not Detect) Enterococcus sp PCR (Not Detect) E. coli (PCR) (Not Detect) H. influenzae (PCR) (Not Detect) Klebsiella oxytoca PCR (Not Detect) Klebsiella pneumoniae (Not Detect) List. monocytogenes PCR (Not Detect) N. meningitidis (PCR) (Not Detect) Proteus species (PCR) (Not Detect) Serratia marcescens PCR (Not Detect) Staphylococcus sp PCR (Not Detect) Staph aureus (PCR) (Not Detect) mecA-Methicil Res Gene Streptococcus sp PCR (Not Detect) Group A Strep (PCR) (Not Detect) Strep agalactiae (PCR) (Not Detect) Strep pneumoniae (PCR) (Not Detect) P. aeruginosa (PCR) (Not Detect) Pastor/B-Vanco Res Genes KPC-Carbap Res Gene PCR (Not Detect) 05/26/18 05/26/18 05/26/18 Range/Units 04:47 04:47 08:55 WBC (4.5-11.0) X10^3/uL RBC (4.5-5.9) X10^6/uL Hgb (13.5-17.5) g/dL Hct (41-53) % MCV (80-100) fL MCH (26-34) PG MCHC (30-36) % RDW (11.6-14.8) % Plt Count (150-400) X10^3/uL Neut % (Auto) (50-75) % Lymph % (Auto) (25-40) % [facility] % (Auto) (3-14) % Eos % (Auto) (2-4) % Baso % (Auto) (0-2) % Neut # (Auto) (3455-4487) /uL PT 61.8 H D (10.1-12.7) SECONDS INR 5.5 H* (0.9-1.3) APTT (26.4-36.2) SECONDS Sodium 139 (137-145) mmol/L Potassium 4.2 (3.4-5.1) mmol/L Chloride 101 (98-107) mmol/L Carbon Dioxide 30 (22-32) mmol/L BUN 39 H (9-20) mg/dL Creatinine 1.60 H (0.66-1.25) mg/dL Estimated GFR 42.1 L (>60) mL/min BUN/Creatinine Ratio 24.4 H (6-22) Glucose 221 H (80-110) mg/dL Lactate 1.6 (0.7-2.1) mmol/L Calcium 8.5 (8.4-10.2) mg/dL Magnesium 2.5 H (1.6-2.3) mg/dL Total Bilirubin (0.2-1.3) mg/dL AST (17-59) IU/L ALT (21-72) IU/L Alkaline Phosphatase (38-126) U/L Total Creatine Kinase (55-170) U/L CK-MB (CK-2) CK-MB (CK-2) Rel Index Troponin I 3.880 H* (0.01-0.034) ng/mL B-Natriuretic Peptide (<100) Total Protein (6.3-8.2) g/dL Albumin (3.5-5.0) g/dL Globulin (1.7-4.1) g/dL Albumin/Globulin Ratio (1.0-2.8) Lipase (23-300) U/L Procalcitonin (<0.5) ng/mL Urine Color Urine Appearance Urine pH (4.5-8.0) Ur Specific [place] (1.000-1.035) Urine Protein (Negative) Urine Glucose (UA) (Normal) g/dL Urine Ketones (NEGATIVE) Urine Occult Blood (Negative) Urine Nitrate (Negative) Urine Bilirubin (NEGATIVE) Urine Urobilinogen (0.2) E.U./dL Ur Leukocyte Esterase (NEGATIVE) Urine RBC (0-5/HPF) Urine WBC (0-5/HPF) Ur Squamous Epith Cells Amorphous Sediment Urine Bacteria (None) Ur Culture Indicated? Micro UA Comment Nasal Screen MRSA (PCR) (Negative) A. baumannii (PCR) (Not Detect) Merly albicans (PCR) (Not Detect) C. glabrata (PCR) (Not Detect) C. krusei (PCR) (Not Detect) C. parapsilosis (PCR) (Not Detect) C. tropicalis (PCR) (Not Detect) Enterobacteriac sp PCR (Not Detect) E. cloacae complex PCR (Not Detect) Enterococcus sp PCR (Not Detect) E. coli (PCR) (Not Detect) H. influenzae (PCR) (Not Detect) Klebsiella oxytoca PCR (Not Detect) Klebsiella pneumoniae (Not Detect) List. monocytogenes PCR (Not Detect) N. meningitidis (PCR) (Not Detect) Proteus species (PCR) (Not Detect) Serratia marcescens PCR (Not Detect) Staphylococcus sp PCR (Not Detect) Staph aureus (PCR) (Not Detect) mecA-Methicil Res Gene Streptococcus sp PCR (Not Detect) Group A Strep (PCR) (Not Detect) Strep agalactiae (PCR) (Not Detect) Strep pneumoniae (PCR) (Not Detect) P. aeruginosa (PCR) (Not Detect) Pastor/B-Vanco Res Genes KPC-Carbap Res Gene PCR (Not Detect) 05/26/18 05/27/18 05/27/18 Range/Units 11:20 04:32 04:32 WBC 13.9 H (4.5-11.0) X10^3/uL RBC 3.97 L (4.5-5.9) X10^6/uL Hgb 10.7 L (13.5-17.5) g/dL Hct 32.3 L (41-53) % MCV 81.3 (80-100) fL MCH 26.9 (26-34) PG MCHC 33.0 (30-36) % RDW 16.2 H (11.6-14.8) % Plt Count 244 (150-400) X10^3/uL Neut % (Auto) 78.1 H (50-75) % Lymph % (Auto) 13.5 L (25-40) % [facility] % (Auto) 5.6 (3-14) % Eos % (Auto) 2.4 (2-4) % Baso % (Auto) 0.4 (0-2) % Neut # (Auto) 03445 H (9545-4069) /uL PT (10.1-12.7) SECONDS INR (0.9-1.3) APTT (26.4-36.2) SECONDS Sodium 135 L (137-145) mmol/L Potassium 3.7 (3.4-5.1) mmol/L Chloride 98 (98-107) mmol/L Carbon Dioxide 30 (22-32) mmol/L BUN 38 H (9-20) mg/dL Creatinine 1.50 H (0.66-1.25) mg/dL Estimated GFR 45.4 L (>60) mL/min BUN/Creatinine Ratio 25.3 H (6-22) Glucose 160 H (80-110) mg/dL Lactate (0.7-2.1) mmol/L Calcium 8.2 L (8.4-10.2) mg/dL Magnesium (1.6-2.3) mg/dL Total Bilirubin (0.2-1.3) mg/dL AST (17-59) IU/L ALT (21-72) IU/L Alkaline Phosphatase (38-126) U/L Total Creatine Kinase (55-170) U/L CK-MB (CK-2) CK-MB (CK-2) Rel Index Troponin I 3.200 H* (0.01-0.034) ng/mL B-Natriuretic Peptide (<100) Total Protein (6.3-8.2) g/dL Albumin (3.5-5.0) g/dL Globulin (1.7-4.1) g/dL Albumin/Globulin Ratio (1.0-2.8) Lipase (23-300) U/L Procalcitonin (<0.5) ng/mL Urine Color Urine Appearance Urine pH (4.5-8.0) Ur Specific [place] (1.000-1.035) Urine Protein (Negative) Urine Glucose (UA) (Normal) g/dL Urine Ketones (NEGATIVE) Urine Occult Blood (Negative) Urine Nitrate (Negative) Urine Bilirubin (NEGATIVE) Urine Urobilinogen (0.2) E.U./dL Ur Leukocyte Esterase (NEGATIVE) Urine RBC (0-5/HPF) Urine WBC (0-5/HPF) Ur Squamous Epith Cells Amorphous Sediment Urine Bacteria (None) Ur Culture Indicated? Micro UA Comment Nasal Screen MRSA (PCR) (Negative) A. baumannii (PCR) (Not Detect) Merly albicans (PCR) (Not Detect) C. glabrata (PCR) (Not Detect) C. krusei (PCR) (Not Detect) C. parapsilosis (PCR) (Not Detect) C. tropicalis (PCR) (Not Detect) Enterobacteriac sp PCR (Not Detect) E. cloacae complex PCR (Not Detect) Enterococcus sp PCR (Not Detect) E. coli (PCR) (Not Detect) H. influenzae (PCR) (Not Detect) Klebsiella oxytoca PCR (Not Detect) Klebsiella pneumoniae (Not Detect) List. monocytogenes PCR (Not Detect) N. meningitidis (PCR) (Not Detect) Proteus species (PCR) (Not Detect) Serratia marcescens PCR (Not Detect) Staphylococcus sp PCR (Not Detect) Staph aureus (PCR) (Not Detect) mecA-Methicil Res Gene Streptococcus sp PCR (Not Detect) Group A Strep (PCR) (Not Detect) Strep agalactiae (PCR) (Not Detect) Strep pneumoniae (PCR) (Not Detect) P. aeruginosa (PCR) (Not Detect) Pastor/B-Vanco Res Genes KPC-Carbap Res Gene PCR (Not Detect) 05/28/18 05/28/18 05/28/18 Range/Units 04:48 04:48 04:48 WBC 11.9 H (4.5-11.0) X10^3/uL RBC 3.88 L (4.5-5.9) X10^6/uL Hgb 10.3 L (13.5-17.5) g/dL Hct 31.8 L (41-53) % MCV 81.8 (80-100) fL MCH 26.5 (26-34) PG MCHC 32.4 (30-36) % RDW 16.3 H (11.6-14.8) % Plt Count 262 (150-400) X10^3/uL Neut % (Auto) 70.0 (50-75) % Lymph % (Auto) 20.7 L (25-40) % [facility] [place] % (Auto) 5.4 (3-14) % Eos % (Auto) 3.5 (2-4) % Baso % (Auto) 0.4 (0-2) % Neut # (Auto) 8400 H (0117-9890) /uL PT 15.4 H D (10.1-12.7) SECONDS INR 1.4 H (0.9-1.3) APTT (26.4-36.2) SECONDS Sodium 134 L (137-145) mmol/L Potassium 3.8 (3.4-5.1) mmol/L Chloride 100 (98-107) mmol/L Carbon Dioxide 27 (22-32) mmol/L BUN 31 H (9-20) mg/dL Creatinine 1.30 H (0.66-1.25) mg/dL Estimated GFR 53.5 L (>60) mL/min BUN/Creatinine Ratio 23.8 H (6-22) Glucose 199 H (80-110) mg/dL Lactate (0.7-2.1) mmol/L Calcium 8.2 L (8.4-10.2) mg/dL Magnesium (1.6-2.3) mg/dL Total Bilirubin (0.2-1.3) mg/dL AST (17-59) IU/L ALT (21-72) IU/L Alkaline Phosphatase (38-126) U/L Total Creatine Kinase (55-170) U/L CK-MB (CK-2) CK-MB (CK-2) Rel Index Troponin I (0.01-0.034) ng/mL B-Natriuretic Peptide (<100) Total Protein (6.3-8.2) g/dL Albumin (3.5-5.0) g/dL Globulin (1.7-4.1) g/dL Albumin/Globulin Ratio (1.0-2.8) Lipase (23-300) U/L Procalcitonin (<0.5) ng/mL Urine Color Urine Appearance Urine pH (4.5-8.0) Ur Specific [place] (1.000-1.035) Urine Protein (Negative) Urine Glucose (UA) (Normal) g/dL Urine Ketones (NEGATIVE) Urine Occult Blood (Negative) Urine Nitrate (Negative) Urine Bilirubin (NEGATIVE) Urine Urobilinogen (0.2) E.U./dL Ur Leukocyte Esterase (NEGATIVE) Urine RBC (0-5/HPF) Urine WBC (0-5/HPF) Ur Squamous Epith Cells Amorphous Sediment Urine Bacteria (None) Ur Culture Indicated? Micro UA Comment Nasal Screen MRSA (PCR) (Negative) A. baumannii (PCR) (Not Detect) Merly albicans (PCR) (Not Detect) C. glabrata (PCR) (Not Detect) C. krusei (PCR) (Not Detect) C. parapsilosis (PCR) (Not Detect) C. tropicalis (PCR) (Not Detect) Enterobacteriac sp PCR (Not Detect) E. cloacae complex PCR (Not Detect) Enterococcus sp PCR (Not Detect) E. coli (PCR) (Not Detect) H. influenzae (PCR) (Not Detect) Klebsiella oxytoca PCR (Not Detect) Klebsiella pneumoniae (Not Detect) List. monocytogenes PCR (Not Detect) N. meningitidis (PCR) (Not Detect) Proteus species (PCR) (Not Detect) Serratia marcescens PCR (Not Detect) Staphylococcus sp PCR (Not Detect) Staph aureus (PCR) (Not Detect) mecA-Methicil Res Gene Streptococcus sp PCR (Not Detect) Group A Strep (PCR) (Not Detect) Strep agalactiae (PCR) (Not Detect) Strep pneumoniae (PCR) (Not Detect) P. aeruginosa (PCR) (Not Detect) Pastor/B-Vanco Res Genes KPC-Carbap Res Gene PCR (Not Detect) 05/29/18 05/29/18 05/29/18 Range/Units 05:22 05:22 05:22 WBC 11.3 H (4.5-11.0) X10^3/uL RBC 4.07 L (4.5-5.9) X10^6/uL Hgb 10.7 L (13.5-17.5) g/dL Hct 33.3 L (41-53) % MCV 81.9 (80-100) fL MCH 26.4 (26-34) PG MCHC 32.2 (30-36) % RDW 16.4 H (11.6-14.8) % Plt Count 290 (150-400) X10^3/uL Neut % (Auto) 66.3 (50-75) % Lymph % (Auto) 24.1 L (25-40) % [facility] % (Auto) 5.8 (3-14) % Eos % (Auto) 3.3 (2-4) % Baso % (Auto) 0.5 (0-2) % Neut # (Auto) 7500 H (0800-5134) /uL PT 15.3 H (10.1-12.7) SECONDS INR 1.4 H (0.9-1.3) APTT 32 D (26.4-36.2) SECONDS Sodium 137 (137-145) mmol/L Potassium 4.2 (3.4-5.1) mmol/L Chloride 103 (98-107) mmol/L Carbon Dioxide 28 (22-32) mmol/L BUN 27 H (9-20) mg/dL Creatinine 1.20 (0.66-1.25) mg/dL Estimated GFR 58.7 L (>60) mL/min BUN/Creatinine Ratio 22.5 H (6-22) Glucose 147 H (80-110) mg/dL Lactate (0.7-2.1) mmol/L Calcium 8.4 (8.4-10.2) mg/dL Magnesium 2.4 H (1.6-2.3) mg/dL Total Bilirubin (0.2-1.3) mg/dL AST (17-59) IU/L ALT (21-72) IU/L Alkaline Phosphatase (38-126) U/L Total Creatine Kinase (55-170) U/L CK-MB (CK-2) CK-MB (CK-2) Rel Index Troponin I (0.01-0.034) ng/mL B-Natriuretic Peptide (<100) Total Protein (6.3-8.2) g/dL Albumin (3.5-5.0) g/dL Globulin (1.7-4.1) g/dL Albumin/Globulin Ratio (1.0-2.8) Lipase (23-300) U/L Procalcitonin (<0.5) ng/mL Urine Color Urine Appearance Urine pH (4.5-8.0) Ur Specific [place] (1.000-1.035) Urine Protein (Negative) Urine Glucose (UA) (Normal) g/dL Urine Ketones (NEGATIVE) Urine Occult Blood (Negative) Urine Nitrate (Negative) Urine Bilirubin (NEGATIVE) Urine Urobilinogen (0.2) E.U./dL Ur Leukocyte Esterase (NEGATIVE) Urine RBC (0-5/HPF) Urine WBC (0-5/HPF) Ur Squamous Epith Cells Amorphous Sediment Urine Bacteria (None) Ur Culture Indicated? Micro UA Comment Nasal Screen MRSA (PCR) (Negative) A. baumannii (PCR) (Not Detect) Merly albicans (PCR) (Not Detect) C. glabrata (PCR) (Not Detect) C. krusei (PCR) (Not Detect) C. parapsilosis (PCR) (Not Detect) C. tropicalis (PCR) (Not Detect) Enterobacteriac sp PCR (Not Detect) E. cloacae complex PCR (Not Detect) Enterococcus sp PCR (Not Detect) E. coli (PCR) (Not Detect) H. influenzae (PCR) (Not Detect) Klebsiella oxytoca PCR (Not Detect) Klebsiella pneumoniae (Not Detect) List. monocytogenes PCR (Not Detect) N. meningitidis (PCR) (Not Detect) Proteus species (PCR) (Not Detect) Serratia marcescens PCR (Not Detect) Staphylococcus sp PCR (Not Detect) Staph aureus (PCR) (Not Detect) mecA-Methicil Res Gene Streptococcus sp PCR (Not Detect) Group A Strep (PCR) (Not Detect) Strep agalactiae (PCR) (Not Detect) Strep pneumoniae (PCR) (Not Detect) P. aeruginosa (PCR) (Not Detect) Pastor/B-Vanco Res Genes KPC-Carbap Res Gene PCR (Not Detect) Point of Care Testing Glucose POC 182 Imaging Data Chest x-ray: Radiologist's impression: Signed Patient: Yrn Roberts RMR#: [id number] : 1940Acct:[id number] Age/Sex: 77 / MDate of Service: 05/25/18 Loc: ED Accession Number: [id number] Procedure: XR chest 1V Ordering Provider: Leno Dietz PROCEDURE: XR CHEST 1V INDICATIONS: Weakness TECHNIQUE: One view of the chest was acquired. COMPARISON: [facility], , XR CHEST 2V, 04/04/2018, 11:24. FINDINGS: Surgical changes and devices: A left-sided cardiac pacer such a fibular apparatus is again evident. Lungs and pleura: The lung volumes are again identified which are similar to the prior examination. Interposition of a the hepatic flexure of the colon underlying the right diaphragm is also similar to the prior study with mild elevation of the right diaphragm. No lobar consolidation, definite effusion, or obvious pneumothorax is appreciated. On the prominent perihilar interstitial markings are similar to the prior exam. Mediastinum: Mediastinal contours appear normal. The heart appears to be enlarged. There is aortic atherosclerosis. Bones and chest wall: No suspicious bony lesions. Degenerative changes of the spine and shoulders are not well characterized. Overlying soft tissues appear unremarkable. IMPRESSION: 1. Cardiomegaly and mild vascular congestion without overt heart failure. 2. No definite pneumonia. Dictated by: Mike Rios M.D. on 05/25/2018 at 15:10 Approved by: Mike Rios M.D. on 05/25/2018 at 15:11 ECG Data Interpretation: EKG shows atrial fibrillation with RVR. No ST elevation or depression. Ventricular rate of 123. QRS duration of 133. QT of 326 MDM Narrative Medical decision making narrative: CBC was elevated at 24 today. Troponin was elevated at 0.13 however this is consistent with his prior lab values. INR resulted as 5.6. Chest x-ray was a and was negative for any acute findings. Wanted to obtain obtain abdominal CT and pelvis however patient states she could not tolerated as he states he does not want to lay flat due to discomfort offered pain medications to help him with the CT he did a repeat he refused. Urinalysis shows signs of urinary tract infection. He was given vancomycin and Zosyn in the emergency room blood cultures were obtained and are pending. Patient has had short periods of AFib and then converted out. Highest heart rate was approximately 123 discussed case with hospitalist who accepts patient and will treat for suspected urosepsis. Patient will need to the wound care as well for cubic ulcer. accepted patient patient admitted to were for further treatment. After discussing case with hospitalist. Patient had . Where his heart rate went to 170 the blood pressure dropped to systolic of approximately 88. Diltiazem 20mg was ordered. However before diltiazem could be given patient again converted out AFib. 10 mg was ordered instead. Patient was placed on a Cardizem drip. Patient is now being admitted to ICU <Miguel Ángel Gaspar DO - Last Filed: 06/01/18 20:07> Lab Data Lab Results 05/25/18 05/25/18 05/25/18 Range/Units 15:30 15:30 15:30 WBC 24.0 H (4.5-11.0) X10^3/uL RBC 4.70 (4.5-5.9) X10^6/uL Hgb 12.6 L (13.5-17.5) g/dL Hct 38.3 L (41-53) % MCV 81.4 (80-100) fL MCH 26.8 (26-34) PG MCHC 33.0 (30-36) % RDW 16.4 H (11.6-14.8) % Plt Count 282 (150-400) X10^3/uL Neut % (Auto) 84.2 H (50-75) % Lymph % (Auto) 8.0 L (25-40) % [facility] % (Auto) 7.0 (3-14) % Eos % (Auto) 0.1 L (2-4) % Baso % (Auto) 0.7 (0-2) % Neut # (Auto) 10376 H (5948-6339) /uL PT 60.2 H (10.1-12.7) SECONDS INR 5.3 H* (0.9-1.3) APTT 47 H D (26.4-36.2) SECONDS Sodium 138 (137-145) mmol/L Potassium 4.4 (3.4-5.1) mmol/L Chloride 99 (98-107) mmol/L Carbon Dioxide 29 (22-32) mmol/L BUN 35 H (9-20) mg/dL Creatinine 1.40 H (0.66-1.25) mg/dL Estimated GFR 49.1 L (>60) mL/min BUN/Creatinine Ratio 25.0 H (6-22) Glucose 128 H (80-110) mg/dL Lactate (0.7-2.1) mmol/L Calcium 9.1 (8.4-10.2) mg/dL Magnesium (1.6-2.3) mg/dL Total Bilirubin 1.0 (0.2-1.3) mg/dL AST 46 (17-59) IU/L ALT 41 (21-72) IU/L Alkaline Phosphatase 152 H (38-126) U/L Total Creatine Kinase 71 (55-170) U/L CK-MB (CK-2) TNP CK-MB (CK-2) Rel Index TNP Troponin I 0.139 H* (0.01-0.034) ng/mL B-Natriuretic Peptide (<100) Total Protein 7.9 (6.3-8.2) g/dL Albumin 3.6 (3.5-5.0) g/dL Globulin 4.3 H (1.7-4.1) g/dL Albumin/Globulin Ratio 0.8 L (1.0-2.8) Lipase 29 (23-300) U/L Procalcitonin (<0.5) ng/mL Urine Color Urine Appearance Urine pH (4.5-8.0) Ur Specific [place] (1.000-1.035) Urine Protein (Negative) Urine Glucose (UA) (Normal) g/dL Urine Ketones (NEGATIVE) Urine Occult Blood (Negative) Urine Nitrate (Negative) Urine Bilirubin (NEGATIVE) Urine Urobilinogen (0.2) E.U./dL Ur Leukocyte Esterase (NEGATIVE) Urine RBC (0-5/HPF) Urine WBC (0-5/HPF) Ur Squamous Epith Cells Amorphous Sediment Urine Bacteria (None) Ur Culture Indicated? Micro UA Comment Nasal Screen MRSA (PCR) (Negative) A. baumannii (PCR) (Not Detect) Merly albicans (PCR) (Not Detect) C. glabrata (PCR) (Not Detect) C. krusei (PCR) (Not Detect) C. parapsilosis (PCR) (Not Detect) C. tropicalis (PCR) (Not Detect) Enterobacteriac sp PCR (Not Detect) E. cloacae complex PCR (Not Detect) Enterococcus sp PCR (Not Detect) E. coli (PCR) (Not Detect) H. influenzae (PCR) (Not Detect) Klebsiella oxytoca PCR (Not Detect) Klebsiella pneumoniae (Not Detect) List. monocytogenes PCR (Not Detect) N. meningitidis (PCR) (Not Detect) Proteus species (PCR) (Not Detect) Serratia marcescens PCR (Not Detect) Staphylococcus sp PCR (Not Detect) Staph aureus (PCR) (Not Detect) mecA-Methicil Res Gene Streptococcus sp PCR (Not Detect) Group A Strep (PCR) (Not Detect) Strep agalactiae (PCR) (Not Detect) Strep pneumoniae (PCR) (Not Detect) P. aeruginosa (PCR) (Not Detect) Pastor/B-Vanco Res Genes KPC-Carbap Res Gene PCR (Not Detect) 05/25/18 05/25/18 05/25/18 Range/Units 15:30 16:30 16:44 WBC (4.5-11.0) X10^3/uL RBC (4.5-5.9) X10^6/uL Hgb (13.5-17.5) g/dL Hct (41-53) % MCV (80-100) fL MCH (26-34) PG MCHC (30-36) % RDW (11.6-14.8) % Plt Count (150-400) X10^3/uL Neut % (Auto) (50-75) % Lymph % (Auto) (25-40) % [facility] % (Auto) (3-14) % Eos % (Auto) (2-4) % Baso % (Auto) (0-2) % Neut # (Auto) (0559-9074) /uL PT (10.1-12.7) SECONDS INR (0.9-1.3) APTT (26.4-36.2) SECONDS Sodium (137-145) mmol/L Potassium (3.4-5.1) mmol/L Chloride (98-107) mmol/L Carbon Dioxide (22-32) mmol/L BUN (9-20) mg/dL Creatinine (0.66-1.25) mg/dL Estimated GFR (>60) mL/min BUN/Creatinine Ratio (6-22) Glucose (80-110) mg/dL Lactate 1.4 (0.7-2.1) mmol/L Calcium (8.4-10.2) mg/dL Magnesium (1.6-2.3) mg/dL Total Bilirubin (0.2-1.3) mg/dL AST (17-59) IU/L ALT (21-72) IU/L Alkaline Phosphatase (38-126) U/L Total Creatine Kinase (55-170) U/L CK-MB (CK-2) CK-MB (CK-2) Rel Index Troponin I (0.01-0.034) ng/mL B-Natriuretic Peptide (<100) Total Protein (6.3-8.2) g/dL Albumin (3.5-5.0) g/dL Globulin (1.7-4.1) g/dL Albumin/Globulin Ratio (1.0-2.8) Lipase (23-300) U/L Procalcitonin 0.40 (<0.5) ng/mL Urine Color Yellow Urine Appearance Cloudy Urine pH 5.5 (4.5-8.0) Ur Specific [place] 1.010 (1.000-1.035) Urine Protein 1+ H (Negative) Urine Glucose (UA) Negative (Normal) g/dL Urine Ketones Negative (NEGATIVE) Urine Occult Blood 3+ H (Negative) Urine Nitrate Positive (Negative) Urine Bilirubin Negative (NEGATIVE) Urine Urobilinogen 0.2 (0.2) E.U./dL Ur Leukocyte Esterase 3+ H (NEGATIVE) Urine RBC 5-10/hpf H (0-5/HPF) Urine WBC >100/hpf H (0-5/HPF) Ur Squamous Epith Cells 0-1 /hpf Amorphous Sediment 1+ Urine Bacteria Many (>30) H (None) Ur Culture Indicated? Specimen cultured Micro UA Comment Not Reportable Nasal Screen MRSA (PCR) (Negative) A. baumannii (PCR) (Not Detect) Merly albicans (PCR) (Not Detect) C. glabrata (PCR) (Not Detect) C. krusei (PCR) (Not Detect) C. parapsilosis (PCR) (Not Detect) C. tropicalis (PCR) (Not Detect) Enterobacteriac sp PCR (Not Detect) E. cloacae complex PCR (Not Detect) Enterococcus sp PCR (Not Detect) E. coli (PCR) (Not Detect) H. influenzae (PCR) (Not Detect) Klebsiella oxytoca PCR (Not Detect) Klebsiella pneumoniae (Not Detect) List. monocytogenes PCR (Not Detect) N. meningitidis (PCR) (Not Detect) Proteus species (PCR) (Not Detect) Serratia marcescens PCR (Not Detect) Staphylococcus sp PCR (Not Detect) Staph aureus (PCR) (Not Detect) mecA-Methicil Res Gene Streptococcus sp PCR (Not Detect) Group A Strep (PCR) (Not Detect) Strep agalactiae (PCR) (Not Detect) Strep pneumoniae (PCR) (Not Detect) P. aeruginosa (PCR) (Not Detect) Pastor/B-Vanco Res Genes KPC-Carbap Res Gene PCR (Not Detect) 05/25/18 05/25/18 05/25/18 Range/Units 16:44 21:00 21:16 WBC (4.5-11.0) X10^3/uL RBC (4.5-5.9) X10^6/uL Hgb (13.5-17.5) g/dL Hct (41-53) % MCV (80-100) fL MCH (26-34) PG MCHC (30-36) % RDW (11.6-14.8) % Plt Count (150-400) X10^3/uL Neut % (Auto) (50-75) % Lymph % (Auto) (25-40) % [facility] % (Auto) (3-14) % Eos % (Auto) (2-4) % Baso % (Auto) (0-2) % Neut # (Auto) (4331-5398) /uL PT (10.1-12.7) SECONDS INR (0.9-1.3) APTT (26.4-36.2) SECONDS Sodium 136 L (137-145) mmol/L Potassium 4.1 (3.4-5.1) mmol/L Chloride 99 (98-107) mmol/L Carbon Dioxide 28 (22-32) mmol/L BUN 36 H (9-20) mg/dL Creatinine 1.50 H (0.66-1.25) mg/dL Estimated GFR 45.4 L (>60) mL/min BUN/Creatinine Ratio 24.0 H (6-22) Glucose 194 H (80-110) mg/dL Lactate (0.7-2.1) mmol/L Calcium 8.6 (8.4-10.2) mg/dL Magnesium (1.6-2.3) mg/dL Total Bilirubin (0.2-1.3) mg/dL AST (17-59) IU/L ALT (21-72) IU/L Alkaline Phosphatase (38-126) U/L Total Creatine Kinase (55-170) U/L CK-MB (CK-2) CK-MB (CK-2) Rel Index Troponin I 0.602 H* (0.01-0.034) ng/mL B-Natriuretic Peptide (<100) Total Protein (6.3-8.2) g/dL Albumin (3.5-5.0) g/dL Globulin (1.7-4.1) g/dL Albumin/Globulin Ratio (1.0-2.8) Lipase (23-300) U/L Procalcitonin (<0.5) ng/mL Urine Color Urine Appearance Urine pH (4.5-8.0) Ur Specific [place] (1.000-1.035) Urine Protein (Negative) Urine Glucose (UA) (Normal) g/dL Urine Ketones (NEGATIVE) Urine Occult Blood (Negative) Urine Nitrate (Negative) Urine Bilirubin (NEGATIVE) Urine Urobilinogen (0.2) E.U./dL Ur Leukocyte Esterase (NEGATIVE) Urine RBC (0-5/HPF) Urine WBC (0-5/HPF) Ur Squamous Epith Cells Amorphous Sediment Urine Bacteria (None) Ur Culture Indicated? Micro UA Comment Nasal Screen MRSA (PCR) Negative for mrsa (Negative) A. baumannii (PCR) Not detected (Not Detect) Merly albicans (PCR) Not detected (Not Detect) C. glabrata (PCR) Not detected (Not Detect) C. krusei (PCR) Not detected (Not Detect) C. parapsilosis (PCR) Not detected (Not Detect) C. tropicalis (PCR) Not detected (Not Detect) Enterobacteriac sp PCR Detected H (Not Detect) E. cloacae complex PCR Not detected (Not Detect) Enterococcus sp PCR Not detected (Not Detect) E. coli (PCR) Detected H (Not Detect) H. influenzae (PCR) Not detected (Not Detect) Klebsiella oxytoca PCR Not detected (Not Detect) Klebsiella pneumoniae Not detected (Not Detect) List. monocytogenes PCR Not detected (Not Detect) N. meningitidis (PCR) Not detected (Not Detect) Proteus species (PCR) Not detected (Not Detect) Serratia marcescens PCR Not detected (Not Detect) Staphylococcus sp PCR Not detected (Not Detect) Staph aureus (PCR) Not detected (Not Detect) mecA-Methicil Res Gene Not Reportable Streptococcus sp PCR Not detected (Not Detect) Group A Strep (PCR) Not detected (Not Detect) Strep agalactiae (PCR) Not detected (Not Detect) Strep pneumoniae (PCR) Not detected (Not Detect) P. aeruginosa (PCR) Not detected (Not Detect) Pastor/B-Vanco Res Genes Not Reportable KPC-Carbap Res Gene PCR Not detected (Not Detect) 05/25/18 05/25/18 05/26/18 Range/Units 21:16 21:16 04:47 WBC 21.4 H (4.5-11.0) X10^3/uL RBC 4.38 L (4.5-5.9) X10^6/uL Hgb 11.7 L (13.5-17.5) g/dL Hct 35.6 L (41-53) % MCV 81.4 (80-100) fL MCH 26.7 (26-34) PG MCHC 32.8 (30-36) % RDW 16.5 H (11.6-14.8) % Plt Count 251 (150-400) X10^3/uL Neut % (Auto) 83.1 H (50-75) % Lymph % (Auto) 11.8 L (25-40) % [facility] % (Auto) 4.8 (3-14) % Eos % (Auto) 0.1 L (2-4) % Baso % (Auto) 0.2 (0-2) % Neut # (Auto) 34309 H (4653-6643) /uL PT 76.8 H D (10.1-12.7) SECONDS INR 6.8 H* (0.9-1.3) APTT (26.4-36.2) SECONDS Sodium (137-145) mmol/L Potassium (3.4-5.1) mmol/L Chloride (98-107) mmol/L Carbon Dioxide (22-32) mmol/L BUN (9-20) mg/dL Creatinine (0.66-1.25) mg/dL Estimated GFR (>60) mL/min BUN/Creatinine Ratio (6-22) Glucose (80-110) mg/dL Lactate (0.7-2.1) mmol/L Calcium (8.4-10.2) mg/dL Magnesium (1.6-2.3) mg/dL Total Bilirubin (0.2-1.3) mg/dL AST (17-59) IU/L ALT (21-72) IU/L Alkaline Phosphatase (38-126) U/L Total Creatine Kinase (55-170) U/L CK-MB (CK-2) CK-MB (CK-2) Rel Index Troponin I (0.01-0.034) ng/mL B-Natriuretic Peptide 2080.0 H (<100) Total Protein (6.3-8.2) g/dL Albumin (3.5-5.0) g/dL Globulin (1.7-4.1) g/dL Albumin/Globulin Ratio (1.0-2.8) Lipase (23-300) U/L Procalcitonin (<0.5) ng/mL Urine Color Urine Appearance Urine pH (4.5-8.0) Ur Specific [place] (1.000-1.035) Urine Protein (Negative) Urine Glucose (UA) (Normal) g/dL Urine Ketones (NEGATIVE) Urine Occult Blood (Negative) Urine Nitrate (Negative) Urine Bilirubin (NEGATIVE) Urine Urobilinogen (0.2) E.U./dL Ur Leukocyte Esterase (NEGATIVE) Urine RBC (0-5/HPF) Urine WBC (0-5/HPF) Ur Squamous Epith Cells Amorphous Sediment Urine Bacteria (None) Ur Culture Indicated? Micro UA Comment Nasal Screen MRSA (PCR) (Negative) A. baumannii (PCR) (Not Detect) Merly albicans (PCR) (Not Detect) C. glabrata (PCR) (Not Detect) C. krusei (PCR) (Not Detect) C. parapsilosis (PCR) (Not Detect) C. tropicalis (PCR) (Not Detect) Enterobacteriac sp PCR (Not Detect) E. cloacae complex PCR (Not Detect) Enterococcus sp PCR (Not Detect) E. coli (PCR) (Not Detect) H. influenzae (PCR) (Not Detect) Klebsiella oxytoca PCR (Not Detect) Klebsiella pneumoniae (Not Detect) List. monocytogenes PCR (Not Detect) N. meningitidis (PCR) (Not Detect) Proteus species (PCR) (Not Detect) Serratia marcescens PCR (Not Detect) Staphylococcus sp PCR (Not Detect) Staph aureus (PCR) (Not Detect) mecA-Methicil Res Gene Streptococcus sp PCR (Not Detect) Group A Strep (PCR) (Not Detect) Strep agalactiae (PCR) (Not Detect) Strep pneumoniae (PCR) (Not Detect) P. aeruginosa (PCR) (Not Detect) Pastor/B-Vanco Res Genes KPC-Carbap Res Gene PCR (Not Detect) 05/26/18 05/26/18 05/26/18 Range/Units 04:47 04:47 08:55 WBC (4.5-11.0) X10^3/uL RBC (4.5-5.9) X10^6/uL Hgb (13.5-17.5) g/dL Hct (41-53) % MCV (80-100) fL MCH (26-34) PG MCHC (30-36) % RDW (11.6-14.8) % Plt Count (150-400) X10^3/uL Neut % (Auto) (50-75) % Lymph % (Auto) (25-40) % [facility] % (Auto) (3-14) % Eos % (Auto) (2-4) % Baso % (Auto) (0-2) % Neut # (Auto) (8237-0914) /uL PT 61.8 H D (10.1-12.7) SECONDS INR 5.5 H* (0.9-1.3) APTT (26.4-36.2) SECONDS Sodium 139 (137-145) mmol/L Potassium 4.2 (3.4-5.1) mmol/L Chloride 101 (98-107) mmol/L Carbon Dioxide 30 (22-32) mmol/L BUN 39 H (9-20) mg/dL Creatinine 1.60 H (0.66-1.25) mg/dL Estimated GFR 42.1 L (>60) mL/min BUN/Creatinine Ratio 24.4 H (6-22) Glucose 221 H (80-110) mg/dL Lactate 1.6 (0.7-2.1) mmol/L Calcium 8.5 (8.4-10.2) mg/dL Magnesium 2.5 H (1.6-2.3) mg/dL Total Bilirubin (0.2-1.3) mg/dL AST (17-59) IU/L ALT (21-72) IU/L Alkaline Phosphatase (38-126) U/L Total Creatine Kinase (55-170) U/L CK-MB (CK-2) CK-MB (CK-2) Rel Index Troponin I 3.880 H* (0.01-0.034) ng/mL B-Natriuretic Peptide (<100) Total Protein (6.3-8.2) g/dL Albumin (3.5-5.0) g/dL Globulin (1.7-4.1) g/dL Albumin/Globulin Ratio (1.0-2.8) Lipase (23-300) U/L Procalcitonin (<0.5) ng/mL Urine Color Urine Appearance Urine pH (4.5-8.0) Ur Specific [place] (1.000-1.035) Urine Protein (Negative) Urine Glucose (UA) (Normal) g/dL Urine Ketones (NEGATIVE) Urine Occult Blood (Negative) Urine Nitrate (Negative) Urine Bilirubin (NEGATIVE) Urine Urobilinogen (0.2) E.U./dL Ur Leukocyte Esterase (NEGATIVE) Urine RBC (0-5/HPF) Urine WBC (0-5/HPF) Ur Squamous Epith Cells Amorphous Sediment Urine Bacteria (None) Ur Culture Indicated? Micro UA Comment Nasal Screen MRSA (PCR) (Negative) A. baumannii (PCR) (Not Detect) Merly albicans (PCR) (Not Detect) C. glabrata (PCR) (Not Detect) C. krusei (PCR) (Not Detect) C. parapsilosis (PCR) (Not Detect) C. tropicalis (PCR) (Not Detect) Enterobacteriac sp PCR (Not Detect) E. cloacae complex PCR (Not Detect) Enterococcus sp PCR (Not Detect) E. coli (PCR) (Not Detect) H. influenzae (PCR) (Not Detect) Klebsiella oxytoca PCR (Not Detect) Klebsiella pneumoniae (Not Detect) List. monocytogenes PCR (Not Detect) N. meningitidis (PCR) (Not Detect) Proteus species (PCR) (Not Detect) Serratia marcescens PCR (Not Detect) Staphylococcus sp PCR (Not Detect) Staph aureus (PCR) (Not Detect) mecA-Methicil Res Gene Streptococcus sp PCR (Not Detect) Group A Strep (PCR) (Not Detect) Strep agalactiae (PCR) (Not Detect) Strep pneumoniae (PCR) (Not Detect) P. aeruginosa (PCR) (Not Detect) Pastor/B-Vanco Res Genes KPC-Carbap Res Gene PCR (Not Detect) 05/26/18 05/27/18 05/27/18 Range/Units 11:20 04:32 04:32 WBC 13.9 H (4.5-11.0) X10^3/uL RBC 3.97 L (4.5-5.9) X10^6/uL Hgb 10.7 L (13.5-17.5) g/dL Hct 32.3 L (41-53) % MCV 81.3 (80-100) fL MCH 26.9 (26-34) PG MCHC 33.0 (30-36) % RDW 16.2 H (11.6-14.8) % Plt Count 244 (150-400) X10^3/uL Neut % (Auto) 78.1 H (50-75) % Lymph % (Auto) 13.5 L (25-40) % [facility] % (Auto) 5.6 (3-14) % Eos % (Auto) 2.4 (2-4) % Baso % (Auto) 0.4 (0-2) % Neut # (Auto) 49486 H ([address]-25[address]) /uL PT (10.1-12.7) SECONDS INR (0.9-1.3) APTT (26.4-36.2) SECONDS Sodium 135 L (137-145) mmol/L Potassium 3.7 (3.4-5.1) mmol/L Chloride 98 (98-107) mmol/L Carbon Dioxide 30 (22-32) mmol/L BUN 38 H (9-20) mg/dL Creatinine 1.50 H (0.66-1.25) mg/dL Estimated GFR 45.4 L (>60) mL/min BUN/Creatinine Ratio 25.3 H (6-22) Glucose 160 H (80-110) mg/dL Lactate (0.7-2.1) mmol/L Calcium 8.2 L (8.4-10.2) mg/dL Magnesium (1.6-2.3) mg/dL Total Bilirubin (0.2-1.3) mg/dL AST (17-59) IU/L ALT (21-72) IU/L Alkaline Phosphatase (38-126) U/L Total Creatine Kinase (55-170) U/L CK-MB (CK-2) CK-MB (CK-2) Rel Index Troponin I 3.200 H* (0.01-0.034) ng/mL B-Natriuretic Peptide (<100) Total Protein (6.3-8.2) g/dL Albumin (3.5-5.0) g/dL Globulin (1.7-4.1) g/dL Albumin/Globulin Ratio (1.0-2.8) Lipase (23-300) U/L Procalcitonin (<0.5) ng/mL Urine Color Urine Appearance Urine pH (4.5-8.0) Ur Specific [place] (1.000-1.035) Urine Protein (Negative) Urine Glucose (UA) (Normal) g/dL Urine Ketones (NEGATIVE) Urine Occult Blood (Negative) Urine Nitrate (Negative) Urine Bilirubin (NEGATIVE) Urine Urobilinogen (0.2) E.U./dL Ur Leukocyte Esterase (NEGATIVE) Urine RBC (0-5/HPF) Urine WBC (0-5/HPF) Ur Squamous Epith Cells Amorphous Sediment Urine Bacteria (None) Ur Culture Indicated? Micro UA Comment Nasal Screen MRSA (PCR) (Negative) A. baumannii (PCR) (Not Detect) Merly albicans (PCR) (Not Detect) C. glabrata (PCR) (Not Detect) C. krusei (PCR) (Not Detect) C. parapsilosis (PCR) (Not Detect) C. tropicalis (PCR) (Not Detect) Enterobacteriac sp PCR (Not Detect) E. cloacae complex PCR (Not Detect) Enterococcus sp PCR (Not Detect) E. coli (PCR) (Not Detect) H. influenzae (PCR) (Not Detect) Klebsiella oxytoca PCR (Not Detect) Klebsiella pneumoniae (Not Detect) List. monocytogenes PCR (Not Detect) N. meningitidis (PCR) (Not Detect) Proteus species (PCR) (Not Detect) Serratia marcescens PCR (Not Detect) Staphylococcus sp PCR (Not Detect) Staph aureus (PCR) (Not Detect) mecA-Methicil Res Gene Streptococcus sp PCR (Not Detect) Group A Strep (PCR) (Not Detect) Strep agalactiae (PCR) (Not Detect) Strep pneumoniae (PCR) (Not Detect) P. aeruginosa (PCR) (Not Detect) Pastor/B-Vanco Res Genes KPC-Carbap Res Gene PCR (Not Detect) 05/28/18 05/28/18 05/28/18 Range/Units 04:48 04:48 04:48 WBC 11.9 H (4.5-11.0) X10^3/uL RBC 3.88 L (4.5-5.9) X10^6/uL Hgb 10.3 L (13.5-17.5) g/dL Hct 31.8 L (41-53) % MCV 81.8 (80-100) fL MCH 26.5 (26-34) PG MCHC 32.4 (30-36) % RDW 16.3 H (11.6-14.8) % Plt Count 262 (150-400) X10^3/uL Neut % (Auto) 70.0 (50-75) % Lymph % (Auto) 20.7 L (25-40) % [facility] % (Auto) 5.4 (3-14) % Eos % (Auto) 3.5 (2-4) % Baso % (Auto) 0.4 (0-2) % Neut # (Auto) 8400 H (2378-4409) /uL PT 15.4 H D (10.1-12.7) SECONDS INR 1.4 H (0.9-1.3) APTT (26.4-36.2) SECONDS Sodium 134 L (137-145) mmol/L Potassium 3.8 (3.4-5.1) mmol/L Chloride 100 (98-107) mmol/L Carbon Dioxide 27 (22-32) mmol/L BUN 31 H (9-20) mg/dL Creatinine 1.30 H (0.66-1.25) mg/dL Estimated GFR 53.5 L (>60) mL/min BUN/Creatinine Ratio 23.8 H (6-22) Glucose 199 H (80-110) mg/dL Lactate (0.7-2.1) mmol/L Calcium 8.2 L (8.4-10.2) mg/dL Magnesium (1.6-2.3) mg/dL Total Bilirubin (0.2-1.3) mg/dL AST (17-59) IU/L ALT (21-72) IU/L Alkaline Phosphatase (38-126) U/L Total Creatine Kinase (55-170) U/L CK-MB (CK-2) CK-MB (CK-2) Rel Index Troponin I (0.01-0.034) ng/mL B-Natriuretic Peptide (<100) Total Protein (6.3-8.2) g/dL Albumin (3.5-5.0) g/dL Globulin (1.7-4.1) g/dL Albumin/Globulin Ratio (1.0-2.8) Lipase (23-300) U/L Procalcitonin (<0.5) ng/mL Urine Color Urine Appearance Urine pH (4.5-8.0) Ur Specific [place] (1.000-1.035) Urine Protein (Negative) Urine Glucose (UA) (Normal) g/dL Urine Ketones (NEGATIVE) Urine Occult Blood (Negative) Urine Nitrate (Negative) Urine Bilirubin (NEGATIVE) Urine Urobilinogen (0.2) E.U./dL Ur Leukocyte Esterase (NEGATIVE) Urine RBC (0-5/HPF) Urine WBC (0-5/HPF) Ur Squamous Epith Cells Amorphous Sediment Urine Bacteria (None) Ur Culture Indicated? Micro UA Comment Nasal Screen MRSA (PCR) (Negative) A. baumannii (PCR) (Not Detect) Merly albicans (PCR) (Not Detect) C. glabrata (PCR) (Not Detect) C. krusei (PCR) (Not Detect) C. parapsilosis (PCR) (Not Detect) C. tropicalis (PCR) (Not Detect) Enterobacteriac sp PCR (Not Detect) E. cloacae complex PCR (Not Detect) Enterococcus sp PCR (Not Detect) E. coli (PCR) (Not Detect) H. influenzae (PCR) (Not Detect) Klebsiella oxytoca PCR (Not Detect) Klebsiella pneumoniae (Not Detect) List. monocytogenes PCR (Not Detect) N. meningitidis (PCR) (Not Detect) Proteus species (PCR) (Not Detect) Serratia marcescens PCR (Not Detect) Staphylococcus sp PCR (Not Detect) Staph aureus (PCR) (Not Detect) mecA-Methicil Res Gene Streptococcus sp PCR (Not Detect) Group A Strep (PCR) (Not Detect) Strep agalactiae (PCR) (Not Detect) Strep pneumoniae (PCR) (Not Detect) P. aeruginosa (PCR) (Not Detect) Pastor/B-Vanco Res Genes KPC-Carbap Res Gene PCR (Not Detect) 05/29/18 05/29/18 05/29/18 Range/Units 05:22 05:22 05:22 WBC 11.3 H (4.5-11.0) X10^3/uL RBC 4.07 L (4.5-5.9) X10^6/uL Hgb 10.7 L (13.5-17.5) g/dL Hct 33.3 L (41-53) % MCV 81.9 (80-100) fL MCH 26.4 (26-34) PG MCHC 32.2 (30-36) % RDW 16.4 H (11.6-14.8) % Plt Count 290 (150-400) X10^3/uL Neut % (Auto) 66.3 (50-75) % Lymph % (Auto) 24.1 L (25-40) % [place] % (Auto) 5.8 (3-14) % Eos % (Auto) 3.3 (2-4) % Baso % (Auto) 0.5 (0-2) % Neut # (Auto) 7500 H (6931-4828) /uL PT 15.3 H (10.1-12.7) SECONDS INR 1.4 H (0.9-1.3) APTT 32 D (26.4-36.2) SECONDS Sodium 137 (137-145) mmol/L Potassium 4.2 (3.4-5.1) mmol/L Chloride 103 (98-107) mmol/L Carbon Dioxide 28 (22-32) mmol/L BUN 27 H (9-20) mg/dL Creatinine 1.20 (0.66-1.25) mg/dL Estimated GFR 58.7 L (>60) mL/min BUN/Creatinine Ratio 22.5 H (6-22) Glucose 147 H (80-110) mg/dL Lactate (0.7-2.1) mmol/L Calcium 8.4 (8.4-10.2) mg/dL Magnesium 2.4 H (1.6-2.3) mg/dL Total Bilirubin (0.2-1.3) mg/dL AST (17-59) IU/L ALT (21-72) IU/L Alkaline Phosphatase (38-126) U/L Total Creatine Kinase (55-170) U/L CK-MB (CK-2) CK-MB (CK-2) Rel Index Troponin I (0.01-0.034) ng/mL B-Natriuretic Peptide (<100) Total Protein (6.3-8.2) g/dL Albumin (3.5-5.0) g/dL Globulin (1.7-4.1) g/dL Albumin/Globulin Ratio (1.0-2.8) Lipase (23-300) U/L Procalcitonin (<0.5) ng/mL Urine Color Urine Appearance Urine pH (4.5-8.0) Ur Specific [place] (1.000-1.035) Urine Protein (Negative) Urine Glucose (UA) (Normal) g/dL Urine Ketones (NEGATIVE) Urine Occult Blood (Negative) Urine Nitrate (Negative) Urine Bilirubin (NEGATIVE) Urine Urobilinogen (0.2) E.U./dL Ur Leukocyte Esterase (NEGATIVE) Urine RBC (0-5/HPF) Urine WBC (0-5/HPF) Ur Squamous Epith Cells Amorphous Sediment Urine Bacteria (None) Ur Culture Indicated? Micro UA Comment Nasal Screen MRSA (PCR) (Negative) A. baumannii (PCR) (Not Detect) Merly albicans (PCR) (Not Detect) C. glabrata (PCR) (Not Detect) C. krusei (PCR) (Not Detect) C. parapsilosis (PCR) (Not Detect) C. tropicalis (PCR) (Not Detect) Enterobacteriac sp PCR (Not Detect) E. cloacae complex PCR (Not Detect) Enterococcus sp PCR (Not Detect) E. coli (PCR) (Not Detect) H. influenzae (PCR) (Not Detect) Klebsiella oxytoca PCR (Not Detect) Klebsiella pneumoniae (Not Detect) List. monocytogenes PCR (Not Detect) N. meningitidis (PCR) (Not Detect) Proteus species (PCR) (Not Detect) Serratia marcescens PCR (Not Detect) Staphylococcus sp PCR (Not Detect) Staph aureus (PCR) (Not Detect) mecA-Methicil Res Gene Streptococcus sp PCR (Not Detect) Group A Strep (PCR) (Not Detect) Strep agalactiae (PCR) (Not Detect) Strep pneumoniae (PCR) (Not Detect) P. aeruginosa (PCR) (Not Detect) Pastor/B-Vanco Res Genes KPC-Carbap Res Gene PCR (Not Detect) Point of Care Testing Glucose POC 182 Discharge Plan Departure Patient Disposition: Admitted As Inpatient Clinical Impression: Weakness, Acute UTI Discharge Date/Time: 05/25/18 20:59 Interventions: ED Discharge Assessment Last Done: 05/25/18 20:58 Admit Date/Time: 05/25/18 18:38 Admit Provider: Kathy Orona <Miguel Ángel Gaspar DO - Last Filed: 06/01/18 20:07> Cosign ED Attending Cara Attestation: I was available for consultation during this patient's emergency department encounter
[2018-05-25 15:41] LABS: Add Manual Diff / Slide Review NO; Basophils Percent Auto 0.7 % (0-2); Eosinophils Percent Auto 0.1 % (2-4); Hematocrit 38.3 % (41-53); Hemoglobin 12.6 g/dL (13.5-17.5); Mean Corpuscular Hemoglobin 26.8 PG (26-34); Mean Corpuscular Volume 81.4 fL (80-100); Neutrophils Absolute Auto 20200 /uL (3000-5900); Neutrophils Percent Auto 84.2 % (50-75); Platelet Count 282 X10^3/uL (150-400); Red Cell Distribution Width 16.4 % (11.6-14.8)
--- NOTE | 2018-05-25 15:43 | DI.RAD.S_ITS ---
PROCEDURE: XR CHEST 1V INDICATIONS: Weakness TECHNIQUE: One view of the chest was acquired. COMPARISON: [facility], CR, XR CHEST 2V, 04/04/2018, 11:24. FINDINGS: Surgical changes and devices: A left-sided cardiac pacer such a fibular apparatus is again evident. Lungs and pleura: The lung volumes are again identified which are similar to the prior examination. Interposition of a the hepatic flexure of the colon underlying the right diaphragm is also similar to the prior study with mild elevation of the right diaphragm. No lobar consolidation, definite effusion, or obvious pneumothorax is appreciated. On the prominent perihilar interstitial markings are similar to the prior exam. Mediastinum: Mediastinal contours appear normal. The heart appears to be enlarged. There is aortic atherosclerosis. Bones and chest wall: No suspicious bony lesions. Degenerative changes of the spine and shoulders are not well characterized. Overlying soft tissues appear unremarkable. IMPRESSION: 1. Cardiomegaly and mild vascular congestion without overt heart failure. 2. No definite pneumonia. Dictated by: Mike Rios M.D. on 05/25/2018 at 15:10 Approved by: Mike Rios M.D. on 05/25/2018 at 15:11
[2018-05-25 15:45] LABS: HEMOLYSIS 16 (0-50)
[2018-05-25 15:49] LABS: PTT Partial Thromboplastin Tim 47 SECONDS (26.4-36.2)
[2018-05-25 15:51] LABS: Alanine Aminotransferase 41 IU/L (21-72); Albumin 3.6 g/dL (3.5-5.0); Albumin Globulin Ratio 0.8 (1.0-2.8); Alkaline Phosphatase 152 U/L (38-126); Aspartate Aminotransferase 46 IU/L (17-59); Blood Urea Nitrogen 35 mg/dL (9-20); Calcium 9.1 mg/dL (8.4-10.2); Carbon Dioxide 29 mmol/L (22-32); Chloride 99 mmol/L (98-107); Estimated Glomerular Filt Rate 49.1 mL/min (>60); Globulin 4.3 g/dL (1.7-4.1); Glucose 128 mg/dL (80-110); Potassium 4.4 mmol/L (3.4-5.1); Sodium 138 mmol/L (137-145); Total Protein 7.9 g/dL (6.3-8.2)
[2018-05-25 15:55] LABS: Prothrombin Time 60.2 SECONDS (10.1-12.7)
[2018-05-25 15:56] LABS: INR 5.3 (0.9-1.3)
[2018-05-25] MEDS: SODIUM CHLORIDE 0.9% 1,000 ML 150 ML IV (16:09)
[2018-05-25 16:24] LABS: Creatine Kinase 71 U/L (55-170); Lipase 29 U/L (23-300)
[2018-05-25 16:37] LABS: Troponin I 0.139 ng/mL (0.01-0.034)
[2018-05-25] MEDS: MORPHINE 2 MG/ML INJ IV (16:58)
[2018-05-25 17:14] LABS: Lactate (Lactic Acid) 1.4 mmol/L (0.7-2.1)
[2018-05-25 17:20] LABS: Appearance Urine UA CLOUDY; Bilirubin Urine UA NEGATIVE (NEGATIVE); Color Urine UA YELLOW; Glucose Urine UA NEGATIVE (Normal); Ketones Urine UA NEGATIVE (NEGATIVE); Leukocyte Esterase Urine UA 3+ (NEGATIVE); Nitrite Urine UA POSITIVE (Negative); Occult Blood Urine UA 3+ (Negative); Protein Urine UA 1+ (Negative); Urobilinogen Urine UA 0.2 E.U./dL (0.2); pH Urine UA 5.5 (4.5-8.0)
[2018-05-25] MEDS: PIPERACILLIN-TAZO 3.375 GM/50 ML FROZ.PIGGY IV (17:21)
[2018-05-25 17:33] LABS: Amorphous Sediment Urine 1+; Bacteria Urine Many (>30); Culture Indicated Urine Specimen Cultured; RBC Urine 5-10/HPF (0-5/HPF); Squamous Epithelial Cell Urine 0-1 /HPF; WBC Urine >100/HPF (0-5/HPF)
[2018-05-25] MEDS: VANCOMYCIN 1,500 MG in SODIUM CHLORIDE 0.9% 500 ML 333.333 ML IV (17:52)
--- NOTE | 2018-05-25 18:51 | PC.NURSE ---
pt c/o sudden onset sob. pt's monitor showing heart rate in 170's. oxygen placed on pt. rt called for ekg. Reported findings to mila escalera pt's provider.
[2018-05-25] MEDS: dilTIAZem 5 MG/ML SDV 20 MG IV (19:21)
[2018-05-25] MEDS: dilTIAZem 125 MG in DEXTROSE 5 % IN WATER 100 ML IV (20:24)
--- NOTE | 2018-05-25 20:56 | PC.NURSE ---
2044- Patient arrived via stretcher, with box toe cutter, 02 at 4l cannula, to room 103. Patient is very pale and ill looking. Vitals are wnl except for a elevated heart rate at 110-120. Diltiazem gtt at 5mg will titrate per orders. Patient is able to answer questions and is complaining of pain on his bottom and waist area. MD here to see patient.
--- NOTE | 2018-05-25 20:56 | PM.HP.1 ---
History of Present Illness Chief complaint: BROUGHT FROM WOUND CARE Narrative: Time of evaluation patient is in distress and unable to provide account of recent events. The patient is a 77-year-old male with PMH significant for chronic atrial fibrillation (chronic Tikosyn therapy / s/p PPM (2010) and AC w/ warfarin), HTN, HLD, obesity (BMI 37), MELINDA, DM 2T, and PE. Patient was seen in the wound clinic earlier in the day and was transferred to the ED out of concern for weakness, fever, and impaired mental status. On presentation to the ED patient was found to be in atrial fibrillation with rapid ventricular response. Initial lab work was concerning for sepsis. Patient denies chest pain, palpitations, dizziness, and lightheadedness. Patient was seen in the ED on 05/24/2018 for worsening sacral wound. Review of records does not know a concern for fever or impaired cognition. There is a notation to account for abnormal urine and a report of an irritated and bleeding wound. Patient's wound was treated and he was sent back to the nursing facility. Patient History Medical History Weakness (Chronic) Back pain (Chronic) Debility (Chronic) Sacral pressure ulcer (Chronic) Atrial fibrillation with RVR (Chronic) CHF (congestive heart failure) (Chronic) Non-ST elevation [place] (NSTEMI) (Chronic) Chronic anticoagulation (Acute) Chronic diastolic heart failure (Acute) Diabetes mellitus type 2, insulin dependent (Acute) Dyslipidemia (Acute) Nephrolithiasis (Resolved) History of pulmonary embolism (Inactive) Family & Social History Family History: Reviewed 05/25/18 by ALY Sheppard Social History: Patient resides in an assisted assisted care facility. Known to be in a debilitated functional state. Tobacco & Substance use: Smoking Status Never smoker alcohol intake Never alcohol intake frequency Holiday/special occasion Substance Use Type Does not use Meds Home Medications Medication Instructions Recorded Confirmed Type dofetilide [Tikosyn] 1 cap PO BID #0 06/17/11 05/25/18 History polyethylene glycol 3350 [Miralax] 17 gm PO DAILY #0 09/14/16 05/25/18 History acetaminophen 650 mg PO Q6HP PRN #0 02/19/17 05/25/18 History warfarin [Coumadin] 1 mg PO MOWEFR #0 02/19/17 05/25/18 History cyclobenzaprine 10 mg PO BIDP PRN #0 11/05/17 05/25/18 History insulin lispro [Humalog KwikPen 12 units SQ AC #0 11/05/17 05/25/18 History Insulin] clotrimazole-betamethasone 1 applic TOPICAL BID PRN 02/26/18 05/25/18 History insulin detemir U-100 [Levemir 45 unit SUB-Q BID 02/26/18 05/25/18 History FlexTouch U-100 Insuln] metoprolol tartrate 25 mg PO BID #60 tab 03/02/18 05/25/18 Rx atorvastatin 40 mg PO QPM 04/04/18 05/25/18 History docusate sodium 250 mg PO DAILY PRN 04/04/18 05/25/18 History lisinopril 5 mg PO DAILY 04/04/18 05/25/18 History morphine 30 mg PO BEDTIME 04/04/18 05/25/18 History sennosides [senna] 2 tab PO BID 04/04/18 05/25/18 History trazodone 50 mg PO BEDTIME PRN 04/04/18 05/25/18 History furosemide [Lasix] 40 mg PO DAILY #30 tab 04/06/18 05/25/18 Rx fluoxetine 10 mg PO DAILY 05/24/18 05/25/18 History hydrocortisone [Preparation H 1 applic MO PRN PRN MDD 4 x 05/24/18 05/25/18 History Hydrocortisone] insulin lispro [Humalog KwikPen 1 dose SUBCUT DIRECTED 05/24/18 05/25/18 History Insulin] lidocaine HCl 1 applic TOPICAL PRN PRN 05/24/18 05/25/18 History loratadine 10 mg PO DAILY 05/24/18 05/25/18 History morphine 15 - 30 mg PO Q6H PRN 05/24/18 05/25/18 History warfarin 2 mg PO SUTUTHSA 05/24/18 05/25/18 History zinc oxide [Boudreauxs Butt Paste] 1 applic TOPICAL PRN PRN 05/24/18 05/25/18 History zinc oxide [Boudreauxs Butt Paste] 1 applic TOPICAL TID 05/24/18 05/25/18 History Allergies Allergy/AdvReac Type Severity Reaction Status Date / Time hydromorphone [HYDROMORPHONE] Allergy Severe TOUNGE Verified 05/25/18 15:22 SWELLING cefotetan [CEFOTETAN] Allergy Unknown Verified 05/25/18 15:22 Review of Systems Review of Systems All systems reviewed & are unremarkable except as noted in HPI and below and other Exam Vital Signs (past 8 hours): - 05/25/18 15:22 05/25/18 16:10 05/25/18 17:05 Temperature 98.9 F Pulse Rate 60 69 103 H Respiratory Rate 20 17 18 Blood Pressure 122/69 Blood Pressure [Left Arm] 134/80 115/72 Pulse Oximetry 93 94 95 05/25/18 18:01 05/25/18 18:43 05/25/18 18:53 Temperature Pulse Rate 108 H 170 H 119 H Respiratory Rate 20 28 H Blood Pressure Blood Pressure [Left Arm] 115/77 88/69 L 105/69 Pulse Oximetry 94 97 05/25/18 19:21 05/25/18 20:01 05/25/18 20:24 Temperature Pulse Rate 112 H 126 H 108 H Respiratory Rate 28 H Blood Pressure 130/69 122/67 Blood Pressure [Left Arm] 111/57 L Pulse Oximetry 96 Oxygen Delivery Method Nasal Cannula Oxygen Flow Rate 4 Narrative Exam Narrative: Patient is seen in the ED. Const General: acute distress (Pale and tachypneic) Nutritional Appearance: obese Orientation: alert, awake, oriented to person and oriented to place HENDE Head: normocephalic and atraumatic Ears: external ears normal Nose: external nose normal Face and sinus: face symmetric Mouth: oropharynx normal and mucous membranes abnormal (Dry) Throat: posterior oropharynx normal Eyes General: appearance normal, both eyes and all related structures Conjunctivae: conjunctivae normal Sclera: sclerae normal Pupils: PERRL Neck Neck: normal visual inspection and full ROM Other: no JVD Chest Chest: normal inspection of the chest and normal palpation of entire chest wall Resp Effort & Inspection: decreased respiratory effort Auscultation: crackles (RLL) and diminished lung sounds Cardio Rhythm: abnormal rhythm irregularly irregular Other: GI Inspection: normal to inspection Palpation: firm (mildly) Auscultation: normal bowel sounds Other: non-tender Skin General: mottling and pallor Wounds: wounds noted (Decubitus sacral ulcer, stage III) Neuro General: alert, awake, oriented (person and place) and no focal motor deficits Speech: speech normal Motor: strength abnormal (diminished bilaterally in upper and lower extremities) Objective Labs Result Diagrams: 05/25/18 15:30 05/25/18 21:16 Labs: Laboratory Results - last 24 hr 05/25/18 05/25/18 05/25/18 15:30 15:30 15:30 WBC 24.0 H RBC 4.70 Hgb 12.6 L Hct 38.3 L MCV 81.4 MCH 26.8 MCHC 33.0 RDW 16.4 H Plt Count 282 Neut % (Auto) 84.2 H Lymph % (Auto) 8.0 L [place] % (Auto) 7.0 Eos % (Auto) 0.1 L Baso % (Auto) 0.7 Neut # (Auto) 27845 H PT 60.2 H INR 5.3 H* APTT 47 H D Sodium 138 Potassium 4.4 Chloride 99 Carbon Dioxide 29 BUN 35 H Creatinine 1.40 H Estimated GFR 49.1 L BUN/Creatinine Ratio 25.0 H Glucose 128 H Lactate Calcium 9.1 Total Bilirubin 1.0 AST 46 ALT 41 Alkaline Phosphatase 152 H Total Creatine Kinase 71 CK-MB (CK-2) TNP CK-MB (CK-2) Rel Index TNP Troponin I 0.139 H* Total Protein 7.9 Albumin 3.6 Globulin 4.3 H Albumin/Globulin Ratio 0.8 L Lipase 29 Procalcitonin Urine Color Urine Appearance Urine pH Ur Specific [place] Urine Protein Urine Glucose (UA) Urine Ketones Urine Occult Blood Urine Nitrate Urine Bilirubin Urine Urobilinogen Ur Leukocyte Esterase Urine RBC Urine WBC Ur Squamous Epith Cells Amorphous Sediment Urine Bacteria Ur Culture Indicated? Micro UA Comment 05/25/18 05/25/18 05/25/18 15:30 16:30 16:44 WBC RBC Hgb Hct MCV MCH MCHC RDW Plt Count Neut % (Auto) Lymph % (Auto) [place] % (Auto) Eos % (Auto) Baso % (Auto) Neut # (Auto) PT INR APTT Sodium Potassium Chloride Carbon Dioxide BUN Creatinine Estimated GFR BUN/Creatinine Ratio Glucose Lactate 1.4 Calcium Total Bilirubin AST ALT Alkaline Phosphatase Total Creatine Kinase CK-MB (CK-2) CK-MB (CK-2) Rel Index Troponin I Total Protein Albumin Globulin Albumin/Globulin Ratio Lipase Procalcitonin 0.40 Urine Color Yellow Urine Appearance Cloudy Urine pH 5.5 Ur Specific [place] 1.010 Urine Protein 1+ H Urine Glucose (UA) Negative Urine Ketones Negative Urine Occult Blood 3+ H Urine Nitrate Positive Urine Bilirubin Negative Urine Urobilinogen 0.2 Ur Leukocyte Esterase 3+ H Urine RBC 5-10/hpf H Urine WBC >100/hpf H Ur Squamous Epith Cells 0-1 /hpf Amorphous Sediment 1+ Urine Bacteria Many (>30) H Ur Culture Indicated? Specimen cultured Micro UA Comment Not Reportable Assessment & Plan Plan: Assessment/Plan Narrative: Sepsis WBC 24, tachycardia and tachycardia on presentation. BP stable. Lactic acid 1.4. Procalcitonin 0.4 2/2 UTI. Also, patient has an active sacral pressure ulcer. - admitted to the ICU - blood cultures collected in the ED, results pending, to be followed - urine culture pending - chest x-ray in am - limited IVF resuscitation in the setting of congestive heart failure and valvular heart disease - empiric therapy with Zosyn and vancomycin - Reyna catheter re: in ICU, close I/O monitoring; sacral pressure ulcer (stage 3) Cystitis w/ microscopic hematuria Leukocyte esterase 3+, urine WBC > 100, urine bacteria > 30 - on zosyn Atrial fibrillation with rapid ventricular rate ECHO (04/05/2018) LVEF 50-55%. Stage I diastolic dysfunction. Borderline concentric LVH. The distal septal hypokinesis, which could be due to ischemia, prior infarct or RV pacing. [employer] on Tikosyn and metoprolol therapy. PPM present (2010). Received a total of 30 mg IV diltiazem - admitted to the ICU re: sepsis, on diltiazem drip - start diltiazem drip, titrate per hospital protocol - hold Tikosyn and metoprolol tonight, re-evaluate in am - anti-coagulated with warfarin, will hold due to elevated INR - consult cardiology Supratherapeutic INR INR 5.4, chronic anticoagulation with warfarin - hold warfarin - consult pharmacy re: warfarin management - repeat INR at 11:30 p.m. and with a.m. labs, repeat INR 6.8, tx w/ 5 mg Vit K PO NSTEMI Potentially in the setting of AFIB RVR Trop 0.139. Denies chest pain or symptoms consistent with ACS. - Trend Trop Q8H x2 - Repeat trop 0.602, repeat EKG w/o acute changes Sacral pressure ulcer - consult wound care - Reyna catheter re: Close I/O monitoring, sacral wound Aortic stenosis (moderate) is worse per most recent echo (03/2018). Aortic valve mean gradient of 35.3 mmHg. Chronic diastolic heart failure LVEF 50-55%. CXR - mild vascular congestion w/o overt heart failure. Received 500 ml of NS, respectively - check BNP - will hold on aggressive fluid resuscitation in the setting of chronic diastolic heart failure and valvular heart disease - hold lasix, evaluate in am - I/Os, daily weight CKD Stage 3a sCr 1.4 / GFR 49 (baseline 1.1 to 1.2 mg/dL) - Trend renal fx w/ am lab - avoid nephrotoxin agents - optimize renal perfusion DM 2T, uncontrolled, insulin dependent HGB A1C 8.4% - AC / HS glucose checks - Resume [employer] long-acting insulin, hold tonight's dose, may need to consider reducing dose - SSI per sliding scale Chronic debility and weakness, w/c bound at baseline Chronic pain syndrome On multiple opioids, will hold for now, at risk for encephalopathy in the setting of sepsis and potentially JOSELITO H/O PE, on chronic anti-coagulation - warfarin on hold d/t supratherapeutic INR
[2018-05-25 21:33] LABS: Prothrombin Time 76.8 SECONDS (10.1-12.7)
[2018-05-25 21:37] LABS: Blood Urea Nitrogen 36 mg/dL (9-20); Calcium 8.6 mg/dL (8.4-10.2); Carbon Dioxide 28 mmol/L (22-32); Chloride 99 mmol/L (98-107); Estimated Glomerular Filt Rate 45.4 mL/min (>60); Glucose 194 mg/dL (80-110); HEMOLYSIS < 15 (0-50); Potassium 4.1 mmol/L (3.4-5.1); Sodium 136 mmol/L (137-145)
[2018-05-25 21:43] LABS: INR 6.8 (0.9-1.3)
[2018-05-25 21:50] LABS: Troponin I 0.602 ng/mL (0.01-0.034)
--- NOTE | 2018-05-25 22:49 | PC.NURSE ---
2230- Insulin held per MD order, metoprolol held per MD order. Diltiazem to remain on at 5mg/hr per MD. Patient is cool, clammy and pale. Patient denies chest pain, and vitals are stable. MD aware.
[2018-05-26] VITALS (15 sets, daily range): BP systolic 89–123; BP diastolic 39–68; PULSE 67–88; RESP 17–25; TEMP 36.1–36.6; O2SAT 95–100
--- NOTE | 2018-05-26 | DI.ECHO.S_ITS ---
[facility] +---------+ Hospital +---------+ : : [address] : [place] : : : : [id number] : : : : Phone: [phone]+ Echocardiogram Report + + :Name: LIANNA WATERMAN Study Date: 05/26/2018 Height: 72 in : :[facility] Weight: 273 lb: : Gender: Male BSA: 2.4 m2 : :: 1940 Age: 77 yrs : :Reason For Study: CHF EXACERBATION : : Performed By: Amelia Diaz : :Referring: UNSPECIFIED : + + Interpretation Summary The left ventricle is not well visualized but systolic function grossly appears to be fairly well preserved although assessment is very challenging because of the limited visibility, zqzi-pa-ojvj variability with the frequent PACs, and a moderate dyssynchronous contraction pattern. The ejection fraction is likely 50-60% without any obvious focal wall motion abnormalities and may be slightly less dynamic compared to the previous study but otherwise there has been no significant change There is mild concentric left ventricular hypertrophy. The right ventricle is not well visualized but appears to be mild to moderately dilated with systolic function that is mild to moderately reduced, and appears somewhat less dynamic compared to the previous study. Pulmonary artery pressures cannot be accurately estimated because of the lack of a reliably measurable TR jet velocity, again with considerable aspl-bq-jfzk variability but is likely unchanged from the previous study. The inferior vena cava was not visualized. The aortic valve is not well visualized but appears to be moderate??severely calcified with probable moderate to severely reduced leaflet mobility with probable severe aortic stenosis although there is considerable qadn-[id number]-[id number] variability of the peak velocities, ranging between 3.6 and 4.3 m/s but these are likely unchanged from the previous study. The peak aortic velocity is averaged at 3.8 m/sec compared to 3.7 m/sec on the previous exam. The aortic valve mean gradient averaged 37 mmHg. There is mild tricuspid regurgitation that is likely unchanged compared to the previous study. The patient was in normal sinus rhythm between 64-72 bpm with frequent PACs during the exam. Procedure: A two-dimensional transthoracic echocardiogram with color flow and Doppler was performed in limited views only to assess left ventricular function in a patient with elevated troponin. The study quality was technically difficult due to poor patient positioning, body habitus and inability to cooperate. Comparison is made with the echocardiogram of 04/05/2018. A contrast injection of Definity was performed to improve assessment of LV function. The patient was in normal sinus rhythm during the exam. The heart rate ranged between 64-72 bpm during the study. The patient had frequent PACs during the exam. Left Ventricle: The left ventricle is not well visualized. There is mild concentric left ventricular hypertrophy. The left ventricle is normal in size. Systolic function grossly appears to be fairly well preserved although assessment is very challenging because of the limited visibility, njkc-wi-wuro variability with the frequent PACs and a moderate dyssynchronous contraction pattern. The ejection fraction is likely 50-60% without any obvious focal wall motion abnormalities and may be slightly less dynamic compared to the previous study but otherwise his been no significant change. Diastolic function could not be accurately assessed due to paced rhythm. Right Ventricle: There is a pacemaker lead in the right ventricle. The right ventricle is not well visualized. The right ventricle is mild to moderately dilated. Right ventricular systolic function is mild to moderately reduced. This is somewhat less dynamic compared to the previous study. Atria: Not well visualized. Mitral Valve: The mitral valve is not well visualized. The mitral valve leaflets appear thickened, but open well. The mitral valve chordae are thickened and/or calcified. Aortic Valve: The aortic valve is not well visualized. But appears to be moderate??severely calcified with probable moderate to severely reduced leaflet mobility. There is probable severe aortic stenosis although there is considerable werf-nf-mtmj variability of the peak velocities, ranging between 3.6 and 4.3 m/s. This is likely unchanged from the previous study. The peak aortic velocity is averaged at 3.8 m/sec. The aortic valve mean gradient is averaged at 37 mmHg. The peak aortic velocity on the previous exam was 3.7 m/sec. No aortic regurgitation is present. Tricuspid Valve: There is mild tricuspid regurgitation. This is unchanged compared to the previous study. Pulmonary artery pressures cannot be estimated because of the lack of a measurable TR jet velocity. But this is likely unchanged from the previous study. Great Vessels: The inferior vena cava was not visualized. Pericardium/ Pleura There is no pericardial effusion. MMode/2D Measurements & Calculations LVIDd: 5.5 cm TAPSE: 2.3 cm LVIDs: 3.4 cm FS: 37.5 % IVSd: 1.2 cm LVPWd: 1.2 cm LV yates. diameter/BSA (cm/m^2): 2.3 LV sys. diameter/BSA (cm/m^2): 1.4 Doppler Measurements & Calculations Ao V2 max: 381.1 cm/sec MV E max chula: 80.7 cm/sec Ao V2 mean: 289.2 cm/sec MV A max chula: 70.2 cm/sec Ao max P.5 mmHg MV E/A: 1.1 Ao mean P.3 mmHg MV dec time: 0.22 sec Ao V2 VTI: 95.9 cm TR max chula: 230.9 cm/sec TR max P.7 mmHg Reading Physician:TIFFANIE
--- NOTE | 2018-05-26 | DI.RAD.S_ITS ---
PROCEDURE: XR CHEST 1V INDICATIONS: heart failure, sepsis TECHNIQUE: One view of the chest was acquired. COMPARISON: [facility], CT, CT ABDOMEN PELVIS W CON, 02/26/2018, 18:41. [facility], CR, XR CHEST 2V, 04/04/2018, 11:24. [facility], CR, XR CHEST 1V, 05/25/2018, 15:47. FINDINGS: Surgical changes and devices: Cardiac pacemaker is in expected position. Lungs and pleura: Increased pulmonary vascularity. Left basilar opacity may be consolidation or atelectasis. No large pleural effusions or pneumothorax. Mediastinum: Mediastinal contours appear normal. Heart size is normal. Right shoulder joint degeneration. Bones and chest wall: No suspicious bony lesions. Overlying soft tissues appear unremarkable. IMPRESSION: 1. Increased pulmonary vascularity compatible with mild congestive heart failure. 2. Left basilar opacity may be superimposed pneumonia or atelectasis. Dictated by: Yany Juarez M.D. on 05/26/2018 at 8:36 Approved by: Yany Juarez M.D. on 05/26/2018 at 8:39
[2018-05-26] MEDS: PHYTONADIONE (VIT K1) 5 MG TABLET PO ×2 (00:25→08:50)
[2018-05-26] MEDS: PIPERACILLIN-TAZO 3.375 GM/50 ML FROZ.PIGGY IV ×4 (04:03→20:15)
[2018-05-26 05:16] LABS: Prothrombin Time 61.8 SECONDS (10.1-12.7)
[2018-05-26 05:17] LABS: INR 5.5 (0.9-1.3)
[2018-05-26 05:18] LABS: Add Manual Diff / Slide Review NO; Basophils Percent Auto 0.2 % (0-2); Eosinophils Percent Auto 0.1 % (2-4); Hematocrit 35.6 % (41-53); Hemoglobin 11.7 g/dL (13.5-17.5); Lymphocytes Percent Auto 11.8 % (25-40); Mean Corpuscular HGB Conc 32.8 % (30-36); Mean Corpuscular Hemoglobin 26.7 PG (26-34); Mean Corpuscular Volume 81.4 fL (80-100); Monocytes Percent Auto 4.8 % (3-14); Neutrophils Absolute Auto 17800 /uL (3000-5900); Neutrophils Percent Auto 83.1 % (50-75); Platelet Count 251 X10^3/uL (150-400); Red Blood Cell Count 4.38 X10^6/uL (4.5-5.9); Red Cell Distribution Width 16.5 % (11.6-14.8); White Blood Cell Count 21.4 X10^3/uL (4.5-11.0)
[2018-05-26 05:25] LABS: BUN Creatinine Ratio 24.4 (6-22); Blood Urea Nitrogen 39 mg/dL (9-20); Calcium 8.5 mg/dL (8.4-10.2); Carbon Dioxide 30 mmol/L (22-32); Chloride 101 mmol/L (98-107); Estimated Glomerular Filt Rate 42.1 mL/min (>60); Glucose 221 mg/dL (80-110); HEMOLYSIS < 15 (0-50); Magnesium 2.5 mg/dL (1.6-2.3); Potassium 4.2 mmol/L (3.4-5.1); Sodium 139 mmol/L (137-145)
--- NOTE | 2018-05-26 05:51 | PC.NURSE ---
Addendum entered by Sherrie Bob R.N. 05/26/18 06:06: Stat EKG showing V-pacing. Results phoned to Dr. Orona. No new orders received. Denies CP/SOB. Sp02 98% 2LNC. Pt has refused to turn all shift. Educated on sacral wound, pt verbalized understanding and continues to decline turning. Original Note: TNI critical at 3.880. Dr. Orona notifed, orders for stat EKG and cardiology consult. Pt CP free. Denies SOB. Tele has been SR/Vpacing. Dr. Orona updated on patient status and overnight events.
--- NOTE | 2018-05-26 08:20 | P.PN_ITS ---
Subjective Date Patient Seen: 05/26/18 Time Patient Seen: 08:17 Interval history: Patient seen at bedside. He is cool and clammy as well as diaphoretic but is not in acute distress. Deneis any pain at this time or SOB. Denies nausea/vomiting/fevers. overnight Patient's troponins kept climbing to 3.8 and EKG continues to show Tw inversions in lateral leads. He received 500cc bolus and is in positive fluid balance. BP is 103/46 with MAP of 66. Making good UOP ( 750cc overnight). INR decreasing to 5.5. BNP is 2080. Exam Vital Signs (past 8 hours): - 05/26/18 01:00 05/26/18 01:56 05/26/18 02:44 Temperature Pulse Rate 77 88 76 Respiratory Rate 22 22 23 Blood Pressure 104/45 L 91/51 L 111/53 L Pulse Oximetry 98 97 97 05/26/18 04:00 05/26/18 05:00 05/26/18 05:56 Temperature Pulse Rate 86 75 86 Respiratory Rate 22 20 20 Blood Pressure 108/60 110/52 L 123/50 L Pulse Oximetry 97 97 99 05/26/18 07:34 Temperature 97.6 F Pulse Rate 83 Respiratory Rate 21 Blood Pressure 103/46 L Pulse Oximetry 99 Oxygen Delivery Method Nasal Cannula Oxygen Flow Rate 4 Narrative Exam Narrative: General: NAD, but lethargic HEENT: PERRLA BL Neck: SUpple, obese, JVD not present CV: Irregular rhythm, no murmurs Chest: Pacemaker is in place Resp: Mild crackles appreciated BL. Diminished breath sounds due to body habitus Abd: Obese, +BS, nontender Skin: cool, clammy. Capillary refill present MSK: Moves all extremities Psych: AAOx3 Objective Labs Result Diagrams: 05/26/18 04:47 05/26/18 04:47 Labs: Laboratory Results - last 24 hr 05/25/18 05/25/18 05/25/18 15:30 15:30 15:30 WBC 24.0 H RBC 4.70 Hgb 12.6 L Hct 38.3 L MCV 81.4 MCH 26.8 MCHC 33.0 RDW 16.4 H Plt Count 282 Neut % (Auto) 84.2 H Lymph % (Auto) 8.[address] [place] % (Auto) 7.0 Eos % (Auto) 0.1 L Baso % (Auto) 0.7 Neut # (Auto) 26210 H PT 60.2 H INR 5.3 H* APTT 47 H D Sodium 138 Potassium 4.4 Chloride 99 Carbon Dioxide 29 BUN 35 H Creatinine 1.40 H Estimated GFR 49.1 L BUN/Creatinine Ratio 25.0 H Glucose 128 H Lactate Calcium 9.1 Magnesium Total Bilirubin 1.0 AST 46 ALT 41 Alkaline Phosphatase 152 H Total Creatine Kinase 71 CK-MB (CK-2) TNP CK-MB (CK-2) Rel Index TNP Troponin I 0.139 H* B-Natriuretic Peptide Total Protein 7.9 Albumin 3.6 Globulin 4.3 H Albumin/Globulin Ratio 0.8 L Lipase 29 Procalcitonin Urine Color Urine Appearance Urine pH Ur Specific [place] Urine Protein Urine Glucose (UA) Urine Ketones Urine Occult Blood Urine Nitrate Urine Bilirubin Urine Urobilinogen Ur Leukocyte Esterase Urine RBC Urine WBC Ur Squamous Epith Cells Amorphous Sediment Urine Bacteria Ur Culture Indicated? Micro UA Comment Nasal Screen MRSA (PCR) 05/25/18 05/25/18 05/25/18 15:30 16:30 16:44 WBC RBC Hgb Hct MCV MCH MCHC RDW Plt Count Neut % (Auto) Lymph % (Auto) [place] % (Auto) Eos % (Auto) Baso % (Auto) Neut # (Auto) PT INR APTT Sodium Potassium Chloride Carbon Dioxide BUN Creatinine Estimated GFR BUN/Creatinine Ratio Glucose Lactate 1.4 Calcium Magnesium Total Bilirubin AST ALT Alkaline Phosphatase Total Creatine Kinase CK-MB (CK-2) CK-MB (CK-2) Rel Index Troponin I B-Natriuretic Peptide Total Protein Albumin Globulin Albumin/Globulin Ratio Lipase Procalcitonin 0.40 Urine Color Yellow Urine Appearance Cloudy Urine pH 5.5 Ur Specific [place] 1.010 Urine Protein 1+ H Urine Glucose (UA) Negative Urine Ketones Negative Urine Occult Blood 3+ H Urine Nitrate Positive Urine Bilirubin Negative Urine Urobilinogen 0.2 Ur Leukocyte Esterase 3+ H Urine RBC 5-10/hpf H Urine WBC >100/hpf H Ur Squamous Epith Cells 0-1 /hpf Amorphous Sediment 1+ Urine Bacteria Many (>30) H Ur Culture Indicated? Specimen cultured Micro UA Comment Not Reportable Nasal Screen MRSA (PCR) 05/25/18 05/25/18 05/25/18 21:00 21:16 21:16 WBC RBC Hgb Hct MCV MCH MCHC RDW Plt Count Neut % (Auto) Lymph % (Auto) [place] % (Auto) Eos % (Auto) Baso % (Auto) Neut # (Auto) PT INR APTT Sodium 136 L Potassium 4.1 Chloride 99 Carbon Dioxide 28 BUN 36 H Creatinine 1.50 H Estimated GFR 45.4 L BUN/Creatinine Ratio 24.0 H Glucose 194 H Lactate Calcium 8.6 Magnesium Total Bilirubin AST ALT Alkaline Phosphatase Total Creatine Kinase CK-MB (CK-2) CK-MB (CK-2) Rel Index Troponin I 0.602 H* B-Natriuretic Peptide 2080.0 H Total Protein Albumin Globulin Albumin/Globulin Ratio Lipase Procalcitonin Urine Color Urine Appearance Urine pH Ur Specific [place] Urine Protein Urine Glucose (UA) Urine Ketones Urine Occult Blood Urine Nitrate Urine Bilirubin Urine Urobilinogen Ur Leukocyte Esterase Urine RBC Urine WBC Ur Squamous Epith Cells Amorphous Sediment Urine Bacteria Ur Culture Indicated? Micro UA Comment Nasal Screen MRSA (PCR) Negative for mrsa 05/25/18 05/26/18 05/26/18 21:16 04:47 04:47 WBC 21.4 H RBC 4.38 L Hgb 11.7 L Hct 35.6 L MCV 81.4 MCH 26.7 MCHC 32.8 RDW 16.5 H Plt Count 251 Neut % (Auto) 83.1 H Lymph % (Auto) 11.[address] [place] % (Auto) 4.8 Eos % (Auto) 0.1 L Baso % (Auto) 0.2 Neut # (Auto) 20135 H PT 76.8 H D 61.8 H D INR 6.8 H* 5.5 H* APTT Sodium Potassium Chloride Carbon Dioxide BUN Creatinine Estimated GFR BUN/Creatinine Ratio Glucose Lactate Calcium Magnesium Total Bilirubin AST ALT Alkaline Phosphatase Total Creatine Kinase CK-MB (CK-2) CK-MB (CK-2) Rel Index Troponin I B-Natriuretic Peptide Total Protein Albumin Globulin Albumin/Globulin Ratio Lipase Procalcitonin Urine Color Urine Appearance Urine pH Ur Specific [place] Urine Protein Urine Glucose (UA) Urine Ketones Urine Occult Blood Urine Nitrate Urine Bilirubin Urine Urobilinogen Ur Leukocyte Esterase Urine RBC Urine WBC Ur Squamous Epith Cells Amorphous Sediment Urine Bacteria Ur Culture Indicated? Micro UA Comment Nasal Screen MRSA (PCR) 05/26/18 04:47 WBC RBC Hgb Hct MCV MCH MCHC RDW Plt Count Neut % (Auto) Lymph % (Auto) [place] % (Auto) Eos % (Auto) Baso % (Auto) Neut # (Auto) PT INR APTT Sodium 139 Potassium 4.2 Chloride 101 Carbon Dioxide 30 BUN 39 H Creatinine 1.60 H Estimated GFR 42.1 L BUN/Creatinine Ratio 24.4 H Glucose 221 H Lactate Calcium 8.5 Magnesium 2.5 H Total Bilirubin AST ALT Alkaline Phosphatase Total Creatine Kinase CK-MB (CK-2) CK-MB (CK-2) Rel Index Troponin I 3.880 H* B-Natriuretic Peptide Total Protein Albumin Globulin Albumin/Globulin Ratio Lipase Procalcitonin Urine Color Urine Appearance Urine pH Ur Specific [place] Urine Protein Urine Glucose (UA) Urine Ketones Urine Occult Blood Urine Nitrate Urine Bilirubin Urine Urobilinogen Ur Leukocyte Esterase Urine RBC Urine WBC Ur Squamous Epith Cells Amorphous Sediment Urine Bacteria Ur Culture Indicated? Micro UA Comment Nasal Screen MRSA (PCR) Assessment & Plan Plan: Assessment/Plan Narrative: 77yo M with mulitple comorbidities admitted to ICU with sepsis due to UTI. Found to have troponin elevation that continues to rise with non specific T wave changes. Also found to have Afib with RVR requiring Diltiazem drip for few hrs. Also found to have supratherapeutic INR. 1. Sepsis due to UTI - Leukocytosis improving, now at 21K - Lactic acid on admission 1.4 but patient's skin is cool and clammy: will repeat- - UOP 750cc/hr, MAP >65 - Continue Vanc and Zosyn at this time and wait for blood and urine cultures to come back - Continue to monitor BP and get ECHO to decide whether patient needs diuresis vs IVF 2. Troponin Elevation - Possibly from NSTEMI vs Demand ischemia due to sepsis - On the rise, now 3.8 - EKG showing T wave inversions in lateral leads - Spoke with Dr. Tomlinson from cardiology: patient may not be a candidate for intervention given poor renal function as well as current sepsis. Will evaluate patient - Cotinue to trend troponins and EKG - Will withold all antiplatelet agents as patient's INR is supratherapeutic 3. Afib with RVR - Resolved on Diltiazem drip - Will stop Diltiazem drip and resume metoprolol 25mg BID - Continue to hold warfarin as INR is still 5.5 4. Supratherapeutic INR - 5.5 this morning. will give another dose of Vitamin K PO 5mg 5. Diastolic CHF - May be in exacerbation, as exam is equivocal - Fluid balance positive and mild edema on exam - CXR showed vascular congestion and cardiomegally but no pulmonary edema/ effusions - BNP 2000+ - Will get ECHO with doppler to assess changes in ventricular function - Leonor required diuresis with lasix drip, as BP is borderline and MAP is barely above 65 - Continue I/O, daily weights, fluid restriction 6. JOSELITO on CKD - Cr at baseline 1.4...Currently rising to 1.6 - Could be due to fluid overload vs Sepsis - Will get ECHO stat and hold off on diuresis vs IVF administration....MAP >65 currently with good UOP 7. Sacral Ulcer - Wound care consult 8. Aortic stenosis - Will need OP cardiology consult 9. DM - Continue sliding scale and long acting insulin 10. Debility and weakness - Wheel chair bound - PT/OT when out of sepsis 5. Quality VTE Deep Vein Thrombosis/Pulmonary Embolism Present on Admission: No
[2018-05-26] MEDS: SENNOSIDES 8.6 MG TABLET 17.2 MG PO (08:48)
[2018-05-26] MEDS: FLUoxetine 10 MG CAPSULE PO (08:48)
[2018-05-26] MEDS: METOPROLOL 25 MG TABLET PO ×2 (08:49→21:31)
[2018-05-26] MEDS: PANTOPRAZOLE 40 MG VIAL IV (08:49)
[2018-05-26] MEDS: INSULIN ASPART 100 UNIT/ML INSULN PEN SUBCUT ×4 (09:19→21:32)
[2018-05-26 09:20] LABS: Lactate (Lactic Acid) 1.6 mmol/L (0.7-2.1)
--- NOTE | 2018-05-26 10:08 | PC.NURSE ---
Addendum entered by Brandon Benavides R.N. 05/26/18 15:31: Transferred pt to [facility] bed with 4PA. Pt turned to right, provided hygiene/clarisse care. Cleansed wound and dressed per order. Pictures taken. Pt tolerated well. Report given to oncoming RN. Original Note: MD on rounds 0800. Reported VS, labs, and noted changes in rhythm on telemetry. MD gave verbal order for EKG. Instructed to hold pt NPO and await cardiology to round. Echo ordered STAT. Clarified STAT order on echo and MD states may be done URGENT. Called to mortuary technician who states soonest available echo time is 1500. MD instructs to stop diltiazem and give PO meds and that it is ok for pt to have juice with meds.
--- NOTE | 2018-05-26 15:25 | CM.DANOTE ---
Discharge Planning/Care Management DCP: assessment: case received, EMR reviewed and met with pt. Introduced self and role. Pt is a 77 year old male who admitted to care of the hospitalist team yesterday evening. Payer: Medicare and [employer] Pt lives at [facility] and receives a high level of care there. He goes to the [facility] wound [facility]. He wishes to go back to [facility] if at all possible although has, in past, needed [facility] first for snf level care, typically if needing IV antibiotics. Connor DSN is updated. She or one of her nurses will be over tomorrow to assess pt. P: return [facility] if able, otherwise brief snf stay Determined after discussion with Connor that pt does not have a designated family member to contact. He does have a POLST on file: No CPR and Limited Interventions are chosen on the form, dated 2013. CM Discharge Assessment Start: 05/26/18 15:22 Freq: Status: Active Protocol: Document 05/26/18 15:22 ITV (Rec: 05/26/18 15:25 ITV [id number]) Discharge Planning Assessment Advance Directives? Yes: POLST dated 06/29/16 Advance Directives on File Yes: POLST in chart History Provided By Patient Medical Record Prior Living Arrangements Assisted Living Household Members none Facility Name Admitted From: [facility] Willing to Return to Facility? Yes Discharge Plan Assisted Living Facility Transportation Arrangement unknown at this time Whiteboard Updated in Patient Room with Yes name and ext. # of Data Conversion Developer Review Status In Process Next Review Type Continued Stay Review
--- NOTE | 2018-05-26 16:09 | P.CONS_ITS ---
History of Present Illness Date Patient Seen: 05/26/18 Time Patient Seen: 12:40 Chief complaint: BROUGHT FROM WOUND CARE Reason for consult: Rapid atrial fibrillation and elevated troponin Requesting provider: Kathy Orona Narrative: The patient is a 77-year-old male with a longstanding history of cardiac disease followed by Dr. Gomez of [facility] for hypertension and paroxysmal atrial fibrillation requiring Tikosyn therapy and pacemaker implantation in 2010. Previous cardiac catheterization in 2009 suggested only a 40% LAD stenosis with mild irregularity elsewhere. He has a known systolic murmur and had an echocardiogram in 2016 that showed normal left ventricular systolic function with an EF around 60% without focal abnormality but probable aortic stenosis although this was unable to be quantitated because of his severe obesity. There were no other valvular abnormalities. There was right ventricular enlargement but pulmonary artery pressure could not be estimated and he has a history of pulmonary embolism in 2007. He has become chronically debilitated, now wheelchair-bound and living in an assisted living facility. When he saw Dr. Gomez last in November 2017, he had occasional episodes of breakthrough of atrial fibrillation but generally was doing fairly well until he was admitted on 02/26/2018 with fever and altered mental status and was felt to have a urinary tract infection and pneumonia. He developed rapid atrial fibrillation that converted to sinus rhythm with IV diltiazem. His troponin increased to 0.4 with a creatinine is 1.5. He was treated with antibiotic therapy but continued to have episodes of intermittent atrial fibrillation and was found to have a sacral decubitus ulcer. He was ultimately discharged but readmitted on 04/04/2018 with dyspnea and lower extremity edema and significant hypertension. His troponin again increased to 0.10 with a creatinine of 0.9 and BNP 1150. An echocardiogram suggested an EF of 50 to 55% with septal hypokinesis secondary to his pacemaker as well as probable moderate to severe aortic stenosis with a mean gradient of 35 mmHg and a peak velocity around 3.7 m /sec with a calculated valve area of 0.8 cm2. Pulmonary artery pressure was estimated at 33 mm hg plus the clinically estimated CVP which could not be estimated on that exam. He was treated with IV furosemide and discharge back to his assisted care. He has been treated as an outpatient for an ongoing urinary tract infection as well as his sacral decubiti with oral antibiotics but it was felt that this was ineffective and so he was referred to the emergency room from wound care, but it was reported that he also had a fever and altered mental status although the patient states that he was asymptomatic. He was again found to have atrial fibrillation at 120 to 170 bpm and an elevated white count of 24,000 with a BUN of 35 and creatinine 1.4. His initial troponin was 0.14 and his ECG showed a right bundle branch block but was otherwise unremarkable. His INR was 5.3 and he had a normal CK. He was started on IV diltiazem and converted back to sinus rhythm and developed hypotension that was felt to have a degree of septic shock. His Tikosyn and metoprolol were held. His subsequent troponin increased incrementally to 0.6 and then to 3.8. He has been started on IV antibiotics. Currently, he feels that he is at his usual baseline and denies any significant dyspnea and denies any sense of any chest discomfort. He has not had any sense of palpitations but has never been able to discern when he has had atrial fibrillation. He remains quite debilitated from arthritis and is unable to lay flat because of neck fusion. He denies any recent weight change and in fact has lost around 10 to 15 lb over the past year and denies any change in his pedal edema. His blood pressures at home and generally been in the 130 to 140 range. His echocardiogram from today is of relatively poor quality but suggest preserved left ventricular systolic function with an EF of around 50 to 60% with a dyssynchronous contraction pattern but no obvious focal wall motion abnormalities. The right ventricle appears to be moderately enlarged and moderately hypokinetic but pulmonary artery pressures and CVP cannot be estimated. There likely is severe aortic stenosis, likely unchanged from his previous but again difficult to quantitate. His ECG from today shows sinus rhythm with frequent PACs with a right bundle branch block and nonspecific ST segment abnormalities and is essentially unchanged from his ECG from 04/04/2018 a previous ECG from this morning shows some ventricular pacing but continued to show underlying sinus rhythm. His other medical problems include known kidney stone that is read previously required ureteral stents. He has a history of hyperlipidemia but has not been intolerant to statins and has diabetes and hypertension. He has never smoked and there is no family history of any premature coronary disease. He also has known obstructive sleep apnea. [facility] Medical History Weakness (Chronic) Back pain (Chronic) Debility (Chronic) Sacral pressure ulcer (Chronic) Atrial fibrillation with RVR (Chronic) CHF (congestive heart failure) (Chronic) Non-ST elevation LA (NSTEMI) (Chronic) Chronic anticoagulation (Acute) Chronic diastolic heart failure (Acute) Diabetes mellitus type 2, insulin dependent (Acute) Dyslipidemia (Acute) Nephrolithiasis (Resolved) History of pulmonary embolism (Inactive) Family History: Reviewed 05/25/18 by ALY Sheppard Social History household members: none Smoking Status: Never smoker alcohol intake: never Meds Home Medications Medication Instructions Recorded Confirmed Type dofetilide [Tikosyn] 1 cap PO BID #0 06/17/11 05/25/18 History polyethylene glycol 3350 [Miralax] 17 gm PO DAILY #0 09/14/16 05/25/18 History acetaminophen 650 mg PO Q6HP PRN #0 02/19/17 05/25/18 History warfarin [Coumadin] 1 mg PO MOWEFR #0 02/19/17 05/25/18 History cyclobenzaprine 10 mg PO BIDP PRN #0 11/05/17 05/25/18 History insulin lispro [Humalog KwikPen 12 units SQ AC #0 11/05/17 05/25/18 History Insulin] clotrimazole-betamethasone 1 applic TOPICAL BID PRN 02/26/18 05/25/18 History insulin detemir U-100 [Levemir 45 unit SUB-Q BID 02/26/18 05/25/18 History FlexTouch U-100 Insuln] metoprolol tartrate 25 mg PO BID #60 tab 03/02/18 05/25/18 Rx atorvastatin 40 mg PO QPM 04/04/18 05/25/18 History docusate sodium 250 mg PO DAILY PRN 04/04/18 05/25/18 History lisinopril 5 mg PO DAILY 04/04/18 05/25/18 History morphine 30 mg PO BEDTIME 04/04/18 05/25/18 History sennosides [senna] 2 tab PO BID 04/04/18 05/25/18 History trazodone 50 mg PO BEDTIME PRN 04/04/18 05/25/18 History furosemide [Lasix] 40 mg PO DAILY #30 tab 04/06/18 05/25/18 Rx fluoxetine 10 mg PO DAILY 05/24/18 05/25/18 History hydrocortisone [Preparation H 1 applic [place] PRN PRN MDD 4 x 05/24/18 05/25/18 History Hydrocortisone] insulin lispro [Humalog KwikPen 1 dose SUBCUT DIRECTED 05/24/18 05/25/18 History Insulin] lidocaine HCl 1 applic TOPICAL PRN PRN 05/24/18 05/25/18 History loratadine 10 mg PO DAILY 05/24/18 05/25/18 History morphine 15 - 30 mg PO Q6H PRN 05/24/18 05/25/18 History warfarin 2 mg PO SUTUTHSA 05/24/18 05/25/18 History zinc oxide [B[place]reauxs Butt Paste] 1 applic TOPICAL PRN PRN 05/24/18 05/25/18 History zinc oxide [B[place]reauxs Butt Paste] 1 applic TOPICAL TID 05/24/18 05/25/18 History Allergies Allergy/AdvReac Type Severity Reaction Status Date / Time hydromorphone [HYDROMORPHONE] Allergy Severe TOUNGE Verified 05/25/18 15:22 SWELLING cefotetan [CEFOTETAN] Allergy Unknown Verified 05/25/18 15:22 Exam Vital Signs (past 8 hours): - 05/26/18 09:38 05/26/18 10:52 05/26/18 11:47 Temperature 96.9 F L Pulse Rate 75 68 67 Respiratory Rate 17 23 21 Blood Pressure 105/68 102/52 L 97/50 L Pulse Oximetry 95 99 100 05/26/18 12:48 05/26/18 14:13 Temperature Pulse Rate 73 75 Respiratory Rate 20 25 H Blood Pressure 98/58 L 104/39 L Pulse Oximetry 99 95 Oxygen Delivery Method Nasal Cannula Oxygen Flow Rate 4 Narrative Exam Narrative: The patient is a chronically ill-appearing, severely obese elderly white male in no distress. HR 73 with a BP of 90/58 and O2 saturation of 95%. His physical exam is severely limited by restricted positioning because of his obesity and immobility of his neck. Skin: Warm and dry also with cool feet. HEENT: EOMI. He has a full set of dentures. Lungs: Clear bilaterally to auscultation. CV: Nonpalpable PMI with a regular rate and rhythm with occasional premature beats. Has a normal S1 and S2 with a 2/6 high-pitched systolic ejection murmur without significant radiation to the carotids also difficult to palpate because of limited neck positioning. There is no obvious bruits. There is no obvious JVD although nuchal obesity makes the exam is challenging. Abdomen: Severely obese but nondistended and nontender without any palpable masses or hepatosplenomegaly. : Reyna catheter draining moderately yellow urine Extremities: Cool feet but otherwise warm with trace pedal edema Neuro: No obvious focal deficits Psych: Awake and appropriate. Objective Labs Result Diagrams: 05/26/18 04:47 05/26/18 04:47 Labs: Laboratory Results - last 24 hr 05/25/18 05/25/18 05/25/18 15:30 15:30 15:30 WBC 24.0 H RBC 4.70 Hgb 12.6 L Hct 38.3 L MCV 81.4 MCH 26.8 MCHC 33.0 RDW 16.4 H Plt Count 282 Neut % (Auto) 84.2 H Lymph % (Auto) 8.0 L [place] % (Auto) 7.0 Eos % (Auto) 0.1 L Baso % (Auto) 0.7 Neut # (Auto) 03516 H PT 60.2 H INR 5.3 H* APTT 47 H D Sodium 138 Potassium 4.4 Chloride 99 Carbon Dioxide 29 BUN 35 H Creatinine 1.40 H Estimated GFR 49.1 L BUN/Creatinine Ratio 25.0 H Glucose 128 H Lactate Calcium 9.1 Magnesium Total Bilirubin 1.0 AST 46 ALT 41 Alkaline Phosphatase 152 H Total Creatine Kinase 71 CK-MB (CK-2) TNP CK-MB (CK-2) Rel Index TNP Troponin I 0.139 H* B-Natriuretic Peptide Total Protein 7.9 Albumin 3.6 Globulin 4.3 H Albumin/Globulin Ratio 0.8 L Lipase 29 Procalcitonin Urine Color Urine Appearance Urine pH Ur Specific [place] Urine Protein Urine Glucose (UA) Urine Ketones Urine Occult Blood Urine Nitrate Urine Bilirubin Urine Urobilinogen Ur Leukocyte Esterase Urine RBC Urine WBC Ur Squamous Epith Cells Amorphous Sediment Urine Bacteria Ur Culture Indicated? Micro UA Comment Nasal Screen MRSA (PCR) 05/25/18 05/25/18 05/25/18 15:30 16:30 16:44 WBC RBC Hgb Hct MCV MCH MCHC RDW Plt Count Neut % (Auto) Lymph % (Auto) [place] % (Auto) Eos % (Auto) Baso % (Auto) Neut # (Auto) PT INR APTT Sodium Potassium Chloride Carbon Dioxide BUN Creatinine Estimated GFR BUN/Creatinine Ratio Glucose Lactate 1.4 Calcium Magnesium Total Bilirubin AST ALT Alkaline Phosphatase Total Creatine Kinase CK-MB (CK-2) CK-MB (CK-2) Rel Index Troponin I B-Natriuretic Peptide Total Protein Albumin Globulin Albumin/Globulin Ratio Lipase Procalcitonin 0.40 Urine Color Yellow Urine Appearance Cloudy Urine pH 5.5 Ur Specific [place] 1.010 Urine Protein 1+ H Urine Glucose (UA) Negative Urine Ketones Negative Urine Occult Blood 3+ H Urine Nitrate Positive Urine Bilirubin Negative Urine Urobilinogen 0.2 Ur Leukocyte Esterase 3+ H Urine RBC 5-10/hpf H Urine WBC >100/hpf H Ur Squamous Epith Cells 0-1 /hpf Amorphous Sediment 1+ Urine Bacteria Many (>30) H Ur Culture Indicated? Specimen cultured Micro UA Comment Not Reportable Nasal Screen MRSA (PCR) 05/25/18 05/25/18 05/25/18 21:00 21:16 21:16 WBC RBC Hgb Hct MCV MCH MCHC RDW Plt Count Neut % (Auto) Lymph % (Auto) [place] % (Auto) Eos % (Auto) Baso % (Auto) Neut # (Auto) PT INR APTT Sodium 136 L Potassium 4.1 Chloride 99 Carbon Dioxide 28 BUN 36 H Creatinine 1.50 H Estimated GFR 45.4 L BUN/Creatinine Ratio 24.0 H Glucose 194 H Lactate Calcium 8.6 Magnesium Total Bilirubin AST ALT Alkaline Phosphatase Total Creatine Kinase CK-MB (CK-2) CK-MB (CK-2) Rel Index Troponin I 0.602 H* B-Natriuretic Peptide 2080.0 H Total Protein Albumin Globulin Albumin/Globulin Ratio Lipase Procalcitonin Urine Color Urine Appearance Urine pH Ur Specific [place] Urine Protein Urine Glucose (UA) Urine Ketones Urine Occult Blood Urine Nitrate Urine Bilirubin Urine Urobilinogen Ur Leukocyte Esterase Urine RBC Urine WBC Ur Squamous Epith Cells Amorphous Sediment Urine Bacteria Ur Culture Indicated? Micro UA Comment Nasal Screen MRSA (PCR) Negative for mrsa 05/25/18 05/26/18 05/26/18 21:16 04:47 04:47 WBC 21.4 H RBC 4.38 L Hgb 11.7 L Hct 35.6 L MCV 81.4 MCH 26.7 MCHC 32.8 RDW 16.5 H Plt Count 251 Neut % (Auto) 83.1 H Lymph % (Auto) 11.8 L [place] % (Auto) 4.8 Eos % (Auto) 0.1 L Baso % (Auto) 0.2 Neut # (Auto) 37881 H PT 76.8 H D 61.8 H D INR 6.8 H* 5.5 H* APTT Sodium Potassium Chloride Carbon Dioxide BUN Creatinine Estimated GFR BUN/Creatinine Ratio Glucose Lactate Calcium Magnesium Total Bilirubin AST ALT Alkaline Phosphatase Total Creatine Kinase CK-MB (CK-2) CK-MB (CK-2) Rel Index Troponin I B-Natriuretic Peptide Total Protein Albumin Globulin Albumin/Globulin Ratio Lipase Procalcitonin Urine Color Urine Appearance Urine pH Ur Specific [place] Urine Protein Urine Glucose (UA) Urine Ketones Urine Occult Blood Urine Nitrate Urine Bilirubin Urine Urobilinogen Ur Leukocyte Esterase Urine RBC Urine WBC Ur Squamous Epith Cells Amorphous Sediment Urine Bacteria Ur Culture Indicated? Micro UA Comment Nasal Screen MRSA (PCR) 05/26/18 05/26/18 05/26/18 04:47 08:55 11:20 WBC RBC Hgb Hct MCV MCH MCHC RDW Plt Count Neut % (Auto) Lymph % (Auto) [place] % (Auto) Eos % (Auto) Baso % (Auto) Neut # (Auto) PT INR APTT Sodium 139 Potassium 4.2 Chloride 101 Carbon Dioxide 30 BUN 39 H Creatinine 1.60 H Estimated GFR 42.1 L BUN/Creatinine Ratio 24.4 H Glucose 221 H Lactate 1.6 Calcium 8.5 Magnesium 2.5 H Total Bilirubin AST ALT Alkaline Phosphatase Total Creatine Kinase CK-MB (CK-2) CK-MB (CK-2) Rel Index Troponin I 3.880 H* 3.200 H* B-Natriuretic Peptide Total Protein Albumin Globulin Albumin/Globulin Ratio Lipase Procalcitonin Urine Color Urine Appearance Urine pH Ur Specific [place] Urine Protein Urine Glucose (UA) Urine Ketones Urine Occult Blood Urine Nitrate Urine Bilirubin Urine Urobilinogen Ur Leukocyte Esterase Urine RBC Urine WBC Ur Squamous Epith Cells Amorphous Sediment Urine Bacteria Ur Culture Indicated? Micro UA Comment Nasal Screen MRSA (PCR) Assessment & Plan Plan: Assessment/Plan Narrative: Impression: 1. Elevated troponin. My suspicion is his elevated troponin is more likely a reflection of his rapid atrial fibrillation in the setting of severe aortic stenosis, combined with mild hypotension. My suspicion is low for acute coronary syndrome given the absence of any chest discomfort or ECG evidence of ischemia although this cannot be entirely excluded. Yet, the patient is really not an interventional candidate at this point given his ongoing infection and immobility and thus I would simply continue with a conservative approach and he agrees with this plan is he does not want any aggressive treatments. I think the mainstay of treatment should be to try to avoid recurrent rapid atrial fibrillation. This would include resuming his take his son and increasing his metoprolol as his heart rate and blood pressure will allow. I would try to keep his potassium greater than 4.0 and magnesium greater than 2.0. 2. Atrial fibrillation. As above. 3. Probable severe aortic stenosis. Imaging studies have remained difficult because of his positioning and obesity. It is not clear that he is symptomatic from his aortic stenosis in the absence of atrial fibrillation. Again, he is a very poor interventional candidate, and is certainly not a candidate currently because of his ongoing infection. Whether he would be a candidate for TAVR remains speculative but this does not need to be addressed currently and he can discuss a long-term plan with his primary photo equipment technician, Dr. Gomez, as an outpatient. 4. Elevated BNP. I do not see any overt evidence of CHF on exam and I think his chest x-ray is nonspecific. His elevated BNP is more likely reflection of his aortic stenosis and renal insufficiency than volume overload and I would simply continue with his current dose of furosemide. 5. Sacral decubiti eye. Per the hospitalist 6. Urinary tract infection. I would attempt to treat this fairly aggressively. Recommendations: 1. Resume Tikosyn and metoprolol and advance the latter as his heart rate and blood pressure allow. 2. Keep potassium greater than 4.0 and magnesium greater than 2.0. 3. Resume his previous dose of furosemide and continue to monitor his volume status. 4. Have the patient follow up with Dr. Gomez as an outpatient for development of a long-term plan to address his valvular heart disease At this point, I will sign off. Please call with any further questions. I spent a total of 1 hr and 40 min reviewing medical records, images, and interviewing and examining the patient and answering his questions.
[2018-05-26] MEDS: ATORVASTATIN 20 MG TABLET 40 MG PO (17:24)
[2018-05-26] MEDS: DOFETILIDE 1 EACH PO (21:31)
[2018-05-26] MEDS: MORPHINE ER 30 MG TABLET PO (21:31)
[2018-05-26] MEDS: INSULIN DETEMIR 100 UNIT/ML INSULN.PEN 45 UNIT SUBCUT (21:33)
[2018-05-27] VITALS (7 sets, daily range): BP systolic 108–122; BP diastolic 45–59; PULSE 65–75; RESP 18–24; TEMP 36.1–37.1; O2SAT 92–98
[2018-05-27] MEDS: PIPERACILLIN-TAZO 3.375 GM/50 ML FROZ.PIGGY IV (01:59)
[2018-05-27] MEDS: VANCOMYCIN 1,500 MG in SODIUM CHLORIDE 0.9% 500 ML 333.333 ML IV (03:08)
[2018-05-27 05:00] LABS: Add Manual Diff / Slide Review NO; Basophils Percent Auto 0.4 % (0-2); Eosinophils Percent Auto 2.4 % (2-4); Hematocrit 32.3 % (41-53); Hemoglobin 10.7 g/dL (13.5-17.5); Lymphocytes Percent Auto 13.5 % (25-40); Mean Corpuscular Hemoglobin 26.9 PG (26-34); Mean Corpuscular Volume 81.3 fL (80-100); Monocytes Percent Auto 5.6 % (3-14); Neutrophils Absolute Auto 10800 /uL (3000-5900); Neutrophils Percent Auto 78.1 % (50-75); Platelet Count 244 X10^3/uL (150-400); Red Blood Cell Count 3.97 X10^6/uL (4.5-5.9); Red Cell Distribution Width 16.2 % (11.6-14.8); White Blood Cell Count 13.9 X10^3/uL (4.5-11.0)
[2018-05-27 05:08] LABS: BUN Creatinine Ratio 25.3 (6-22); Blood Urea Nitrogen 38 mg/dL (9-20); Calcium 8.2 mg/dL (8.4-10.2); Carbon Dioxide 30 mmol/L (22-32); Chloride 98 mmol/L (98-107); Estimated Glomerular Filt Rate 45.4 mL/min (>60); Glucose 160 mg/dL (80-110); HEMOLYSIS < 15 (0-50); Potassium 3.7 mmol/L (3.4-5.1)
[2018-05-27 05:14] LABS: Sodium 135 mmol/L (137-145)
--- NOTE | 2018-05-27 06:41 | PC.NURSE ---
Addendum entered by Sherrie Bob R.N. 05/27/18 06:56: Dr. Orona notified of ESBL and current antibiotics reviewed for coverage. No new orders received. Original Note: Addendum entered by Sherrie Bob R.N. 05/27/18 06:49: Lab phoned to report ESBL on urine culture. Pt placed on contact isolation. Original Note: Incontinent of large stool, dressing saturated. Area cleaned and new dressing applied. Pt tolerated well.
--- NOTE | 2018-05-27 08:26 | P.PN_ITS ---
Subjective Date Patient Seen: 05/27/18 Time Patient Seen: 08:12 Interval history: Patient seen at bedside. He is more interactive today. Feeling better. BP holding up. No overnight events. Denies chest pain or SOB. Exam Vital Signs (past 8 hours): - 05/27/18 00:12 05/27/18 04:00 05/27/18 05:30 Temperature 98 F 98.8 F Pulse Rate 65 74 70 Respiratory Rate 22 18 23 Blood Pressure 109/46 L 113/46 L 113/46 L Pulse Oximetry 95 97 96 05/27/18 07:44 Temperature 98.2 F Pulse Rate 75 Respiratory Rate 23 Blood Pressure 111/45 L Pulse Oximetry 98 Oxygen Delivery Method Nasal Cannula Oxygen Flow Rate 2 Narrative Exam Narrative: Exam Narrative: General: NAD, comfortable in bed HEENT: PERRLA BL Neck: SUpple, obese, JVD not present CV: Irregular rhythm, no murmurs Chest: Pacemaker is in place Resp: Mild crackles appreciated BL. Diminished breath sounds due to body habitus Abd: Obese, +BS, nontender Skin: warm to touch, pink color MSK: Moves all extremities Psych: AAOx3 Objective Labs Result Diagrams: 05/27/18 04:32 05/27/18 04:32 Labs: Laboratory Results - last 24 hr 05/26/18 05/26/18 05/27/18 08:55 11:20 04:32 WBC 13.9 H RBC 3.97 L Hgb 10.7 L Hct 32.3 L MCV 81.3 MCH 26.9 MCHC 33.0 RDW 16.2 H Plt Count 244 Neut % (Auto) 78.1 H Lymph % (Auto) 13.5 L [place] % (Auto) 5.6 Eos % (Auto) 2.4 Baso % (Auto) 0.4 Neut # (Auto) 00476 H Sodium Potassium Chloride Carbon Dioxide BUN Creatinine Estimated GFR BUN/Creatinine Ratio Glucose Lactate 1.6 Calcium Troponin I 3.200 H* 05/27/18 04:32 WBC RBC Hgb Hct MCV MCH MCHC RDW Plt Count Neut % (Auto) Lymph % (Auto) [place] % (Auto) Eos % (Auto) Baso % (Auto) Neut # (Auto) Sodium 135 L Potassium 3.7 Chloride 98 Carbon Dioxide 30 BUN 38 H Creatinine 1.50 H Estimated GFR 45.4 L BUN/Creatinine Ratio 25.3 H Glucose 160 H Lactate Calcium 8.2 L Troponin I Assessment & Plan Plan: Assessment/Plan Narrative: 77yo M with mulitple comorbidities admitted to ICU with sepsis due to UTI. Found to have troponin elevation that continues to rise with non specific T wave changes. Also found to have Afib with RVR requiring Diltiazem drip for few hrs. Also found to have supratherapeutic INR. 1. Sepsis due to UTI - Leukocytosis improving, now at 13.9K - Lactic acid continues to be normal - UOP very good, BP stable - Urine cx positive for ESBL this mroning...Switched patient to Ertapenem - ECHO showed EF of 50-55% with GIDD. Will continue to monitor: no diuresis or IVF 2. Troponin Elevation - Unlikely ACS, likely due to Demand ischemia due to sepsis vs AFib - now downtrending, 3.8--3.2 - continue to trend troponin x1 3. Afib - No longer in RVR - Continue to hold coumadin and repeat INR tomorrow. If within therapeutic range , will resume - Will restart Tikosyn and wait until BP is stable to restart Metoprolol 4. Supratherapeutic INR - Will get a repeat of INR in the morning. If therapeutic, will resume coumadin 5. Diastolic CHF - May be in exacerbation, as exam is equivocal - Fluid balance positive and mild edema on exam - CXR showed vascular congestion and cardiomegally but no pulmonary edema/ effusions - BNP 2000+ - ECHO showed EF 50-55%, with GIDD. No evidence of much fluid overload. - Once BP is more stable, will resume lasix and other home CHF medications 6. JOSELITO on CKD - Cr at baseline 1.4...Cr 1.6-1.5 this admission - Continue to monitor for improvement. 7. Sacral Ulcer - Wound care consult 8. Aortic stenosis - Will need OP cardiology consult 9. DM - Continue sliding scale and long acting insulin 10. Debility and weakness - Wheel chair bound - PT/OT when out of sepsis Quality VTE Deep Vein Thrombosis/Pulmonary Embolism Present on Admission: No
[2018-05-27] MEDS: DOFETILIDE 1 EACH PO ×2 (08:47→21:02)
[2018-05-27] MEDS: INSULIN DETEMIR 100 UNIT/ML INSULN.PEN 45 UNIT SUBCUT ×2 (08:48→21:03)
[2018-05-27] MEDS: FLUoxetine 10 MG CAPSULE PO (08:48)
[2018-05-27] MEDS: ERTAPENEM 1 GM in SODIUM CHLORIDE 0.9% 100 ML 200 ML IV (08:48)
[2018-05-27] MEDS: INSULIN ASPART 100 UNIT/ML INSULN PEN SUBCUT ×3 (08:48→16:50)
[2018-05-27] MEDS: METOPROLOL 25 MG TABLET PO ×2 (08:48→21:02)
[2018-05-27] MEDS: PANTOPRAZOLE 40 MG VIAL IV (08:49)
[2018-05-27] MEDS: MORPHINE 15 MG IR TABLET PO (08:52)
--- NOTE | 2018-05-27 09:44 | PM.CN ---
History of Present Illness Date Patient Seen: 05/26/18 Time Patient Seen: 08:30 Chief complaint: BROUGHT FROM WOUND CARE Reason for consult: gluteal pressure ulcers Narrative: The patient was sent from the wound care clinic yesterday to the ER where he was diagnosed with sepsis, presumably from a urinary source. He's been managed in the wound care clinic for the past few months for right and left gluteal stage 3 pressure ulcers that have been healed on a number of occasions however are complicated by morbid obesity, wheelchair dependence, and poorly controlled diabetes. He's alert today on my review and does not report significant pain but remains very weak. [facility] Medical History Weakness (Chronic) Back pain (Chronic) Debility (Chronic) Sacral pressure ulcer (Chronic) Atrial fibrillation with RVR (Chronic) CHF (congestive heart failure) (Chronic) Non-ST elevation KS (NSTEMI) (Chronic) Chronic anticoagulation (Acute) Chronic diastolic heart failure (Acute) Diabetes mellitus type 2, insulin dependent (Acute) Dyslipidemia (Acute) Nephrolithiasis (Resolved) History of pulmonary embolism (Inactive) Family History: Reviewed 05/25/18 by ALY Sheppard Social History household members: none Smoking Status: Never smoker alcohol intake: never Meds Home Medications Medication Instructions Recorded Confirmed Type dofetilide [Tikosyn] 1 cap PO BID #0 06/17/11 05/25/18 History polyethylene glycol 3350 [Miralax] 17 gm PO DAILY #0 09/14/16 05/25/18 History acetaminophen 650 mg PO Q6HP PRN #0 02/19/17 05/25/18 History warfarin [Coumadin] 1 mg PO MOWEFR #0 02/19/17 05/25/18 History cyclobenzaprine 10 mg PO BIDP PRN #0 11/05/17 05/25/18 History insulin lispro [Humalog KwikPen 12 units SQ AC #0 11/05/17 05/25/18 History Insulin] clotrimazole-betamethasone 1 applic TOPICAL BID PRN 02/26/18 05/25/18 History insulin detemir U-100 [Levemir 45 unit SUB-Q BID 02/26/18 05/25/18 History FlexTouch U-100 Insuln] metoprolol tartrate 25 mg PO BID #60 tab 03/02/18 05/25/18 Rx atorvastatin 40 mg PO QPM 04/04/18 05/25/18 History docusate sodium 250 mg PO DAILY PRN 04/04/18 05/25/18 History lisinopril 5 mg PO DAILY 04/04/18 05/25/18 History morphine 30 mg PO BEDTIME 04/04/18 05/25/18 History sennosides [senna] 2 tab PO BID 04/04/18 05/25/18 History trazodone 50 mg PO BEDTIME PRN 04/04/18 05/25/18 History furosemide [Lasix] 40 mg PO DAILY #30 tab 04/06/18 05/25/18 Rx fluoxetine 10 mg PO DAILY 05/24/18 05/25/18 History hydrocortisone [Preparation H 1 applic ME PRN PRN MDD 4 x 05/24/18 05/25/18 History Hydrocortisone] insulin lispro [Humalog KwikPen 1 dose SUBCUT DIRECTED 05/24/18 05/25/18 History Insulin] lidocaine HCl 1 applic TOPICAL PRN PRN 05/24/18 05/25/18 History loratadine 10 mg PO DAILY 05/24/18 05/25/18 History morphine 15 - 30 mg PO Q6H PRN 05/24/18 05/25/18 History warfarin 2 mg PO SUTUTHSA 05/24/18 05/25/18 History zinc oxide [Boudreauxs Butt Paste] 1 applic TOPICAL PRN PRN 05/24/18 05/25/18 History zinc oxide [Boudreauxs Butt Paste] 1 applic TOPICAL TID 05/24/18 05/25/18 History Allergies Allergy/AdvReac Type Severity Reaction Status Date / Time hydromorphone [HYDROMORPHONE] Allergy Severe TOUNGE Verified 05/25/18 15:22 SWELLING cefotetan [CEFOTETAN] AdvReac Mild Verified 05/27/18 08:13 Review of Systems Review of Systems All systems reviewed & are unremarkable except as noted in HPI and below Integumentary/Breasts Comments: Exam Vital Signs (past 8 hours): - 05/27/18 04:00 05/27/18 05:30 05/27/18 07:44 Temperature 98.8 F 98.2 F Pulse Rate 74 70 75 Respiratory Rate 18 23 23 Blood Pressure 113/46 L 113/46 L 111/45 L Pulse Oximetry 97 96 98 Oxygen Delivery Method Nasal Cannula Oxygen Flow Rate 2 Const General: cooperative Skin Other: Gluteal pressure ulcers reviewed by photos due to patient's weakness; both right and left ulcers extend to subcut and appear larger than on last review in clinic with moderate amount of denuded skin in periphery along with mild erythema Objective Labs Result Diagrams: 05/27/18 04:32 05/27/18 04:32 Labs: Laboratory Results - last 24 hr 05/26/18 05/27/18 05/27/18 11:20 04:32 04:32 WBC 13.9 H RBC 3.97 L Hgb 10.7 L Hct 32.3 L MCV 81.3 MCH 26.9 MCHC 33.0 RDW 16.2 H Plt Count 244 Neut % (Auto) 78.1 H Lymph % (Auto) 13.5 L Clare % (Auto) 5.6 Eos % (Auto) 2.4 Baso % (Auto) 0.4 Neut # (Auto) 29762 H Sodium 135 L Potassium 3.7 Chloride 98 Carbon Dioxide 30 BUN 38 H Creatinine 1.50 H Estimated GFR 45.4 L BUN/Creatinine Ratio 25.3 H Glucose 160 H Calcium 8.2 L Troponin I 3.200 H* Assessment & Plan Plan: Assessment/Plan Narrative: The bilateral gluteal pressure ulcers have deteriorated somewhat since his last review in clinic. He's now lying on an offloading pressure relief mattress and dressing orders have been written. Due to his critical illness, weakness, and morbid obesity the ulcers are at a high risk of deteriorating so optimal offloading measures will be required and frequent dressing changes monitoring for contamination associated with stool or urinary incontinence. We'll continue to follow as needed while the patient is in the hospital and we'll be happy to see him back in the wound care clinic following discharge.
--- NOTE | 2018-05-27 09:53 | P.CONS_ITS ---
History of Present Illness Date Patient Seen: 05/26/18 Time Patient Seen: 08:30 Chief complaint: BROUGHT FROM WOUND CARE Reason for consult: gluteal pressure ulcers Narrative: The patient was sent from the wound care clinic yesterday to the ER where he was diagnosed with sepsis, presumably from a urinary source. He's been managed in the wound care clinic for the past few months for right and left gluteal stage 3 pressure ulcers that have been healed on a number of occasions however are complicated by morbid obesity, wheelchair dependence, and poorly controlled diabetes. He's alert today on my review and does not report significant pain but remains very weak. [facility] Medical History Weakness (Chronic) Back pain (Chronic) Debility (Chronic) Sacral pressure ulcer (Chronic) Atrial fibrillation with RVR (Chronic) CHF (congestive heart failure) (Chronic) Non-ST elevation KS (NSTEMI) (Chronic) Chronic anticoagulation (Acute) Chronic diastolic heart failure (Acute) Diabetes mellitus type 2, insulin dependent (Acute) Dyslipidemia (Acute) Nephrolithiasis (Resolved) History of pulmonary embolism (Inactive) Family History: Reviewed 05/25/18 by ALY Sheppard Social History household members: none Smoking Status: Never smoker alcohol intake: never Meds Home Medications Medication Instructions Recorded Confirmed Type dofetilide [Tikosyn] 1 cap PO BID #0 06/17/11 05/25/18 History polyethylene glycol 3350 [Miralax] 17 gm PO DAILY #0 09/14/16 05/25/18 History acetaminophen 650 mg PO Q6HP PRN #0 02/19/17 05/25/18 History warfarin [Coumadin] 1 mg PO MOWEFR #0 02/19/17 05/25/18 History cyclobenzaprine 10 mg PO BIDP PRN #0 11/05/17 05/25/18 History insulin lispro [Humalog KwikPen 12 units SQ AC #0 11/05/17 05/25/18 History Insulin] clotrimazole-betamethasone 1 applic TOPICAL BID PRN 02/26/18 05/25/18 History insulin detemir U-100 [Levemir 45 unit SUB-Q BID 02/26/18 05/25/18 History FlexTouch U-100 Insuln] metoprolol tartrate 25 mg PO BID #60 tab 03/02/18 05/25/18 Rx atorvastatin 40 mg PO QPM 04/04/18 05/25/18 History docusate sodium 250 mg PO DAILY PRN 04/04/18 05/25/18 History lisinopril 5 mg PO DAILY 04/04/18 05/25/18 History morphine 30 mg PO BEDTIME 04/04/18 05/25/18 History sennosides [senna] 2 tab PO BID 04/04/18 05/25/18 History trazodone 50 mg PO BEDTIME PRN 04/04/18 05/25/18 History furosemide [Lasix] 40 mg PO DAILY #30 tab 04/06/18 05/25/18 Rx fluoxetine 10 mg PO DAILY 05/24/18 05/25/18 History hydrocortisone [Preparation H 1 applic NC PRN PRN MDD 4 x 05/24/18 05/25/18 History Hydrocortisone] insulin lispro [Humalog KwikPen 1 dose SUBCUT DIRECTED 05/24/18 05/25/18 History Insulin] lidocaine HCl 1 applic TOPICAL PRN PRN 05/24/18 05/25/18 History loratadine 10 mg PO DAILY 05/24/18 05/25/18 History morphine 15 - 30 mg PO Q6H PRN 05/24/18 05/25/18 History warfarin 2 mg PO SUTUTHSA 05/24/18 05/25/18 History zinc oxide [Boudreauxs Butt Paste] 1 applic TOPICAL PRN PRN 05/24/18 05/25/18 History zinc oxide [Boudreauxs Butt Paste] 1 applic TOPICAL TID 05/24/18 05/25/18 History Allergies Allergy/AdvReac Type Severity Reaction Status Date / Time hydromorphone [HYDROMORPHONE] Allergy Severe TOUNGE Verified 05/25/18 15:22 SWELLING cefotetan [CEFOTETAN] AdvReac Mild Verified 05/27/18 08:13 Review of Systems Review of Systems All systems reviewed & are unremarkable except as noted in HPI and below Integumentary/Breasts Comments: Exam Vital Signs (past 8 hours): - 05/27/18 04:00 05/27/18 05:30 05/27/18 07:44 Temperature 98.8 F 98.2 F Pulse Rate 74 70 75 Respiratory Rate 18 23 23 Blood Pressure 113/46 L 113/46 L 111/45 L Pulse Oximetry 97 96 98 Oxygen Delivery Method Nasal Cannula Oxygen Flow Rate 2 Const General: cooperative Skin Other: Gluteal pressure ulcers reviewed by photos due to patient's weakness; both right and left ulcers extend to subcut and appear larger than on last review in clinic with moderate amount of denuded skin in periphery along with mild erythema Objective Labs Result Diagrams: 05/27/18 04:32 05/27/18 04:32 Labs: Laboratory Results - last 24 hr 05/26/18 05/27/18 05/27/18 11:20 04:32 04:32 WBC 13.9 H RBC 3.97 L Hgb 10.7 L Hct 32.3 L MCV 81.3 MCH 26.9 MCHC 33.0 RDW 16.2 H Plt Count 244 Neut % (Auto) 78.1 H Lymph % (Auto) 13.5 L Fleming % (Auto) 5.6 Eos % (Auto) 2.4 Baso % (Auto) 0.4 Neut # (Auto) 25865 H Sodium 135 L Potassium 3.7 Chloride 98 Carbon Dioxide 30 BUN 38 H Creatinine 1.50 H Estimated GFR 45.4 L BUN/Creatinine Ratio 25.3 H Glucose 160 H Calcium 8.2 L Troponin I 3.200 H* Assessment & Plan Plan: Assessment/Plan Narrative: The bilateral gluteal pressure ulcers have deteriorated somewhat since his last review in clinic. He's now lying on an offloading pressure relief mattress and dressing orders have been written. Due to his critical illness, weakness, and morbid obesity the ulcers are at a high risk of deteriorating so optimal offloading measures will be required and frequent dressing changes monitoring for contamination associated with stool or urinary incontinence. We'll continue to follow as needed while the patient is in the hospital and we' ll be happy to see him back in the wound care clinic following discharge.
[2018-05-27] MEDS: ATORVASTATIN 20 MG TABLET 40 MG PO (16:49)
[2018-05-27] MEDS: MORPHINE ER 30 MG TABLET PO (21:02)
[2018-05-27 23:47] LABS: Enterococcus species Not Detected (Not Detect); Listeria monocytogenes Not Detected (Not Detect); Staphylococcus species Not Detected (Not Detect)
[2018-05-27 23:48] LABS: Acinetobacter baumannii Not Detected (Not Detect); Candida albicans Not Detected (Not Detect); Candida glabrata Not Detected (Not Detect); Candida krusei Not Detected (Not Detect); Candida parapsilosis Not Detected (Not Detect); Candida tropicalis Not Detected (Not Detect); Enterobacter cloacae complex Not Detected (Not Detect); Enterobacteriaceae species Detected (Not Detect); Haemophilus influenzae Not Detected (Not Detect); KPC (carbapenem-resist gene) Not Detected (Not Detect); Neisseria meningitidis Not Detected (Not Detect); Proteus species Not Detected (Not Detect); Pseudomonas aeruginosa Not Detected (Not Detect); Serratia marcescens Not Detected (Not Detect); Streptococcus agalactiae (Gr B Not Detected (Not Detect); Streptococcus pneumonia Not Detected (Not Detect); Streptococcus pyogenes (Gr A) Not Detected (Not Detect); Streptococcus species Not Detected (Not Detect)
[2018-05-27 23:49] LABS: E. coli Detected (Not Detect)
[2018-05-28] VITALS (8 sets, daily range): BP systolic 110–120; BP diastolic 47–66; PULSE 60–70; RESP 16–23; TEMP 35.9–36.8; O2SAT 93–96
[2018-05-28 05:18] LABS: Add Manual Diff / Slide Review NO; Basophils Percent Auto 0.4 % (0-2); Eosinophils Percent Auto 3.5 % (2-4); Hematocrit 31.8 % (41-53); Hemoglobin 10.3 g/dL (13.5-17.5); Lymphocytes Percent Auto 20.7 % (25-40); Mean Corpuscular HGB Conc 32.4 % (30-36); Mean Corpuscular Hemoglobin 26.5 PG (26-34); Mean Corpuscular Volume 81.8 fL (80-100); Monocytes Percent Auto 5.4 % (3-14); Neutrophils Absolute Auto 8400 /uL (3000-5900); Platelet Count 262 X10^3/uL (150-400); Red Blood Cell Count 3.88 X10^6/uL (4.5-5.9); Red Cell Distribution Width 16.3 % (11.6-14.8); White Blood Cell Count 11.9 X10^3/uL (4.5-11.0)
[2018-05-28 05:19] LABS: INR 1.4 (0.9-1.3); Prothrombin Time 15.4 SECONDS (10.1-12.7)
[2018-05-28 05:25] LABS: BUN Creatinine Ratio 23.8 (6-22); Blood Urea Nitrogen 31 mg/dL (9-20); Calcium 8.2 mg/dL (8.4-10.2); Carbon Dioxide 27 mmol/L (22-32); Chloride 100 mmol/L (98-107); Estimated Glomerular Filt Rate 53.5 mL/min (>60); Glucose 199 mg/dL (80-110); HEMOLYSIS < 15 (0-50); Potassium 3.8 mmol/L (3.4-5.1); Sodium 134 mmol/L (137-145)
--- NOTE | 2018-05-28 07:06 | PC.NURSE ---
NOC Shift: Pt AAOX3, awake through most shift. Denies pain, discomfort. No loose stooling this shift, buttock dressing remains intact, dry. VSS, paced to SR w/ectopy on tele. Taking po, eating through night. Maribell. MAHIN tele. Will discharge to [facility] when ready.
[2018-05-28] MEDS: DOFETILIDE 1 EACH PO ×2 (08:27→21:06)
[2018-05-28] MEDS: INSULIN ASPART 100 UNIT/ML INSULN PEN SUBCUT ×3 (08:27→16:54)
[2018-05-28] MEDS: METOPROLOL 25 MG TABLET PO ×2 (08:27→21:06)
[2018-05-28] MEDS: FLUoxetine 10 MG CAPSULE PO (08:27)
[2018-05-28] MEDS: PANTOPRAZOLE 40 MG VIAL IV (08:28)
[2018-05-28] MEDS: INSULIN DETEMIR 100 UNIT/ML INSULN.PEN 45 UNIT SUBCUT ×2 (08:28→21:09)
[2018-05-28] MEDS: ERTAPENEM 1 GM in SODIUM CHLORIDE 0.9% 100 ML 200 ML IV (08:29)
--- NOTE | 2018-05-28 16:52 | P.PN_ITS ---
Subjective Date Patient Seen: 05/28/18 Time Patient Seen: 16:47 Interval history: Patient seen at bedside. Doing well. No overnight events. Blood pressure holding well. Exam Vital Signs (past 8 hours): - 05/28/18 11:58 05/28/18 13:01 Temperature 97.8 F Pulse Rate 67 Respiratory Rate 23 Blood Pressure 119/47 L Pulse Oximetry 93 93 Oxygen Delivery Method Room Air Oxygen Flow Rate 0 Narrative Exam Narrative: General: NAD, comfortable in bed HEENT: PERRLA BL Neck: SUpple, obese, JVD not present CV: Irregular rhythm, no murmurs Chest: Pacemaker is in place Resp: Mild crackles appreciated BL. Diminished breath sounds due to body habitus Abd: Obese, +BS, nontender Skin: warm to touch, pink color MSK: Moves all extremities Psych: AAOx3 Objective Labs Result Diagrams: 05/28/18 04:48 05/28/18 04:48 Labs: Laboratory Results - last 24 hr 05/25/18 05/28/18 05/28/18 16:44 04:48 04:48 WBC 11.9 H RBC 3.88 L Hgb 10.3 L Hct 31.8 L MCV 81.8 MCH 26.5 MCHC 32.4 RDW 16.3 H Plt Count 262 Neut % (Auto) 70.0 Lymph % (Auto) 20.7 L Anderson % (Auto) 5.4 Eos % (Auto) 3.5 Baso % (Auto) 0.4 Neut # (Auto) 8400 H PT INR Sodium 134 L Potassium 3.8 Chloride 100 Carbon Dioxide 27 BUN 31 H Creatinine 1.30 H Estimated GFR 53.5 L BUN/Creatinine Ratio 23.8 H Glucose 199 H Calcium 8.2 L A. baumannii (PCR) Not detected Merly albicans (PCR) Not detected C. glabrata (PCR) Not detected C. krusei (PCR) Not detected C. parapsilosis (PCR) Not detected C. tropicalis (PCR) Not detected Enterobacteriac sp PCR Detected H E. cloacae complex PCR Not detected Enterococcus sp PCR Not detected E. coli (PCR) Detected H H. influenzae (PCR) Not detected Klebsiella oxytoca PCR Not detected Klebsiella pneumoniae Not detected List. monocytogenes PCR Not detected N. meningitidis (PCR) Not detected Proteus species (PCR) Not detected Serratia marcescens PCR Not detected Staphylococcus sp PCR Not detected Staph aureus (PCR) Not detected mecA-Methicil Res Gene Not Reportable Streptococcus sp PCR Not detected Group A Strep (PCR) Not detected Strep agalactiae (PCR) Not detected Strep pneumoniae (PCR) Not detected P. aeruginosa (PCR) Not detected Pastor/B-Vanco Res Genes Not Reportable KPC-Carbap Res Gene PCR Not detected 05/28/18 04:48 WBC RBC Hgb Hct MCV MCH MCHC RDW Plt Count Neut % (Auto) Lymph % (Auto) Anderson % (Auto) Eos % (Auto) Baso % (Auto) Neut # (Auto) PT 15.4 H D INR 1.4 H Sodium Potassium Chloride Carbon Dioxide BUN Creatinine Estimated GFR BUN/Creatinine Ratio Glucose Calcium A. baumannii (PCR) Merly albicans (PCR) C. glabrata (PCR) C. krusei (PCR) C. parapsilosis (PCR) C. tropicalis (PCR) Enterobacteriac sp PCR E. cloacae complex PCR Enterococcus sp PCR E. coli (PCR) H. influenzae (PCR) Klebsiella oxytoca PCR Klebsiella pneumoniae List. monocytogenes PCR N. meningitidis (PCR) Proteus species (PCR) Serratia marcescens PCR Staphylococcus sp PCR Staph aureus (PCR) mecA-Methicil Res Gene Streptococcus sp PCR Group A Strep (PCR) Strep agalactiae (PCR) Strep pneumoniae (PCR) P. aeruginosa (PCR) Pastor/B-Vanco Res Genes KPC-Carbap Res Gene PCR Assessment & Plan Plan: Assessment/Plan Narrative: 77yo M with mulitple comorbidities admitted to ICU with sepsis due to UTI. Found to have troponin elevation that continues to rise with non specific T wave changes. Also found to have Afib with RVR requiring Diltiazem drip for few hrs. Also found to have supratherapeutic INR. 1. Sepsis due to UTI - Leukocytosis continues to downtrend - Lactic acid continues to be normal - UOP very good, BP stable - Urine cx positive for ESBL - Continue Ertapenem at this time..possible PO options tomorrow - ECHO showed EF of 50-55% with GIDD. Will continue to monitor: no diuresis or IVF 2. Troponin Elevation - Unlikely ACS, likely due to Demand ischemia due to sepsis vs AFib - now downtrending, 3.8--3.2 - no further action at this time 3. Afib - No longer in RVR - Resume warfarin - Will restart Tikosyn and Metoprolol 4. Supratherapeutic INR - Resolved, INR today 1.4 - Resume Warfarin home dose 5. Diastolic CHF - May be in exacerbation, as exam is equivocal - Fluid balance positive and mild edema on exam - CXR showed vascular congestion and cardiomegally but no pulmonary edema/ effusions - BNP 2000+ - ECHO showed EF 50-55%, with GIDD. No evidence of much fluid overload. - Resume all home CHF medications today 6. JOSELITO on CKD - Improving - Continue to monitor for improvement. 7. Sacral Ulcer - Wound care following, recommend frequent repositioning and dressing changes 8. Aortic stenosis - Will need OP cardiology consult 9. DM - Continue sliding scale and long acting insulin 10. Debility and weakness - Wheel chair bound - PT/OT on board, will follow up Quality VTE Deep Vein Thrombosis/Pulmonary Embolism Present on Admission: No
[2018-05-28] MEDS: ATORVASTATIN 20 MG TABLET 40 MG PO (16:54)
[2018-05-28] MEDS: WARFARIN 2 MG TABLET PO (17:16)
--- NOTE | 2018-05-28 18:22 | PC.NURSE ---
1815 pt transferred from ICU to AC room 226. alert and oriented. denies any pain/discomfort. VSS. tele monitor on. contact precautions in place. oriented to room and plan of care. denies any needs at this time.
[2018-05-28] MEDS: MORPHINE ER 30 MG TABLET PO (21:11)
[2018-05-29 03:40] VITALS: BP 107/60; PULSE 60; RESP 16; TEMP 36; O2SAT 95
[2018-05-29 05:57] LABS: Add Manual Diff / Slide Review NO; Basophils Percent Auto 0.5 % (0-2); Eosinophils Percent Auto 3.3 % (2-4); Hematocrit 33.3 % (41-53); Hemoglobin 10.7 g/dL (13.5-17.5); Lymphocytes Percent Auto 24.1 % (25-40); Mean Corpuscular HGB Conc 32.2 % (30-36); Mean Corpuscular Hemoglobin 26.4 PG (26-34); Mean Corpuscular Volume 81.9 fL (80-100); Monocytes Percent Auto 5.8 % (3-14); Neutrophils Absolute Auto 7500 /uL (3000-5900); Neutrophils Percent Auto 66.3 % (50-75); Platelet Count 290 X10^3/uL (150-400); Red Blood Cell Count 4.07 X10^6/uL (4.5-5.9); Red Cell Distribution Width 16.4 % (11.6-14.8); White Blood Cell Count 11.3 X10^3/uL (4.5-11.0)
[2018-05-29 06:02] LABS: INR 1.4 (0.9-1.3); Prothrombin Time 15.3 SECONDS (10.1-12.7)
[2018-05-29 06:04] LABS: PTT Partial Thromboplastin Tim 32 SECONDS (26.4-36.2)
[2018-05-29 06:10] LABS: BUN Creatinine Ratio 22.5 (6-22); Blood Urea Nitrogen 27 mg/dL (9-20); Calcium 8.4 mg/dL (8.4-10.2); Carbon Dioxide 28 mmol/L (22-32); Chloride 103 mmol/L (98-107); Estimated Glomerular Filt Rate 58.7 mL/min (>60); Glucose 147 mg/dL (80-110); HEMOLYSIS < 15 (0-50); Magnesium 2.4 mg/dL (1.6-2.3); Potassium 4.2 mmol/L (3.4-5.1); Sodium 137 mmol/L (137-145)
[2018-05-29 08:05] VITALS: BP 117/68; PULSE 60; RESP 16; TEMP 36.4; O2SAT 94
[2018-05-29] MEDS: NEOMYCIN/POLYMYXIN/BACITRA UD OINT 1 EACH TOP (08:23)
[2018-05-29] MEDS: SODIUM CHLORIDE 0.9% FLUSH 10 ML IV ×3 (08:23→20:13)
[2018-05-29] MEDS: FLUoxetine 10 MG CAPSULE PO (08:23)
[2018-05-29] MEDS: FUROSEMIDE 40 MG TABLET PO (08:23)
[2018-05-29] MEDS: LISINOPRIL 5 MG TABLET PO (08:24)
[2018-05-29] MEDS: METOPROLOL 25 MG TABLET PO (08:24)
[2018-05-29] MEDS: ERTAPENEM 1 GM in SODIUM CHLORIDE 0.9% 100 ML 200 ML IV (08:24)
[2018-05-29] MEDS: DOFETILIDE 1 EACH PO (08:25)
[2018-05-29] MEDS: PANTOPRAZOLE 40 MG VIAL IV (08:25)
[2018-05-29] MEDS: INSULIN ASPART 100 UNIT/ML INSULN PEN SUBCUT ×4 (08:27→20:25)
[2018-05-29] MEDS: INSULIN DETEMIR 100 UNIT/ML INSULN.PEN 45 UNIT SUBCUT ×2 (08:28→20:24)
[2018-05-29 11:41] VITALS: BP 126/60; PULSE 62; RESP 15; TEMP 36.6; O2SAT 94
--- NOTE | 2018-05-29 12:05 | PT.IIE ---
Current Diagnoses Pressure ulcer of contiguous site of back, buttock and hip, stage 3 (05/25/18) Medical History (Last Reviewed 05/27/18 @ 09:51 by Imer Ramos MD) Weakness (Chronic) Back pain (Chronic) Debility (Chronic) Sacral pressure ulcer (Chronic) Atrial fibrillation with RVR (Chronic) CHF (congestive heart failure) (Chronic) Non-ST elevation [place] (NSTEMI) (Chronic) Chronic anticoagulation (Acute) Chronic diastolic heart failure (Acute) Diabetes mellitus type 2, insulin dependent (Acute) Dyslipidemia (Acute) Nephrolithiasis (Resolved) History of pulmonary embolism (Inactive) Physical Therapy Inpatient Evaluation/Re-Eval M1 PT/OT-IP Prior Functional Status Start: 05/29/18 12:05 Freq: Status: Active Protocol: Document 05/29/18 12:05 [facility] (Rec: 05/29/18 12:27 [facility] [id number]) Medical Review Prior Functional Status Medical History Reviewed Yes Diet/Fluid Consistency Regular Mobility and Gait tu lift for transfers to power chair, sometimes Power Stander when stronger/more alert. Activities of Daily Living and IADL's assist with all ADLs. Social History Household Members none Living Arrangements Assisted Living Home Equipment Power Wheelchair/Scooter Additional Social History Comment Pt lives @ [facility] Power chair he can use occasionally, otherwise staff assist with transfers using tu lift. Pt found to have fever, weakness , and altered mental status @ the wound care clinic, brought to ER where he was found to be in A-fib with RVR and labs indicated sepsis. Pt in wound care clinic for sacral wounds. M2 PT-IP Current Condition Start: 05/29/18 12:05 Freq: Status: Active Protocol: Document 05/29/18 12:05 [facility] (Rec: 05/29/18 12:27 [facility] [id number]) Physical Therapy Current Condition Current Condition Evaluation Date 05/29/18 Treatment Diagnosis sepsis, impaired mobility Onset Date 05/25/18 Precautions Other Precautions yoon catheter, sacral wounds; contact precautions M3 PT-IP Subjective Start: 05/29/18 12:05 Freq: Status: Active Protocol: Document 05/29/18 12:05 [facility] (Rec: 05/29/18 12:27 [facility] [id number]) Subjective Physical Therapy Visit Type Type Initial Evaluation Visit Start Time 11:32 Visit Stop Time 12:05 Total Visit Minutes 33 Notes CUT ROLL MACHINE OPERATOR assisted with overhead lift transfer Number of ASSISTANT HEAD CASHIER Visits 0 Physical Therapy Visit Comments Patient Comments Pt was agreeable to get up to chair for lunch. M4 PT-IP Mobility and Gait Start: 05/29/18 12:05 Freq: Status: Active Protocol: Document 05/29/18 12:05 [facility] (Rec: 05/29/18 12:27 [facility] [id number]) PT-Bed Mobility Assessment Rolling Type of Rolling Log Rolling Bilateral Level of Assist Maximal Assistance 1 Person Assistance PT-Transfer Assessment Equipment Transfer Assistive Device Mechanical Lift Transfers Transfer Destination Chair Transfer Ability Level of Assist Maximum Assistance Total Assistance 2 Person Assistance Comments Mobility Comments utilized bed tilting for rolling L and R, sling placed behind pt in bed M5 PT-IP Objective Assessments Start: 05/29/18 12:05 Freq: Status: Active Protocol: Document 05/29/18 12:05 [facility] (Rec: 05/29/18 12:27 [facility] [id number]) Orientation Orientation/Cognition Level of Alertness Lethargic Strength Comments Strength Comments able to PF/DF B feet to assist with donning socks, unable to lift LE vs gravity Muscle Tone Comments Muscle Tone Comments contractures B heel cord, knee and hip flexion contractures M7 PT-IP Assessment and Plan Start: 05/29/18 12:05 Freq: Status: Active Protocol: Document 05/29/18 12:05 [facility] (Rec: 05/29/18 12:27 [facility] [id number]) PT Summary Assessment and Plan Potential Rehabilitation Potential Fair Status of Condition at Evaluation Unstable Summary Impairments Strength Cognition Bed Mobility Transfers Activity Tolerance Assessment Summary Pt lethargic this session, but agreeable to get up to shanthi. Pt unable to participate in formal manual muscle testing and unable to get into gravity lessened positioning for testing as well. Pt is below his functional baseline in regards that he occasionally can assist more with bed mobility, and tolerate sitting on EOB for Power Stander (sit to stand machine) for upright tolerance and transfer to his power chair. Plan to progress pt's mobility as tolerated, but not able to tolerate much activity today, therefore utilized the overhead lift. Waffle cushion provided for pt while sitting in chair due to sacral wounds. Pt's d/c disposition depending on medical aspect of infection and how it can be best treated . Goals Bed Mobility Goal Moderate Assistance Other Goals sitting on EOB Min A x1 Power Stander transfer bed<-> chair<->commode Days to Meet Goals 4 Frequency of Treatment Frequency Of Treatment Once a Day Treatment Plan Physical Therapy Treatment Plan Bed Mobility Training Transfer Training Other Recommendations and Next Treatment assess if bed mobility is Focus improving, possible trial sitting on EOB and if able to use Power Stander vs. overhead lift. Recommendations To Nursing Amount of Assist Needed 2 Person Assist Mechanical Lift Discharge Recommendations PT Discharge Recommendations Home with / Assist Home Health SNF Rehab Other Discharge Recommendations [facility] with assist and home health vs. SNF rehab.
--- NOTE | 2018-05-29 13:30 | CM.DPC ---
Patient continues to need IV Ertapenem. Discussed with [facility] and they couldn't take patient due to the expense. Clinicals faxed to [facility] and they are reviewing - likely the same answer but they will Wednesday with decision. Discuss with pharmacy and she will check but doesn't think there would be an alternate IV at this point. Need to update RAL when plan is know. Plan: Likely here to finish antibiotic course but [facility] is reviewing.
[2018-05-29 15:40] VITALS: BP 114/61; PULSE 60; RESP 16; TEMP 36.4; O2SAT 94
[2018-05-29] MEDS: ATORVASTATIN 20 MG TABLET 40 MG PO (17:12)
[2018-05-29] MEDS: WARFARIN 2 MG TABLET PO (17:13)
--- NOTE | 2018-05-29 19:48 | PM.PN.1 ---
Subjective Date Patient Seen: 05/29/18 Time Patient Seen: 13:48 Interval history: History of present illness Follow-up on patient with ESBL urinary tract infection Review of system Patient denied having any chest pain or shortness of breath or nausea Exam Vital Signs (past 8 hours): - 05/29/18 15:40 Temperature 97.5 F L Pulse Rate 60 Respiratory Rate 16 Blood Pressure 114/61 Pulse Oximetry 94 Oxygen Delivery Method Room Air Oxygen Flow Rate 0 Narrative Exam Narrative: General appearance patient is not awake and alert no apparent distress at rest Psychiatric oriented to self only. Patient was believing the years 2018. 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 Respiratory fairly clear to auscultation with no wheezing or crackles fairly good airflow Cardiovascular regular in rate and rhythm no murmurs evident +3 pulses to extremities GI fairly benign soft nontender positive bowel sounds no pedal splenomegaly no masses no bruits Neurologic no focal neurologic changes cranial nerves 2-12 grossly intact Objective Labs Result Diagrams: 05/29/18 05:22 05/29/18 05:22 Labs: Laboratory Results - last 24 hr 05/29/18 05/29/18 05/29/18 05:22 05:22 05:22 WBC 11.3 H RBC 4.07 L Hgb 10.7 L Hct 33.3 L MCV 81.9 MCH 26.4 MCHC 32.2 RDW 16.4 H Plt Count 290 Neut % (Auto) 66.3 Lymph % (Auto) 24.1 L [place] % (Auto) 5.8 Eos % (Auto) 3.3 Baso % (Auto) 0.5 Neut # (Auto) 7500 H PT 15.3 H INR 1.4 H APTT 32 D Sodium 137 Potassium 4.2 Chloride 103 Carbon Dioxide 28 BUN 27 H Creatinine 1.20 Estimated GFR 58.7 L BUN/Creatinine Ratio 22.5 H Glucose 147 H Calcium 8.4 Magnesium 2.4 H Assessment & Plan Plan: Assessment/Plan Narrative: 1. Sepsis due to UTI - Leukocytosis trended downward - Lactic acid normalized - vital signs stable on May 29 - Urine cx was positive for ESBL organism - Ertapenem IV antibiotic at this time - ECHO showed EF of 50-55% 2. Troponin Elevation - Unlikely ACS, likely due to Demand ischemia suspected due to sepsis and/or rapid AFib - troponin trended downward - will continue to closely monitor patient 3. Afib - No longer in RVR - Resumed warfarin - Will restart Tikosyn and Metoprolol 4. Supratherapeutic INR - Resolved, INR today 1.4 - Resumed Warfarin at home dose 5. Diastolic CHF - May be in exacerbation, as exam is equivocal - Fluid balance positive and mild edema on exam - CXR showed vascular congestion and cardiomegally but no pulmonary edema/effusions - BNP 2000+ - ECHO showed EF 50-55%, No evidence of significant fluid overload. - Resume all home CHF medications today 6. Acute on chronic kidney disease - serum creatinine improving - Continue to monitor for improvement. 7. Sacral Ulcer - Wound care following, recommend frequent repositioning and dressing changes 8. Aortic stenosis - consider OP cardiology consult 9. DM - Continue sliding scale and long acting insulin Time Spent With Patient Time with patient: 25 - 35 minutes (25 min) Quality VTE Deep Vein Thrombosis/Pulmonary Embolism Present on Admission: No
--- NOTE | 2018-05-29 20:53 | PC.NURSE ---
Addendum entered by Freddy Bailon R.N. 05/29/18 22:37: error - 2049 dose on insulin not given ,cbg 149 Original Note: PATIENT IS REFUSING HS MEDICATIONS/AND PAIN MEDICATIONS ALLOWED ME TO GIVE HIS INSULIN, BUT ALSO REFUSED TO HAVE DRSG TO BOTTOM CHANGE. NO APPETITE FOR DINNER, ATE 0%
[2018-05-29 22:21] VITALS: BP 118/73; PULSE 67; RESP 18; TEMP 36.8; O2SAT 94
[2018-05-29 23:35] VITALS: BP 110/68; PULSE 67; RESP 16; TEMP 36.8; O2SAT 95
--- NOTE | 2018-05-30 00:28 | PC.NURSE ---
Addendum entered by Daphne Pollock R.N. 05/30/18 06:50: Repositioned q2h during the night. No complaints of pain. Original Note: Patient is alert and oriented. Breath sounds diminished but CTA with RA sat of 95%; on continuous pulse ox per MD order. HR irregular with telemetry reading of afib CVR/v-paced. Denies nausea. BT hypoactive and denies flatus and has not had a BM since 05/27. Indwelling catheter patent; placed to allow for wound healing. Urine is clear, yellow. Is needing assistance to reposition q2h as not moving himself. Dressings to buttocks are CDI. Is able to move all extremities but is nonambulatory and needs mechanical lift to be transferred to chair and back. Nonpitting bilateral foot edema. Calf SCD's applied. States he has pain at his waist and describes it as sharp but only 1/10 in severity. On contact isolation for ESBL in urine and blood. Fall risk score is high and bed alarm is activated.
[2018-05-30 04:00] VITALS: BP 129/70; PULSE 65; RESP 16; TEMP 36.5; O2SAT 95
[2018-05-30 08:00] VITALS: BP 118/62; PULSE 100; RESP 18; TEMP 35.7; O2SAT 97
[2018-05-30] MEDS: ERTAPENEM 1 GM in SODIUM CHLORIDE 0.9% 100 ML 200 ML IV (09:27)
[2018-05-30] MEDS: SODIUM CHLORIDE 0.9% FLUSH 10 ML IV ×2 (09:29→20:27)
[2018-05-30] MEDS: DOFETILIDE 1 EACH PO ×2 (09:29→20:26)
[2018-05-30] MEDS: FLUoxetine 10 MG CAPSULE PO (09:30)
[2018-05-30] MEDS: METOPROLOL 25 MG TABLET PO ×2 (09:30→20:26)
[2018-05-30] MEDS: FUROSEMIDE 40 MG TABLET PO (09:30)
[2018-05-30] MEDS: LISINOPRIL 5 MG TABLET PO (09:30)
[2018-05-30] MEDS: PANTOPRAZOLE 40 MG VIAL IV (09:32)
[2018-05-30] MEDS: INSULIN DETEMIR 100 UNIT/ML INSULN.PEN 45 UNIT SUBCUT ×2 (09:54→20:30)
[2018-05-30 12:00] VITALS: BP 122/75; PULSE 63; RESP 20; TEMP 36; O2SAT 96
[2018-05-30] MEDS: FLEETS ENEMA 1 EACH PR (12:04)
--- NOTE | 2018-05-30 13:54 | CM.DPC ---
DCP: continued: case again received and last few days reviewed. Case discussed in Team Rounds. Dr. Kiser confirms that ertapenem is the only appropriate antibiotic for pt as this time. He does say he expects this will not be an extensive course of tx, perhaps only 10 days including what he has currently received in the hospital. Spoke then with [facility]. She says they are still considering this case for acceptance and may be able to accommodate with the limited time duration of the IV dosing plan as it stands now. She will look deeper into cost and discuss with her team. [facility] is reportedly still considering this case and a vm is in to [facility]. Best option still would seem [facility] as pt is current at [facility] but will await decisions. No d/c expected today.
[2018-05-30] MEDS: INSULIN ASPART 100 UNIT/ML INSULN PEN SUBCUT ×3 (14:49→20:30)
[2018-05-30 16:00] VITALS: BP 115/75; PULSE 62; RESP 16; TEMP 36.1; O2SAT 95
--- NOTE | 2018-05-30 16:06 | PT.IPTN ---
Current Diagnoses Pressure ulcer of contiguous site of back, buttock and hip, stage 3 (05/25/18) Physical Therapy Treatment Note M2 PT-IP Current Condition Start: 05/29/18 12:05 Freq: Status: Active Protocol: Document 05/29/18 12:05 RCC (Rec: 05/29/18 12:27 RCC [id number]) Physical Therapy Current Condition Current Condition Evaluation Date 05/29/18 Treatment Diagnosis sepsis, impaired mobility Onset Date 05/25/18 Precautions Other Precautions yoon catheter, sacral wounds; contact precautions M3 PT-IP Subjective Start: 05/29/18 12:05 Freq: Status: Active Protocol: Document 05/30/18 16:03 LJ (Rec: 05/30/18 16:06 LJ [id number]) Subjective Physical Therapy Visit Type Type Patient Refusal Visit Start Time 15:55 Visit Stop Time 16:00 Total Visit Minutes 5 Notes Pt states his bottom is too sore to move. M4 PT-IP Mobility and Gait Start: 05/29/18 12:05 Freq: Status: Active Protocol: Document 05/29/18 12:05 RCC (Rec: 05/29/18 12:27 RCC [id number]) PT-Bed Mobility Assessment Rolling Type of Rolling Log Rolling Bilateral Level of Assist Maximal Assistance 1 Person Assistance PT-Transfer Assessment Equipment Transfer Assistive Device Mechanical Lift Transfers Transfer Destination Chair Transfer Ability Level of Assist Maximum Assistance Total Assistance 2 Person Assistance Comments Mobility Comments utilized bed tilting for rolling L and R, sling placed behind pt in bed M5 PT-IP Objective Assessments Start: 05/29/18 12:05 Freq: Status: Active Protocol: Document 05/29/18 12:05 RCC (Rec: 05/29/18 12:27 RCC [id number]) Orientation Orientation/Cognition Level of Alertness Lethargic Strength Comments Strength Comments able to PF/DF B feet to assist with donning socks, unable to lift LE vs gravity Muscle Tone Comments Muscle Tone Comments contractures B heel cord, knee and hip flexion contractures M7 PT-IP Assessment and Plan Start: 05/29/18 12:05 Freq: Status: Active Protocol: Document 05/29/18 12:05 RCC (Rec: 05/29/18 12:27 RCC [id number]) PT Summary Assessment and Plan Potential Rehabilitation Potential Fair Status of Condition at Evaluation Unstable Summary Impairments Strength Cognition Bed Mobility Transfers Activity Tolerance Assessment Summary Pt lethargic this session, but agreeable to get up to shanthi. Pt unable to participate in formall manual muscle testing and unable to get into gravity lessened positioning for testing as well. Pt is below his functional baseline in regards that he occasionally can assist more with bed mobility, and tolerate sitting on EOB for Power Stander (sit to stand machine) for upright tolerance and transfer to his power chair. Plan to progress pt's mobility as tolerated, but not able to tolerate much activity today, therefore utilized the overhead lift. Waffle cushion provided for pt while sitting in chair due to sacral wounds. Pt's d/c disposition depending on medical aspect of infection and how it can be best treated . Goals Bed Mobility Goal Moderate Assistance Other Goals sitting on EOB Min A x1 Power Stander transfer bed<-> chair<->commode Days to Meet Goals 4 Frequency of Treatment Frequency Of Treatment Once a Day Treatment Plan Physical Therapy Treatment Plan Bed Mobility Training Transfer Training Other Recommendations and Next Treatment assess if bed mobility is Focus improving, possible trial sitting on EOB and if able to use Power Stander vs. overhead lift. Recommendations To Nursing Amount of Assist Needed 2 Person Assist Mechanical Lift Discharge Recommendations PT Discharge Recommendations Home with 24/7 Assist Home Health SNF Rehab Other Discharge Recommendations Amrgarita with assist and home health vs. SNF rehab.
[2018-05-30] MEDS: WARFARIN 1 MG TABLET PO (17:51)
[2018-05-30] MEDS: ATORVASTATIN 20 MG TABLET 40 MG PO (17:51)
[2018-05-30 20:00] VITALS: BP 110/67; PULSE 59; RESP 18; TEMP 36.7; O2SAT 93
--- NOTE | 2018-05-30 20:04 | P.PN_ITS ---
Subjective Date Patient Seen: 05/30/18 Time Patient Seen: 15:09 Interval history: History of present illness Follow-up on patient with ESBL positive UTI Diastolic heart failure also suspected during hospital course Review of systems No chest pain or shortness of breath no nausea Exam Vital Signs (past 8 hours): - 05/30/18 16:00 Temperature 97.0 F L Pulse Rate 62 Respiratory Rate 16 Blood Pressure 115/75 Pulse Oximetry 95 Oxygen Delivery Method Room Air Oxygen Flow Rate 0 Narrative Exam Narrative: General appearance patient is not awake and alert no apparent distress at rest Psychiatric oriented to self only. Mood is pleasant. . Respiratory fairly clear to auscultation with no wheezing or crackles fairly good airflow Cardiovascular regular in rate and rhythm no murmurs evident +3 pulses to extremities GI fairly benign soft nontender positive bowel sounds no pedal splenomegaly no masses no bruits Neurologic no focal neurologic changes cranial nerves 2-12 grossly intact Objective Labs Result Diagrams: 05/29/18 05:22 05/29/18 05:22 Assessment & Plan Plan: Assessment/Plan Narrative: Sepsis due to UTI - Leukocytosis trended downward - Lactic acid normalized - vital signs stable on May 29 - Urine cx was positive for ESBL organism - Ertapenem IV antibiotic to treat ESBl UTI - ECHO showed EF of 50-55% 2. Troponin Elevation - Unlikely acute ischemic vessel disease, likely due to Demand ischemia secondary to sepsis and/or rapid AFib - troponin trended downward on serial blood tests - will continue to closely monitor patient 3. Afib - No longer in RVR - Resumed warfarin - Restarted Tikosyn and Metoprolol 4. Supratherapeutic INR - Resolved, INR in target range - Resumed Warfarin at usual home dose 5. Diastolic CHF - Exacerbation suspected, as exam is equivocal - Fluid balance positive and mild/moderate noted edema on physical exam - CXR showed vascular congestion and cardiomegally but no pulmonary edema/ effusions - BNP 1999+ - ECHO showed EF 50-55%, No evidence of significant fluid overload. - Resume all home CHF medications 6. Acute on chronic kidney disease - serum creatinine improving - Continue to monitor for improvement. 7. Sacral Ulcer - Wound care following who recommend frequent repositioning and dressing changes 8. Aortic stenosis - consider OP cardiology consult after discharge 9. DM - Continue sliding scale and long acting insulin Time Spent With Patient Time with patient: 25 - 35 minutes (25 min) Quality VTE Deep Vein Thrombosis/Pulmonary Embolism Present on Admission: No
[2018-05-30] MEDS: SENNOSIDES 8.6 MG TABLET 17.2 MG PO (20:26)
[2018-05-31] VITALS (7 sets, daily range): BP systolic 112–137; BP diastolic 54–89; PULSE 58–73; RESP 17–19; TEMP 36.1–36.7; O2SAT 94–97
[2018-05-31] MEDS: FUROSEMIDE 40 MG TABLET PO (09:50)
[2018-05-31] MEDS: INSULIN DETEMIR 100 UNIT/ML INSULN.PEN 45 UNIT SUBCUT ×2 (09:50→20:43)
[2018-05-31] MEDS: FLUoxetine 10 MG CAPSULE PO (09:50)
[2018-05-31] MEDS: ERTAPENEM 1 GM in SODIUM CHLORIDE 0.9% 100 ML 200 ML IV (09:50)
[2018-05-31] MEDS: LISINOPRIL 5 MG TABLET PO (09:51)
[2018-05-31] MEDS: METOPROLOL 25 MG TABLET PO ×2 (09:52→20:26)
[2018-05-31] MEDS: DOFETILIDE 1 EACH PO ×2 (09:52→20:26)
[2018-05-31] MEDS: PANTOPRAZOLE 40 MG VIAL IV (09:53)
[2018-05-31] MEDS: SODIUM CHLORIDE 0.9% FLUSH 10 ML IV ×2 (09:54→20:28)
--- NOTE | 2018-05-31 11:09 | PT.IPTN ---
Current Diagnoses Pressure ulcer of contiguous site of back, buttock and hip, stage 3 (05/25/18) Physical Therapy Treatment Note M2 PT-IP Current Condition Start: 05/29/18 12:05 Freq: Status: Active Protocol: Document 05/29/18 12:05 RCC (Rec: 05/29/18 12:27 RCC [id number]) Physical Therapy Current Condition Current Condition Evaluation Date 05/29/18 Treatment Diagnosis sepsis, impaired mobility Onset Date 05/25/18 Precautions Other Precautions yoon catheter, sacral wounds; contact precautions M3 PT-IP Subjective Start: 05/29/18 12:05 Freq: Status: Active Protocol: Document 05/31/18 08:45 CLB (Rec: 05/31/18 11:09 CLB [id number]) Subjective Physical Therapy Visit Type Type Patient Refusal Notes Pt refused stated he wasn't ready to get to chair. Upon returning to room at 10:10 nursing had already put him in chair. Recommendations To Nursing Amount of Assist Needed 2 Person Assist Mechanical Lift Discharge Recommendations PT Discharge Recommendations Home with 24/7 Assist Home Health SNF Rehab Other Discharge Recommendations Margarita with assist and home health vs. SNF rehab.
[2018-05-31] MEDS: INSULIN ASPART 100 UNIT/ML INSULN PEN SUBCUT ×2 (12:35→20:44)
--- NOTE | 2018-05-31 14:24 | PT.IPTN ---
Current Diagnoses Pressure ulcer of contiguous site of back, buttock and hip, stage 3 (05/25/18) Physical Therapy Treatment Note M2 PT-IP Current Condition Start: 05/29/18 12:05 Freq: Status: Active Protocol: Document 05/29/18 12:05 RCC (Rec: 05/29/18 12:27 RCC [id number]) Physical Therapy Current Condition Current Condition Evaluation Date 05/29/18 Treatment Diagnosis sepsis, impaired mobility Onset Date 05/25/18 Precautions Other Precautions yoon catheter, sacral wounds; contact precautions M3 PT-IP Subjective Start: 05/29/18 12:05 Freq: Status: Active Protocol: Document 05/31/18 13:27 CLB (Rec: 05/31/18 14:24 CLB [id number]) Subjective Physical Therapy Visit Type Type Treatment Note Visit Start Time 13:27 Visit Stop Time 13:50 Total Visit Minutes 23 Number of TECHNOLOGY METHODOLOGY CONSULTANT Visits 1 Physical Therapy Visit Comments Patient Comments Pt wanting to get back to bed. M4 PT-IP Mobility and Gait Start: 05/29/18 12:05 Freq: Status: Active Protocol: Document 05/31/18 13:27 CLB (Rec: 05/31/18 14:24 CLB [id number]) PT-Bed Mobility Assessment Rolling Type of Rolling Log Rolling Bilateral Level of Assist Moderate Assistance Maximal Assistance 2 Person Assistance PT-Transfer Assessment Equipment Transfer Assistive Device Mechanical Lift Transfers Transfer Destination Bed Transfer Ability Level of Assist Maximum Assistance Total Assistance 2 Person Assistance Comments Mobility Comments with utilization of bed tilt pt was able to reach for bed rail to roll to right and left Mod A to remove sling and MANAGER SAS performed pericare. Pt was unable to bridge and needed Max A to move pt to left side of bed before rolling him to right side to remove pressure off his buttocks. M5 PT-IP Objective Assessments Start: 05/29/18 12:05 Freq: Status: Active Protocol: Document 05/29/18 12:05 RCC (Rec: 05/29/18 12:27 RCC [id number]) Orientation Orientation/Cognition Level of Alertness Lethargic Strength Comments Strength Comments able to PF/DF B feet to assist with donning socks, unable to lift LE vs gravity Muscle Tone Comments Muscle Tone Comments contractures B heel cord, knee and hip flexion contractures M6 PT-IP Treatment Start: 05/29/18 12:05 Freq: Status: Active Protocol: Document 05/31/18 13:27 CLB (Rec: 05/31/18 14:24 CLB [id number]) Physical Therapy Treatment Exercises Exercises Quad Sets Heel Slides Straight Leg Raises M7 PT-IP Assessment and Plan Start: 05/29/18 12:05 Freq: Status: Active Protocol: Document 05/31/18 13:27 CLB (Rec: 05/31/18 14:24 CLB [id number]) PT Summary Assessment and Plan Summary Impairments Strength Cognition Bed Mobility Transfers Activity Tolerance Assessment Summary Pt refuses to attempt to sit on EOB but was able to log roll left and right with bed lilt feature. Pt able to reach with arms for rail and bend leg, rolling to right was easier for pt than left. Pt able to perform bed ther ex. Goals Bed Mobility Goal Moderate Assistance Other Goals sitting on EOB Min A x1 Power Stander transfer bed<-> chair<->commode Days to Meet Goals 4 Frequency of Treatment Frequency Of Treatment Once a Day Treatment Plan Physical Therapy Treatment Plan Bed Mobility Training Transfer Training Other Recommendations and Next Treatment assess if bed mobility is Focus improving, possible trial sitting on EOB and if able to use Power Stander vs. overhead lift. Recommendations To Nursing Amount of Assist Needed 2 Person Assist Mechanical Lift Discharge Recommendations PT Discharge Recommendations Home with 22/03 Assist Home Health SNF Rehab Other Discharge Recommendations Margarita with assist and home health vs. SNF rehab.
--- NOTE | 2018-05-31 14:25 | PM.DS.1 ---
History of Present Illness Date Patient Seen: 05/31/18 Time Patient Seen: 11:32 Chief complaint: BROUGHT FROM WOUND CARE Narrative: Patient admitted to the hospital with rapid AFib and urinary tract infection. IV diltiazem initially provided for the rapid AFib. Antibiotic regimen adjusted once the culture came back positive for ESBL positive E coli. Discharge Providers Date of admission: 05/25/18 18:38 Primary care physician: Lorenzo Mcleod MD Consults: 05/25/18 20:09 Consult to Discharge Planning Routine Comment: Consult to Physician Routine Comment: Consult to cardiology, [facility] Consulting Provider: Tyler Ordonez Reason for consultation: AFIB RVR Has provider been notified: No 05/25/18 20:28 Consult to Pharmacy Routine Comment: dose warfarin 05/25/18 20:49 Consult to Wound Care Routine Comment: Consulting Provider: [facility] 05/28/18 16:26 Consult to Physical Therapy Evaluate & Treat Comment: Physician Instructions: Evaluate and Treat 05/31/18 11:43 Consult to PICC Line RN NOW Comment: Assess for midline or PICC placement for IV ABX Discharge provider: Will Kiser MD Summary Discharge Diagnosis: Sepsis due to UTI - Leukocytosis trended downward, Lactic acid normalized - Urine cx was positive for ESBL organism - Ertapenem IV antibiotic to treat ESBl UTI for total of 10 days. patient received 5 days of Abx therapy at [facility]. - ECHO showed EF of 50-55% 2. Troponin Elevation secondary to type II Myocardial Infarction - Unlikely acute ischemic vessel disease, likely due to Demand ischemia secondary to sepsis and/or rapid AFib - troponin trended downward on serial blood tests 3. Afib stable on discharge. - No longer in RVR - continue warfarin - continue Tikosyn and Metoprolol 4. Supratherapeutic INR - Resolved, INR in target range - Resumed Warfarin at usual home dose 5. Diastolic CHF - Exacerbation suspected, as exam is equivocal - Fluid balance positive and mild/moderate noted edema on physical exam - CXR showed vascular congestion and cardiomegally but no pulmonary edema/effusions - BNP 2000+ - ECHO showed EF 50-55%, No evidence of significant fluid overload. - Resumed all home CHF medications and to continue on discharge 6. Acute on chronic kidney disease - serum creatinine improving - Continue to monitor for improvement. 7. Sacral Ulcer - Wound care consult recommend frequent repositioning and dressing changes 8. Aortic stenosis stable on discharge. 9. DM - Continue home insulin therapy Hospital Course: Patient is a 77 years of age male who was admitted to the hospital with rapid AFib. Patient also noted to have urinary tract infection. Culture grew ESBL positive E coli. Patient was started on ertapenem antibiotic at 1 g daily. Patient will require a 10 day course total. Patient will complete the 10 day course with an additional 5 days in retirement facility setting Patient's cognitive function at baseline with history of dementia Status at Discharge Cognitive/behavioral status at discharge: Pleasantly confused. Oriented to self only. cooperative follows commands pleasant mood Functional status at discharge: uses cane/walker Time Spent with Patient Greater than 30 minutes (35 min) Exam Vital Signs (past 8 hours): - 05/31/18 07:50 05/31/18 09:51 05/31/18 11:50 Temperature 97.7 F 97.9 F Pulse Rate 67 67 61 Respiratory Rate 18 17 Blood Pressure 135/89 135/89 125/54 L Pulse Oximetry 96 97 Oxygen Delivery Method Room Air Oxygen Flow Rate 0 Narrative Exam Narrative: General appearance patient is not awake and alert no apparent distress at rest Psychiatric oriented to self only. Mood is pleasant. . Respiratory fairly clear to auscultation with no wheezing or crackles fairly good airflow Cardiovascular regular in rate and rhythm no murmurs evident +3 pulses to extremities GI fairly benign soft nontender positive bowel sounds no pedal splenomegaly no masses no bruits Neurologic no focal neurologic changes cranial nerves 2-12 grossly intact Objective Labs Result Diagrams: 05/29/18 05:22 05/29/18 05:22 Discharge Plan Discharge Plan Patient Disposition: SNF Transfer to: [facility] ([place]) Transportation: [facility] Discharge comment: Patient continue on ertapenem 1 g IV daily for an additional 5 days after discharge today. Patient thus completes a course of antibiotic to treat ESBL positive urinary tract infection I certify the postop hospital retirement care is medically necessary on a continuing basis for any conditions for which he/ she received care during this hospitalization.: Yes The receiving facility has agreed to accept transfer and provide medical treatment.: Yes Discharge Med Rec/Prescriptions Prescriptions: New ertapenem [Invanz] 1 gram Recon Soln 1 gm IV Q24H Qty: 5 RF: 0 Continue dofetilide [Tikosyn] 500 MCG capsule 1 cap PO BID Qty: 0 RF: 0 polyethylene glycol 3350 [Miralax] 119 GM powder 17 gm PO DAILY Qty: 0 RF: 0 acetaminophen 325 MG tablet 650 mg PO Q6HP PRN (Reason: fever / pain) Qty: 0 RF: 0 warfarin [Coumadin] 1 MG tablet 1 mg PO MOWEFR Qty: 0 RF: 0 insulin lispro [Humalog KwikPen Insulin] 100 UNIT/1 ML insulin pen 12 units SQ AC Qty: 0 RF: 0 cyclobenzaprine 10 MG tablet 10 mg PO BIDP PRN (Reason: Spasms) Qty: 0 RF: 0 clotrimazole-betamethasone 1-0.05 % cream 1 applic Topical BID PRN (Reason: unknown) RF: 0 insulin detemir U-100 [Levemir FlexTouch U-100 Insuln] 100 unit/mL (3 mL) Insulin Pen 45 unit SUB-Q BID RF: 0 metoprolol tartrate 25 mg Tablet 25 mg PO BID Qty: 60 RF: 0 lidocaine HCl 2 % jelly 1 applic Topical PRN PRN (Reason: request) RF: 0 hydrocortisone [Preparation H Hydrocortisone] 1 % Cream 1 applic NC PRN MDD 4 x PRN (Reason: discomfort) RF: 0 fluoxetine 10 mg capsule 10 mg PO DAILY RF: 0 warfarin 1 mg tablet 2 mg PO SUTUTHSA RF: 0 morphine 15 mg tablet 15 - 30 mg PO Q6H PRN (Reason: Pain, Severe) RF: 0 loratadine 10 mg Tablet 10 mg PO DAILY RF: 0 insulin lispro 100 unit/mL insulin pen 1 dose subcut DIRECTED RF: 0 zinc oxide [Boudreauxs Butt Paste] 16 % Ointment 1 applic TOPICAL TID RF: 0 zinc oxide [Boudreauxs Butt Paste] 16 % Ointment 1 applic Topical PRN PRN (Reason: unknown) RF: 0 atorvastatin 40 mg tablet 40 mg PO QPM RF: 0 trazodone 50 mg Tablet 50 mg PO BEDTIME PRN (Reason: Sleep) RF: 0 morphine 30 MG tablet extended release 30 mg PO BEDTIME RF: 0 lisinopril 5 mg tablet 5 mg PO DAILY RF: 0 sennosides [senna] 8.6 mg Tablet 2 tab PO BID RF: 0 docusate sodium 250 mg Capsule 250 mg PO DAILY PRN (Reason: Constipation) RF: 0 furosemide [Lasix] 40 mg tablet 40 mg PO DAILY Qty: 30 RF: 0 Provider Discharge Instructions Diet: Diet as Tolerated and Carb-consistent/Diabetic Liquid consistency: Normal/Thin Food texture: Regular [facility] Rehab type: Physical therapy and Occupational therapy Discharge Data Primary Care Provider: Lorenzo Mcleod Attending Provider: Kathy Orona Admit Date/Time: 05/25/18 18:38 Quality VTE Deep Vein Thrombosis/Pulmonary Embolism Present on Admission: No
--- NOTE | 2018-05-31 15:06 | CM.DPNOTE ---
Addendum entered by Delmy Wright LPN 05/31/18 15:25: Need also a script for the morphine that is ordered as part of the continued medications. (med. # 18). CHAPARRITA Posada is alerted to same. Original Note: Addendum entered by Delmy Wright LPN 05/31/18 15:20: Still needed: Medication list with physician signature. Have only a script for the IV antibiotic (5 doses). Original Note: DCP: continued: Called Mahendra early this morning to discuss IV antibiotic and she noted that she had discussed with her team and they could accept pt on the Ertapenem. Case discussed in Team Rounds and Dr. Kiser noted that pt would likely be ready for d/c today to [facility]. Ecnouraged his to do this by noon if possible to insure that [facility] could accept. He agreed to same. Alerted Mahendra to likely d/c today and agreed to set BLS up once order was in place. At 1430 Dr. Kiser was able to see pt and completed the d/c to snf orders. Checked in with CHAPARRITA Posada who noted that pt still did not have a PICC in place and this was scheduled to be placed about 1500 today. Called [facility] who noted that this was beyond the time they could accept a pt. Plan set for [facility] tomorrow, BLS after the morning dosing of IV (? 1000). Dr. Kiser is updated. Pt is updated. PASRR: will be completed and faxed to [facility] today in prep for the d/c tomorrow. RN coordinator is aware. Unclear if the biomedical engineering technologist at [facility] has been called.
--- NOTE | 2018-05-31 16:01 | DI.RAD.S_ITS ---
PROCEDURE: XR CHEST FOR PICC 1V INDICATIONS: PICC placement TECHNIQUE: One view of the chest was acquired. COMPARISON: [facility], , XR CHEST 1V, 05/26/2018, 5:12. FINDINGS: Surgical changes and devices: Cardiac pacer is unchanged. There is a new right PICC, the tip of which is projected over the cavoatrial junction. Lungs and pleura: Lung volumes are low. The left hemidiaphragm is obscured which may be secondary to consolidated left lung. Mediastinum: Mediastinal contours appear normal. Heart size is normal. Bones and chest wall: No suspicious bony lesions. Overlying soft tissues appear unremarkable. IMPRESSION: 1. New right PICC as above. 2. Questionable left basilar consolidation or atelectasis in the setting of low lung volumes. Dictated by: Francia Fine M.D. on 05/31/2018 at 16:33 Approved by: Francia Fine M.D. on 05/31/2018 at 16:34
--- NOTE | 2018-05-31 16:07 | PC.NURSE ---
1600- Pt is currently having a PICC line placed, 2 students in room observing, with pt's consent. Pt's wheelchair has been located, and in room. Called wound care to deliver wheelchair to [facility]/raj r/t pt being DC'd later today. Pt reports no needs at this time. X-ray up to room for PICC placement. Call light in reach.
[2018-05-31] MEDS: WARFARIN 2 MG TABLET PO (17:24)
[2018-05-31] MEDS: ATORVASTATIN 20 MG TABLET 40 MG PO (17:24)
[2018-06-01 00:25] VITALS: BP 141/67; PULSE 51; RESP 20; TEMP 36.5; O2SAT 98
[2018-06-01 03:54] VITALS: BP 132/59; PULSE 62; RESP 18; TEMP 36.6; O2SAT 96
[2018-06-01 08:00] VITALS: BP 127/67; PULSE 63; RESP 18; TEMP 36.4; O2SAT 98
[2018-06-01] MEDS: ERTAPENEM 1 GM in SODIUM CHLORIDE 0.9% 100 ML 200 ML IV (09:05)
[2018-06-01] MEDS: FLUoxetine 10 MG CAPSULE PO (09:06)
[2018-06-01 09:07] VITALS: BP 127/67; PULSE 63
[2018-06-01] MEDS: METOPROLOL 25 MG TABLET PO (09:07)
[2018-06-01] MEDS: INSULIN DETEMIR 100 UNIT/ML INSULN.PEN 45 UNIT SUBCUT (09:07)
[2018-06-01] MEDS: LISINOPRIL 5 MG TABLET PO (09:07)
[2018-06-01] MEDS: FUROSEMIDE 40 MG TABLET PO (09:07)
[2018-06-01] MEDS: PANTOPRAZOLE 40 MG VIAL IV (09:11)
[2018-06-01] MEDS: SODIUM CHLORIDE 0.9% FLUSH 10 ML IV (09:12)
[2018-06-01] MEDS: DOFETILIDE 1 EACH PO (10:05)
--- NOTE | 2018-06-01 10:41 | CM.DPC ---
Addendum entered by Delmy Wright LPN 06/01/18 10:52: Morphine scripts are in place now and faxed to [facility]; placed now in snf packet. Original Note: Addendum entered by Delmy Wright LPN 06/01/18 10:52: Original Note: DCP: continued: Followed up with Dr. Rodriguez, on now as hospitalist today. She has now reviewed case, Medication List is signed by her. She confirms she will call Dr. Jacobo with doc/doc report and that she will do script for the morphine. All available orders and d/c summary are now faxed. BLS is set for [facility] 1300. IV dose in being given this morning. Pt is updated. Asks that staff call [facility] and have them bean picker his electric w/c which wound care center brought over to . Goes to [facility] rm 101/[place] unit. is now left for Shirin re the w/c and [facility] will continue to follow on this until it is removed from the hospital. CHAPARRITA Posada is updated and will call report. She agrees to look for the morphine script once Dr. Rodriguez has completed this and alert this CM to same. P: [facility] ambulance: [facility]: 1300.
--- NOTE | 2018-06-01 11:29 | PC.NURSE ---
Pt's power wheelchair was picked up from hospital room by Brandon and taken back to his Apt room at [facility].
[2018-06-01 12:00] VITALS: BP 122/75; PULSE 60; RESP 18; TEMP 36.7; O2SAT 97
--- NOTE | 2018-06-01 12:16 | PC.NURSE ---
Pt ready for discharge to [facility]. Gave full report to Mahendra at [facility] with no additional questions/concerns.
[2018-06-01] MEDS: INSULIN ASPART 100 UNIT/ML INSULN PEN SUBCUT (12:21)
--- NOTE | 2018-06-01 12:28 | PC.NURSE ---
Susie returned from pharmacy and given to pt. Encouraged pt to give to [facility] to give to him.
--- NOTE | 2018-06-01 13:14 | PC.NURSE ---
Pt transfered onto ambulance [facility] and had all personal belongings with him leaving the hospital.
--- NOTE | 2018-06-08 16:15 | P.DS_ITS ---
History of Present Illness Chief complaint: BROUGHT FROM WOUND CARE Narrative: Date Patient Seen: 05/31/18 Time Patient Seen: 11:32 Chief complaint: BROUGHT FROM WOUND CARE Narrative: Patient admitted to the hospital with rapid AFib and urinary tract infection. IV diltiazem initially provided for the rapid AFib. Antibiotic regimen adjusted once the culture came back positive for ESBL positive E coli. Discharge Providers Date of admission: 05/25/18 18:38 Primary care physician: Lorenzo Mcleod MD Consults: 05/25/18 20:09 Consult to Discharge Planning Routine Comment: Consult to Physician Routine Comment: Consult to cardiology, [facility] Card Consulting Provider: yTler Ordonez Reason for consultation: AFIB RVR Has provider been notified: No 05/25/18 20:28 Consult to Pharmacy Routine Comment: dose warfarin 05/25/18 20:49 Consult to Wound Care Routine Comment: Consulting Provider: [facility] 05/28/18 16:26 Consult to Physical Therapy Evaluate & Treat Comment: Physician Instructions: Evaluate and Treat 05/31/18 11:43 Consult to PICC Line RN NOW Comment: Assess for midline or PICC placement for IV ABX Discharge provider: Will Kiser MD Summary Discharge Diagnosis: Sepsis due to UTI - Leukocytosis trended downward, Lactic acid normalized - Urine cx was positive for ESBL organism - Ertapenem IV antibiotic to treat ESBl UTI for total of 10 days. patient received 5 days of Abx therapy at [facility]. - ECHO showed EF of 50-55% 2. Troponin Elevation secondary to type II Myocardial Infarction - Unlikely acute ischemic vessel disease, likely due to Demand ischemia secondary to sepsis and/or rapid AFib - troponin trended downward on serial blood tests 3. Afib stable on discharge. - No longer in RVR - continue warfarin - continue Tikosyn and Metoprolol 4. Supratherapeutic INR - Resolved, INR in target range - Resumed Warfarin at usual home dose 5. Diastolic CHF - Exacerbation suspected, as exam is equivocal - Fluid balance positive and mild/moderate noted edema on physical exam - CXR showed vascular congestion and cardiomegally but no pulmonary edema/ effusions - BNP 2000+ - ECHO showed EF 50-55%, No evidence of significant fluid overload. - Resumed all home CHF medications and to continue on discharge 6. Acute on chronic kidney disease - serum creatinine improving - Continue to monitor for improvement. 7. Sacral Ulcer - Wound care consult recommend frequent repositioning and dressing changes 8. Aortic stenosis stable on discharge. 9. DM - Continue home insulin therapy Hospital Course: Patient is a 77 years of age male who was admitted to the hospital with rapid AFib. Patient also noted to have urinary tract infection. Culture grew ESBL positive E coli. Patient was started on ertapenem antibiotic at 1 g daily. Patient will require a 10 day course total. Patient will complete the 10 day course with an additional 5 days in detention facility setting Patient's cognitive function at baseline with history of dementia Status at Discharge Cognitive/behavioral status at discharge: Pleasantly confused. Oriented to self only. cooperative follows commands pleasant mood Functional status at discharge: uses cane/walker Time Spent with Patient Greater than 30 minutes (35 min) Exam Vital Signs (past 8 hours): - 05/31/18 07:50 05/31/18 09:51 05/31/18 11:50 Temperature 97.7 F 97.9 F Pulse Rate 67 67 61 Respiratory Rate 18 17 Blood Pressure 135/89 135/89 125/54 L Pulse Oximetry 96 97 Oxygen Delivery Method Room Air Oxygen Flow Rate 0 Narrative Exam Narrative: General appearance patient is not awake and alert no apparent distress at rest Psychiatric oriented to self only. Mood is pleasant. . Respiratory fairly clear to auscultation with no wheezing or crackles fairly good airflow Cardiovascular regular in rate and rhythm no murmurs evident +3 pulses to extremities GI fairly benign soft nontender positive bowel sounds no pedal splenomegaly no masses no bruits Neurologic no focal neurologic changes cranial nerves 2-12 grossly intact Objective Labs Result Diagrams: 05/29/18 05:22 document embedded image 05/29/18 05:22 document embedded image Discharge Plan Discharge Plan Patient Disposition: SNF Transfer to: [facility] Transportation: Cabulance Discharge comment: Patient continue on ertapenem 1 g IV daily for an additional 5 days after discharge today. Patient thus completes a course of antibiotic to treat ESBL positive urinary tract infection I certify the postop hospital detention care is medically necessary on a continuing basis for any conditions for which he/ she received care during this hospitalization.: Yes The receiving facility has agreed to accept transfer and provide medical treatment.: Yes Discharge Med Rec/Prescriptions Prescriptions: New ertapenem [Invanz] 1 gram Recon Soln 1 gm IV Q24H Qty: 5 RF: 0 Continue dofetilide [Tikosyn] 500 MCG capsule 1 cap PO BID Qty: 0 RF: 0 polyethylene glycol 3350 [Miralax] 119 GM powder 17 gm PO DAILY Qty: 0 RF: 0 acetaminophen 325 MG tablet 650 mg PO Q6HP PRN (Reason: fever / pain) Qty: 0 RF: 0 warfarin [Coumadin] 1 MG tablet 1 mg PO MOWEFR Qty: 0 RF: 0 insulin lispro [Humalog KwikPen Insulin] 100 UNIT/1 ML insulin pen 12 units SQ AC Qty: 0 RF: 0 cyclobenzaprine 10 MG tablet 10 mg PO BIDP PRN (Reason: Spasms) Qty: 0 RF: 0 clotrimazole-betamethasone 1-0.05 % cream 1 applic Topical BID PRN (Reason: unknown) RF: 0 insulin detemir U-100 [Levemir FlexTouch U-100 Insuln] 100 unit/mL (3 mL) Insulin Pen 45 unit SUB-Q BID RF: 0 metoprolol tartrate 25 mg Tablet 25 mg PO BID Qty: 60 RF: 0 lidocaine HCl 2 % jelly 1 applic Topical PRN PRN (Reason: request) RF: 0 hydrocortisone [Preparation H Hydrocortisone] 1 % Cream 1 applic DE PRN MDD 4 x PRN (Reason: discomfort) RF: 0 fluoxetine 10 mg capsule 10 mg PO DAILY RF: 0 warfarin 1 mg tablet 2 mg PO SUTUTHSA RF: 0 morphine 15 mg tablet 15 - 30 mg PO Q6H PRN (Reason: Pain, Severe) RF: 0 loratadine 10 mg Tablet 10 mg PO DAILY RF: 0 insulin lispro 100 unit/mL insulin pen 1 dose subcut DIRECTED RF: 0 zinc oxide [Boudreauxs Butt Paste] 16 % Ointment 1 applic TOPICAL TID RF: 0 zinc oxide [Boudreauxs Butt Paste] 16 % Ointment 1 applic Topical PRN PRN (Reason: unknown) RF: 0 atorvastatin 40 mg tablet 40 mg PO QPM RF: 0 trazodone 50 mg Tablet 50 mg PO BEDTIME PRN (Reason: Sleep) RF: 0 morphine 30 MG tablet extended release 30 mg PO BEDTIME RF: 0 lisinopril 5 mg tablet 5 mg PO DAILY RF: 0 sennosides [senna] 8.6 mg Tablet 2 tab PO BID RF: 0 docusate sodium 250 mg Capsule 250 mg PO DAILY PRN (Reason: Constipation) RF: 0 furosemide [Lasix] 40 mg tablet 40 mg PO DAILY Qty: 30 RF: 0 Provider Discharge Instructions Diet: Diet as Tolerated and Carb-consistent/Diabetic Liquid consistency: Normal/Thin Food texture: Regular [facility] Rehab type: Physical therapy and Occupational therapy Discharge Data Primary Care Provider: Lorenzo Mcleod Attending Provider: Kathy Orona Admit Date/Time: 05/25/18 18:38 Quality VTE Deep Vein Thrombosis/Pulmonary Embolism Present on Discharge Providers Date of admission: 05/25/18 18:38 Primary care physician: Lorenzo Mcleod MD Consults: 05/25/18 20:09 Consult to Discharge Planning Routine Comment: Consult to Physician Routine Comment: Consult to cardiology, [facility] Card Consulting Provider: Tyler Ordonez Reason for consultation: AFIB RVR Has provider been notified: No 05/25/18 20:28 Consult to Pharmacy Routine Comment: dose warfarin 05/25/18 20:49 Consult to Wound Care Routine Comment: Consulting Provider: [facility] 05/28/18 16:26 Consult to Physical Therapy Evaluate & Treat Comment: Physician Instructions: Evaluate and Treat 05/31/18 11:43 Consult to PICC Line RN NOW Comment: Assess for midline or PICC placement for IV ABX Discharge provider: Yina Rodriguez MD Exam Vital Signs (past 8 hours): - 06/01/18 03:54 06/01/18 08:00 06/01/18 09:07 Temperature 97.9 F 97.6 F Pulse Rate 62 63 63 Respiratory Rate 18 18 Blood Pressure 132/59 L 127/67 127/67 Pulse Oximetry 96 98 Oxygen Delivery Method Room Air Oxygen Flow Rate 0 Objective Labs Result Diagrams: 05/29/18 05:22 05/29/18 05:22 Discharge Plan Discharge Plan Patient Disposition: SNF Transfer to: [facility] Transportation: Cabulance Discharge comment: Patient continue on ertapenem 1 g IV daily for an additional 5 days after discharge today. Patient thus completes a course of antibiotic to treat ESBL positive urinary tract infection I certify the postop hospital detention care is medically necessary on a continuing basis for any conditions for which he/ she received care during this hospitalization.: Yes The receiving facility has agreed to accept transfer and provide medical treatment.: Yes Discharge Med Rec/Prescriptions Prescriptions: New ertapenem [Invanz] 1 gram Recon Soln 1 gm IV Q24H Qty: 5 RF: 0 morphine 30 mg tablet extended release 12hr 30 mg PO Q6HR PRN (Reason: pain) Qty: 60 RF: 0 morphine 30 mg tablet extended release 30 mg PO QPM Qty: 30 RF: 0 morphine 15 mg tablet extended release 15 mg PO Q6HR PRN (Reason: pain) Qty: 60 RF: 0 Continue dofetilide [Tikosyn] 500 MCG capsule 1 cap PO BID Qty: 0 RF: 0 polyethylene glycol 3350 [Miralax] 119 GM powder 17 gm PO DAILY Qty: 0 RF: 0 acetaminophen 325 MG tablet 650 mg PO Q6HP PRN (Reason: fever / pain) Qty: 0 RF: 0 warfarin [Coumadin] 1 MG tablet 1 mg PO MOWEFR Qty: 0 RF: 0 insulin lispro [Humalog KwikPen Insulin] 100 UNIT/1 ML insulin pen 12 units SQ AC Qty: 0 RF: 0 cyclobenzaprine 10 MG tablet 10 mg PO BIDP PRN (Reason: Spasms) Qty: 0 RF: 0 clotrimazole-betamethasone 1-0.05 % cream 1 applic Topical BID PRN (Reason: unknown) RF: 0 insulin detemir U-100 [Levemir FlexTouch U-100 Insuln] 100 unit/mL (3 mL) Insulin Pen 45 unit SUB-Q BID RF: 0 metoprolol tartrate 25 mg Tablet 25 mg PO BID Qty: 60 RF: 0 lidocaine HCl 2 % jelly 1 applic Topical PRN PRN (Reason: request) RF: 0 hydrocortisone [Preparation H Hydrocortisone] 1 % Cream 1 applic DE PRN MDD 4 x PRN (Reason: discomfort) RF: 0 fluoxetine 10 mg capsule 10 mg PO DAILY RF: 0 warfarin 1 mg tablet 2 mg PO SUTUTHSA RF: 0 morphine 15 mg tablet 15 - 30 mg PO Q6H PRN (Reason: Pain, Severe) RF: 0 loratadine 10 mg Tablet 10 mg PO DAILY RF: 0 insulin lispro 100 unit/mL insulin pen 1 dose subcut DIRECTED RF: 0 zinc oxide [Boudreauxs Butt Paste] 16 % Ointment 1 applic TOPICAL TID RF: 0 zinc oxide [Boudreauxs Butt Paste] 16 % Ointment 1 applic Topical PRN PRN (Reason: unknown) RF: 0 atorvastatin 40 mg tablet 40 mg PO QPM RF: 0 trazodone 50 mg Tablet 50 mg PO BEDTIME PRN (Reason: Sleep) RF: 0 morphine 30 MG tablet extended release 30 mg PO BEDTIME RF: 0 lisinopril 5 mg tablet 5 mg PO DAILY RF: 0 sennosides [senna] 8.6 mg Tablet 2 tab PO BID RF: 0 docusate sodium 250 mg Capsule 250 mg PO DAILY PRN (Reason: Constipation) RF: 0 furosemide [Lasix] 40 mg tablet 40 mg PO DAILY Qty: 30 RF: 0 Follow up/Referrals: Lorenzo Mcleod MD [Primary Care Provider] - Provider Discharge Instructions Diet: Diet as Tolerated and Carb-consistent/Diabetic Liquid consistency: Normal/Thin Food texture: Regular Catheter: 2-way Yoon Catheter comment: Keep yoon in place until deemed appropriate to remove [facility] Rehab type: Physical therapy and Occupational therapy Discharge Data Primary Care Provider: Lorenzo Mcleod Attending Provider: Kathy Orona Admit Date/Time: 05/25/18 18:38 Discharges patient from system. Discharge Date/Time: 06/01/18 13:18 Quality VTE Deep Vein Thrombosis/Pulmonary Embolism Present on Admission: No
== END 2018-06-01 13:18 | DRG 871 ==
LOC: ED 18:29 → AC 18:38 → ICU 05-26 09:53 → AC 05-31 14:23 → ICU 04-03 15:47 → AC 04-03 15:47
PROVIDERS: Emergency Medicine; Nurse Practitioner Gerontology; Admitting Provider Internal Medicine; Emergency Provider Nurse Practitioner Family; PCP Internal Medicine; Visit Provider Internal Medicine
DX: A41.51 Sepsis due to Escherichia coli [E. coli] (principal); L89.323 Pressure ulcer of left buttock, stage 3; L89.313 Pressure ulcer of right buttock, stage 3; I50.33 Acute on chronic diastolic (congestive) heart failure; I21.A1 Myocardial infarction type 2; N39.0 Urinary tract infection, site not specified; N17.9 Acute kidney failure, unspecified; R65.20 Severe sepsis without septic shock; I35.0 Nonrheumatic aortic (valve) stenosis; I48.2 Chronic atrial fibrillation; Z79.01 Long term (current) use of anticoagulants; E11.65 Type 2 diabetes mellitus with hyperglycemia; Z99.3 Dependence on wheelchair; Z79.4 Long term (current) use of insulin; E11.22 Type 2 diabetes mellitus with diabetic chronic kidney disease; Z16.12 Extended spectrum beta lactamase (ESBL) resistance; G47.33 Obstructive sleep apnea (adult) (pediatric); E66.9 Obesity, unspecified; Z68.37 Body mass index [BMI] 37.0-37.9, adult; Z86.711 Personal history of pulmonary embolism; G89.29 Other chronic pain; N18.3 Chronic kidney disease, stage 3 (moderate)
CPT/HCPCS: 36415; 36569; 36591; 71045; 80048; 80053; 81001; 82550; 82962; 83605; 83690; 83735; 83880; 84145; 84484; 85025; 85610; 85730; 87040; 87077; 87086; 87150; 87186; 87205; 87797; 93005; 93307; 94760; 94762; 96361; 96365; 96366; 96367; 96375; 97110; 97163; 97530; 99213; 99282; 99283; 99285; 99291; 99292; C9113; J1335; J2270; J2543; Q9957

== ENCOUNTER → 2018-06-13 14:41 | Outpatient (CLI) | payer MEDICARE, SELFPAY ==
[2018-05-25 21:45] VITALS: BMI 37.0
== END ==
PROVIDERS: PCP Internal Medicine; Visit Provider Family Medicine
DX: L89.322 Pressure ulcer of left buttock, stage 2 (principal); R60.0 Localized edema; R53.1 Weakness
CPT/HCPCS: 99213